=== PATIENT | female | born 2000 | race Caucasian/White ===

== ENCOUNTER 2023-02-27 20:49 | Outpatient (REF) | payer OTHER, SELFPAY ==
[2023-03-06 10:10] LABS: Age Gdln ACOG Testing Note (.); IGP, rfx Aptima HPV ASCU Note (.)
== END 2023-02-27 20:50 | disposition home or self-care (01) ==
LOC: LAB 20:49
PROVIDERS: Visit Provider Obstetrics & Gynecology
DX: Z01.419 Encounter for gynecological examination (general) (routine) without abnormal findings (principal)
CPT/HCPCS: G0145

== ENCOUNTER 2023-11-06 13:21 | Outpatient (OUT) | payer OTHER, SELFPAY ==
--- NOTE | 2023-11-06 | US_ITS ---
[place] [id number] Patient Name: SAMANTHA MORENO MRN: [id number] date: 2000 Sex: F Assigned Patient Location: [place] Current Patient Location: [place] Accession/Order Number: [id number] Exam Date: 11/06/2023 13:23 Report Date: 11/06/2023 14:09 At the request of: KATHERINE CARRASCO Procedure: US OB transvaginal EXAMINATION: US OB transvaginal HISTORY: Missed menses COMPARISON: No relevant comparison available. FINDINGS: Saenz intrauterine gestation Gestational sac: 2.75 cm, 7 weeks 4 days CRL: 1.45 cm, 7 weeks 6 days Yolk sac: 1.4 mm Heart rate: 158 beats minute Cervix: Closed, 4.2 cm The uterus is normal, anteverted The ovaries are normal. Right corpus luteal cyst Clinical age: 8 weeks 4 days Clinical SAULO: 06/23/2024 Ultrasound age: 7 weeks 6 days Ultrasound SAULO: 06/18/2024 US/US OB transvaginal IMPRESSION: Saenz intrauterine gestation measuring 7 weeks 6 days Electronically authenticated by: GONZALO TORRES Date: 11/06/2023 14:09
== END 2023-11-06 13:22 | disposition home or self-care (01) ==
LOC: US 13:21
PROVIDERS: PCP Student in an Organized Health Care Education/Training Program; Visit Provider Obstetrics & Gynecology
DX: Z34.91 Encounter for supervision of normal pregnancy, unspecified, first trimester (principal); Z3A.01 Less than 8 weeks gestation of pregnancy; N92.6 Irregular menstruation, unspecified
CPT/HCPCS: 76817

== ENCOUNTER 2023-11-17 14:47 | Outpatient (OUT) | payer OTHER, SELFPAY ==
[2023-11-17 15:14] LABS: Basophils Absolute Auto 0.1 10^3/uL (0.0-0.1); Basophils Percent Auto 0.4 % (0.2-2.0); Eosinophils Absolute Auto 0.1 10^3/uL (0.0-0.7); Eosinophils Percent Auto 0.8 % (0.9-7.0); Hematocrit 39.3 % (36.0-48.0); Hemoglobin 13.3 g/dL (12.0-16.0); Immature Granulocytes Abs Auto 0.03 10^3/uL (0.00-0.03); Immature Granulocytes Pct Auto 0.2 % (0.0-0.5); Lymphocytes Absolute Auto 2.5 10^3/uL (1.2-3.8); Lymphocytes Percent Auto 19.1 % (20.5-60.0); Mean Corpuscular HGB Conc 33.8 g/dL (29.9-35.2); Mean Corpuscular Hemoglobin 30.7 pg (26.7-34.0); Mean Corpuscular Volume 90.8 fL (81.0-99.0); Mean Platelet Volume 9.6 fL (9.5-13.5); Monocytes Absolute Auto 0.7 10^3/uL (0.3-0.8); Monocytes Percent Auto 5.3 % (1.7-12.0); Neutrophils Absolute Auto 9.8 10^3/uL (1.4-6.5); Neutrophils Percent Auto 74.2 % (43.0-75.0); Platelet Count 319 10^3/uL (150-450); Red Blood Count 4.33 10^6/uL (4.20-5.40); Red Cell Distribution Width 13.1 % (11.0-15.0); White Blood Count 13.2 10^3/uL (4.0-11.0)
--- OUTSIDE RECORDS SUMMARY | 2023-11-17 15:14 | XMS_ITS | CCD ---
Author Organization [facility] Care Team Providers Care Home Administrator Name Role Phone DR KATHERINE CARRASCO Consulting Unavailable DR KATHERINE CARRASCO Attending Unavailable DR KATHERINE CARRASCO Admitting Unavailable LILLIAN COHEN Primary Care Physician LILLIAN COHEN Unavailable LILLIAN COHEN Admitting Unavailable LILLIAN COHEN Attending Unavailable Brook Levin Attending Unavailable LILLIAN COHEN Attending Unavailable KATHERINE CARRASCO Attending Unavailable Medications Current Medications Medication Drug Class(es) Dates Sig (Normalized) Sig (Original) cetirizine hydrochloride 10 mg oral tablet (1 source) Histamine-1 Receptor Antagonist Start: 05-16-2021 cetirizine 10 mg Tab Refills(s) 0 Start Date: 05/16/21 Status: Ordered {21 (Ethinyl Estradiol 0.035 MG / norgestimate 0.25 MG Oral Tablet) / 7 (Inert Ingredients 1 MG Oral Tablet) } Pack [[place]ah 28 Day] (1 source) Progestin, Estrogen Start: 04-13-2019 [place] 0.25 mg-35 mcg oral tablet Refill(s) 0 Start Date: 04/13/19 Status: Ordered Flonase 0.05 mg/inh nasal spray (1 source) Start: 02-24-2018 take 1 spray(s) nasal route once daily Flonase 0.05 mg/inh nasal spray 1 spray(s), Nasal, Daily, 16 gram, Refill(s) 0, each nostril Start Date: 02/24/18 Status: Ordered Problems Active Problems Problem Classification Problem Date Documented Date Episodic/Chronic Immunizations and screening for infectious disease (1 source) Encounter for screening for human papillomavirus (HPV); Translations: [ENC SCREENING HUMAN PAPILLOMAVIRUS] Onset: 02-04-2022 Episodic Other screening for suspected conditions (not mental disorders or infectious disease) (5 sources) Encounter for screening for malignant neoplasm of cervix; Translations: [No current problems or disability] Onset: 01-30-2022 Episodic Past or Other Problems Problem Classification Problem Date Documented Da te Episodic/Chronic Asthma (1 source) Asthma 12-21-2011 Results Test Name Value Interpretation Reference Range Facility Coding Summary.on 03-05-2022 Coding Summary. [id number] G h0bWw+PGhlYWQ+DV0GHXZ fW51hhAYglD9TO0jOHW6G IHBWOXCKQY3NZY0mjWA1V EdnC7SymgKi TvrrsRHqWT32EWw9TYV8o UwiPGvpaZ1njVZvJ5a2Fv GgFP45sY13CMjiOTDfPpI 3LjZpbjsgbWFy S7vnKhPzyRNyNyp+PHRhY mxlIHdpZHRoPScxMDAlJy AoiBgzSG0fDy0dSHTnLYK vbGxhcHNlOiBj q4mlJEJrFEjhJO1pmAsiU 4KbmUT4HJJdn8y3Jn70qB I+GARdYAI9pHnvWEjvb99 3ZyXbh4ocJDM9 jILdJVrcCFH4B26ti3O6R QFbBTQkRYS6aNV7vZ7zfI ckoisaW9MttTYhEgM2PPF 9gZVsgU6fpXni qwvefK7iXms+E14HNF4IP YDSBB0FMjy2P1NtMjunnE I+CS54KXZpRF29zWMxfVI qe7jfsEo3TxAd ZYDwMZG4lPvjZSghy2ZfC XWuH73rsNKxy4W8BRLlkV dzbIDfPuJttJC1pZ1zKXq ilyrae5nocnxs Clguh2awkm88sB68A45bK AdmRTMqZWM7LRYlSDPiwM stjp8jgB8jAn1+JXoqm7o je9lxyEm2KhYs NRBhrsQhdVqjKUF2g4ZhS t26G1JdoDkwr2UbKfm8vv 64bHVat4F0aCD3WCjnHRU uhG4rEZrpVuJ8 ZMFbTcHkaD21yWSyBZgjJ h7hrWlblBqeOD1bVUQyuo lgUHCnaV1qDLVwqDHxsXw zSR9dXBSbhagj i640EtZlFAU4NPQyfIXnT 5FirF8xPjXdXJAuOWKyY8 YsuGImAZavX097NPmyDoO 2FNGmmoZpO5Dz FKChoFwmAqR9m1K8Vr0Po 1QkafigBBB0TRgcILIiXf I4JqIrOlP4D9WtRpk3LLS lsLtgTU2vF3Bi NIBvnwyieyibjAU9ESHcU GGowO01rPQiQZwxGo1yn1 O1g939PRSoFYClqF88Ta0 udDogMTBwdCBU zQ1xbwzyb4ajgpxvNfUzC ZFzMUb8ZJx8SNAcrCjxSr YjGMU4MmM3MYI1iQHmnO7 beKsexqhmlP4g Oyc+V38hkT5iKTN1GXK2j baeTXZdvkQsJQ91YH78U8 RyPjwvdGFibGU+PGRpdiB koViyGR8rMfPx t6wlt2FoWIiyB4RyMRUhA VuyCkt0XYZiAHA2hRL2lD 9oHKSkYIbrv0E9qDL0Z5P xmzEqcz2mf5vw YOCfWJfwJ20heJAtp6Z5K QQeiYR4NDMtiGwwNtTllS 93Oyc+DEJnrYspz5KmPly bz6wau7oghSf4 DsGdJSYzefZwtBbqRXW6l 0JlJg08T13qNBmjJTUxDG XjJHXqCAFpdMklea8tjF5 wIi8+PGNvbCB3 xZB6iK4hKRXxArY0DLhbI 886QrThiYEbOkjrn9uke7 smgOt4LpBsQREhobKxaEy mRKI9a4HpIz73 Q83rUMqpFGTjVSVjWPGwQ SMpxBkddr7hfB6sLt4+PC 6xd2qllf64oK48xJA+PHR zXDT5zQnwOOiu OBRpnZ6oLEypCuE1QGZiV hPadX20nMRuJSgqKo0ioR xpbCkpQX0jEOIhfkbwa37 9YxYuw7fyODPt zZNzPCajCYD5G27yi4M2W AEqXKZmWEY2sYO2pZ8ceP lnbjogbGVmdDsgdmVydGl qDJjjNDikP060 IHRvcDsnPlBhdGllbnQgT tUvUMg9T1KuCuz4QAVpvK oaHK4ieXBuULjdOh8qgPf zlFqxVH5eFDKc pxllc477JyDzs7otWXZfd EOjZWmaZGG3K06jd7H3KF QlFNTjDMD3hFG8dM1zcCf nbjogbGVmdDsg mfOebBxtPTbgIWzeP295A HRvcDsnPkJpcnRoIERhdG O9MV42PS73yIGvt4W3rOI 8P7IsGOThcbdu utwdtIX0WAZfQOIdoJ01X f0oxTvjWd8qNWEbIHS3UX HhiTGoJ3XvyP4bTaFgKKI sLTTwT9CchDAf NFqmP618NTpvQoJ7LFZfk vFsD5AbNEBzxVmjYcA8t0 I3Dn4CP8I3MK80HG97oMG wy1V7lCJ0Z2Dm KJBqibllfwehrVM2UNJmC GQtaN87Nh3pjTmqPr7zUD ReTFH0VGEsrBWsO6DjeM0 yOiAjMDAwMDAw F1QwlEZnKPgyD252BJqaH eT2OMUnwhPjN0MsJYWqwE smMnF3d6S4Go8YHDc7FK2 1TC91iFEbt0H7 gWH1L7QxGDGikimrzmuub TJ9ARRuBKAxgY55Jj0siO iwSd7pTXLbZRD8SQCmwKX mJ3VyiE8zVsIb RKEpNJKqO5WzaCDeAQtlG 945XWxdQwG4OIVkoiFrR3 NwMSLxvCmhQuF6l2A1Kg8 YBHOcXQ80TLX0 sMH6DU06QI54P5LoAgffn GFibGU+PHRhYmxlIHdpZH RoPScxMDAlJyBzdHlsZT0 oMj6bIFSgWEOq fVqdzJLjHsSqd3hsKUHpG YnhPK0dnPmsA0YtnJT2PX Epf5n6Ju28R65sR7QzyNY +CMFheEI0wMB6 gO4xOdYfFeB8RYydJ007N yHirXQmOcilr6pld6sflH q2YcH9HIYydbXdcCgnUAI 6o1JzVx82Q51a IHdpZHRoPSIxNSUiIHZhb Zxxzj6rjU7sJe4+PGNvbC Y8lQT3sF0uGaUtEbS7EVz mA738ZfXamDWi Axxtf9rtb0otfYy3IjNkQ AZovoUfnAyzNOX1y3WzXq 88Q7UlzTjdf6McUcv5vy9 2kXWuu5W5gBA9 S9LuIOWikgvnyMXhbFgzJ M4dDMPsfvbtMETomO9zTQ NaJ1s4MjPrJeV8ZLubV9W wbyL6VONheYPb CKbiJIK2T49kt4X2BKGjP ZOvNLF0dKW7gJ6wmQrjkn ogbGVmdDsgdmVydGljYWw tRJsbW138BYYn wJnoRCRigY2eZMJblIFfk HhuEK3gXSAvsukeEmMMWv KBZOHLM7SVWMV4P6HjChh 3QSTpeXyjEJ0f zHVsZUgkBd2yzFwkhNiqC X7uJZHgfxkbSVBmmY0fUX RzkBXipWveBR7gVFUbcdy po552IsJiCZB3 GCEjhLUtT6OshW0aBrYdG QIuIJSbI8OsnDZgZNziI5 48NEdoAyS0NDRqlvEqG8F sLWFsaWduOiB0 d9P6Cx1kZB7uBY9eHMj9R X69NV26xYRzs3L7cMY3M8 SgFISgcwirolrqjNO0ZZY nNKXicS57yWKp WLanYo3uy4F8i919LFVqJ TAjrX25Nf0piWtvKCQzzC UMrK0qhuwps2nckiiaPkX wNXDbFSb4UVm5 BGWrzOaySoBhNNX1YmZ9I ZX6fMYymM6zkWgfkmbdkH 9wOyc+UqSmZFArkbT5O3S zMfo6EPAsaLsi RH2wrEFjFLdkFj0yhEpab NjpTO5uTKAcvskrIZRpkJ 0rYAIlzLXfcQycIS2tCMK rgiyml440UfIm MTQ1ZDCqtLKdI0PyfD9eK lTdDTPnIAHpA9UndHSlIZ ueS137TUjmKsP4XTTyvrV lR7ImPYKhtLlx LzL6h0I5Dz5JIP2avWA0B 5KuNss2IGAqhOhjZY3prN CiGCqaXy8qlOphbLlkPE8 wNTBpbjtwYWRk nI9dNFBdpWBplKngCU6wP ABbxumxa916ZxJrYFD5VV TaeDQlQ8OiaK9oOuJkKNJ gWFQpT9SgeRZd GNzvS897GCncQcQ3CFYyr sOxA0ZqDCFrxNzaLpT3z3 C2Wy1PfTKvFXAnKF62ZS3 4ZD60Q0XqZmxv dGFibGU+PHRhYmxlIHdpZ HRoPScxMDAlJyBzdHlsZT 8bZd4cWKIdKZSdeBgirAJ xObLkk3uiGXLs FLwzUI1noQlsM0JcyAE7O RNfj4k8Hp48U23gA2NwkO A+VPCpeEF8vSF0yO8rVoZ tRyN1VNdmE454 StGiwDRyDpvft3xdy3dcz Qe0QbMyIMXkdcNmmQxbJA Z7q0HbPj73D66kROhwFAO oPSIyMCUiIHZh eMmvqy4egX2uXa4+PGNvb KW6rAT2rK6rMgTvImJ0FZ uoZ820OlGbsKIcTrpsW21 rS7QarMW+PHRy Emt1KEFpyLbvXJ4whCVcL SoqOz3aSXY8IcGvMxWiJX vnP6UwDZWqqeqhfjeeaXM 1UBXnBFNncN72 Bz9gbVnfHq3cPDYdEUF3T WTztVUaB6ShrH5vVfIsNW ScJRPmZ3XmoFHcJEthE54 5LQaxUtS6NRGc dfBtX8KeKMUevVboOtE5d 5R3Bt9UyKwwoWVnJL9tLf FlUJs8K4RoJiz7OZNfeQo jLM4opVFeKYef Bh0akTgdzEbkJD0dYKTjf pirx802QoTbc4vwDZUhaR CnJLarCZZ7F92lv5K7VYW zHBHqPMA7cVP8 sL5giBjcrklhjHUygFjdo vVhzRmxFJgrIPsoO499KY CchAnfRyYZLup7I9BuEbq 7HPAefOcjFF4j fLHnHTayYf1toLqddShcC Y4dBFSiwtuyw585TySlx4 ewIQFsoYYpWTasLEA4T69 oq5X2ZTSbMBCe ULQ5iUT1xV1kwYfxnwcxr GVmdDsgdmVydGljYWwtYW ceE441IADufZqoUc2NBci 8K3RmTgc1GZIv eGljBW4gcSKpWTmvJs1tv LgutKriDM6dMQHaphayj4 34KsFpq7elNTDpoFYvHWh oUKG1U01kl4N3 MZBvAANxXUV9mBE4hZ3ek GlnbjogbGVmdDsgdmVydG ufVZmkKHncH892UBZjiAs nPlBheWVyOjwv dGQ+BO55dl93N7WaWjroZ bn2IBAaYEV3zRM5dG4lPB GgDLqla0B3lND3H5BfkyM qjh8rj5ahIDXa ZTog (more content not included)... Normal [facility] Auto Diffon 02-28-2022 Basophils/100 WBC (Bld) 0.8 % Normal 0.0-2.0 [facility] Comment on above: Order Comment: Order Added by Discern Expert. Performed By: #### 2 675146, 1164729, 2838459, [id number] #### [facility] [address] [place] [address] Basophils/Leukocytes Auto (Bld) [Pure # fraction] 0.1 E9/L Normal 0.0-0.2 [facility] Comment on above: Order Comment: Order Added by Discern Expert. Performed By: #### 2 816519, 1252255, 6203303, [id number] #### [facility] [address] [place] [address] Eosinophils/100 WBC (Bld) 3.5 % Normal 0.0-8.0 [facility] Comment on above: Order Comment: Order Added by Discern Expert. Performed By: #### 2 227815, 3601454, 6533639, [id number] #### [facility] [address] [place] [address] Eosinophils/Leukocytes Auto (Bld) [Pure # fraction] 0.2 E9/L Normal 0.0-0.5 [facility] Comment on above: Order Comment: Order Added by Discern Expert. Performed By: #### 2 023602, 5651577, 7232283, [id number] #### [facility] [address] [place] [address] Lymphocytes/100 WBC (Bld) 30.8 % Normal 14.0-50.0 [facility] Comment on above: Order Comment: Order Added by Discern Expert. Performed By: #### 2 188108, 0413023, 5543481, [id number] #### [facility] [address] [place] [address] Lymphocytes/Leukocytes Auto (Bld) [Pure # fraction] 2.1 E9/L Normal 1.0-4.0 [facility] Comment on above: Order Comment: Order Added by Discern Expert. Performed By: #### 2 722042, 2264804, 0063855, [id number] #### [facility] [address] [place] [address] Monocytes/100 WBC (Bld) 4.3 % Normal 4.0-14.0 [facility] Comment on above: Order Comment: Order Added by Discern Expert. Performed By: #### 2 922927, 9094758, 1706338, 13012699 #### [facility] [address] [place] [address] Monocytes/Leukocytes Auto (Bld) [Pure # fraction] 0.3 E9/L Normal 0.2-1.0 [facility] Comment on above: Order Comment: Order Added by Discern Expert. Performed By: #### 2 430080, 7573777, 1323415, [id number] #### [facility] [address] [place] [address] Neutrophils/100 WBC (Bld) 60.6 % Normal 36.0-75.0 [facility] Comment on above: Order Comment: Order Added by Discern Expert. Performed By: #### 2 184157, 3231870, 1000570, [id number] #### [facility] [address] [place] [address] Neutrophils/Leukocytes Auto (Bld) [Pure # fraction] 4.1 E9/L Normal 2.0-7.5 [facility] Comment on above: Order Comment: Order Added by Discern Expert. Performed By: #### 2 439391, 2436783, 5073080, [id number] #### [facility] [address] [place] [address] CBC w/ Auto Diffon Erythrocyte distribution width (RBC) [Ratio] 13.3 % Normal 10.9-14.2 [facility] Comment on above: Performed By: #### 2 850603, 5012052, 8772752, [id number] #### [facility] [address] [place] [address] Hematocrit (Bld) [Volume fraction] 43.5 % Normal 34.0-46.0 [facility] Comment on above: Performed By: #### 2 880335, 7116485, 8816938, 64331246 #### [facility] [address] [place] [address] Hemoglobin (Bld) [Mass/Vol] 14.4 g/dL Normal 12.0-16.0 [facility] Comment on above: Performed By: #### 2 582041, 0741625, 5934466, 82663823 #### [facility] [address] [place] [address] MCH (RBC) [Entitic mass] 29.5 pg Normal 27.0-34.0 [facility] Comment on above: Performed By: #### 2 871240, 2849156, 4151721, 79003092 #### [facility] [address] [place] [address] MCHC (RBC) [Mass/Vol] 33.0 g/dL Normal 31.4-36.0 [facility] Comment on above: Performed By: #### 2 970829, 2699473, 2668129, 50481656 #### [facility] [address] [place] [address] MCV (RBC) [Entitic vol] 89.3 fL Normal 80.0-100.0 [facility] Comment on above: Performed By: #### 2 261781, 0105260, 4776391, 69371141 #### [facility] [address] [place] [address] Platelet mean volume (Bld) [Entitic vol] 7.9 fL Normal 6.4-10.8 [facility] Comment on above: Performed By: #### 2 260094, 0072606, 1912971, 80383954 #### [facility] [address] [place] [address] Platelets (Bld) [#/Vol] 328.0 E9/L Normal 150.0-500.0 [facility] Comment on above: Performed By: #### 2 039070, 4989224, 3139502, 02768050 #### [facility] [address] [place] [address] RBC (Bld) [#/Vol] 4.9 E12/L Normal 4.3-5.9 [facility] Comment on above: Performed By: #### 2 248006, 6442449, 6329178, 54900299 #### [facility] [address] [place] [address] WBC corrected for nucl RBC Auto (Bld) [#/Vol] 6.7 E9/L Normal 4.0-11.0 [facility] Comment on above: Performed By: #### 2 543357, 0322902, 8068740, 15510381 #### [facility] [address] [place] [address] CHEMISTRYOrdered By: SYSTEM SYSTEM on 02-28-2022 Albumin [Mass/Vol] 4.0 g/dL Normal 3.3 - 5.0 gm/dL [facility] Albumin/Globulin [Mass ratio] 1.1 {ratio} Normal 1.1 - 2.2 [facility] ALP [Catalytic activity/Vol] 51 [iU]/d Normal 21 - 98 Int._Unit/L [facility] ALT No additional P-5'-P [Catalytic activity/Vol] 34 [iU]/d Normal 6 - 46 Int._Unit/L [facility] Anion gap [Moles/Vol] 10 mmol/L Normal 6 - 16 mEq/L [facility] AST [Catalytic activity/Vol] 27 [iU]/d Normal 5 - 43 Int._Unit/L [facility] Bilirubin [Mass/Vol] 0.4 mg/dL Normal 0.0 - 1 .1 mg/dL [facility] Calcium [Mass/Vol] 9.1 mg/dL Normal 8.9 - 11. 1 mg/dL [facility] Chloride [Moles/Vol] 104 mmol/L Normal 101 - 1 11 mmol/L [facility] CO2 [Moles/Vol] 25 mmol/L Normal 21 - 31 mmol/L [facility] Creatinine [Mass/Vol] 0.8 mg/dL Normal 0.5 - 1.3 mg/dL [facility] GFR/1.73 sq M.predicted among blacks MDRD (S/P/Bld) [Vol rate/Area] mL/min/1.73 m2 Normal >=59mL/min/1. 73 m2 [facility] S GFR/1.73 sq M.predicted among non-blacks MDRD (S/P/Bld) [Vol rate/Area] mL/min/1.73 m2 Normal >=59mL/min/1. 73 m2 [facility] S Globulin (S) [Mass/Vol] 3.6 g/dL Normal 1.4 - 4.0 gm/dL [facility] Glucose [Mass/Vol] 95 mg/dL Normal 55 - 199 mg/dL [facility] Potassium [Moles/Vol] 4.4 mmol/L Normal 3.5 - 5.3 mmol/L [facility] Protein [Mass/Vol] 7.6 g/dL Normal 6.0 - 7.8 gm/dL [facility] Sodium [Moles/Vol] 135 mmol/L Normal 135 - 145 mmol/L [facility] Urea nitrogen [Mass/Vol] 12 mg/dL Normal 5 - 21 mg/dL [facility] Urea nitrogen/Creatinine [Mass ratio] 15 mg/mg Normal 10 - 20 [facility] CMPon 02-28-2022 Albumin [Mass/Vol] 4.0 g/dL Normal 3.3-5.0 [facility] Comment on above: Performed By: #### 2 292866, 8482921, 4624757, 85361644 #### [facility] [address] [place] [address] Albumin/Globulin (S) [Mass conc ratio] 1.1 Normal 1.1-2.2 [facility] Comment on above: Performed By: #### 2 839982, 8045342, 7694696, 63483785 #### [facility] [address] [place] [address] ALP [Catalytic activity/Vol] 51 Int._Unit/L Normal 21-98 [facility] Comment on above: Performed By: #### 2 983347, 7638388, 0425798, 88668777 #### [facility] [address] [place] [address] ALT No additional P-5'-P [Catalytic activity/Vol] 34 Int._Unit/L Normal 6-46 [facility] Comment on above: Performed By: #### 2 668626, 7742408, 8255217, 01681398 #### [facility] [address] [place] [address] Anion gap [Moles/Vol] 10 mmol/L Normal 6-16 [facility] Comment on above: Performed By: #### 2 331391, 1578807, 8195291, 84672345 #### [facility] [address] [place] [address] AST [Catalytic activity/Vol] 27 Int._Unit/L Normal 5-43 [facility] Comment on above: Performed By: #### 2 767324, 5954510, 8117598, 85930867 #### [facility] [address] [place] [address] Bilirubin [Mass/Vol] 0.4 mg/dL Normal 0.0-1.1 [facility] Comment on above: Performed By: #### 2 434630, 6107412, 1652172, 87636083 #### [facility] [address] [place] [address] Calcium [Mass/Vol] 9.1 mg/dL Normal 8.9-11.1 [facility] Comment on above: Performed By: #### 2 235663, 9975254, 6986492, 40941680 #### [facility] [address] [place] [address] Chloride [Moles/Vol] 104 mmol/L Normal 101-111 [facility] Comment on above: Performed By: #### 2 094089, 7910355, 9405293, 62516973 #### [facility] [address] [place] [address] CO2 [Moles/Vol] 25 mmol/L Normal 21-31 [facility] Comment on above: Performed By: #### 2 057070, 0231201, 0643693, 65938594 #### [facility] [address] [place] [address] Creatinine [Mass/Vol] 0.8 mg/dL Normal 0.5-1.3 [facility] Comment on above: Performed By: #### 2 273831, 2727858, 1032574, 68740132 #### [facility] [address] [place] [address] Globulin (S) [Mass/Vol] 3.6 g/dL Normal 1.4-4.0 [facility] Comment on above: Performed By: #### 2 626870, 2705810, 9734736, 06792807 #### [facility] [address] [place] [address] Glucose [Mass/Vol] 95 mg/dL Normal 55-199 [facility] Comment on above: Result Comment: If t his glucose result represents a fasting glucose, interpretation should refer to the following reference range: 55-99 mg/dL Performed By: #### 2 947203, 2150841, 8466897, [id number] #### [facility] [address] [place] [address] Potassium [Moles/Vol] 4.4 mmol/L Normal 3.5-5.3 [facility] Comment on above: Performed By: #### 2 090981, 7760445, 5547077, 16882720 #### [facility] [address] [place] [address] Protein [Mass/Vol] 7.6 g/dL Normal 6.0-7.8 [facility] Comment on above: Performed By: #### 2 836519, 9143612, 5869397, 03851828 #### [facility] [address] [place] [address] Sodium [Moles/Vol] 135 mmol/L Normal 135-145 [facility] Comment on above: Performed By: #### 2 437354, 8169998, 8054542, 26183280 #### [facility] [address] [place] [address] Urea nitrogen [Mass/Vol] 12 mg/dL Normal 5-21 [facility] Comment on above: Performed By: #### 2 142564, 1310607, 5976948, 39257815 #### [facility] [address] [place] [address] Urea nitrogen/Creatinine [Mass ratio] 15 No Units Normal 10-20 [facility] Comment on above: Performed By: #### 2 599802, 8554017, 5320961, 14035193 #### [facility] [address] [place] [address] HEMATOLOGYOrdered By: SYSTEM SYSTEM on 02-28-2022 Basophils/100 WBC (Bld) 0.8 % Normal 0.0 - 2.0 % [facility] Basophils/Leukocytes Auto (Bld) [Pure # fraction] 0.1 E9/L Normal 0.0 - 0.2 E9/L [facility] Eosinophils/100 WBC (Bld) 3.5 % Normal 0.0 - 8.0 % [facility] Eosinophils/Leukocytes Auto (Bld) [Pure # fraction] 0.2 E9/L Normal 0.0 - 0.5 E9/L [facility] Lymphocytes/100 WBC (Bld) 30.8 % Normal 14.0 - 50.0 % [facility] Lymphocytes/Leukocytes Auto (Bld) [Pure # fraction] 2.1 E9/L Normal 1.0 - 4.0 E9/L [facility] Monocytes/100 WBC (Bld) 4.3 % Normal 4.0 - 14.0 % [facility] Monocytes/Leukocytes Auto (Bld) [Pure # fraction] 0.3 E9/L Normal 0.2 - 1.0 E9/L [facility] Neutrophils/100 WBC (Bld) 60.6 % Normal 36.0 - 75.0 % [facility] Neutrophils/Leukocytes Auto (Bld) [Pure # fraction] 4.1 E9/L Normal 2.0 - 7.5 E9/L [facility] HEMATOLOGYOrdered By: Hayden Pozo on 02-28-2022 Erythrocyte distribution width (RBC) [Ratio] 13.3 % Normal 10.9 - 14.2 % [facility] Hematocrit (Bld) [Volume fraction] 43.5 % Normal 34.0 - 46.0 % [facility] Hemoglobin (Bld) [Mass/Vol] 14.4 g/dL Normal 12.0 - 16.0 gm/dL [facility] MCH (RBC) [Entitic mass] 29.5 pg Normal 27.0 - 34.0 pg [facility] MCHC (RBC) [Mass/Vol] 33.0 g/dL Normal 31.4 - 36.0 gm/dL [facility] MCV (RBC) [Entitic vol] 89.3 fL Normal 80.0 - 100.0 fL [facility] Platelet mean volume (Bld) [Entitic vol] 7.9 fL Normal 6.4 - 10.8 fL [facility] Platelets (Bld) [#/Vol] 328.0 E9/L Normal 150.0 - 500.0 E9/L [facility] RBC (Bld) [#/Vol] 4.9 E12/L Normal 4.3 - 5.9 E12/L [facility] WBC corrected for nucl RBC Auto (Bld) [#/Vol] 6.7 E9/L Normal 4.0 - 11.0 E9/L [facility] Physician Orderon 02-28-2022 Physician Order [id number]# 1.00CD:127 Normal [facility] eGFRon 02-28-2022 GFR/1.73 sq M.predicted among blacks MDRD (S/P/Bld) [Vol rate/Area] mL/min/{1.73_m2} Normal >=59 [facility] Comment on above: Order Comment: Order added by Discern Expert. Result Comment: eGFR is race adjusted. AA=. Performed By: #### [id number] #### [facility] [address] [place] [address] GFR/1.73 sq M.predicted among non-blacks MDRD (S/P/Bld) [Vol rate/Area] mL/min/{1.73_m2} Normal >=59 [facility] Comment on above: Order Comment: Order added by Discern Expert. 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 Kidney failure is indicated at less than 15 mL/min/1.73m2. Performed By: #### [id number] #### [facility] [address] [place] [address] PAP ACOG PANEL 2: 21 to 29on 02-08-2022 . . Normal [facility] Comment on above: Performed By: #### [id number] #### [facility] [address] [place] [address] Dr. Dennise Cronin Age Gdln ACOG Testing 20- Normal [facility] Comment on above: Performed By: #### [id number] #### [facility] [address] [address] [address] Dennise Cronin DIAGNOSIS: Comment Normal [facility] Comment on above: Result Comment: NEGA TIVE FOR INTRAEPITHELIAL LESION OR MALIGNANCY. Performed By: #### [id number] #### [facility] [address] [address] [address] Dennise Cronin Methodology: Comment Normal [facility] Comment on above: Result Comment: This liquid based ThinPrep(R) pap test was screened with the use of an image guided system. Performed By: #### [id number] #### [facility] [address] [place] [address] Dr. Dennise Cronin Note: Comment Normal [facility] Comment on above: Result Comment: The Pap smear is a screening test designed to aid in the detection of premalignant and malignant conditions of the uterine cervix. It is not a diagnostic procedure and should not be used as the sole means of detecting cervical cancer. Both false-positive and false-negative reports do occur. . Performed By: #### [id number] #### [facility] [address] [place] [address] Dr. Dennise Cronin Performed by: Comment Normal [facility] Comment on above: Result Comment: Haja Pisano Arabic Translator (ASCP) Performed By: #### [id number] #### [facility] [address] [place] [address] Dr. Dennise Cronin Reflex Criteria: Comment Normal [facility] Comment on above: Result Comment: The HPV DNA reflex criteria were not met with this specimen result therefore, no HPV testing was performed. . Performed By: #### [id number] #### [facility] [address] [place] [address] Dr. Dennise Cronin Specimen adequacy: Comment Normal [facility] Comment on above: Result Comment: Sati sfactory for evaluation. Endocervical and/or squamous metaplastic cells (endocervical component) are present. Performed By: #### 4 [id number] #### [facility] [address] [place] [address] Dr. Dennise Cronin Family Medicine Office/Clini c Noteon 05-16-2021 Family Medicine Office/Clinic Note Chief Complaint EST patient presents for back pain and cough/ fever HPI Staff Samantha is a 21 year old female who presents for fever and cough/ back pain. 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 While moving will see chiropractor in up coming days. States pain is 8/10. Pain does radiate down the leg denies any numbness/ tingling or urinary symptoms. History of Present Illness Pt presents today in office with complaints of sinus pressure, body aches, fatigue, congestion, runny nose, sore throat, chest tightness, shortness of breath, nausea, fever/chills x 4 days. Pt has been using Dayquil for symptom relief. 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 Pt is also reporting back pain x 1 month. Pt states that she has history of hip issues. Pt states that this pain occurred when she was moving/packing/liftin g heavy objects and has since gotten worse. Pt states that the pain is 8/10 today. Pt states that the pain is constant and radiates down her leg. Pt has not been using OTC treatments for this issue. She states that she has appointment with Chiropractor on Friday. She denies numbness/tingling, bowel/bladder issues. Review of Systems PHQ Score Initial Depression Screen Score: 0 Physical Exam Vitals & Measurements T: 37.3 ?C(Oral) HR: 117(Peripheral) BP: 122/76 SpO2: 97% HT: 165 cm HT: 165.0 cm WT: 83.8 kg WT: 83.8 kg BMI: 30.78 General: alert and oriented, no acute distress, looks well, well nourished Face: normal, symmetrical movements HEENT: Head: normocephalic, atraumatic, Ears: TMs intact and non-erythematous, Nose: congestion, turbinates swollen, no sinus tenderness, Throat: pharynx erythematous, post nasal discharge, no exudate on tonsils, tonsils normal (1+), uvula midline Neck: nontender, full ROM, no vertebral tenderness or bony abnormalities palpated Heart: regular rate and rhythm Chest: normal shape and expansion Lungs: clear to auscultation Neuro: speech clear and coherent, coordination and gait normal Skin: visible skin warm, dry, intact Extremities: active ROM of bilateral upper and lower extremities, muscle strength strong and equal in BUE, BLE Peripheral Pulses: normal (2+) bilaterally x 4 extremities Back: back is symmetrical, full ROM of back with increase in pain with flexion and rotation, no obvious deformities, no bony abnormalities or masses palpated, no vertebral tenderness, muscle spasm palpated of right lumbar, BLE muscle strength strong, BLE sensation intact, gait normal, hips symmetrical Assessment/Plan 1. Strain of lumbar region (S39.012A: Strain of muscle, fascia and tendon of lower back, initial encounter) Discussed diagnosis with patient. Advised patient to take medications as directed. Reviewed side effects of steroid, advised to finish entire course. Advised to use muscle relaxer at night time as it may cause drowsiness. Warm compress, light stretches, and massage may also help with pain. Avoid strenuous activity, perform activity as tolerated, do not stay stationary for long periods of time as it might make symptoms worse. May use Lidocaine patch as needed, Tylenol as needed in addition for pain. Follow up with PCP in 1 week if symptoms do not improve. Immediate eval if chest pain, shortness of breath, fever, numbness or tingling, loss of bowel or bladder control, pain becomes severe, difficulty moving neck, back, arms or legs, dizziness, headache, or any other new or concerning symptoms. Patient verbalizes understanding and is agreeable to treatment plan. Ordered: cyclobenzaprine, 5 mg = 1 tab(s), Oral, Daily, to use at nighttime, X 7 day(s), # 7 tab(s), Refills(s) 0, Pharmacy: [facility], 165, cm, 05/16/21 17:09:00 EST, Height/Length Dosing, 83.8, kg, 05/16/21 17:09:00 EST, Weight Dosing lidocaine topical, 1 patch(es), Topical, Daily for 7 day(s), 7 patch(es), Refill(s) 0, apply 12 hours on and 12 hours off daily, [facility], 165, cm, 05/16/21 17:09:00 EST, Height/Length Dosing, 83.8, kg, 05/16/21 17:09:00 EST, Weight Dosing methylPREDNISolone, = 1 packet(s), Oral, As Directed, as directed on package labeling, X 6 day(s), # 21 tab(s), Refills(s) 0, [facility] [address], 165, cm, 05/16/21 17:09:00 EST, Height/Length Dosing, 83.8, kg, 05/16/21 17:09:00 EST, Weight Dosing 2. Viral URI with cough (J06.9: Acute upper respiratory infection, unspecified) Advised patient that Influenza A/B was negative today in office. Discussed sreekanth (more content not included)... [facility] Comment on above: Result Comment: Elec tronically Signed By: Brook Etienne\.br\Date and Time Signed: 05/16/21 18:24 EST Patient Educationon 05-17-19 Patient Education Orthopedics Back Injury Prevention Back injuries can be very painful. They can also be difficult to heal. After having one back injury, you are more likely to have another one again. It is important to learn how to avoid injuring or re-injuring your back. The following tips can help you to prevent a back injury. What actions can I take to prevent back injuries? Nutrition changes Talk with your health care provider about your overall diet, and especially about foods that strengthen your bones. ? Ask your health care provider how much calcium and vitamin D you need each day. These nutrients help to prevent weakening of the bones (osteoporosis). Osteoporosis can cause broken (fractured) bones, which lead to back pain. ? Eat foods that are good sources of calcium. These include dairy products, green leafy vegetables, and products that have had calcium added to them (fortified). ? Eat foods that are good sources of vitamin D. These include milk and foods that are fortified with vitamin D. ? If needed, take supplements and vitamins as directed by your health care provider. Physical fitness Physical fitness strengthens your bones and your muscles. It also increases your balance and strength. ? Exercise for 30 minutes per day on most days of the week, or as directed by your health care provider. Make sure to: ? Do aerobic exercises, such as walking, jogging, biking, or swimming. ? Do exercises that increase balance and strength, such as rosalee chi and yoga. These can decrease your risk of falling and injuring your back. ? Do stretching exercises to help with flexibility. ? Develop strong abdominal muscles. Your abdominal muscles provide a lot of the support that your back needs. ? Maintain a healthy weight. This helps to decrease your risk of a back injury. Good posture Prevent back injuries by developing and maintaining a good posture. To do this successfully: ? Sit up and stand up straight. Avoid leaning forward when you sit or hunching over when you stand. ? Choose chairs that have good low-back (lumbar) support. ? If you work at a desk, sit close to it so you do not need to lean over. Keep your chin tucked in. Keep your neck drawn back, and keep your elbows bent at a right angle. ? Sit high and close to the steering wheel when you drive. Add a lumbar support to your car seat, if needed. ? Avoid sitting or standing in one position for very long. Take breaks to get up, stretch, and walk around at least one time every hour. Take breaks every hour if you are driving for long periods of time. ? Sleep on your side with your knees slightly bent, or sleep on your back with a pillow under your knees. Lifting, twisting, and reaching Back injuries are more likely to occur when carrying loads and twisting at the same time. When you bend and lift, or reach for items that are high up in shelves, use positions that put less stress on your back. ? Heavy lifting ? Avoid heavy lifting, especially the kind of heavy lifting that is repetitive. If you must do heavy lifting: ? Stretch before lifting. ? Work slowly. ? Rest between lifts. ? Use a tool such as a cart or a sabino to move objects. ? Make several small trips instead of carrying one heavy load. ? Ask for help when you need it, especially when moving big or heavy objects. ? Follow these steps when lifting: ? Stand with your feet shoulder-width apart. ? Get as close to the object as you can. Do not try to knot picker cloth a heavy object that is far from your body. ? Use handles or lifting straps if they are available. ? Bend at your knees. Squat down, but keep your heels off the floor. ? Keep your shoulders pulled back, your chin tucked in, and your back straight. ? Lift the object slowly while you tighten the muscles in your legs, abdomen, and buttocks. Keep the object as close to the center of your body as possible. ? Follow these steps when putting down a heavy load: ? Stand with your feet shoulder-width apart. ? Lower the object slowly while you tighten the muscles in your legs, abdomen, and buttocks. Keep the object as close to the center of your body as possible. ? Keep your shoulders pulled back, your chin tucked in, and your back straight. ? Bend at your knees. Squat down, but keep your heels off the floor. ? Use handles or lifting straps if they are available. ? Twisting and reaching ? Avoid lifting heavy objects above your waist. ? Do not twist at your waist while you are lifting or carrying a load. If you need to turn, move your feet. ? Do not bend over without bending at your knees. ? Avoid reaching over your head, across a table, or for an object on a high surface. Other changes ? Avoid wet floors and icy ground. Keep sidewalks clear of ice to prevent falls. ? Do not sleep on a (more content not included)... [facility] Provider Letteron 05-16-2021 Provider Letter May 16, 2021 [address] [address] To Whom It May Concern, Please excuse above patient from work. Date of Illness: From: 05/15/21 To: 05/18/21 May Return to Work On: 05/15/21 Restrictions: _ Comments: _ Sincerely, [facility] Encounters Encounter Date Encounter Type Care Provider Facility Start: 10-15-2023 End: 10-15-2023 ambulatory LILLIAN COHEN Not Available Start: 02-27-2023 End: 02-27-2023 ambulatory KATHERINE CARRASCO Not Available Start: 02-28-2022 End: 03-01-2022 ambulatory LILLIAN COHEN [place] [place]: 02-28-2022 End: 02-28-2022 Patient encounter procedure LILLIAN COHEN [facility] Start: 01-30-2022 End: 01-30-[address] KATHERINE CARRASCO Facility: Start: 05-16-2021 End: 05-17-2021 ambulatory Brook TiffaniPiper Levin Facility:[facility] Procedures Date Procedure Procedure Detail Performing Clinician None (qualifier value) JVAAD COHEN Payers Date Payer Category Payer Unknown [id number] 1999 Unknown [id number] 1999 Unknown [id number] 1999 Unknown [id number] 1999 Unknown [id number] 1959 Unknown [id number] Medicaid [id number] Social History Date Type Detail Facility Start: 05-16-2021 Tobacco smoking status Never s moked tobacco (finding) [facility] Tobacco smoking status Never [facility] Sex Assigned At Female [facility] Evaluation + Plan note Note Date & Type Note Facility Evaluation + Plan note No data available for this section [facility] Hospital Discharge instructions Note Date & Type Note Facility Hospital Discharge instructions No data available for this section [facility] Progress note Note Date & Type Note Facility Progress note No data available for this section [facility] Summary Purpose Family History No Family History Records FoundNo Family History Records FoundNo Family History Records Found Advance Directives No Advanced Directives Records FoundNo Advanced Directives Records FoundNo Advanced Directives Records Found Additional Source Comments INFORMATION SOURCE (unrecogn ized section and content) DATE CREATED AUTHOR 02/09/2022 [facility] DATE CREATED AUTHOR AUTHOR'S ORGANIZ ATION 03/05/2022 [facility] DATE CREATED AUTHOR AUTHOR'S ORGANIZ ATION 10/17/2023 [facility] Patient Care team informbongo n (unrecognized section and content) Personnel Name: COHEN LILLIAN JACKMAN Address: Address: [address] [place] [address] Name: LILLIAN COHEN CNP Address: Address: [address] [place] [address] FOR RECORDS PERTAINING TO PATIENTS WHO ARE OR HAVE BEEN ENROLLED IN A CHEMICAL DEPENDENCY/SUBSTANCEABUSE PROGRAM, SOME INFORMATION MAY BE OMITTED. This clinical summary was aggregated from multiple sources. Caution should be exercised in using it in the provision of clinical care. This summary normalizes information from multiple sources, and as a consequence, information in this document may materially change the coding, format and clinical context of patient data. In addition, data may be omitted in some cases. CLINICAL DECISIONS SHOULD BE BASED ON THE PRIMARY CLINICAL RECORDS. [employer] provides no warranty or guarantee of the accuracy or completeness of information in this document.
[2023-11-17 15:31] LABS: Estimated Average Glucose 91 mg/dL; Glycohemoglobin A1C 4.8 % (4.5-6.2)
[2023-11-18 06:09] LABS: HBsAg Screen Negative (Negative); HCV Ab Non Reactive (Non Reactive); HIV Ab/p24 Ag Screen Non Reactive (Non Reactive)
[2023-11-18 07:19] LABS: Rubella Antibodies, IgG 4.83 index (Immune >0.99)
[2023-11-18 13:08] LABS: Rapid Plasma Reagin, Quant Non Reactive titer (NonRea<1:1)
== END 2023-11-17 14:48 | disposition home or self-care (01) ==
LOC: LAB 14:47
PROVIDERS: PCP Student in an Organized Health Care Education/Training Program; Visit Provider Obstetrics & Gynecology
DX: Z34.90 Encounter for supervision of normal pregnancy, unspecified, unspecified trimester (principal)
CPT/HCPCS: 36415; 83036; 85025; 86592; 86762; 86803; 86850; 86900; 86901; 87086; 87340; 87389

== ENCOUNTER 2023-11-21 16:17 | Outpatient (OUT) | payer OTHER, SELFPAY ==
--- OUTSIDE RECORDS SUMMARY | 2023-11-21 16:26 | XMS_ITS | CCD ---
Author Organization 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 CD:[id number] G h0bWw+PGhlYWQ+US4NIVA yR24ozAGehH1NG5bQQB5T NMZYMZQDXF4MYN9qeHW7L BrhI0ZrutPp ZglndEYoOS63EOe0OFT9p XvsPVdkoQ9xwGIeN0q2Fw KsKL21mZ16ELoiUSQgQsS 3LjZpbjsgbWFy C5zjBgYqqLIaApt+PHRhY mxlIHdpZHRoPScxMDAlJy YbtEikNM1yYg8pFWIkXWS vbGxhcHNlOiBj q1qzCTWkJYbsRE9ggGkmO 0HfoCG5FLIjn3x9Ws74kR I+SUBaOPI5qFdlUPfdr94 7BiHmf2hrIPR0 rORmDAefNLO8F14on3E6P IUcVHKjSRY6uOS3wO9vlY xzsvinB6DocNMwWkA2UHS 3jHMpeC9uiJhp jvpptZ2xTqr+B45IOB5HC ANQYZ6PLaf8Q4XbPifkvG I+HQ31NQWbTX02zKFtkHT ts0zzeEo6IdHz NSUcMPF8yWlpMAccz2VoT DEnR76xpADbi7J1DRQizY tvgPDsFzQldUQ6dZ3eWRx wmrnoh8wfjcko Hxsmo4zxvx31gQ84K45pS QsmNGNcJAJ3FEYpFCPfhL jgfe0tgS8gFx1+VVyti0s ns5cskCh1UdDe PGEywhWhaIyjGPJ1v5DrE r24W4NmxDzln0UzYjq1aw 83qAFsm0I3qKR9YWxuEMW pqA9qRVhuArD4 EAApGrRcoD39wURuRRiiP f4yoLccyPtbKY3pTWGsgn znNBSdmU2qDSEoeILwoSk dQK2oMRAbupfa b198FmGdDFM7XAFjcJMfC 3TneQ8jAqQcATThVPJtW1 XmlQFlQAzxA724XKghFlI 4IDFwmmNgE0Af KMZqnUosHrT3p8U8Tb2Ro 0XvutcaOKU1ZLauXGDvQw C7QbBcXmB2Q4XfHck8UEO kmIhvWA2iI7Zo KLGcuitvrqoneVP7AWWoD IWdvG22aPBkOWppHd5ok9 R4h139WDPmBWVwhL99Pd1 udDogMTBwdCBU lA5zwriun4iebuyeOdEmL KLjFKv9CIp1FRPmzWrlBi TlUOT7XbK1CQI8nANjpN0 ybHmmuwbnfL9b Oyc+T33grN4oWFV4PQD3e hegYLXrzxFyXQ64OZ06F5 RyPjwvdGFibGU+PGRpdiB wpWxvFS6uLlHw i4ajb4AfVUqnV0PkFCKfX UrsOpj1MHTnDKX7bJZ9mO 8pRSVrVNhif6E6xSV0W7A hhsPtdo6la4js EGZiSIdtU17dhPPfe1E1T SDtdQT7TUAwnBqsUtDdxA 93Oyc+DSDsqYwfr2EfTca bo1tye7bvkHu0 HzAkGRWsjgIxuSstVAB2m 2QdSj08G93mMKvdRCWiJF HtRZKpWFDiqJjtxa7hkI7 wIi8+PGNvbCB3 hCI7nW1cZDVcRkK7HFioP 885PiExjKXcHxobp7syn1 tfnMp4WoUeYHAkhxMpzCr uMRA3q1SbZo65 A99rWZnvFUElVNZmVBZxL BJdePujup5rzF6mKk9+PC 9bx0ztfa74iB04cUF+PHR vUXH5cLtqEAfg FIDmqU6tJYaxUcM7WJWaV cEmuL99lRDfGCgaLd8prC bpsLtmIJ7qJRGsegmej08 0PoDju8diDURz rWJlEVvySGZ6N11ig8Y4G FOmVNCnDGU5jPI6kR9vtE lnbjogbGVmdDsgdmVydGl iOAryELzhX470 IHRvcDsnPlBhdGllbnQgT tExLGj9E1IlLej1BKVjuH mfLG4uvDXxZApyXz2lxHt akGylRF7fYSEg flxvz164HlSfr0ydDNVkh EZcTEubZAP3D43ji0Q7CW HoIZYyDMI3kAN1vV0ujVh nbjogbGVmdDsg khZorWwbGOpgYIhvB936H HRvcDsnPkJpcnRoIERhdG A2XG73VO96wYBjo5G7rJI 7X1EcDERtcyzc vbgcfVP5MPIyJRCahV94Z q9scJuvEf0iKSPxEFE3QS RwjSTuN5SfaS5yWhWkIUK dREFrO2CmhDDx QIvfF266JMnmPoG8FKSjg cKyA0QiJZTamJunBwR2a3 C0Zv5ZJ7J6HV16RD42hJS tb8D1qYJ9T9Be DSUmniwsswcouGE2GAGdG IYknE36Qy7xeCvfAm2gSO RtBWE8LIIawDLpR4YlfP3 yOiAjMDAwMDAw K0NauEDqJRufJ393KBvlN hV8THSatlJrA3ZmMVBrnY ajMwG5a9B4Uy2GLQy8TD9 9VF30bCFiw2W3 iIN8J7IhJNXodpholrkaz XF3ERFjCOFevL59Su6khT anHl5rRIStQVM1OHBvtUJ kZ1PreV7oOoIm MYNqSAJoD3ImlSKyGUkrW 779SLkrEpR6JVNgyeNkX4 HlPBYfuFyfVpW2u6H7Mw2 HYETkDI36WJC7 xKY4XU79FR04V8FwKgjln GFibGU+PHRhYmxlIHdpZH RoPScxMDAlJyBzdHlsZT0 mDg8qPXWoJYBz pUsjsPYvYuEgq0izNUUqU GufAM7okQqoA6NuiSP7CZ Pjp7r2Rl41E48nD9LkgXG +HCZasOJ7jYA8 aI3oFqIgZbO8JFkcA764K dFhzNStBqbeh2uog2bwiN s5AxV7YMAqmgBteIahDEW 1a4JlPq91M29k IHdpZHRoPSIxNSUiIHZhb Fisur7xmD4rRp8+PGNvbC Q3bKW9tQ3mXaVxLsH9FXm mI993CpUtyIPm Izrnd9zrz7eibGf2UpYlZ NYsjaDuaDvdIKJ1w6IvCo 79V4WuuVfki0DvWkx5jh0 6tNQrl7X0nAD2 I1BsSKBhcqtabTTrbLrzK P7dQKSspecjTWJgpM4wIC LjU5e5AzMpYvA0NOixF7P tuqN0GAMzsVQd BGlsYQG0A68yn6E1EGUdY BHsUHR2wFU3eB4crJubks ogbGVmdDsgdmVydGljYWw jXPqpY940BICk mVniYZMrkZ8tSWMyeAVjp JntYO3cMEVuajtkDvYKCh JYXVUBV4XCPKN8W2BtWae 3AVNvoWoqCX2i qOZyHAukEu7vwDdqqVafH Y8lXFFacbbyMFFxpY8fNH JqnVDmgCpmXG5iOKRzdjv zp407OwFqVIR5 VXFpeAMlX2HhzR3bTiFdL FAbUQIgP7XpgTFcOLweB5 27BHsqXeY0HINrixYqP2I sLWFsaWduOiB0 y1P6Za7pNC9gWP3aKOt0J P67AY50qJTei0X9dQL5M2 GhSZKnujvczfxrwXR7QMF fAAYgaR30bEEj IQvxJu3ef0T5s192YKVgN MHegM03Ag9dnIscXTRcwO AYiV8fbzbkk2htuwitWzO vLYFpOCi4PJt3 BNLuqIupRiMuTXG9JfB6X ND1cJWhaN8ejCrjwlcvjU 9wOyc+LfXvGXYvxlS9U8K nAje2UYCbaGbh VP1qfTRuKJhqYi8lgVqiz TfjKD0xQSQruordXNClfG 6oIFXeuWSyqMfuAD1vSVE lrosep387YePc QJQ5SSHsmHTsT8RgrQ2xO qRmBFWgBTDlY1IybJTcIC cuG772KHrdZmC6VPFqcsY rA3BeWPShwXsb OaS3q8W8Bq1BIE9laRF9Z 4MqGou5OPLdtOoqHT8blS AiGWyzIc2fxUgzoPxrRL3 wNTBpbjtwYWRk eW3wZULvuZQraVreQW3nR YUkofxim051OnGjSQT3VJ SjxEYfK6JlvG3dVlVmBXQ uPWQhR6XuiWCf YRijQ026MElfIkI7MNUna fRhV1DnHYNijNixTuB4i6 A6Vg6ZfLEmBFYuBG14DH1 2OE75X3VtNtyo dGFibGU+PHRhYmxlIHdpZ HRoPScxMDAlJyBzdHlsZT 3qTm7gIBQuDBRfaDzgfKS tMaKcw4sbBNYs ELfcDN9epHgjY0QriFT8Q HFpg6a3Dy34W89kN4JmkP A+ARVecXL9bCA9fN7fIaC fMhF0NUlwD800 FtNqsZTiThsxk5dzy2tml Bw7AdZfTXDlfuOsbLkwZA I7b0JrNj04G57eLBvyOYM oPSIyMCUiIHZh cPqmfs2lhD3tIf1+PGNvb XA1jSY2pF5mGqGhNxA9HB xqU874UlUzzMEgDuqyC73 fI5HszUH+PHRy Txr3YPFvnTnfAH0tdVInF OrtEc2gUEA4NnImPxKnJK bvK4SuHOXswarevhvpwAC 7HQViRGJxyJ44 Ws1mdWciBm5uLMLsPQI7V UVhlCEbF1ZjqQ7oPoRmAL IeBNFrN1EstCOoGGtmE41 7NCabTjP4LMKc knWnI1AlLMTqxQnwSnJ0e 6L6Xy5LjUlgwZAsFD6nVs XsPBu6U0IyJpt4OJCbeVg dXN6poDKgAQlm Cb3xaLdgiAboWB3zIKVtu gouc708IuNgm9gxSPEypN CmDTkwYGD9S14oe6F3XUD mUPUrBTA4cSI0 cR6agNbrjnxqyVLelRhae sLbzWhlXIbkEMqwI794MN WtlFvzViLLCsx1J2KaUph 8DMKhoKckPJ7l uQBfFItaAu3efPaoaSijE T2vRCKxwfizx729QiOji2 ywFQDvvWVwXViwUXI6R01 vf1E6IVHmBCGt GDA8xLY8nJ3jbAjcfgbsx GVmdDsgdmVydGljYWwtYW qqV914GYLskPhjHt2YOnj 6F9HlNqn5WTIo yHmcWS3ubEVdCPgnHu3ci KvbkRqsKL0yEIFneiooz9 86UuRjm7epPDUqrUHnUMl iLJY6P23xi7N8 UEPiBKVaMXG9oUZ2oL2zy GlnbjogbGVmdDsgdmVydG fpRKzdPGdcK430HUDrcIp nPlBheWVyOjwv dGQ+JF19do75Z8VoLcdbX fz3GTUyOMM5dDT1tS0iRK TkLGtdb6H3xIU5C9KoheZ jsy8hj8qyYCUk ZTog (more content not included)... Normal [facility] Auto Diffon 02-28-2022 Basophils/100 WBC (Bld) 0.8 % Normal 0.0-2.0 [facility] Comment on above: Order Comment: Order Added by Discern Expert. Performed By: #### 2 731696, 2990768, 0019815, [id number] #### [facility] [address] [place] [address] Basophils/Leukocytes Auto (Bld) [Pure # fraction] 0.1 E9/L Normal 0.0-0.2 [facility] Comment on above: Order Comment: Order Added by Discern Expert. Performed By: #### 2 629647, 3133352, 1625643, [id number] #### [facility] [address] [place] [address] Eosinophils/100 WBC (Bld) 3.5 % Normal 0.0-8.0 [facility] Comment on above: Order Comment: Order Added by Discern Expert. Performed By: #### 2 431805, 4349038, 2076316, [id number] #### [facility] [address] [place] [address] Eosinophils/Leukocytes Auto (Bld) [Pure # fraction] 0.2 E9/L Normal 0.0-0.5 [facility] Comment on above: Order Comment: Order Added by Discern Expert. Performed By: #### 2 918771, 9980053, 5085187, [id number] #### [facility] [address] [place] [address] Lymphocytes/100 WBC (Bld) 30.8 % Normal 14.0-50.0 [facility] Comment on above: Order Comment: Order Added by Discern Expert. Performed By: #### 2 802738, 9385401, 7660737, [id number] #### [facility] [address] [place] [address] Lymphocytes/Leukocytes Auto (Bld) [Pure # fraction] 2.1 E9/L Normal 1.0-4.0 [facility] Comment on above: Order Comment: Order Added by Discern Expert. Performed By: #### 2 443158, 0099469, 9854686, [id number] #### [facility] [address] [place] [address] Monocytes/100 WBC (Bld) 4.3 % Normal 4.0-14.0 [facility] Comment on above: Order Comment: Order Added by Discern Expert. Performed By: #### 2 641719, 8992260, 5720106, 93441645 #### [facility] [address] [place] [address] Monocytes/Leukocytes Auto (Bld) [Pure # fraction] 0.3 E9/L Normal 0.2-1.0 [facility] Comment on above: Order Comment: Order Added by Discern Expert. Performed By: #### 2 221849, 3714013, 4390999, 80897765 #### [facility] [address] [place] [address] Neutrophils/100 WBC (Bld) 60.6 % Normal 36.0-75.0 [facility] Comment on above: Order Comment: Order Added by Discern Expert. Performed By: #### 2 836940, 7156189, 7889468, 37974965 #### [facility] [address] [place] [address] Neutrophils/Leukocytes Auto (Bld) [Pure # fraction] 4.1 E9/L Normal 2.0-7.5 [facility] Comment on above: Order Comment: Order Added by Discern Expert. Performed By: #### 2 379704, 1994636, 2914259, 64896188 #### [facility] [address] [place] [address] CBC w/ Auto Diffon Erythrocyte distribution width (RBC) [Ratio] 13.3 % Normal 10.9-14.2 [facility] Comment on above: Performed By: #### 2 402642, 2461912, 7353135, 33693789 #### [facility] [address] [place] [address] Hematocrit (Bld) [Volume fraction] 43.5 % Normal 34.0-46.0 [facility] Comment on above: Performed By: #### 2 859174, 0080108, 3744357, 11541922 #### [facility] [address] [place] [address] Hemoglobin (Bld) [Mass/Vol] 14.4 g/dL Normal 12.0-16.0 [facility] Comment on above: Performed By: #### 2 285636, 4232504, 6965978, 23078984 #### [facility] [address] [place] [address] MCH (RBC) [Entitic mass] 29.5 pg Normal 27.0-34.0 [facility] Comment on above: Performed By: #### 2 617218, 1038026, 2957771, 68328085 #### [facility] [address] [place] [address] MCHC (RBC) [Mass/Vol] 33.0 g/dL Normal 31.4-36.0 [facility] Comment on above: Performed By: #### 2 528877, 9002787, 2239185, 53783382 #### [facility] [address] [place] [address] MCV (RBC) [Entitic vol] 89.3 fL Normal 80.0-100.0 [facility] Comment on above: Performed By: #### 2 291755, 4017553, 2027437, 57205348 #### [facility] [address] [place] [address] Platelet mean volume (Bld) [Entitic vol] 7.9 fL Normal 6.4-10.8 [facility] Comment on above: Performed By: #### 2 304325, 7804540, 1561430, 59531654 #### [facility] [address] [place] [address] Platelets (Bld) [#/Vol] 328.0 E9/L Normal 150.0-500.0 [facility] Comment on above: Performed By: #### 2 120888, 6464981, 9212997, 67148189 #### [facility] [address] [place] [address] RBC (Bld) [#/Vol] 4.9 E12/L Normal 4.3-5.9 [facility] Comment on above: Performed By: #### 2 419814, 9300947, 9388224, 82191031 #### [facility] [address] [place] [address] WBC corrected for nucl RBC Auto (Bld) [#/Vol] 6.7 E9/L Normal 4.0-11.0 [facility] Comment on above: Performed By: #### 2 316910, 2313894, 0801032, 58532876 #### [facility] [address] [place] [address] CHEMISTRYOrdered By: SYSTEM SYSTEM on 02-28-2022 Albumin [...] rate/Area] mL/min/1.73 m2 Normal >=59mL/min/1. 73 m2 [facility] Chem S GFR/1.73 sq M.predicted among non-blacks MDRD (S/P/Bld) [Vol rate/Area] mL/min/1.73 m2 Normal >=59mL/min/1. 73 m2 [facility] Chem S Globulin (S) [Mass/Vol] 3.6 g/dL [...] 02-28-2022 Albumin [Mass/Vol] 4.0 g/dL Normal 3.3-5.0 [facility] Comment on above: Performed By: #### 2 532981, 1821358, 8377275, 13108617 #### [facility] [address] [place] [address] Albumin/Globulin (S) [Mass conc ratio] 1.1 Normal 1.1-2.2 [facility] Comment on above: Performed By: #### 2 616137, 0800313, 5514461, 49527276 #### [facility] [address] [place] [address] ALP [Catalytic activity/Vol] 51 Int._Unit/L Normal 21-98 [facility] Comment on above: Performed By: #### 2 196516, 8956685, 9082222, 78825193 #### [facility] [address] [place] [address] ALT No additional P-5'-P [Catalytic activity/Vol] 34 Int._Unit/L Normal 6-46 [facility] Comment on above: Performed By: #### 2 455047, 4516878, 2735921, 75426812 #### [facility] [address] [place] [address] Anion gap [Moles/Vol] 10 mmol/L Normal 6-16 [facility] Comment on above: Performed By: #### 2 173555, 3494198, 6998374, 00323562 #### [facility] [address] [place] [address] AST [Catalytic activity/Vol] 27 Int._Unit/L Normal 5-43 [facility] Comment on above: Performed By: #### 2 925972, 5929378, 3427036, 49673349 #### [facility] [address] [place] [address] Bilirubin [Mass/Vol] 0.4 mg/dL Normal 0.0-1.1 [facility] Comment on above: Performed By: #### 2 857932, 2353363, 5072686, 50697215 #### [facility] [address] [place] [address] Calcium [Mass/Vol] 9.1 mg/dL Normal 8.9-11.1 [facility] Comment on above: Performed By: #### 2 089718, 9797245, 5815122, 23419699 #### [facility] [address] [place] [address] Chloride [Moles/Vol] 104 mmol/L Normal 101-111 [facility] Comment on above: Performed By: #### 2 975198, 5014602, 0399421, 59321198 #### [facility] [address] [place] [address] CO2 [Moles/Vol] 25 mmol/L Normal 21-31 [facility] Comment on above: Performed By: #### 2 107497, 2718924, 3876308, 91756336 #### [facility] [address] [place] [address] Creatinine [Mass/Vol] 0.8 mg/dL Normal 0.5-1.3 [facility] Comment on above: Performed By: #### 2 743924, 2938571, 5311218, 11047332 #### [facility] [address] [place] [address] Globulin (S) [Mass/Vol] 3.6 g/dL Normal 1.4-4.0 [facility] Comment on above: Performed By: #### 2 940661, 0951734, 1463170, 23802237 #### [facility] [address] [place] [address] Glucose [Mass/Vol] 95 mg/dL Normal 55-199 [facility] Comment on above: Result Comment: If t his glucose result represents a fasting glucose, interpretation should refer to the following reference range: 55-99 mg/dL Performed By: #### 2 163593, 9500739, 4244106, 45977085 #### [facility] [address] [place] [address] Potassium [Moles/Vol] 4.4 mmol/L Normal 3.5-5.3 [facility] Comment on above: Performed By: #### 2 170748, 2371700, 3331506, 61446028 #### [facility] [address] [place] [address] Protein [Mass/Vol] 7.6 g/dL Normal 6.0-7.8 [facility] Comment on above: Performed By: #### 2 577659, 4197724, 7048205, 64974188 #### [facility] [address] [place] [address] Sodium [Moles/Vol] 135 mmol/L Normal 135-145 [facility] Comment on above: Performed By: #### 2 001487, 1549403, 9423755, 36443378 #### [facility] [address] [place] [address] Urea nitrogen [Mass/Vol] 12 mg/dL Normal 5-21 [facility] Comment on above: Performed By: #### 2 460572, 1618373, 3208786, 75198380 #### [facility] [address] [place] [address] Urea nitrogen/Creatinine [Mass ratio] 15 No Units Normal 10-20 [facility] Comment on above: Performed By: #### 2 879029, 6698092, 7844919, 96183768 #### [facility] [address] [place] [address] HEMATOLOGYOrdered By: SYSTEM SYSTEM on 02-28-2022 Basophils/100 [...] [facility] Physician Orderon 02-28-2022 Physician Order [id number]# [id number]:127 Normal [facility] eGFRon 02-28-2022 GFR/1.73 sq M.predicted among blacks MDRD (S/P/Bld) [Vol rate/Area] mL/min/{1.73_m2} Normal >=59 [facility] Comment on above: Order Comment: Order added by Discern Expert. Result Comment: eGFR is race adjusted. AA=. Performed By: #### 2 529886, 9904348, 1136936, 60804348 #### [facility] [address] [place] [address] GFR/1.73 sq M.predicted among non-blacks MDRD (S/P/Bld) [Vol rate/Area] mL/min/{1.73_m2} Normal >=59 [facility] Comment on above: Order Comment: Order added by Discern Expert. Result Comment: Supervisor Pipe Manufacture fermin kidney disease could be indicated at eGFR's of less than 60 mL/min/1.73m2. Kidney failure is indicated at less than 15 mL/min/1.73m2. Performed By: #### 2 304647, 3985878, 4112625, 14374286 #### [facility] [address] [place] [address] PAP ACOG PANEL 2: 21 to 29on 02-08-2022 . . Normal [facility] Comment on above: Performed By: #### 4 449380 #### [facility] [address] [place] [address] Dr. Dennise Cronin Age Gdln ACOG Testing 20- Normal [facility] Comment on above: Performed By: #### 4 581387 #### [facility] [address] [address] [address] Dennise Cronin DIAGNOSIS: Comment Normal [facility] Comment on above: Result Comment: NEGA TIVE FOR INTRAEPITHELIAL LESION OR MALIGNANCY. Performed By: #### 4 497516 #### [facility] [address] [address] [address] Dennise Cronin Methodology: Comment Normal [facility] Comment on above: Result Comment: This liquid based ThinPrep(R) pap test was screened with the use of an image guided system. Performed By: #### 4 853083 #### [facility] [address] [place] [address] Dr. Dennise Cronin Note: Comment Normal [facility] Comment on above: Result Comment: The Pap smear is a screening test designed to aid in the detection of premalignant and malignant conditions of the uterine cervix. It is not a diagnostic procedure and should not be used as the sole means of detecting cervical cancer. Both false-positive and false-negative reports do occur. . Performed By: #### 4 767543 #### [facility] [address] [place] [address] Dr. Dennise Cronin Performed by: Comment Normal [facility] Comment on above: Result Comment: Haja Pisano Lumber Piler Operator (ASCP) Performed By: #### 4 579912 #### [facility] [address] [place] [address] Dr. Dennise Cronin Reflex Criteria: Comment Normal [facility] Comment on above: Result Comment: The HPV DNA reflex criteria were not met with this specimen result therefore, no HPV testing was performed. . Performed By: #### 4 113106 #### [facility] [address] [place] [address] Dr. Dennise Cronin Specimen adequacy: Comment Normal [facility] Comment on above: Result Comment: Sati sfactory for evaluation. Endocervical and/or squamous metaplastic cells (endocervical component) are present. Performed By: #### 4 261326 #### [facility] [address] [place] [address] Dr. Dennise Cronin Family Medicine Office/Clini c [...] day(s), # 7 tab(s), Refills(s) 0, [facility], 165, cm, 05/16/21 17:09:00 EST, [...] # 21 tab(s), Refills(s) 0, [facility] 165, cm, 05/16/21 17:09:00 EST, Height/Length Dosing, 83.8, kg, 05/16/21 17:09:00 EST, Weight Dosing 2. Viral URI with cough (J06.9: Acute upper respiratory infection, unspecified) Advised patient that Influenza A/B was negative today in office. Discussed sreekanth (more content not included)... Normal [facility] Comment on above: Result Comment: Elec tronically [...] as you can. Do not try to pickling grader a heavy object that is far from [...] on a (more content not included)... Normal [facility] Provider Letteron 05-16-2021 Provider Letter May 16, 2021 [address] M[address] [address] To Whom It May Concern, Please excuse above patient from work. Date of Illness: From: 05/15/21 To: 05/18/21 May Return to Work On: 05/15/21 Restrictions: _ Comments: _ Sincerely, Normal [facility] Encounters Encounter Date Encounter Type Care Provider Facility Start: 10-15-2023 End: 10-15-2023 ambulatory LILLIAN COHEN Not Available Start: 02-27-2023 End: 02-27-2023 ambulatory KATHERINE CARRASCO Not Available Start: 02-28-2022 End: 03-01-2022 ambulatory LILLIAN COHEN Facility[place] Start: 02-28-2022 End: 02-28-2022 Patient encounter procedure LILLIAN COHEN [facility] Start: 01-30-2022 End: 01-30-[address] KATHERINE CARRASCO Facility: Start: 05-16-2021 End: 05-17-2021 ambulatory Brook TiffaniPiper Levin Facility:[facility] Procedures Date Procedure Procedure Detail Performing Clinician None (qualifier value) JAVAD COHEN Payers Date Payer Category Payer Unknown [id number] 1999 Unknown [id number] 1999 Unknown [id number] [id number] 1999 Unknown [id number] [id number] 1999 Unknown [id number] 1959 Unknown [id number] Medicaid [id number] Social History Date Type Detail Facility Start: 05-16-2021 Tobacco smoking status Never s moked tobacco (finding) [facility] Tobacco smoking status Never [facility] Sex Assigned At Female [facility] Evaluation + Plan note Note Date & Type Note Facility Evaluation + Plan note No data available for this section [facility] Hospital Discharge instructions Note Date & Type Note Facility Hospital Discharge instructions No data available for this section [facility] Progress note Note Date & Type Note Facility Progress note No data available for this section [facility] Summary Purpose Family History No Family History Records FoundNo Family History Records FoundNo Family History Records Found Advance Directives No Advanced Directives Records FoundNo Advanced Directives Records FoundNo Advanced Directives Records Found Additional Source Comments INFORMATION SOURCE (unrecogn ized section and content) DATE CREATED AUTHOR 02/09/2022 [facility] DATE CREATED AUTHOR AUTHOR'S ORGANIZ ATION 03/05/2022 [facility] DATE CREATED AUTHOR AUTHOR'S ORGANIZ ATION 10/17/2023 [facility] Patient Care team informbongo n (unrecognized section and content) Personnel Name: COHEN LILLIAN JACKMAN Address: Address: [address] [place] [address] Name: LILLIAN COHEN CNP Address: Address: [address] [place] [address] FOR RECORDS PERTAINING TO PATIENTS WHO ARE [...] BE BASED ON THE PRIMARY CLINICAL RECORDS. [employer] provides no warranty or guarantee of the accuracy or completeness of information in this document.
[2023-11-25 10:37] LABS: BOX Test Reference Lab UNITY; BOX Test Sent Out UNITY
== END 2023-11-21 16:18 | disposition home or self-care (01) ==
PROVIDERS: PCP Student in an Organized Health Care Education/Training Program; Visit Provider Obstetrics & Gynecology
DX: Z34.80 Encounter for supervision of other normal pregnancy, unspecified trimester (principal)
CPT/HCPCS: 36415

== ENCOUNTER 2023-12-25 06:41 | Outpatient (OUT) | payer OTHER, SELFPAY ==
--- OUTSIDE RECORDS SUMMARY | 2023-12-25 02:48 | XMS_ITS | CCD ---
Author Organization [facility] Care Team Providers Care Morgue Technician Name Role Phone DR KATHERINE CARRASCO Consulting Unavailable DR KATHERINE CARRASCO Attending Unavailable DR KATHERINE CARRASCO Admitting Unavailable LILLIAN COHEN Primary Care Physician [phone] LILLIAN COHEN Unavailable LILLIAN COHEN Admitting Unavailable [...] Ingredients 1 MG Oral Tablet) } Pack [[place] 28 Day] (1 source) Progestin, Estrogen Start: 04-13-2019 [place] 0.25 mg-35 mcg oral tablet Refill(s) 0 [...] Range Facility Coding Summary.on 03-05-2022 Coding Summary. [id number] G h0bWw+PGhlYWQ+FP5NGHF nI13diBJwsD3KG4iJCE6F JSHTGSDOUZ0GIB2bqIY4F LirF5PzbyTt MendiPTeEX81IDr0NPR1u RfzAWlwiQ9rdSHwI6f1Pa JtOP69bI09HCyfLTTrHaO 3LjZpbjsgbWFy G1ocMhBmkXLhFux+PHRhY mxlIHdpZHRoPScxMDAlJy YrdOpwDJ3hSh2dSVQmXLG vbGxhcHNlOiBj q0giMNEuTHxgVS6riPiyS 2PpvUE0QIPaj0c8Kg64qV I+LFQfONN4oNgdRUjja49 2FlShc6blVOR7 mOUuHTvhVIC1G70bh2T1W RJiYESxMDN2uXG0hX4lnU wzyysgV6OsuFMeKxH6GCO 1gVQsgS7rbBay ubuhrT4tWyy+I31OIE7NM JAGIO4DJbb2I4BoNousnA I+BF32KRCeNO27dYIdqLE uv7vmyHw8VbDu JAJjCTJ0hTuqNWrip8YfI DEiB04hfOEoj5A0GJAceU soqTDcMsWhxDZ0eF1hVHv sepalt5adfsim Zlnsp0lyob77zJ80K47nA TgwRANaVMJ3PFAdIGMulF eydi4twH5ySq9+XGohr6g du9wiiRj6YfOp MFDcwmYgqLupDZR2c6NyK e47N8UdrWqiv7NbKrb8ps 63fGXlj1S0cYY7ZHqhOJL rgR4nDTqwQmF5 KXAvLxQwwS75sUMmWRdzF z1mcSucdWwnYH5gCAFbyu syLHCdhC4sOBUvrARexEk dPE2rDDHjhimu u507AlZyOHF4LAKccNAaA 6YasW5hNhPcGQJwJPXoR3 SgaOCkCCdcW883DCqrJdI 2EDNchjNdL8Zv RHKjqZjvQwM2j9O0Zp1Hb 3HkyrxcLMX4BVgrGZUmUr V5JkDlQlG9N9OuFxl1BFN bxRyoRC6sV9Bc IBHlnuulucuujFE8CLGkE VXfrB39hBJtOCiiAj5pb1 F0r357MSWkHAWzxK09Ec5 udDogMTBwdCBU dW9iaulux7criwppKhMeX SVdBDi4IEa2AJBmnDglPn TwAJK2PkV8IPY4aOZezS0 caYegyvnilE2k Oyc+L68efI4yIJT3JTR9z muuGUXqfuMbEG85ND05E6 RyPjwvdGFibGU+PGRpdiB byYtpNE0uVtBr h4chb8OyIFqrU6OaDZGgB UhlYcy5OQPbHKZ6gCE3gF 6vSUKnXYipe1F7eAE9U0E nrjUxar3zl5km JSQiYSdmF46quVYin4Q3J DDsbFG4OXJarFxdUpBmtN 93Oyc+TQXfbLegb4ExJlg ax1nio3pbwWa0 XhWtZWLtopToxUzzPQU9n 2RiFi06E00fWOraSIIoEI CmFRVhZUEgbGqovb5skT3 wIi8+PGNvbCB3 uEH3iU1nCWBiMfK4ZNyiJ 782SpQplEFhExufx9ygk5 fbsUy6JtZbDJApcbUcqRq mBGD6a8TvQm80 O13qMZnbQKMrXAPiFITuO EAdlJecsu9ooW9bNj2+PC 6io6iepw30lD35iYB+PHR aUFL8cRpkHCvx PKVtfO6vIOcoMmL8NVRnR aYbsF98uYJsTSjyGd6ipJ gsjZqpLF0eHCYayjdfg88 5XbGeq2fzITFg vZVbXPfeLGG9S72yr8O7A GDcGIImXXW3nGN4nG9ivH lnbjogbGVmdDsgdmVydGl wOMliBKpeN336 IHRvcDsnPlBhdGllbnQgT tZzCPe7N4PkErp8KMGjmQ jjBW6rmFTiUAzlDs1mhNt ueDkvEU6oUWJl bsbkd743WvQcp9noYSSrc VVuRSrlYZV5H66cx2T8FT HbIGBhUHU4fUR0zG1viKa nbjogbGVmdDsg jqAhnQsdZLyqAQxvK461K HRvcDsnPkJpcnRoIERhdG Z1EO97EF17fXHdh8P0iSE 6L6XcAZDhpkya ndgciYR7VSFuNMUdoZ62R e5hqVtdDn7bPYKoLLA0KT WffPOpE2SbwI8hDoFcRVP eFJLwF5RsqUAa XPpsI610XOioYrW9UIQhh xYpS8MvECPjyGkaIlR9o2 G7Br8JI5B8LS07EW87pFY lo0E7iWP5N0Cq RQTtoxgbtavyqMQ5GOWrP XAulH05Ce0zqQqvSz9zHW WtNHF6STJtiTJnW4ZzwK4 yOiAjMDAwMDAw Q8JyvVCnRYsdA053WJpqR fQ9CMUrdfSwW8WsWZFeuQ wzOsU0t1E0Pi2TOXk1EA4 0WZ85lREiy6N9 dIB9B6CcHQVenmlwmopus JZ1WNQnHVHaoI13Vh4shF atMd9jZDBcZAF3HCUnfNT cG7LgmP6aCfNu RMFsRUWcA5NioPScMHvqV 906ZFviRtT5PAHfdcBcZ4 OlIZLhxCamXvS1w7X9My0 GGIPyIS27KWG2 aOO8ZD73IJ60P4VmIlqrh GFibGU+PHRhYmxlIHdpZH RoPScxMDAlJyBzdHlsZT0 aFp2rTGTvSXWp qTtexDVuNnQvw3qoGDBfP ZtrBZ1zyCpsT9HftGL5CQ Jmf5z0Ep29C74lL3HiuFC +PBLwyQR1wKK7 wM5uOvDuAzC1KAdpO142U jLuzEZqUsdtq5rlb8kvzN g7KnF0IXXweaKjdXluPUT 5s5IjQs25Z68y IHdpZHRoPSIxNSUiIHZhb Zshyb4xtB1uYj3+PGNvbC K5cXE8oS1cXuWnHgA9UEm hB042JvTvoARz Kiufw6zyq4smqYd6BeZaH NKtkuRwnPmwTMF7p9OfOi 13D4XceGvlw2FaHld2vy8 4kLAio1Q6rEH0 F6SdDFFzwtjgjLKltZejU L0aFWNglolqZEDqlI1vJJ NhL3l8FeGaHuZ2QYjcY4F xehU4BTPmtJBf CEvsTQC9V42jz1N8FHSqG OViCSO2cOT7rI8smGyybj ogbGVmdDsgdmVydGljYWw qGTqjX754ERHu lXyeSBTexH0lKZJedGXuh TxsAN0eQBFryueoWwNJJf GOGSPPF0HGKLW8H2AhJtr 2DITbpOcqIB9q qTAdHTsrGf6dfBljiZafO Y2dCBLrzemlARUljE2cML ZchQJakOtaKX4kVUWkoxf us087SpYgUBP8 NOWvxYJzT6UlsJ0xSvBsK SKuLFNgX2PduNMrKGooH6 03FPnbVhY1VFEieqCtR9X sLWFsaWduOiB0 y1X1Nl6bKM1tCB7yWAx1X H84BE40aTRwl2T2tLH9V3 KqJTYxmsuuvfxewUK9JAA hQALecQ40vNDk QCbrXo7ln4L8y705EYWnX GTrpD49Lg2tcFipWMQenE CBfV1evwxdx0abnshgWbW xDVDmUJa0NNr4 JDEsiPsoPkXrTEW3PwA5A NW7qPZtoD1lrAfdvltayR 9wOyc+ZbRfSSOxflZ6F9F pBmb0OZEuaQmf QT1qgCTyDWgzYl3cfSoyd MgnSP8oKGTxchddFABroH 1zPQHliVAqgMltHP4gIEJ dcuvee100SyGm EPZ7QTIhyLAmB1AcgP8aQ nVwPRJjAKCaI8KqnUGzPV grD923LEsfGrC9HWUahaY rI9FbZEVwbPtr SsW9r7M2Oj2HFC2abEZ1E 9ZvRbv8GFAdxDscYD3tmQ GxKThsEp3ljDdcpNopQA8 wNTBpbjtwYWRk fJ3nILZgrVIxuOzgFK6yU VQobzirk364YoNuSOD5KQ VuhFFyR8OkpD0zRpFrDFN wSOQdB7FdfRNt PMuuX773RFvkInU0EKNcz eEuS6LiVPOueUtvSeQ7f9 K3Kv7HxODqEWXvJE56IK9 3CU74U1CmQnyy dGFibGU+PHRhYmxlIHdpZ HRoPScxMDAlJyBzdHlsZT 0hCo3tXTNfQVUzvGmoyRB iJaEen4ddNQJh ALssRV6wwOkcJ8HrcEJ9A OSrx0y7Zd25N17tA1QtxZ A+EXQzsDC2cBE3gW0zJiV tLzR2GEjtB467 LjAmdRGdKacmx2rwo9pjs Uh9SxUoAGWmruFhxQsjUE J4u9LkQf21N28kJDplAUM oPSIyMCUiIHZh sMevoo2nxD9kRd4+PGNvb OV5wPH6yP4lCbLkBhC4RS jnH188KnHnsYEuLqjyR13 uP3PjqBT+PHRy Meg2ANMabGbrFD6kuHWvS OmgAu6bHPV3NoWlTmIpUB hbD4WuNJKngrfxehczyOB 8NAJhSOJzhJ93 Av6xzRfkKw7uHSMlSBA5C YNvyVVcB7MciK2wIzFhAY UhPQPgQ9GncDYjIRvtW90 5MDjyQtU5TQXz vnRyS6WsFUQmiXaqOgV3s 9W2Pn7XtYeeiBQzRM3fZd CaXOq9T5NoWsy3ECMflWe lSE5toIIzHEwc Ih3rmNxsmCydJW1xCHEls vtcm808EaAkf9xsZNSgrQ HrPLewYBX3Y78wr1Q8WWN wQZUeDIZ8gFZ0 nX0woLpmuyxqcCRdkLcbw aLzjVguWQnhYCpsJ998PU RbeZznNzQKRvm6K8YjKfs 5NGKgoHglAP2r eSGxLVaxZd8kfEjbhNroC Q7uDDNoprnnz407NeTra9 huMTOynVBkCYnmZAG1I75 kz6Y3DPHxBMVz YTT8cMJ7xA2wyFjckbqwa GVmdDsgdmVydGljYWwtYW fbN880QKDjdLggUl9XZdu 0L1XwKle5MEOu rGyxWP0fuBTmKOikRc0ic ZqslQlgDR2mQQRbqysdm4 28TtNuf3cbERXaxEKoYVc eJOQ8L86fi4V7 NVSoQVOzBBT7pOX5pO8we GlnbjogbGVmdDsgdmVydG dgPOkhXTtsN250BRVdePo nPlBheWVyOjwv dGQ+SM20ys11M4LfHtfuH jz8QITgCQO5aBU8gB1dKK MgRTblf9M6kQU5R1ObrxS gox6qs3xyMDIn ZTog (more content not included)... Normal [facility] Auto Diffon 02-28-2022 Basophils/100 WBC (Bld) 0.8 % Normal 0.0-2.0 [facility] Comment on above: Order Comment: Order Added by Discern Expert. Performed By: #### 2 159896, 9935356, 7970354, [id number] #### [facility] [address] [place] [address] Basophils/Leukocytes Auto (Bld) [Pure # fraction] 0.1 E9/L Normal 0.0-0.2 [facility] Comment on above: Order Comment: Order Added by Discern Expert. Performed By: #### 2 129103, 0199069, 4187026, [id number] #### [facility] [address] [place] [address] Eosinophils/100 WBC (Bld) 3.5 % Normal 0.0-8.0 [facility] Comment on above: Order Comment: Order Added by Discern Expert. Performed By: #### 2 659871, 6811099, 2341425, [id number] #### [facility] [address] [place] [address] Eosinophils/Leukocytes Auto (Bld) [Pure # fraction] 0.2 E9/L Normal 0.0-0.5 [facility] Comment on above: Order Comment: Order Added by Discern Expert. Performed By: #### 2 067342, 8050924, 9740738, [id number] #### [facility] [address] [place] [address] Lymphocytes/100 WBC (Bld) 30.8 % Normal 14.0-50.0 [facility] Comment on above: Order Comment: Order Added by Discern Expert. Performed By: #### 2 352319, 9582931, 2626571, 60056591 #### [facility] [address] [place] [address] Lymphocytes/Leukocytes Auto (Bld) [Pure # fraction] 2.1 E9/L Normal 1.0-4.0 [facility] Comment on above: Order Comment: Order Added by Discern Expert. Performed By: #### 2 456055, 9042115, 2290160, 21144526 #### [facility] [address] [place] [address] Monocytes/100 WBC (Bld) 4.3 % Normal 4.0-14.0 [facility] Comment on above: Order Comment: Order Added by Discern Expert. Performed By: #### 2 294963, 6578089, 5955133, [id number] #### [facility] [address] [place] [address] Monocytes/Leukocytes Auto (Bld) [Pure # fraction] 0.3 E9/L Normal 0.2-1.0 [facility] Comment on above: Order Comment: Order Added by Discern Expert. Performed By: #### 2 206014, 2400532, 2591389, 42374498 #### [facility] [address] [place] [address] Neutrophils/100 WBC (Bld) 60.6 % Normal 36.0-75.0 [facility] Comment on above: Order Comment: Order Added by Discern Expert. Performed By: #### 2 460980, 3854430, 3908665, 75108461 #### [facility] [address] [place] [address] Neutrophils/Leukocytes Auto (Bld) [Pure # fraction] 4.1 E9/L Normal 2.0-7.5 [facility] Comment on above: Order Comment: Order Added by Discern Expert. Performed By: #### 2 911286, 1753114, 8942617, 06244314 #### [facility] [address] [place] [address] CBC w/ Auto Diffon Erythrocyte distribution width (RBC) [Ratio] 13.3 % Normal 10.9-14.2 [facility] Comment on above: Performed By: #### 2 666893, 1233124, 2076362, 64758859 #### [facility] [address] [place] [address] Hematocrit (Bld) [Volume fraction] 43.5 % Normal 34.0-46.0 [facility] Comment on above: Performed By: #### 2 427143, 1442690, 1651515, 37108024 #### [facility] [address] [place] [address] Hemoglobin (Bld) [Mass/Vol] 14.4 g/dL Normal 12.0-16.0 [facility] Comment on above: Performed By: #### 2 856921, 0306552, 4712802, 52450071 #### [facility] [address] [place] [address] MCH (RBC) [Entitic mass] 29.5 pg Normal 27.0-34.0 [facility] Comment on above: Performed By: #### 2 529946, 0550097, 0982147, 80477687 #### [facility] [address] [place] [address] MCHC (RBC) [Mass/Vol] 33.0 g/dL Normal 31.4-36.0 [facility] Comment on above: Performed By: #### 2 001894, 2225803, 5730482, 73455137 #### [facility] [address] [place] [address] MCV (RBC) [Entitic vol] 89.3 fL Normal 80.0-100.0 [facility] Comment on above: Performed By: #### 2 176614, 8741282, 8089373, 13631591 #### [facility] [address] [place] [address] Platelet mean volume (Bld) [Entitic vol] 7.9 fL Normal 6.4-10.8 [facility] Comment on above: Performed By: #### 2 015016, 2629774, 8588622, 61673346 #### [facility] [address] [place] [address] Platelets (Bld) [#/Vol] 328.0 E9/L Normal 150.0-500.0 [facility] Comment on above: Performed By: #### 2 721644, 3030996, 4721960, 16355410 #### [facility] [address] [place] [address] RBC (Bld) [#/Vol] 4.9 E12/L Normal 4.3-5.9 [facility] Comment on above: Performed By: #### 2 253911, 2941787, 0895027, 21769212 #### [facility] [address] [place] [address] WBC corrected for nucl RBC Auto (Bld) [#/Vol] 6.7 E9/L Normal 4.0-11.0 [facility] Comment on above: Performed By: #### 2 164283, 2384035, 2173334, 92663459 #### [facility] [address] [place] [address] CHEMISTRYOrdered By: SYSTEM SYSTEM on 02-28-2022 Albumin [...] rate/Area] mL/min/1.73 m2 Normal >=59mL/min/1. 73 m2 [facility] [place] S GFR/1.73 sq M.predicted among non-blacks MDRD (S/P/Bld) [Vol rate/Area] mL/min/1.73 m2 Normal >=59mL/min/1. 73 m2 [facility] [place] S Globulin (S) [Mass/Vol] 3.6 g/dL [...] 02-28-2022 Albumin [Mass/Vol] 4.0 g/dL Normal 3.3-5.0 [facility] Comment on above: Performed By: #### 2 408910, 4612615, 7441540, 57451767 #### [facility] [address] [place] [address] Albumin/Globulin (S) [Mass conc ratio] 1.1 Normal 1.1-2.2 [facility] Comment on above: Performed By: #### 2 543417, 7114595, 1056286, 57714338 #### [facility] [address] [place] [address] ALP [Catalytic activity/Vol] 51 Int._Unit/L Normal 21-98 [facility] Comment on above: Performed By: #### 2 877129, 7964532, 9599141, 59302574 #### [facility] [address] [place] [address] ALT No additional P-5'-P [Catalytic activity/Vol] 34 Int._Unit/L Normal 6-46 [facility] Comment on above: Performed By: #### 2 608273, 2138888, 5203546, 61493747 #### [facility] [address] [place] [address] Anion gap [Moles/Vol] 10 mmol/L Normal 6-16 [facility] Comment on above: Performed By: #### 2 855938, 5485753, 2914422, 86672722 #### [facility] [address] [place] [address] AST [Catalytic activity/Vol] 27 Int._Unit/L Normal 5-43 [facility] Comment on above: Performed By: #### 2 947416, 1166262, 5300933, 33750455 #### [facility] [address] [place] [address] Bilirubin [Mass/Vol] 0.4 mg/dL Normal 0.0-1.1 [facility] Comment on above: Performed By: #### 2 791128, 8963573, 4564299, 11403685 #### [facility] [address] [place] [address] Calcium [Mass/Vol] 9.1 mg/dL Normal 8.9-11.1 [facility] Comment on above: Performed By: #### 2 698912, 7131306, 8681926, 40255531 #### [facility] [address] [place] [address] Chloride [Moles/Vol] 104 mmol/L Normal 101-111 [facility] Comment on above: Performed By: #### 2 962098, 3477294, 6967359, 61280597 #### [facility] [address] [place] [address] CO2 [Moles/Vol] 25 mmol/L Normal 21-31 [facility] Comment on above: Performed By: #### 2 166209, 6408526, 8162022, 01371105 #### [facility] [address] [place] [address] Creatinine [Mass/Vol] 0.8 mg/dL Normal 0.5-1.3 [facility] Comment on above: Performed By: #### 2 575973, 8881528, 0422181, 81197072 #### [facility] [address] [place] [address] Globulin (S) [Mass/Vol] 3.6 g/dL Normal 1.4-4.0 [facility] Comment on above: Performed By: #### 2 159808, 7866367, 4664176, 09758317 #### [facility] [address] [place] [address] Glucose [Mass/Vol] 95 mg/dL Normal 55-199 [facility] Comment on above: Result Comment: If t his glucose result represents a fasting glucose, interpretation should refer to the following reference range: 55-99 mg/dL Performed By: #### 2 145289, 0646597, 5046332, 04840980 #### [facility] [address] [place] [address] Potassium [Moles/Vol] 4.4 mmol/L Normal 3.5-5.3 [facility] Comment on above: Performed By: #### 2 465848, 8315231, 0809399, 02837460 #### [facility] [address] [place] [address] Protein [Mass/Vol] 7.6 g/dL Normal 6.0-7.8 [facility] Comment on above: Performed By: #### 2 626958, 3224811, 6406465, 64091942 #### [facility] [address] [place] [address] Sodium [Moles/Vol] 135 mmol/L Normal 135-145 [facility] Comment on above: Performed By: #### 2 308005, 6352492, 0279883, 80634010 #### [facility] [address] [place] [address] Urea nitrogen [Mass/Vol] 12 mg/dL Normal 5-21 [facility] Comment on above: Performed By: #### 2 923094, 6853540, 7240714, 15956243 #### [facility] [address] [place] [address] Urea nitrogen/Creatinine [Mass ratio] 15 No Units Normal 10-20 [facility] Comment on above: Performed By: #### 2 717107, 1123533, 9136089, 41782931 #### [facility] [address] [place] [address] HEMATOLOGYOrdered By: SYSTEM SYSTEM on 02-28-2022 Basophils/100 [...] [facility] Physician Orderon 02-28-2022 Physician Order [id number]# [id number]:127 Normal [facility] eGFRon 02-28-2022 GFR/1.73 sq M.predicted among blacks MDRD (S/P/Bld) [Vol rate/Area] mL/min/{1.73_m2} Normal >=59 [facility] Comment on above: Order Comment: Order added by Discern Expert. Result Comment: eGFR is race adjusted. AA=. Performed By: #### 2 138524, 9730230, 4643991, 19284568 #### [facility] [address] [place] [address] GFR/1.73 sq M.predicted among non-blacks MDRD (S/P/Bld) [Vol rate/Area] mL/min/{1.73_m2} Normal >=59 [facility] Comment on above: Order Comment: Order added by Discern Expert. Result Comment: Field Worker fermin kidney disease could be indicated at eGFR's of less than 60 mL/min/1.73m2. Kidney failure is indicated at less than 15 mL/min/1.73m2. Performed By: #### 2 659178, 6066136, 8910601, 18246914 #### [facility] [address] [place] [address] PAP ACOG PANEL 2: 21 to 29on 02-08-2022 . . Normal [facility] Comment on above: Performed By: #### 4 388034 #### [facility] [address] [place] [address] Dr. Dennise Cronin Age Gdln ACOG Testing 20- Normal [facility] Comment on above: Performed By: #### 4 422816 #### [facility] [address] [address] [address] Dennise Cronin DIAGNOSIS: Comment Normal [facility] Comment on above: Result Comment: NEGA TIVE FOR INTRAEPITHELIAL LESION OR MALIGNANCY. Performed By: #### 4 588595 #### [facility] [address] [address] [address] Dennise Cronin Methodology: Comment Normal [facility] Comment on above: Result Comment: This liquid based ThinPrep(R) pap test was screened with the use of an image guided system. Performed By: #### 4 747797 #### [facility] [address] [place] [address] Dr. Dennise Cronin Note: Comment Normal [facility] Comment on above: Result Comment: The Pap smear is a screening test designed to aid in the detection of premalignant and malignant conditions of the uterine cervix. It is not a diagnostic procedure and should not be used as the sole means of detecting cervical cancer. Both false-positive and false-negative reports do occur. . Performed By: #### 4 588542 #### [facility] [address] [place] [address] Dr. Dennise Cronin Performed by: Comment Normal [facility] Comment on above: Result Comment: Haja Pisano Baker Second (ASCP) Performed By: #### 4 882028 #### [facility] [address] [place] [address] Dr. Dennise Cronin Reflex Criteria: Comment Normal [facility] Comment on above: Result Comment: The HPV DNA reflex criteria were not met with this specimen result therefore, no HPV testing was performed. . Performed By: #### 4 050670 #### [facility] [address] [place] [address] Dr. Dennise Cronin Specimen adequacy: Comment Normal [facility] Comment on above: Result Comment: Sati sfactory for evaluation. Endocervical and/or squamous metaplastic cells (endocervical component) are present. Performed By: #### 4 403032 #### [facility] [address] [place] [address] Dr. Dennise Cronin Family Medicine Office/Clini c [...] day(s), # 7 tab(s), Refills(s) 0, Pharmacy: [facility], 165, cm, 05/16/21 17:09:00 EST, [...] # 21 tab(s), Refills(s) 0, [facility], 165, cm, 05/16/21 17:09:00 EST, Height/Length Dosing, 83.8, kg, 05/16/21 17:09:00 EST, Weight Dosing 2. Viral URI with cough (J06.9: Acute upper respiratory infection, unspecified) Advised patient that Influenza A/B was negative today in office. Discussed sreekanth (more content not included)... Normal [facility] Comment on above: Result Comment: Elec [...] as you can. Do not try to oyster picker a heavy object that is far from [...] on a (more content not included)... Normal [facility] Provider Letteron 05-16-2021 Provider Letter May 16, 2021 [address] [phone] To Whom It May Concern, Please excuse above patient from work. Date of Illness: From: 05/15/21 To: 05/18/21 May Return to Work On: 05/15/21 Restrictions: _ Comments: _ Sincerely, Normal [facility] Encounters Encounter Date Encounter Type Care Provider Facility Start: 10-15-2023 End: 10-15-2023 ambulatory LILLIAN COHEN Not Available Start: 02-27-2023 End: 02-27-2023 ambulatory KATHERINE CARRASCO Not Available Start: 02-28-2022 End: 03-01-2022 ambulatory LILLIAN COHEN [place] [place]: 02-28-2022 End: 02-28-2022 Patient encounter procedure [facility] Start: 01-30-2022 End: 01-30-[address] KATHERINE CARRASCO Facility: Start: 05-16-2021 End: 05-17-2021 ambulatory Brook TiffaniPiper Levin Facility:[facility] Procedures Date Procedure Procedure Detail Performing Clinician None (qualifier value) JAVAD COHEN Payers Date Payer Category Payer Unknown [id number] 1999 Unknown [id number] 1999 Unknown [id number] 1999 Unknown [id number] [id number] 1999 Unknown [id number] 1959 Unknown [id number] Medicaid [id number] Social History Date Type Detail Facility Start: 05-16-2021 Tobacco smoking status Never s moked tobacco [facility]finding[facility] status Never [facility] Sex Assigned At Female [facility] Evaluation + Plan note Note Date & Type Note Facility Evaluation + Plan note No data available for this section [facility] Hospital Discharge instructions Note Date & Type Note Facility Hospital Discharge instructions No data available for this section [facility] Progress note Note Date & Type Note Facility Progress note No data available for this section [facility] Summary Purpose Family History No Family History Records FoundNo Family History Records FoundNo Family History Records Found Advance Directives No Advanced Directives Records FoundNo Advanced Directives Records FoundNo Advanced Directives Records Found Additional Source Comments INFORMATION SOURCE (unrecogn ized section and content) DATE CREATED AUTHOR 02/09/2022 [facility] DATE CREATED AUTHOR AUTHOR'S ORGANIZ ATION 03/05/2022 [facility] DATE CREATED AUTHOR AUTHOR'S ORGANIZ ATION 10/17/2023 [facility] Patient Care team informbongo n (unrecognized section and content) Personnel Name: COHEN LILLIAN AJCKMAN Address: Address: [address] [place] [address] Name: LILLIAN COHEN CNP Address: Address: [address] [place] [address] FOR RECORDS PERTAINING TO PATIENTS WHO ARE [...] BE BASED ON THE PRIMARY CLINICAL RECORDS. [employer] provides no warranty or guarantee of the accuracy or completeness of information in this document.
--- OUTSIDE RECORDS SUMMARY | 2023-12-25 06:43 | XMS_ITS | CCD ---
Author Organization [facility] Care Team Providers Care Bill Hiker Name Role Phone DR KATHERINE CARRASCO Consulting [...] Ingredients 1 MG Oral Tablet) } Pack [Haakon-Linyah 28 Day] (1 source) Progestin, Estrogen Start: 04-13-2019 Haakon-Linyah 0.25 mg-35 mcg oral tablet Refill(s) 0 [...] Range Facility Coding Summary.on 03-05-2022 Coding Summary. [id number] h0bWw+PGhlYWQ+LL3CRYE nS35ueQVowQ2RF6tQUG5E UTGTKOCAGB2HXP3ldFG3T JnhQ9DrsvPn TivleZQdJW83AKk8BRI8j FsgRAxtyC0onISvA5l0Xm VrND26yE28QFhmWSQoUqG 3LjZpbjsgbWFy T1hwSnMayNFjCdi+PHRhY mxlIHdpZHRoPScxMDAlJy EdxXvtLC5uUt5sRRLiKVT vbGxhcHNlOiBj o6acOIGkZGruWL2diKokT 9RgiFF3WOHuv0s1Ey84xB I+ZGVjVHJ0iFmfVHaai46 8PoMfn0bmYNE9 eMNoQRmxMUI1W17bs4C4D OUwVFWjZLN0mLQ2uB3vpZ kyouzmG8OrbNMvDwY0JWR 8oUAjsN6nwGbe mvgooJ4tJfn+L05KOG7SA CVBZH0SMfc6Q0IeUhpqnX I+MS44YUTkRP02bDIqnSK vy5egfMk4RbCf IXArUDP4fLcdEFjki1WnA OVxR99lwTGtk5U5BADqvZ lukFVkQcPcmHJ9vZ8eSOn pkrczy0liqfpr Ifogz8rmwk08eD75J13lJ UllWPYyJGW4QJYrCRWawE guhm0crW7nAx6+JCjbu7l dq7hnmPc8GsQf CXNnceFjuMfyGZS4r9TsC c89T4MddTwia9OpOqo8ja 35kDSpd1M6tBG7LExoXBT ffZ3pFGpxIjL5 SPNtSaPwzL55iXRkMHulU i5ltNovqJtfTQ2gBQLzwm boKTRtlJ2gJRKyuQIbgZh uIL5aKVFefoke u855TxJpCFF3BVXbeXYcT 1JfwD6oQdViGLRcAAIoT6 PfvVCdIIdjS773CLklXdO 5DFXwctNwA3Ke VGCdqZjeNoS5k8Q3Aq9Zf 4GhjogfKCX0VMngWJEbFe D0KlLpCzS4M8NkCxy7DBD hhSvgTA1gU2Zd DZUbmaziwgmxcPI3APTeX FEmhW18uQWcMKysQu1fw7 S8v154IWRtMMGtsD27Mh3 udDogMTBwdCBU nJ1qfcdua5gmgfukKxUvJ ALxZTm8KZa4PTJznHrgVy LnTWS5TkA3WYS0lHPegH8 dmXvhajzxtI7h Oyc+U66kmH2mUFT0MDG9r vsrPFExgpDfDE17IP16U1 RyPjwvdGFibGU+PGRpdiB svBnsOG7vUmZc r2wlz7NlLWqqR8WeCOOfY QfaLdp3DCAxLVJ3qDA1uK 3nKNGmPClww9I5cRK1R8H sekJbaz5mt3ra NYLgCAmaC45ukXHcz6U7I XEjdJQ7ASJpwOemFzLezY 93Oyc+PFYlaPnvl7KnEyi pi0wyh6vhiVr8 HdBySTJwbrEpqSztUMN3i 7YdKp81P21iRFuwKHQeMM CgYIUfRKGztXdrtr3saL5 wIi8+PGNvbCB3 zSU1mE4dVQEzZtN0YUthM 497IpLfvBSwIcdow3glp5 lhhHo2FoSfEKBvxbIbtWs kUUR2l7AlNn99 Q37cTDfiOCRhDDIvJOMxI EWybZijjg6mnL5rYx9+PC 1ae9lxfg63cF29fDR+PHR xQBA2iOxuRHhc GEKwfX9sDZptAoR5FTJiB qWvkD30dBWdEVhoQu9blU vvvVxpZY6wXXFguwjvx18 0QeNfw8xcPFRx aLBwJSdoLRI4C66fw6R6H OCeNKWhZRM2eBN5uN9rlJ lnbjogbGVmdDsgdmVydGl xTMmxATfhI322 IHRvcDsnPlBhdGllbnQgT rSbWLi9P0HcCug0KFRckR fgCT0ciFBcRShkQy3uwTd mgOgeEJ1pYTKu qxsxv231QqApp5rqYXVdk XJpDRzcZPL0O88yz5N4GR CtAMIcCML9eCJ2aB9ztVd nbjogbGVmdDsg gmRmqHzsDPdnOFwbC729S HRvcDsnPkJpcnRoIERhdG B9SD03GR24lCRgy4R9fWZ 1D4FvSNAooooz reediFG9CODrQRQpgN88L u5zwOsxYp1mYBAhWAO9KN IkvYRdT1DzqB3uYsWiSUU cLUHdB2UxfYDy RAfsY574VDexInZ5MFMqe yGpI9FpPVRnsQdtGjW4u8 Y4Fp3XT7E1TO39EU70nUV gz0L1aWV6Z8Cw RIBqnfltihnnyZZ9RIOeP KYemY93Lz9llOcgVo8cLX RrWMX7ORRgxITqA8GsfZ4 yOiAjMDAwMDAw J8MtdHSmZVuvN296BEttS nL8FSLvgyVbD0VkPOPdcW jdDlW4z6A9Av7NWAh3ID4 2UX38cMDka9J1 zDL6O8GmCXQvorpwawpbh UG8TQJpONBqqU66Im9njS dbJd3iNYQvCEZ4MJGwrTN sD1ZceG5fAdQr VEUvKYCyH8OyrVJcDFtlL 927FQmxUuF8AHWlpjFjN5 JyRCYbxBwbPmZ2c4M6Qp1 YYEJaWA03XNK3 pDN5CP80KG08Y0NiMltbh GFibGU+PHRhYmxlIHdpZH RoPScxMDAlJyBzdHlsZT0 yXd7hURReQDFo oBqbmXIhTbEcz7rcTNNuB QruEV1qmHaeR1RbqEO2NS Goz6d2Lu12S08fM9CywBJ +TAUuvVQ6eIW9 oL4lPxQdWgK9ZWtkA173T xRhnCBpNpixl9qia1wymP b9DqX3OSBwdnCnqXaoADP 2e0UsAq54W42d IHdpZHRoPSIxNSUiIHZhb Lpecr8uyX1kTy5+PGNvbC A6bQX7zJ4xOtYkCrU4JCo pU637BwMvpEMg Fvbdj8bcc5synVo5RaOhS JFsqnWgbDbwWRT6a1OtWt 83D5QprRztn1ZuQov7eb4 1dIQvs6I7eZM1 K7OjUHBkladhcNJmeTgjJ W0gMQZwrunpXJCgkH1vXW AgJ7s9TxRiDdW9ABfzN2C dxtH7IXSqaNYq DGknZAT0I60aw1Q0IQIvN EOkCOR7aAI4rX6xiRmaoz ogbGVmdDsgdmVydGljYWw cPPmiT603KYKz hDyaZQAvmN4iZIZbkGToe BilLI3jANUblbldCfWUQa FEXETRE3DUNYV9M8LeBmh 0VLAayTdcDF9k sWTdNUieFs5uxKxtyBkqD G7nHCRkpbruQAJsjG9bAG LokWLzgRndAW0pOAAkfxg gp386EjWoZVS2 ZCCrwJOpY2VveY1yCtYaA GTyHGMgI5CynGZlDSjqQ4 74QMqqQxT4YDAveaYiT3E sLWFsaWduOiB0 m6F9Yg3bCE8aVM7sLDs6P Y50PL13lRNjq6L7lMK2J5 ZgWZSvnpxugvcjuJP3KOM xFONhqU46rHHw GNjtCi9ym2U5y655JEXcM UFgzY20Qn2lwXlcWYSijP QItO7pahsco0lcskxmInC eTPRfIOr4OLh9 VGDgbUdwCdDoXJQ5PgS1A AK5zSYnjF2boXrohjcjeV 9wOyc+WbWsTPYkblC4N7J pNmq7EYKdiGff WV5jnHLzKFdiJx4rwXcxm IpkQG5bCVSaxexlRIEfnL 5aWRJhkZAdiJxxTA8tNEE wendrx552QmTg CAQ2EGFgnEBbD4WwgD8tI zFjEGDxICCwO7VigPHuSV hyK289TBqdKpF4XIKgrdX mB3JpARAihBuh QyQ1z5O4Ex4OCA5luZZ0X 4LhJcf4XMWzvLcuRQ7vlM NnVIfbAg2lqBgsnToeCP2 wNTBpbjtwYWRk xU9cLULpgVVnsMujAQ9rX GVtslowl714XkYuOIP5JQ ZnkJPcJ4BykG8xYbHkASJ zCRNtI4XbfTNu SCjbL077JDmwOcC3TEUre sKzF4KlNNPduAlzNwR8l2 B1Mv8ImTVyLBTcKQ49UD5 3LG33W7KcHmqq dGFibGU+PHRhYmxlIHdpZ HRoPScxMDAlJyBzdHlsZT 9lFn4hRMLxMNWzvTsatMZ qYxPdj9qgTIDt KRjyEB7daJmmR1EflPT1S NAls8g5Wy70Q52lR0CuzX A+JKTzvTY9gAX2gX3nQvK oQgT7HIcyV439 SfQqjXKpMqimh9nvk3jnk Xs0HpKpBNBfzzRcrIqoEO K6m7PjFx47U26dYXimDKZ oPSIyMCUiIHZh fGkqyx8dqB8dRj5+PGNvb FS4wIW4iT2nUtHoEmJ1WC wfE219KoAjpILhYfhnH10 fR6AdkQZ+PHRy Krp2TQSqtYugUF0qbIUjH SpfUk5yTDB3BpVgPnWwEH vsP5SmPMQfdfkywgcwaLX 4IOOxRPLbmS76 We2fnNkcBn1pABPgHFK2U QGehWLqK6RtiF1zNzMcFQ XzKGEqB0FwkEDzKYafP79 0EPoxWbE1ORWx pkBjZ3LjPLLvzWckDcV0p 8S5Do3LlLzkhIVtHE1gXq LkOVu8K2ZkSxz5BRWlqLj kVR0hqJGvNYve St2fqAmslIpjKI1bQGVvt rsvd154ObGuf4mmXGKvmB AxBNakOBN8Y67qv0R9YNU fWVCoJXQ1bRS8 xE8xvGhsvrkxmHVccFihs qInlAhzQDvyMNxiF915AO ZppQmaMsAIIgh8D5WbXzy 3CJMlgEojWJ0l eHIeUKizTy2mzOaxaUjdB L7hRULbnends240DtYjl6 lxKBMseZLsKUdnFEC9T11 pr4D7AECrVTLw QOM7qYZ1nJ9wrLqagcuwq GVmdDsgdmVydGljYWwtYW caA976AVZzlIqsBb2VAnq 1I9FvIox2ACEc mCtvNU7odCYsNDsiRa8gm OzvgFtvEW4jBRGkfxfhe0 83XdXcb5szOOCszRSpVMg lTLE7Z36oo7K6 UCVmIEHpLZC2wIX6fP9uw GlnbjogbGVmdDsgdmVydG zsSOlzDEqcB396YLVheOs nPlBheWVyOjwv dGQ+OS71gp12J0YkHiptO ya5GTLfNCP8xTG9mL9jDH IiZZcqy5E9fVY3N3GwrnH zcn2fc6dvQEVs ZTog (more content not included)... Normal [facility] Auto Diffon 02-28-2022 Basophils/100 WBC (Bld) 0.8 % Normal 0.0-2.0 [facility] Comment on above: Order Comment: Order Added by Discern Expert. Performed By: #### 2 783519, 9135579, 7655118, [id number] #### [facility] [address] [place] [address] Basophils/Leukocytes Auto (Bld) [Pure # fraction] 0.1 E9/L Normal 0.0-0.2 [facility] Comment on above: Order Comment: Order Added by Discern Expert. Performed By: #### 2 780976, 2511920, 3956732, 78072127 #### [facility] [address] [place] [address] Eosinophils/100 WBC (Bld) 3.5 % Normal 0.0-8.0 [facility] Comment on above: Order Comment: Order Added by Discern Expert. Performed By: #### 2 203600, 9131919, 1506686, 26349305 #### [facility] [address] [place] [address] Eosinophils/Leukocytes Auto (Bld) [Pure # fraction] 0.2 E9/L Normal 0.0-0.5 [facility] Comment on above: Order Comment: Order Added by Discern Expert. Performed By: #### 2 938480, 5970423, 7618694, 45545008 #### [facility] [address] [place] [address] Lymphocytes/100 WBC (Bld) 30.8 % Normal 14.0-50.0 [facility] Comment on above: Order Comment: Order Added by Discern Expert. Performed By: #### 2 588144, 8377950, 5439308, 06018580 #### [facility] [address] [place] [address] Lymphocytes/Leukocytes Auto (Bld) [Pure # fraction] 2.1 E9/L Normal 1.0-4.0 [facility] Comment on above: Order Comment: Order Added by Discern Expert. Performed By: #### 2 932394, 2187843, 9506383, 06781945 #### [facility] [address] [place] [address] Monocytes/100 WBC (Bld) 4.3 % Normal 4.0-14.0 [facility] Comment on above: Order Comment: Order Added by Discern Expert. Performed By: #### 2 409016, 4925401, 1584836, 24334345 #### [facility] [address] [place] [address] Monocytes/Leukocytes Auto (Bld) [Pure # fraction] 0.3 E9/L Normal 0.2-1.0 [facility] Comment on above: Order Comment: Order Added by Discern Expert. Performed By: #### 2 208398, 3572417, 6914752, 58263565 #### [facility] [address] [place] [address] Neutrophils/100 WBC (Bld) 60.6 % Normal 36.0-75.0 [facility] Comment on above: Order Comment: Order Added by Discern Expert. Performed By: #### 2 260512, 8838020, 1666470, 16219492 #### [facility] [address] [place] [address] Neutrophils/Leukocytes Auto (Bld) [Pure # fraction] 4.1 E9/L Normal 2.0-7.5 [facility] Comment on above: Order Comment: Order Added by Discern Expert. Performed By: #### 2 212541, 9839419, 1628624, 80110854 #### [facility] [address] [place] [address] CBC w/ Auto Diffon Erythrocyte distribution width (RBC) [Ratio] 13.3 % Normal 10.9-14.2 [facility] Comment on above: Performed By: #### 2 724585, 5534618, 2111876, 86575999 #### [facility] [address] [place] [address] Hematocrit (Bld) [Volume fraction] 43.5 % Normal 34.0-46.0 [facility] Comment on above: Performed By: #### 2 633361, 7585485, 3294705, 33763077 #### [facility] [address] [place] [address] Hemoglobin (Bld) [Mass/Vol] 14.4 g/dL Normal 12.0-16.0 [facility] Comment on above: Performed By: #### 2 348171, 6922342, 7156338, 79437289 #### [facility] [address] [place] [address] MCH (RBC) [Entitic mass] 29.5 pg Normal 27.0-34.0 [facility] Comment on above: Performed By: #### 2 105191, 5790421, 8779246, 25498525 #### [facility] [address] [place] [address] MCHC (RBC) [Mass/Vol] 33.0 g/dL Normal 31.4-36.0 [facility] Comment on above: Performed By: #### 2 199039, 1108577, 5558918, 95048512 #### [facility] [address] [place] [address] 57168 MCV (RBC) [Entitic vol] 89.3 fL Normal 80.0-100.0 [facility] Comment on above: Performed By: #### 2 504847, 0745809, 1400322, 52527430 #### [facility] [address] [place] [address] Platelet mean volume (Bld) [Entitic vol] 7.9 fL Normal 6.4-10.8 [facility] Comment on above: Performed By: #### 2 472923, 1776197, 4292249, 61291859 #### [facility] [address] [place] [address] Platelets (Bld) [#/Vol] 328.0 E9/L Normal 150.0-500.0 [facility] Comment on above: Performed By: #### 2 234243, 7834600, 2107734, 03559184 #### [facility] [address] [place] [address] RBC (Bld) [#/Vol] 4.9 E12/L Normal 4.3-5.9 [facility] Comment on above: Performed By: #### 2 034001, 1002037, 1513475, 65225687 #### [facility] [address] [place] [address] WBC corrected for nucl RBC Auto (Bld) [#/Vol] 6.7 E9/L Normal 4.0-11.0 [facility] Comment on above: Performed By: #### 2 259343, 1212731, 0217579, 87994094 #### [facility] [address] [place] [address] CHEMISTRYOrdered By: SYSTEM SYSTEM on 02-28-2022 Albumin [...] rate/Area] mL/min/1.73 m2 Normal >=59mL/min/1. 73 m2 [facility] Chem S GFR/1.73 sq M.predicted among non-blacks MDRD (S/P/Bld) [Vol rate/Area] mL/min/1.73 m2 Normal >=59mL/min/1. 73 m2 [facility] Chem S Globulin (S) [Mass/Vol] 3.6 g/dL [...] 02-28-2022 Albumin [Mass/Vol] 4.0 g/dL Normal 3.3-5.0 [facility] Comment on above: Performed By: #### 2 092993, 7676154, 9288468, 09721291 #### [facility] [address] [place] [address] Albumin/Globulin (S) [Mass conc ratio] 1.1 Normal 1.1-2.2 [facility] Comment on above: Performed By: #### 2 835927, 3418179, 4968404, 86781767 #### [facility] [address] [place] [address] ALP [Catalytic activity/Vol] 51 Int._Unit/L Normal 21-98 [facility] Comment on above: Performed By: #### 2 185266, 9819457, 6329029, 63570617 #### [facility] [address] [place] [address] 14081 ALT No additional P-5'-P [Catalytic activity/Vol] 34 Int._Unit/L Normal 6-46 [facility] Comment on above: Performed By: #### 2 875461, 1169352, 6065960, 80811920 #### [facility] [address] [place] [address] Anion gap [Moles/Vol] 10 mmol/L Normal 6-16 [facility] Comment on above: Performed By: #### 2 903490, 5349532, 3003067, 75935840 #### [facility] [address] [place] [address] AST [Catalytic activity/Vol] 27 Int._Unit/L Normal 5-43 [facility] Comment on above: Performed By: #### 2 486049, 4268797, 4857616, 52121276 #### [facility] [address] [place] [address] Bilirubin [Mass/Vol] 0.4 mg/dL Normal 0.0-1.1 [facility] Comment on above: Performed By: #### 2 964617, 3168256, 5366214, 95773268 #### [facility] [address] [place] [address] Calcium [Mass/Vol] 9.1 mg/dL Normal 8.9-11.1 [facility] Comment on above: Performed By: #### 2 605164, 9578483, 8753148, 63108423 #### [facility] [address] [place] [address] Chloride [Moles/Vol] 104 mmol/L Normal 101-111 [facility] Comment on above: Performed By: #### 2 403311, 5849282, 8085013, 18289550 #### [facility] [address] [place] [address] CO2 [Moles/Vol] 25 mmol/L Normal 21-31 [facility] Comment on above: Performed By: #### 2 597902, 3134289, 9843413, 42399996 #### [facility] [address] [place] [address] Creatinine [Mass/Vol] 0.8 mg/dL Normal 0.5-1.3 [facility] Comment on above: Performed By: #### 2 172859, 0433777, 5962903, 66038022 #### [facility] [address] [place] [address] Globulin (S) [Mass/Vol] 3.6 g/dL Normal 1.4-4.0 [facility] Comment on above: Performed By: #### 2 208705, 3469407, 9982248, 32838285 #### [facility] [address] [place] [address] Glucose [Mass/Vol] 95 mg/dL Normal 55-199 [facility] Comment on above: Result Comment: If t his glucose result represents a fasting glucose, interpretation should refer to the following reference range: 55-99 mg/dL Performed By: #### 2 343563, 6969336, 9423522, 34584467 #### [facility] [address] [place] [address] Potassium [Moles/Vol] 4.4 mmol/L Normal 3.5-5.3 [facility] Comment on above: Performed By: #### 2 058480, 6709196, 3903341, 12144046 #### [facility] [address] [place] [address] Protein [Mass/Vol] 7.6 g/dL Normal 6.0-7.8 [facility] Comment on above: Performed By: #### 2 559150, 9995410, 1465219, 35806829 #### [facility] [address] [place] [address] Sodium [Moles/Vol] 135 mmol/L Normal 135-145 [facility] Comment on above: Performed By: #### 2 517568, 5211716, 3502921, 18341760 #### [facility] [address] [place] [address] Urea nitrogen [Mass/Vol] 12 mg/dL Normal 5-21 [facility] Comment on above: Performed By: #### 2 675983, 9562114, 2979922, 07459336 #### [facility] [address] [place] [address] Urea nitrogen/Creatinine [Mass ratio] 15 No Units Normal 10-20 [facility] Comment on above: Performed By: #### 2 934118, 3558618, 1751116, 58099061 #### [facility] [address] [place] [address] HEMATOLOGYOrdered By: SYSTEM SYSTEM on 02-28-2022 Basophils/100 [...] [facility] Physician Orderon 02-28-2022 Physician Order [id number]# [id number]:127 Normal [facility] eGFRon 02-28-2022 GFR/1.73 sq M.predicted among blacks MDRD (S/P/Bld) [Vol rate/Area] mL/min/{1.73_m2} Normal >=59 [facility] Comment on above: Order Comment: Order added by Discern Expert. Result Comment: eGFR is race adjusted. AA=. Performed By: #### 2 278246, 4876664, 1463821, 05650848 #### [facility] [address] [place] [address] GFR/1.73 sq M.predicted among non-blacks MDRD (S/P/Bld) [Vol rate/Area] mL/min/{1.73_m2} Normal >=59 [facility] Comment on above: Order Comment: Order added by Discern Expert. Result Comment: [employer] fermin kidney disease could be indicated at eGFR's of less than 60 mL/min/1.73m2. Kidney failure is indicated at less than 15 mL/min/1.73m2. Performed By: #### 2 050326, 2307168, 5922702, 67666853 #### [facility] [address] [place] [address] PAP ACOG PANEL 2: 21 to 28on 02-08-2022 . . Normal [facility] Comment on above: Performed By: #### 4 632471 #### [facility] [address] [place] [address] Dr. Dennise Cronin Age Gdln ACOG Testing 20- Normal [facility] Comment on above: Performed By: #### 4 637066 #### [facility] [address] [address] [address] Dennise Cronin DIAGNOSIS: Comment Normal [facility] Comment on above: Result Comment: NEGA TIVE FOR INTRAEPITHELIAL LESION OR MALIGNANCY. Performed By: #### 4 425505 #### [facility] [address] [address] [address] Dennise Cronin Methodology: Comment Normal [facility] Comment on above: Result Comment: This liquid based ThinPrep(R) pap test was screened with the use of an image guided system. Performed By: #### 4 978862 #### [facility] [address] [place] [address] Dr. Dennise Cronin Note: Comment Normal [facility] Comment on above: Result Comment: The Pap smear is a screening test designed to aid in the detection of premalignant and malignant conditions of the uterine cervix. It is not a diagnostic procedure and should not be used as the sole means of detecting cervical cancer. Both false-positive and false-negative reports do occur. . Performed By: #### 4 848334 #### [facility] [address] [place] [address] Dr. Dennise Cronin Performed by: Comment Normal [facility] Comment on above: Result Comment: Haja Pisano Banquet Lead (ASCP) Performed By: #### 4 375306 #### [facility] [address] [place] [address] Dr. Dennise Cronin Reflex Criteria: Comment Normal [facility] Comment on above: Result Comment: The HPV DNA reflex criteria were not met with this specimen result therefore, no HPV testing was performed. . Performed By: #### 4 648041 #### [facility] [address] [place] [address] Dr. Dennise Cronin Specimen adequacy: Comment Normal [facility] Comment on above: Result Comment: Sati sfactory for evaluation. Endocervical and/or squamous metaplastic cells (endocervical component) are present. Performed By: #### 4 869029 #### [facility] [address] [place] [address] Dr. Dennise Cronin Family Medicine Office/Clini c [...] day(s), # 7 tab(s), Refills(s) 0, [facility], 165, cm, 05/16/21 17:09:00 EST, [...] # 21 tab(s), Refills(s) 0, [facility], 165, cm, 05/16/21 17:09:00 EST, Height/Length Dosing, 83.8, kg, 05/16/21 17:09:00 EST, Weight Dosing 2. Viral URI with cough (J06.9: Acute upper respiratory infection, unspecified) Advised patient that Influenza A/B was negative today in office. Discussed sreekanth (more content not included)... Normal [facility] Comment on above: Result Comment: [...] as you can. Do not try to cotton picker a heavy object that is far [...] on a (more content not included)... Normal [facility] Provider Letteron 05-16-2021 Provider Letter May 16, [address] [address] To Whom It May Concern, Please excuse above patient from work. Date of Illness: From: 05/15/21 To: 05/18/21 May Return to Work On: 05/15/21 Restrictions: _ Comments: _ Sincerely, [facility] Encounters Encounter Date Encounter Type Care Provider Facility Start: 10-15-2023 End: 10-15-2023 ambulatory LILLAIN COHEN Not Available Start: 02-27-2023 End: 02-27-2023 ambulatory KATHERINE CARRASCO Not Available Start: 02-28-2022 End: 03-01-2022 ambulatory LILLIAN COHEN Facility:[facility] Start: 02-28-2022 End: 02-28-2022 Patient encounter procedure LILLIAN COHEN [facility] Start: 01-30-2022 End: 01-30-[address] KATHERINE CARRASCO Facility: Start: 05-16-2021 End: 05-17-2021 ambulatory Brook TiffaniPiper Levin Facility:[facility] Procedures Date Procedure Procedure Detail Performing Clinician None (qualifier value) JAVAD COHEN Payers Date Payer Category Payer Unknown [id number] [id number] [id number] 1999 Unknown [id number] [id number] 1999 Unknown [id number] [id number] [id number] 1999 Unknown [id number] 2.16.84 [id number] 1999 Unknown [id number] 1959 Unknown [id number] Medicaid [id number] Social History Date Type Detail Facility Start: 05-16-2021 Tobacco smoking status Never s moked tobacco (finding) [facility] Tobacco smoking status Never [facility] Sex Assigned At Female [facility] Evaluation + Plan note Note Date & Type Note Facility Evaluation + Plan note No data available for this section [facility] Hospital Discharge instructions Note Date & Type Note Facility Hospital Discharge instructions No data available for this section [facility] Progress note Note Date & Type Note Facility Progress note No data available for this section [facility] Summary Purpose Family History No Family History Records FoundNo Family History Records FoundNo Family History Records Found Advance Directives No Advanced Directives Records FoundNo Advanced Directives Records FoundNo Advanced Directives Records Found Additional Source Comments INFORMATION SOURCE (unrecogn ized section and content) DATE CREATED AUTHOR 02/09/2022 [facility] DATE CREATED AUTHOR AUTHOR'S ORGANIZ ATION 03/05/2022 [facility] DATE CREATED AUTHOR AUTHOR'S ORGANIZ ATION 10/17/2023 [facility] Patient Care team informbongo n (unrecognized section and content) Personnel Name: COHEN LILLIAN JACKMAN Address: Address: [address] [place] [address] Name: LILLIAN COHEN CNP Address: Address: [address] [place] [address] FOR RECORDS PERTAINING TO PATIENTS WHO ARE [...] BE BASED ON THE PRIMARY CLINICAL RECORDS. [employer] [id number] provides no warranty or guarantee [id number] the accuracy [phone] completeness of information in [id number] [id number]
[2023-12-26 06:10] LABS: Cytomegalovirus (CMV) Ab, IgG <0.60 U/mL (0.00-0.59); Cytomegalovirus (CMV) Ab, IgM <30.0 AU/mL (0.0-29.9); HBsAg Screen Negative (Negative); HCV Ab Non Reactive (Non Reactive); Hep A Ab, IgM Negative (Negative); Hep B Core Ab, IgM Negative (Negative); Mumps Abs, IgG 20.3 AU/mL (Immune >10.9); Rubella Antibodies, IgG 5.65 index (Immune >0.99); Varicella-Zoster V Ab, IgG Reactive (Non Reactive)
== END 2023-12-25 06:42 | disposition home or self-care (01) ==
LOC: LAB 06:41
PROVIDERS: PCP Student in an Organized Health Care Education/Training Program; Visit Provider Obstetrics & Gynecology
DX: Z77.21 Contact with and (suspected) exposure to potentially hazardous body fluids (principal)
CPT/HCPCS: 36415; 80074; 86644; 86645; 86735; 86762; 86765; 86778; 86787

== ENCOUNTER 2023-12-31 19:35 | Outpatient (REF) | payer OTHER, SELFPAY ==
--- OUTSIDE RECORDS SUMMARY | 2023-12-31 19:41 | XMS_ITS | CCD ---
Author Organization [facility] Care Team Providers Care Dewer Name Role Phone DR KATHERINE HOANG Consulting Unavailable DR KATHERINE HOANG Attending Unavailable DR KATHERINE HOANG Admitting Unavailable NAILA COHEN Primary Care Physician NAILA COHEN Unavailable NAILA COHEN Admitting Unavailable NAILA COHEN Attending Unavailable Brook Levin Attending Unavailable NAILA COHEN Attending Unavailable KATHERINE HOANG Attending Unavailable Jean ANDRADE, Marianne Rodríguez Unavailable Talisha Mixon MD Primary Care Provider Naila Cohen NP Unavailable Medications Current Medications Medication Drug Class(es) Dates Sig (Normalized) Sig (Original) cetirizine hydrochloride 10 mg oral tablet (1 source) Histamine-1 Receptor Antagonist Start: 05-16-2021 cetirizine 10 mg Tab Refills(s) 0 Start Date: 05/16/21 Status: Ordered {21 (Ethinyl Estradiol 0.035 MG / norgestimate 0.25 MG Oral Tablet) / 7 (Inert Ingredients 1 MG Oral Tablet) } Pack [Hughes-Linyah 28 Day] (1 source) Progestin, Estrogen Start: 04-13-2019 Hughes-Linyah 0.25 mg-35 mcg oral tablet Refill(s) 0 Start Date: 04/13/19 Status: Ordered Flonase 0.05 mg/inh nasal spray (1 source) Start: 02-24-2018 take 1 spray(s) nasal route once daily Flonase 0.05 mg/inh nasal spray 1 spray(s), Nasal, Daily, 16 gram, Refill(s) 0, each nostril Start Date: 02/24/18 Status: Ordered pyridoxine hydrochloride 25 mg oral tablet (1 source) Start: 12-03-2023 End: 03-02-2024 take 1 tablet by mouth every eight hours pyridoxine (Vitamin B-6) 25 MG tablet Indications: Nausea and vomiting in , First trimester Take 1 tablet (25 mg) by mouth every 8 (eight) hours 90 tablet 1 12/03/2023 03/02/2024 Active Problems Active Problems Problem Classification Problem Date Documented Date Episodic/Chronic Anxiety disorders (1 source) Anxiety; Translations: [Anxiety disorder, unspecified] Onset: 10-08-2022 10-08-2022 Chronic Headache; including migraine (1 source) Migraine; Translations: [Migraine, unspecified, not intractable, without status migrainosus] Onset: 10-08-2022 10-08-2022 Chronic Immunizations and screening for infectious disease (1 source) Encounter for screening for human papillomavirus (HPV); Translations: [ENC SCREENING HUMAN PAPILLOMAVIRUS] Onset: 02-04-2022 Episodic Malaise and fatigue (1 source) Fatigue; Translations: [Chronic fatigue, unspecified] Onset: 10-08-2022 10-08-2022 Chronic Other endocrine disorders (1 source) Hypoglycemia; Translations: [Hypoglycemia, unspecified] Onset: 10-08-2022 10-08-2022 Chronic Other screening for suspected conditions (not mental disorders or infectious disease) (5 sources) Encounter for screening for malignant neoplasm of cervix; Translations: [No current problems or disability] Onset: 01-30-2022 Episodic Other upper respiratory disease (1 source) Seasonal allergy; Translations: [Other seasonal allergic rhinitis] Onset: 10-08-2022 10-08-2022 Chronic Past or Other Problems Problem Classification Problem Date Documented Da te Episodic/Chronic Asthma (1 source) Asthma 12-21-2011 Other injuries and conditions due to external causes (1 source) Contusion; Translations: [Other injury of unspecified body region, initial encounter] Onset: 10-08-2022 10-08-2022 Episodic Results Test Name Value Interpretation Reference Range Facility ACUTE HEPATITISon 12-26-2023 HBSAG SCREEN Negative Negative [facility] HCV AB Non-Reactive Non Reactive [facility] HEP A AB, IGM Negative Negative [facility] Comment on above: A negative anti-HAV IgM result suggests no recent or current HAV infection. HEP B CORE AB, IGM Negative Negative [facility] INTERPRETATION: Comment . [facility] Comment on above: Not infected with HC V unless early or acute infection is suspected (which may be delayed in an immunocompromised individual), or other evidence exists to indicate HCV infection. ALL MISCELLANEOUS TESTon MISCELLANEOUS TEST COMMENT . [facility] Comment on above: Test Ordered: [id number] Toxoplasma gondii Ab,IgM Toxoplasma gondii Ab,IgM <3.0 AU/mL CB Reference Range: 0.0-7.9 Negative <8.0 Equivocal 8.0 - 9.9 Positive >9.9 Comment: Comment CB Reference Range: . It is presumed the patient has not been infected with and is not undergoing an acute infection with Toxoplasma. If symptoms persist, submit a new specimen after three weeks. Performed at: [facility] [id number] Brim Setter: Ihsan Phelps PhD, Phone: [phone] Toxoplasma gondii Antibodies, IgM [facility] CYTOMEGALOVIRUS (CMV) AB, IG [place] 12-26-2023 CYTOMEGALOVIRUS (CMV) AB, IGG <0.60 0.00 - 0.59 U/mL [facility] Comment on above: Negative <0.60 Equivocal 0.60 - 0.69 Positive >0.69 Performed at: [facility] [id number] Brim Setter: Ihsan Phelps PhD, Phone: [phone] CYTOMEGALOVIRUS (CMV) AB, IG [facility] 12-26-2023 CYTOMEGALOVIRUS (CMV) AB, IGM <30.0 0.0 - 29.9 AU/mL [facility] Comment on above: Negative <30.0 Equivocal 30.0 - 34.9 Positive >34.9 A positive result is generally indicative of acute infection, reactivation or persistent IgM production. Performed at: [facility] [id number] Brim Setter: Ihsan Phelps PhD, Phone: [phone] MEASLES/MUMPS/RUBELLA IMMUNI TYon 12-26-2023 MEASLES ANTIBODIES, IGG 271.0 AU/mL Immune >16.4 [facility] Comment on above: Negative <13.5 Equivocal 13.5 - 16.4 Positive >16.4 Presence of antibodies to Rubeola is presumptive evidence of immunity except when acute infection is suspected. MUMPS ABS, IGG 20.3 AU/mL Immune >10.9 [facility] Comment on above: Negative <9.0 Equivocal 9.0 - 10.9 Positive >10.9 A positive result generally indicates past exposure to Mumps virus or previous vaccination. RUBELLA ANTIBODIES, IGG 5.65 Immune >0.99 index [facility] Comment on above: Non-immune <0.90 Equivocal 0.90 - 0.99 Immune >0.99 No Panel Informationon 12-25 [facility] VARICELLA-ZOSTER V AB, IGGon 12-26-2023 VARICELLA-ZOSTER V AB, IGG Reactive Non Reactive [facility] Comment on above: Please note refere nce interval change A Reactive result is considered evidence of immunity to VZV. Reactive indicates that VZV IgG was detected consistent with previous infection and/or vaccination. A Non Reactive result indicates that VZV IgG was not detected suggesting that immunity has not been acquired. Coding Summary.on 03-05-2022 Coding Summary. CD:[id number] G h0bWw+PGhlYWQ+NB6VYCU lK33qzVDdyC2ZL4cHLB7Z XZSRTMUVBC1LNY7alVN9J NojW7FdceJp QjnyvFFvQT68VVb7IBU9c FehTUhqpC4caUYgP7b3Jy YuSZ77yD98FJmgBUQlIoC 3LjZpbjsgbWFy I2ceWeForNPbCto+PHRhY mxlIHdpZHRoPScxMDAlJy AnvPjqAT2mRx2gOEKnHQG vbGxhcHNlOiBj l2jySHUsYAnhKP5dfXldB 1WgeMF3ILGdu0j9Ql83xQ I+GDMqNNZ3aAyuVNvhd16 6SvTky7uaIEY7 kPWcCZmmHCF9A05bq5G0A UXtBSRlAUA3lDS4eY0xqT udfccgX1IoxTMaNoV3ZUX 6qLDbpY0fgQuh zucoiX6nThi+K85VNT4ZO YLPVR0GCcn0V7JbDktilM I+IN60KKCyUI51jKUymSZ mt1atlUo6MfRl KSKdEWU5hDbtPZjfa9OiJ UPxH74etXPck9U3BDTioB akoHVgStWtrUU6zL9rXKy dpvull6defooi Ljcme2lmyv81dH86H66fJ UuaCWMnOML5TVPhFPXbsX tclj5caZ2mNv3+LGsnh8y cc7lseXo5IbSr KQJjrxPuzPkpVLA8y4MuQ e95V5QvuAxoi7YxMit4as 73rKDme1A4fHS8XAkxWNP hyY1sYRucAtK7 GUHlZcOmvS74kMXlFRdqX k1lrIcjeAytSD0zLEHqqy haNKNqrJ4pOLUekOMwiUj kGZ8sYFXbqzxq y214YzRbTJM4ZEGqiIFkB 6AvhU4gKwMpUZMpRSJbZ2 XgyMVdFZjfX331HRvkZmX 5NPCaxjVnF3Nj ALNikFmyCfR6a7D4Gh2Fr 9KnvwmuJSN9LHupIKRkQz S8AxBxRcP6R0VsHzo6LEV isOdhLL5eE8Ez AACjfbaghxfbrOC4WACyL HXerR17lVHpWZgqLl4qi4 V8o555VBFlZLSczM21Nr5 udDogMTBwdCBU tD9dfvwcc4hsggwxNmDmY QLeVHi1MAw1EXBriFduXr RoSVE7AzR7RZJ8oTQpzU5 srNipufuvtP5m Oyc+G22srU9mRUG8SQV5c waoBRKaoqJzQI22HK02H4 RyPjwvdGFibGU+PGRpdiB poLuoHN3gYcGe i9iyg0YhSSjvN5NsRYWhJ BrjYpu1PWCqYPG7aPQ5fK 4nKBIlIHjfw1D8eDN4M4I hxhEwdq6kq4ms ICVqMGccJ21fqOMkx5Y5K NRxpYE2TFThrUvcLnDykG 93Oyc+BWWyaWcfc4NaEoh yx8xim1ipeBs5 IpIxKURtwjNazTrqDFL8p 9OrQa83T94iMYkpEPVcOA DnYEBjPKUkqNngpc5yiU2 wIi8+PGNvbCB3 jRD0lA6kAZIcAqT7ELzzC 410UtQrfCEqCmaqv2djl0 eetQt4MuCzHTNitrCuqXd zDWR1s8QxKm48 K84vMGhqFSIfXQRrZBHyD DQvhMjleg2neT1eXk8+PC 5cn2tmvp99eG25pIS+PHR fSXE4oIshHUlj ZDSvrQ7fBDhuNyQ6ASUiP fDnuR05zGIwAAduYf9faM ubiByrLW1fUYBitnoaw24 0NqRxc1kmKKSk xYYbHZeyYGM0T53oz3I8I ZYeVMPfWNJ2jLC2kL5doO lnbjogbGVmdDsgdmVydGl jJKyeYZsrD545 IHRvcDsnPlBhdGllbnQgT cEhHWf0I6IeOeq6ZCEelZ orOK7hnJSlRLxfUx6zwLg kzKjtDQ0aLWNe sddir051YkCfe8yyXBHkw UPwPJssJEE7K45vv5X2IK ViGQKhHAX1tJL2kK2jwJr nbjogbGVmdDsg hePjhHobPAbmWVqfP336R HRvcDsnPkJpcnRoIERhdG I4NY76UF68eBWmu5B7aKK 2F3UwERXukcyw dynwvAB8ZIHdQHEbvC39X l5udQlzPe8iAOUkXEH0EP BooJIjK9IhdQ0fSpEkSNP xRJIzU1JbmPPw KQmcS103AUqbInN6NOTdg eBuN0RgPTHzcKmqZjN5b4 V9Ct5FJ0S0DL58KS37dWX qr6S7gML6J7Fn SVXgxcdeabvreMP4PXMfS BKlvD80Sn8ncTsiDv1xBU SgOEH9HSBqvCZmD4ZhnP9 yOiAjMDAwMDAw D9WwdRHgFFhqO683AUniX kB5FGXmosKaC8CrJEOswL bjWmV9v5C2Aj7SLTz1TO1 1TZ99wVFuj8L9 aOC6H8EzBAGqnxscxyrpj CX1QYPcMVPvhM26Ai8lrD pjAm1hAVYrSJB7YWArgIW nI8NimN5cTuXp XFVwMRDeS8JwcBSaAOckC 997AAoiVjD8XOOjtwIuO7 RrJUXmfWgyYyD6t7V8Nm5 ECJIfOV72RTY6 sAF2JS75LH34F4DvTygqs GFibGU+PHRhYmxlIHdpZH RoPScxMDAlJyBzdHlsZT0 mXu7tULJqJJCd qRgtoIYyJtGmx3gqSFLkH SxsGQ9fbVpoI6JlbJN0UL Doe8x0Ta82C86eU1IlwKW +PBKrsEX1mSL3 bV5jUrMuAhD4VFtkR035G eDtiBIwGvqhb0nqj8pceP b4GqN4DRFontGktMhtDUM 9a3VqAg84B67t IHdpZHRoPSIxNSUiIHZhb Wjhfm6ucX7kQw6+PGNvbC Y6aUE2fH7iFqVmZaP4ATx rB723LlZpmYJw Oupde1kux7mhwBj9KkPyL GUndhTkzVcrBIX7c3DkAn 26J1XpvYeap7MxNgc8jp0 3zXSql5O2wXK8 X0LnDNDjhzepeTFemOfjK Z2sPWNmrvheOHWxaO3uWM YuB9i9WbFzGhU8WRahI4O ihnZ6ODQhpOXb PXsbHMF9X17lt3N9SBMmC DHnCLQ2hNY0vI9chEghbn ogbGVmdDsgdmVydGljYWw mXQdbA670HEPt eViaRHQfvM9fOPTtmVLln BgxRN8nUGNstypxBoZHLf JTFKRVZ4OXZVS0L3EzDmu 6CITndKscJW1a aRZdLLzmEy9ujKqjjUtwQ S8gGTLhovgwHHVbaG9qMT StfDNglUuvSZ7iWPLdhpt ft862ToTyXHF3 SYEfdKHgU9TmtV5gXoKwX DYdTXWeA0KrbZFvFAesF0 37IAcpYzK7BZKtthNuZ7X sLWFsaWduOiB0 a8Z2Ml0sXC4uHQ4eKIb6K I78NV45dWXde8M9qES2R2 ZgBVOuxgmlhhvbrNP9OGZ rQSSbnW53gCLn FGgqRc3mz0N1b277NKUoE UVwrF50Jk8tgCuzTZXgnL EYbS0zapzso9vbdreaAtW zQTVcGFo9QLm2 RFYipRrbOtQxYKA4UrQ2G EP9kGIygW8fiLduaiidjO 9wOyc+UyRePIVvuoZ9K2G uBqi1ABLbaFfy HK4saJToCEtyHo4hiKjmn OyxBQ4rUHVvqqjyTCCvwD 6vIJEjgHGvpGanPM4xPNF fpywnv063XiCl HKD8WKJkiCBdE5RrqH0sJ jSpKRGyWHGtU6GfdBViUE sxJ819MXauUcL7CXUuzvJ jC7AcYSGocFuf MpH5r5D9Ur4XRZ8guXO8S 6CiWbx3ZNVglKtqRV0jxK LuHTyfWp2pvAvpiJgrCU9 wNTBpbjtwYWRk tG8bJNJmqUHkoFqkMQ7kU JQvlueqn100UmIiXAI4FI AnjVDsD3UtdP5hJgGuYAB hSXRnT3YdrGHf ILyhA641UVdxUgT8BFVtu bEkH0WqIUCiiEpfKeF5u6 F9Ef3CqPQrSDDvBW09UM7 6NT19R5OqPdge dGFibGU+PHRhYmxlIHdpZ HRoPScxMDAlJyBzdHlsZT 0hWt2tBAZiIFCbxWexqRP sUmIdv7gpIJJo CJtqFS0naGhdN2IfiED4M OMtc1m7Xh83Q08qA7YywC A+WSMvrZL5mBK0dI6jGgL tUsK2XKutC462 RlEmrNYxOpmmd7rzq3eie Vf1FnRbRWEypoVnyVigOD G1u2FaFs33R62hJQytWHC oPSIyMCUiIHZh dJcsur5hyH2zPy1+PGNvb CE6uZI5cS3oObCkBfW4NH seL092KhSoxNFdXzueP40 qH3YdgIT+PHRy Jaf5GTDixIrmQX5epMTlU XstRe6fWBJ3FtAzFoCdJN nmZ5DcTWMbeebsrexapHM 4GMSwXURqaE14 Hk8hySexIo2dBZTuLYC3P OZnxCZhH4XkzI9mOkZcBE IyXNOzA2YrpTBkYMrwS10 6SDqxPuQ2LDJt cnByO7VzSPYnzJkxBkB0g 9J3Rz7CmDjbbMMwBP7iRg DgWYg8X5EmWju9BFSgyJx aPJ7viCVvUHmy Ya1daZvzdHwcMX9uWDUck bhyw460IsQzu4neRWPghG QkGAfqXHR2E85nl5Y4XGT pFORhJNU7jYM3 wB3kvLsdeegbaIHntMmny nJhoKkkYVplLZhnE596XJ ZpmZfsLzGHIhz0M5XgNoe 5BXOmgBtsEQ9u dRZfXEmoZn4rzPlviEtoD C4fLXLzxrqpw258IsDfx6 qnMFGhtRBuJMzzUHU7A83 vw5H5GLKdSAZz VWP6mTL8cF7yqXlhgrind GVmdDsgdmVydGljYWwtYW fpQ869GQAnoLozQl2JIpv 8Y7HgDzi5ZMXa zKdbJX8yvWZgSThkNl1er OzakGhdIS5rDRGtlgmta1 73BwSyr4ygPKZxwIAvILr tNOC9T16fn2M4 GGMfZEUgUWU6xQW6pE9qs GlnbjogbGVmdDsgdmVydG tfZByzYOfjR016VPXilVa nPlBheWVyOjwv dGQ+ZZ44md87F7EyPqlvY ms9AAWnIGX1kTG2iM1mED LkZAztw9A8bEE3L3JnpbX cdv0bf0vqKTLw ZTog (more content not included)... Normal [facility] Auto Diffon 02-28-2022 Basophils/100 WBC (Bld) 0.8 % Normal 0.0-2.0 [facility] Comment on above: Order Comment: Order Added by Discern Expert. Performed By: #### 2 [id number], [id number], [id number], [id number] #### [facility] [address] [place] [address] Basophils/Leukocytes Auto (Bld) [Pure # fraction] 0.1 E9/L Normal 0.0-0.2 [facility] Comment on above: Order Comment: Order Added by Discern Expert. Performed By: #### 2 770150, 5127243, [id number], [id number] #### [facility] [address] [place] [address] Eosinophils/100 WBC (Bld) 3.5 % Normal 0.0-8.0 [facility] Comment on above: Order Comment: Order Added by Discern Expert. Performed By: #### 2 [id number], [id number], 3686188, [id number] #### [facility] [address] [place] [address] Eosinophils/Leukocytes Auto (Bld) [Pure # fraction] 0.2 E9/L Normal 0.0-0.5 [facility] Comment on above: Order Comment: Order Added by Discern Expert. Performed By: #### 2 670224, 0942156, [id number], [id number] #### [facility] [address] [place] [address] Lymphocytes/100 WBC (Bld) 30.8 % Normal 14.0-50.0 [facility] Comment on above: Order Comment: Order Added by Discern Expert. Performed By: #### 2 312335, 4937561, 4883730, [id number] #### [facility] [address] [place] [address] Lymphocytes/Leukocytes Auto (Bld) [Pure # fraction] 2.1 E9/L Normal 1.0-4.0 [facility] Comment on above: Order Comment: Order Added by Discern Expert. Performed By: #### 2 031357, 6374413, 9892441, [id number] #### [facility] [address] [place] [address] Monocytes/100 WBC (Bld) 4.3 % Normal 4.0-14.0 [facility] Comment on above: Order Comment: Order Added by Discern Expert. Performed By: #### 2 542256, 8637007, [id number], [id number] #### [facility] [address] [place] [address] Monocytes/Leukocytes Auto (Bld) [Pure # fraction] 0.3 E9/L Normal 0.2-1.0 [facility] Comment on above: Order Comment: Order Added by Discern Expert. Performed By: #### 2 875310, 7064603, 1244085, [id number] #### [facility] [address] [place] [address] Neutrophils/100 WBC (Bld) 60.6 % Normal 36.0-75.0 [facility] Comment on above: Order Comment: Order Added by Discern Expert. Performed By: #### 2 297225, 9036012, 1045605, [id number] #### [facility] [address] [place] [address] Neutrophils/Leukocytes Auto (Bld) [Pure # fraction] 4.1 E9/L Normal 2.0-7.5 [facility] Comment on above: Order Comment: Order Added by Discern Expert. Performed By: #### 2 797999, 1940662, 6031918, [id number] #### [facility] [address] [place] [address] CBC w/ Auto Diffon Erythrocyte distribution width (RBC) [Ratio] 13.3 % Normal 10.9-14.2 [facility] Comment on above: Performed By: #### 2 195202, 2255989, 2569065, [id number] #### [facility] [address] [place] [address] Hematocrit (Bld) [Volume fraction] 43.5 % Normal 34.0-46.0 [facility] Comment on above: Performed By: #### 2 966365, 5693834, 8106551, [id number] #### [facility] [address] [place] [address] Hemoglobin (Bld) [Mass/Vol] 14.4 g/dL Normal 12.0-16.0 [facility] Comment on above: Performed By: #### 2 857421, 5768189, 1502004, [id number] #### [facility] [address] [place] [address] MCH (RBC) [Entitic mass] 29.5 pg Normal 27.0-34.0 [facility] Comment on above: Performed By: #### 2 048618, 7227759, 7977578, [id number] #### [facility] [address] [place], [place] [address] MCHC (RBC) [Mass/Vol] 33.0 g/dL Normal 31.4-36.0 [facility] Comment on above: Performed By: #### 2 968047, 2923952, 1206333, [id number] #### [facility] [address] [place] [address] MCV (RBC) [Entitic vol] 89.3 fL Normal 80.0-100.0 [facility] Comment on above: Performed By: #### 2 391713, 3032810, 5301643, [id number] #### [facility] [address] [place] [address] Platelet mean volume (Bld) [Entitic vol] 7.9 fL Normal 6.4-10.8 [facility] Comment on above: Performed By: #### 2 596053, 8266961, 3612058, [id number] #### [facility] [address] [place] [address] Platelets (Bld) [#/Vol] 328.0 E9/L Normal 150.0-500.0 [facility] Comment on above: Performed By: #### 2 768326, 3408017, 6201258, [id number] #### [facility] [address] [place] [address] RBC (Bld) [#/Vol] 4.9 E12/L Normal 4.3-5.9 [facility] Comment on above: Performed By: #### 2 667801, 5908356, 6478342, [id number] #### [facility] [address] [place] [address] WBC corrected for nucl RBC Auto (Bld) [#/Vol] 6.7 E9/L Normal 4.0-11.0 [facility] Comment on above: Performed By: #### 2 678791, 7586664, 7677955, [id number] #### [facility] [address] [place] [address] CHEMISTRYOrdered By: SYSTEM SYSTEM on 02-28-2022 Albumin [...] 27 [iU]/d Normal 5 - 43 Int._Unit/L [facility] Bilirubin [Mass/Vol] 0.4 mg/dL Normal 0.0 - 1 .1 mg/dL [facility] Calcium [Mass/Vol] 9.1 mg/dL Normal 8.9 - 11. 1 mg/dL [facility] Chloride [Moles/Vol] 104 mmol/L Normal 101 - 1 11 mmol/L [facility] CO2 [Moles/Vol] 25 mmol/L Normal 21 - 31 mmol/L [facility] Creatinine [Mass/Vol] 0.8 mg/dL Normal 0.5 - 1.3 mg/dL [facility] GFR/1.73 sq M.predicted among blacks MDRD (S/P/Bld) [Vol rate/Area] mL/min/1.73 m2 Normal >=59mL/min/1. 73 m2 [facility] Chem S GFR/1.73 sq M.predicted among non-blacks MDRD (S/P/Bld) [Vol rate/Area] mL/min/1.73 m2 Normal >=59mL/min/1. 73 m2 [facility] Chem S Globulin (S) [Mass/Vol] 3.6 g/dL Normal 1.4 - 4.0 gm/dL [facility] Glucose [Mass/Vol] 95 mg/dL Normal 55 - 199 mg/dL [facility] Potassium [Moles/Vol] 4.4 mmol/L Normal 3.5 - 5.3 mmol/L [facility] Protein [Mass/Vol] 7.6 g/dL Normal 6.0 - 7.8 gm/dL [facility] Sodium [Moles/Vol] 135 mmol/L Normal 135 - 145 mmol/L [facility] Urea nitrogen [Mass/Vol] 12 mg/dL Normal 5 - 21 mg/dL [facility] Urea nitrogen/Creatinine [Mass ratio] 15 mg/mg Normal 10 - 20 [facility] CMPon 02-28-2022 Albumin [Mass/Vol] 4.0 g/dL Normal 3.3-5.0 [facility] Comment on above: Performed By: #### 2 955152, 3594459, 0360673, [id number] #### [facility] [address] [place] [address] Albumin/Globulin (S) [Mass conc ratio] 1.1 Normal 1.1-2.2 [facility] Comment on above: Performed By: #### 2 930727, 1435161, 5393421, [id number] #### [facility] [address] [place] [address] ALP [Catalytic activity/Vol] 51 Int._Unit/L Normal 21-98 [facility] Comment on above: Performed By: #### 2 575898, 7522904, 3087344, [id number] #### [facility] [address] [place] [address] ALT No additional P-5'-P [Catalytic activity/Vol] 34 Int._Unit/L Normal 6-46 [facility] Comment on above: Performed By: #### 2 797867, 2373848, 5574316, [id number] #### [facility] [address] [place] [address] Anion gap [Moles/Vol] 10 mmol/L Normal 6-16 [facility] Comment on above: Performed By: #### 2 101310, 6376510, 4654987, [id number] #### [facility] [address] [place] [address] AST [Catalytic activity/Vol] 27 Int._Unit/L Normal 5-43 [facility] Comment on above: Performed By: #### 2 667244, 7403132, 4697478, [id number] #### [facility] [address] [place] [address] Bilirubin [Mass/Vol] 0.4 mg/dL Normal 0.0-1.1 [facility] Comment on above: Performed By: #### 2 864199, 4368162, 1768833, [id number] #### [facility] [address] [place] [address] Calcium [Mass/Vol] 9.1 mg/dL Normal 8.9-11.1 [facility] Comment on above: Performed By: #### 2 573979, 8030126, 8775732, [id number] #### [facility] [address] [place] [address] Chloride [Moles/Vol] 104 mmol/L Normal 101-111 [facility] Comment on above: Performed By: #### 2 [id number], [id number], 4235018, [id number] #### [facility] [address] [place] [address] CO2 [Moles/Vol] 25 mmol/L Normal 21-31 [facility] Comment on above: Performed By: #### 2 514149, 9929048, 1403921, [id number] #### [facility] [address] [place] [address] Creatinine [Mass/Vol] 0.8 mg/dL Normal 0.5-1.3 [facility] Comment on above: Performed By: #### 2 [id number], [id number], [id number], [id number] #### [facility] [address] [place] [address] Globulin (S) [Mass/Vol] 3.6 g/dL Normal 1.4-4.0 [facility] Comment on above: Performed By: #### 2 518945, 0988227, 5666387, [id number] #### [facility] [address] [place] [address] Glucose [Mass/Vol] 95 mg/dL Normal 55-199 [facility] Comment on above: Result Comment: If t his glucose result represents a fasting glucose, interpretation should refer to the following reference range: 55-99 mg/dL Performed By: #### 2 764656, 6754455, [id number], [id number] #### [facility] [address] [place] [address] Potassium [Moles/Vol] 4.4 mmol/L Normal 3.5-5.3 [facility] Comment on above: Performed By: #### 2 [id number], [id number], 5918836, [id number] #### [facility] [address] [place] [address] Protein [Mass/Vol] 7.6 g/dL Normal 6.0-7.8 [facility] Comment on above: Performed By: #### 2 976389, 2966875, 7521743, [id number] #### [facility] [address] [place] [address] Sodium [Moles/Vol] 135 mmol/L Normal 135-145 [facility] Comment on above: Performed By: #### 2 602247, 5285809, 0516671, [id number] #### [facility] [address] [place] [address] Urea nitrogen [Mass/Vol] 12 mg/dL Normal 5-21 [facility] Comment on above: Performed By: #### 2 063161, 6061229, 3673103, [id number] #### [facility] [address] [place] [address] Urea nitrogen/Creatinine [Mass ratio] 15 No Units Normal 10-20 [facility] Comment on above: Performed By: #### 2 464921, 5798795, 0600253, [id number] #### [facility] [address] [facility] [place] [address] HEMATOLOGYOrdered By: SYSTEM SYSTEM on 02-28-2022 Basophils/100 [...] 89.3 fL Normal 80.0 - 100.0 fL [facility] [facility] Platelet mean volume (Bld) [Entitic vol] 7.9 fL Normal 6.4 - 10.8 fL [facility] [facility] Platelets (Bld) [#/Vol] 328.0 E9/L Normal 150.0 - 500.0 E9/L [facility] [facility] RBC (Bld) [#/Vol] 4.9 E12/L Normal 4.3 - 5.9 E12/L [facility] [facility] WBC corrected for nucl RBC Auto (Bld) [#/Vol] 6.7 E9/L Normal 4.0 - 11.0 E9/L [facility] Physician Orderon 02-28-2022 Physician Order [id number]# 1.00CD:127 Normal [facility] eGFRon 02-28-2022 GFR/1.73 sq M.predicted among blacks MDRD (S/P/Bld) [Vol rate/Area] mL/min/{1.73_m2} Normal >=59 [facility] Comment on above: Order Comment: Order added by Discern Expert. Result Comment: eGFR is race adjusted. AA=. Performed By: #### 2 871369, 5360425, 5532053, [id number] #### [facility] [address] [place] [address] GFR/1.73 sq M.predicted among non-blacks MDRD (S/P/Bld) [Vol rate/Area] mL/min/{1.73_m2} Normal >=59 [facility] Comment on above: Order Comment: Order added by Discern Expert. Result Comment: [employer] fermin kidney disease could be indicated at eGFR's of less than 60 mL/min/1.73m2. Kidney failure is indicated at less than 15 mL/min/1.73m2. Performed By: #### 2 831238, 1511770, 1479090, [id number] #### [facility] [address] [place] [address] PAP ACOG PANEL 2: 20 to 28on 02-08-2022 . . Normal [facility] Comment on above: Performed By: #### 4 [id number] #### [facility] [address] [place] [address] Dr. Dennise Cronin Age Gdln ACOG Testing 21-29 [place] [facility] Comment on above: Performed By: #### [id number] #### [facility] [address] [place] [address] Dr. Dennise Cronin DIAGNOSIS: Comment Normal [facility] Comment on above: Result Comment: NEGA TIVE FOR INTRAEPITHELIAL LESION OR MALIGNANCY. Performed By: #### [id number] #### [facility] [address] [place] [address] Dr. Dennise Cronin Methodology: Comment [facility] Comment on above: Result Comment: This liquid based ThinPrep(R) pap test was screened with the use of an image guided system. Performed By: #### [id number] #### [facility] [address] [place] [address] Dr. Dennise Cronin Note: Comment [facility] Comment on above: Result Comment: The Pap smear is a screening test designed to aid in the detection of premalignant and malignant conditions of the uterine cervix. It is not a diagnostic procedure and should not be used as the sole means of detecting cervical cancer. Both false-positive and false-negative reports do occur. . Performed By: #### [id number] #### [facility] [address] [place] [address] Dr. Dennise Cronin Performed by: Comment Normal [facility] Comment on above: Result Comment: Haja Pisano Nylon Winder (ASCP) Performed By: #### [id number] #### [facility] [address] [place] [address] Dr. Dennise Cronin Reflex Criteria: Comment [facility] Comment on above: Result Comment: The HPV DNA reflex criteria were not met with this specimen result therefore, no HPV testing was performed. . Performed By: #### [id number] #### [facility] [address] [place] [address] Dr. Dennise Cronin Specimen adequacy: Comment Normal [facility] Comment on above: Result Comment: Sati sfactory for evaluation. Endocervical and/or squamous metaplastic cells (endocervical component) are present. Performed By: #### [id number] #### [facility] [address] [address] [address] Dennise Cronin Family Medicine Office/Clini c [...] day(s), # 7 tab(s), Refills(s) 0, Pharmacy: [facility], 165, cm, 05/16/21 17:09:00 EST, Height/Length Dosing, 83.8, kg, 05/16/21 17:09:00 EST, Weight Dosing lidocaine topical, 1 patch(es), Topical, Daily for 7 day(s), 7 patch(es), Refill(s) 0, apply 12 hours on and 12 hours off daily, [facility], 165, cm, 05/16/21 17:09:00 EST, Height/Length Dosing, 83.8, kg, 05/16/21 17:09:00 EST, Weight Dosing methylPREDNISolone, = 1 packet(s), Oral, As Directed, as directed on package labeling, X 6 day(s), # 21 tab(s), Refills(s) 0, Pharmacy: [facility], 165, cm, 05/16/21 17:09:00 EST, Height/Length Dosing, 83.8, kg, 05/16/21 17:09:00 EST, Weight Dosing 2. Viral URI with cough (J06.9: Acute upper respiratory infection, unspecified) Advised patient that Influenza A/B was negative today in office. Discussed sreekanth (more content not included)... Normal [facility] Comment on above: Result Comment: Elec tronically Signed By: Brook Etienne\.br\Date and Time Signed: 05/16/21 18:24 EST Patient Educationon 05-17-19 22 Patient Education Orthopedics Back Injury Prevention Back [...] as you can. 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 Normal [facility] Provider Letteron 05-16-2021 Provider Letter May 16, 2021 SAMANTHA MATT [address] [place] [address] To Whom It May Concern, Please excuse above patient from work. Date of Illness: From: 05/15/21 To: 05/18/21 May Return to Work On: 05/15/21 Restrictions: _ Comments: _ Sincerely, Normal [facility] Encounters Encounter Date Encounter Type Care Provider Facility Start: 12-25-2023 End: 12-26-2023 Clinisync Result Encounter Katherine Natalya DO Work Phone: [facility] Unsolicited Start: 12-25-2023 End: 12-26-2023 Clinisync Result Encounter Katherine Natalya DO Work Phone: [facility] Unsolicited Start: 10-15-2023 End: 10-15-2023 ambulatory NAILA COHEN Not Available Start: 02-27-2023 End: 02-27-2023 ambulatory KATHERINE HOANG Not Available Start: 02-28-2022 End: 03-01-2022 ambulatory NAILA COHEN [place]: 02-28-2022 End: 02-28-2022 Patient encounter procedure NAILA COHEN [facility] Start: 01-30-2022 End: 01-30-[address] KATHERINE HOANG Facility: Start: 05-16-2021 End: 05-17-2021 ambulatory Brook Levin Facility:[facility] Procedures Date Procedure Procedure Detail Performing Clinician Start: 12-25-2023 ACUTE HEPATITIS Katherine F azio DO Work Phone: Start: 12-25-2023 ALL MISCELLANEOUS TEST Katherine Natalya DO Work Phone: Start: 12-25-2023 CYTOMEGALOVIRUS (CMV ) AB, IGG Katherine Natalya DO Work Phone: Start: 12-25-2023 CYTOMEGALOVIRUS (CMV ) AB, IGM Katherine Natalya DO Work Phone: Start: 12-25-2023 MEASLES/MUMPS/RUBELL A IMMUNITY Katherine Natalya DO Work Phone: Start: 12-25-2023 VARICELLA-ZOSTER V AB, IGG Katherine Natalya DO Work Phone: None (qualifier value) JAVAD COHEN Plan of Treatment Date Care Activity Detail Author Start: 12-31-2023 End: 12-31-2023 Patient encounter procedure 12/31/2023 2:50 PM EDT Routine [facility] [address] [place] [address] NatalyaKatherine justin, DO [address] [place] [address] [facility] Start: 11-09-2023 Influenza vaccination Influenza Vacc ine (#1) [facility] Immunizations Immunization Date Immunization Notes Care Provider Fa cility 06-26-2020 tetanus toxoid, redu esequiel diphtheria toxoid, and acellular pertussis vaccine, adsorbed Katherine Natalya DO Work Phone: [facility] 10-30-2016 hepatitis A vaccine, pediatric/adolescent dosage, 2 dose schedule [employer] Work Phone: [facility] 10-30-2016 Human Papillomavirus 9-valent vaccine Katherine [employer] DO Work Phone: [facility] 10-30-2016 meningococcal B vacc ine, recombinant, OMV, adjuvanted Katherine [employer] DO Work Phone: [facility] 10-30-2016 meningococcal polysaccharide (groups A, C, Y and W-135) diphtheria toxoid conjugate vaccine (MCV4P) KatherineIndochino DO Work Phone: [facility] 10-04-2011 hepatitis A vaccine, pediatric/adolescent dosage, 2 dose schedule Katherine Natalya DO Work Phone: [facility] 10-04-2011 human papilloma viru s vaccine, quadrivalent Katherine [employer] DO Work Phone: [facility] 10-04-2011 meningococcal oligosaccharide (groups A, C, Y and W-135) diphtheria toxoid conjugate vaccine (MCV4O) Katherine Natalya DO Work Phone: [facility] 10-04-2011 tetanus toxoid, redu eseqiuel diphtheria toxoid, and acellular pertussis vaccine, adsorbed Katherine Natalya DO Work Phone: [facility] 05-02-2004 diphtheria, tetanus toxoids and acellular pertussis vaccine, unspecified formulation Katherine Natalya DO Work Phone: [facility] 11-03-2003 diphtheria, tetanus toxoids and acellular pertussis vaccine Katherine Natalya DO Work Phone: [facility] 11-03-2003 hepatitis B vaccine, pediatric or pediatric/adolescent dosage Katherine Natalya DO Work Phone: [facility] 11-03-2003 measles, mumps and r ubella virus vaccine Katherine Natalya DO Work Phone: [facility] 11-03-2003 poliovirus vaccine, inactivated Katherine Natalya DO Work Phone: [facility] 12-28-2001 diphtheria, tetanus toxoids and acellular pertussis vaccine, unspecified formulation Katherine Natalya DO Work Phone: [facility] 12-28-2001 haemophilus influenz ae type b conjugate and Hepatitis B vaccine Katherine Natalya DO Work Phone: [facility] 12-28-2001 measles, mumps and r ubella virus vaccine Katherine Natalya DO Work Phone: [facility] 12-28-2001 poliovirus vaccine, inactivated Katherine Natalya DO Work Phone: [facility] 1999 diphtheria, tetanus toxoids and acellular pertussis vaccine, unspecified formulation Katherine Natalya DO Work Phone: [facility] 1999 haemophilus influenz ae type b vaccine, PRP-OMP conjugate Katherine Natalya DO Work Phone: [facility] 1999 hepatitis B vaccine, pediatric or pediatric/adolescent dosage Katherine Natalya DO Work Phone: [facility] 1999 poliovirus vaccine, inactivated Katherine Hoang DO Work Phone: [facility] Payers Date Payer Category Payer Private Health Insurance [employer] [id number] 1999 Unknown [id number] 1999 Unknown [id number] 1999 Unknown [id number] 1999 Unknown [id number] 1999 Unknown [id number] 1959 Unknown [id number] Medicaid [id number] Social History Date Type Detail Facility Start: 05-16-2021 End: 10-08-2022 Tobacco smoking status Never smoked tobacco (finding) [facility] Tobacco smoking status Never [facility] Start: 10-15-2023 Sex Assigned At Female [facility] Start: 10-08-2022 Tobacco use and exposure Smokeless tobacco non-user [facility] Start: 12-10-2023 Alcoholic beverage intake Ex-drinker (finding) [facility] Start: 10-15-2023 History of Social function [facility] Start: 09-21-2023 [facility] Start: 1999 Sex assigned at Not on file [facility] Start: 05-22-2022 Gender identity Identifies as female gender (finding) [facility] Evaluation + Plan note Note Date & Type Note Facility Evaluation + Plan note No data available for this section [facility] Hospital Discharge instructions Note Date & Type Note Facility Hospital Discharge instructions No data available for this section [facility] Progress note Note Date & Type Note Facility Progress note No data available for this section [facility] Summary Purpose Family History No Family History Records FoundNo Family History Records FoundNo Family History Records Found Advance Directives No Advanced Directives Records FoundNo Advanced Directives Records FoundNo Advanced Directives Records Found Additional Source Comments INFORMATION SOURCE (unrecogn ized section and content) DATE CREATED AUTHOR 02/09/2022 [facility] DATE CREATED AUTHOR AUTHOR'S ORGANIZ ATION 03/05/2022 [facility] DATE CREATED AUTHOR AUTHOR'S ORGANIZ ATION 10/17/2023 [facility] EPIC Patient Care team informatio n (unrecognized section and content) Dewer Relationship Specialty Start Date End Date Marianne Pena NP [address] [place] [id number] PCP - Medical [employer] 10/26/21 99 Talisha Mixon MD [address] [place] [address] PCP - General Family Medicine 10/07/22 Naila Cohen NP [address] [place] [address] Nurse Practitioner Family Medicine 10/07/22 FOR RECORDS PERTAINING TO PATIENTS WHO ARE [...] BE BASED ON THE PRIMARY CLINICAL RECORDS. [employer] [facility]. provides no warranty or guarantee of the accuracy or completeness of information in this document.
[2024-01-06 15:08] LABS: Age Gdln ACOG Testing Note (.); IGP, rfx Aptima HPV ASCU Note (.)
== END 2023-12-31 19:36 | disposition home or self-care (01) ==
LOC: LAB 19:35
PROVIDERS: PCP Student in an Organized Health Care Education/Training Program; Visit Provider Obstetrics & Gynecology
DX: Z01.419 Encounter for gynecological examination (general) (routine) without abnormal findings (principal)
CPT/HCPCS: 88175

== ENCOUNTER 2024-01-05 16:14 | Outpatient (OUT) | payer OTHER, SELFPAY ==
--- OUTSIDE RECORDS SUMMARY | 2024-01-05 16:22 | XMS_ITS | CCD ---
Author Organization [facility] Care Team Providers Care Lumber Mover Name Role Phone DR KATHERINE HOANG Consulting Unavailable DR KATHERINE HOANG Attending Unavailable DR KATHERINE HOANG Admitting Unavailable NAILA COHEN Primary Care Physician NAILA COHEN Unavailable NAILA COHEN Admitting Unavailable NAILA COHEN Attending Unavailable Brook Levin Attending Unavailable Marianne Pena NP Unavailable Talisha Mixon MD Primary Care Provider Naila Cohen NP Unavailable [phone] NAILA COHEN Attending Unavailable KATHERINE HOANG Attending Unavailable KATHERINE HOANG Attending Unavailable KATHERINE HOANG Attending Unavailable Medications Current Medications Medication Drug Class(es) Dates Sig (Normalized) Sig (Original) cetirizine hydrochloride 10 mg oral tablet (1 source) Histamine-1 Receptor Antagonist Start: 05-16-2021 cetirizine 10 mg Tab Refills(s) 0 Start Date: 05/16/21 Status: Ordered {21 (Ethinyl Estradiol 0.035 MG / norgestimate 0.25 MG Oral Tablet) / 7 (Inert Ingredients 1 MG Oral Tablet) } Pack [Live [place]-Linyah 28 Day] (1 source) Progestin, Estrogen Start: 04-13-2019 [place]-L[place] 0.25 mg-35 mcg oral tablet Refill(s) 0 Start Date: 04/13/19 Status: Ordered Flonase 0.05 mg/inh nasal spray (1 source) Start: 02-24-2018 take 1 spray(s) nasal route once daily Flonase 0.05 mg/inh nasal spray 1 spray(s), Nasal, Daily, 16 gram, Refill(s) 0, each nostril Start Date: 02/24/18 Status: Ordered pyridoxine hydrochloride 25 mg oral tablet (5 sources) Start: 12-03-2023 End: 03-02-2024 take 1 tablet by mouth every eight hours pyridoxine (Vitamin B-6) 25 MG tablet Indications: Nausea and vomiting in , First trimester Take 1 tablet (25 mg) by mouth every 8 (eight) hours 90 tablet 1 12/03/2023 03/02/2024 Active Problems Active Problems Problem Classification Problem Date Documented Date Episodic/Chronic Anxiety disorders (5 sources) Anxiety; Translations: [Anxiety disorder, unspecified] Onset: 10-08-2022 10-08-2022 Chronic Headache; including migraine (5 sources) Migraine; Translations: [Migraine, unspecified, not intractable, without status migrainosus] Onset: 10-08-2022 10-08-2022 Chronic Immunizations and screening for infectious disease (3 sources) Encounter for screening for human papillomavirus (HPV); Translations: [Exposure to sexually transmissible disorder] Onset: 02-04-2022 12-31-2023 Episodic Malaise and fatigue (5 sources) Fatigue; Translations: [Chronic fatigue, unspecified] Onset: 10-08-2022 10-08-2022 Chronic Other endocrine disorders (5 sources) Hypoglycemia; Translations: [Hypoglycemia, unspecified] Onset: 10-08-2022 10-08-2022 Chronic Other female genital disorders (2 sources) Vaginal discharge; Translations: [Other specified noninflammatory disorders of vagina] 12-31-2023 Episodic Other and delivery including normal (2 sources) Second trimester ; Translations: [Encounter for supervision of normal , unspecified, second trimester] 12-31-2023 Episodic Other screening for suspected conditions (not mental disorders or infectious disease) (9 sources) Encounter for screening for malignant neoplasm of cervix; Translations: [No current problems or disability] Onset: 01-30-2022 Episodic Other upper respiratory disease (5 sources) Seasonal allergy; Translations: [Other seasonal allergic rhinitis] Onset: 10-08-2022 10-08-2022 Chronic Past or Other Problems Problem Classification Problem Date Documented Da te Episodic/Chronic Asthma (1 source) Asthma 12-21-2011 Other injuries and conditions due to external causes (5 sources) Contusion; Translations: [Other injury of unspecified body region, initial encounter] Onset: 10-08-2022 10-08-2022 Episodic Results Test Name Value Interpretation Reference Range Facility URETHRITIS/DISCHARGE PLUS VA GINITIS (HTRX)on 01-02-2024 ATOPOBIUM VAGINAE 0 [facility] ATOPOBIUM VAGINAE Not detected [facility] BVAB 2,3 (BACTERIAL VAGINOSIS ASSOCIATED BACTERIA 2, 3); MOBILUNCUS SPP 0 [facility] BVAB 2,3 (BACTERIAL VAGINOSIS ASSOCIATED BACTERIA 2, 3); MOBILUNCUS SPP Not detected [facility] JESSI ALBICANS, PARAPSILOSIS, TROPICALIS 0 [facility] JESSI ALBICANS, PARAPSILOSIS, TROPICALIS Not detected [facility] JESSI GLABRATA 0 [facility] JESSI GLABRATA Not detected [facility] JESSI KRUSEI 0 [facility] JESSI KRUSEI Not detected [facility] CHLAMYDIA TRACHOMATIS 0 [facility] CHLAMYDIA TRACHOMATIS Not detected N [facility] GARDNERELLA VAGINALIS 0 [facility] GARDNERELLA VAGINALIS Not detected N [facility] MEGASPHAERA (TYPES 1, 2) 0 [facility] MEGASPHAERA (TYPES 1, 2) Not detected [facility] MYCOPLASMA GENITALIUM 0 [facility] MYCOPLASMA GENITALIUM Not detected N [facility] NEISSERIA GONORRHOEAE 0 [facility] NEISSERIA GONORRHOEAE Not detected N [facility] TRICHOMONAS VAGINALIS 0 [facility] TRICHOMONAS VAGINALIS Not detected N [facility] [place][note 2] Urinalysis macro (dipstick) panel (U)on 12-31-2023 Bilirubin, UA Negative Negative - 4(70) +++ mg/dL [facility] Blood, UA Negative Negative - 50 Andres/mcL [facility] Clarity, UA Clear [facility] Color, UA Yellow [facility] Glucose, UA Negative Negative - 1999(110) ++++ mg/dL [facility] Interpretation and review of laboratory results Normal [facility] Ketones, UA Negative Negative - 160(16) ++++ mg/dL [facility] Leukocytes, UA Negative Negative - 500+++ Anne/mcL [facility] Nitrite, UA Negative Negative - Positive [facility] pH, UA 5.5 5 - 9 [facility] Protein, UA Negative Negative - 1999(20) ++++ mg/dL [facility] Spec Grav, UA 1.015 1 - 1.03 [facility] Urobilinogen, UA 0.2 0.2 - 12 mg/dL [facility] ACUTE HEPATITISon 12-26-2023 HBSAG SCREEN Negative Negative [facility] HCV AB Non-Reactive Non Reactive [facility] HEP A AB, IGM Negative Negative [facility] Comment on above: A negative anti-HAV IgM result suggests no recent or current HAV infection. HEP B CORE AB, IGM Negative Negative [facility] INTERPRETATION: Comment . [facility] Comment on above: Not infected with HC V unless early or acute infection is suspected (which may be delayed in an immunocompromised individual), or other evidence exists to indicate HCV infection. ALL MISCELLANEOUS TESTon MISCELLANEOUS TEST COMMENT . [facility] Comment on above: Test Ordered: [id number] Toxoplasma gondii Ab,IgM Toxoplasma gondii Ab,IgM <3.0 AU/mL Reference Range: 0.0-7.9 Negative <8.0 Equivocal 8.0 - 9.9 Positive >9.9 Comment: Comment CB Reference Range: . It is presumed the patient has not been infected with and is not undergoing an acute infection with Toxoplasma. If symptoms persist, submit a new specimen after three weeks. Performed at: [address] [id number] Resident In Diagnostic Radiology: Ihsan Phelps PhD, Phone: [phone] Toxoplasma gondii Antibodies, IgM [facility] CYTOMEGALOVIRUS (CMV) AB, IG [facility] 12-26-2023 CYTOMEGALOVIRUS (CMV) AB, IGG <0.60 0.00 - 0.59 U/mL [facility] Comment on above: Negative <0.60 Equivocal 0.60 - 0.69 Positive >0.69 Performed at: [address] [id number] Resident In Diagnostic Radiology: Ihsan Phelps PhD, Phone: [phone] CYTOMEGALOVIRUS (CMV) AB, IG [facility] 12-26-2023 CYTOMEGALOVIRUS (CMV) AB, IGM <30.0 0.0 - 29.9 AU/mL [facility] Comment on above: Negative <30.0 Equivocal 30.0 - 34.9 Positive >34.9 A positive result is generally indicative of acute infection, reactivation or persistent IgM production. Performed at: [address] [place] [id number] Resident In Diagnostic Radiology: Ihsan Phelps PhD, Phone: [phone] MEASLES/MUMPS/RUBELLA IMMUNI TYon 12-26-2023 MEASLES ANTIBODIES, IGG 271.0 AU/mL Immune >16.4 [facility] Comment on above: Negative <13.5 Equivocal 13.5 - 16.4 Positive >16.4 Presence of antibodies to Rubeola is presumptive evidence of immunity except when acute infection is suspected. MUMPS ABS, IGG 20.3 AU/mL Immune >10.9 [facility] Comment on above: Negative <9.0 Equivocal 9.0 - 10.9 Positive >10.9 A positive result generally indicates past exposure to Mumps virus or previous vaccination. RUBELLA ANTIBODIES, IGG 5.65 Immune >0.99 index [facility] Comment on above: Non-immune <0.90 Equivocal 0.90 - 0.99 Immune >0.99 No Panel Informationon 12-25 [facility] VARICELLA-ZOSTER V AB, IGGon 12-26-2023 VARICELLA-ZOSTER V AB, IGG Reactive Non Reactive [facility] Comment on above: Please note refere nce interval change A Reactive result is considered evidence of immunity to VZV. Reactive indicates that VZV IgG was detected consistent with previous infection and/or vaccination. A Non Reactive result indicates that VZV IgG was not detected suggesting that immunity has not been acquired. Coding Summary.on 03-05-2022 Coding Summary. [id number] G h0bWw+PGhlYWQ+UZ4AYHF zF14ziIVfkA2EF2qSJK8X VBLUADJSQG8OJV6ymEB7I NcoW9WgzaFr MrribYHfUO20CBn9BIV5f ChrTZiavS0jhUTlQ3u0Un AjOV12iT39RCbuXQMcTvI 3LjZpbjsgbWFy J2oiYgTznDNlBgd+PHRhY mxlIHdpZHRoPScxMDAlJy OziMllGQ3hMb1zCTIkIPR vbGxhcHNlOiBj p2saMNEjDLjhIH4sdUxeI 9HndBA4DUIml0s9Hr27iZ I+FJIjPFF4qFmpLAnuf50 0AnRhq7vvZEO9 aJPfFNrpGUD8V82jv1V3Y ARuRVHxDAW6bVM6fL0znH pqkqqbW4EdzCQnTiM2NVS 3cGVrqL3bpNpl euyajL2nTvg+V76RQX6NZ CTYYX4AQyx1A6UtEaisaR I+MD63CBEwAC79wLFggDS ou1eeaTh5YuOy FFBwKRV4tSrxCLamm2AzK NNqW50kvSSok6X8LDFjfP kpdPVxEdUcfFF0cW7mKSb kljwzl5wnnwoz Lqsyc1ygai14xJ90S46qU TdiQXPsVSU1IZGvPAFavW lwiu1exN0qXr6+QOfmc0k py1zrmRe8SfWj GYWixqEffXpdSOB0f3QoC x15G4XngAcgb7SbPlr6vu 96qFTuw8T4xKG8UBgsZWB dcF6mXIjgJsW2 NRYeOwAuvN64jKMrYZofL d1ktLyvoXdbAC9rYJFtdv mqLQUkwP3nTFAolMKcjZy vKQ1fCNLaxekv m869UuKsASS5JCEwbELdE 1RulX2pUyDySKNdFVSjM9 XmqVIgHLceL075VAjbZmX 9XMIjhzGvX4Ps IOZteZvyIzC5b4E8Ez8Fc 9SqsazjODG9PIpaMYImBj G2MiZmJvD1K9EqLnw5JXY dpQknGB7sR9Zr TPMlfoxajnienNK3LXPmA ONmaE14wOJwGQffIe4ok0 J0t783LPOsMJEwoN04Zj2 udDogMTBwdCBU rW5auapok0ntgcooXgPzS YKyFGq0BRr6XNDzhOqiCa PmTSS3ZsC7NWE8mZKgzM2 qcYaflblcbQ6e Oyc+Y54pjC4jKUB8AUN9o xycGYXbakFvGX39NC58U2 RyPjwvdGFibGU+PGRpdiB yaJcwPQ0iHoZh b1sud5LwIPknI8BsFTOtQ ErwCuz4OSPvRUK3kJS9vG 8wSXGhDXhdu2S3jQA9B6O lalFszj0cn8yb QKQjVJudE00tdCGes0J9N LUxsLP9CKAyvQugDzXraT 93Oyc+QLCbwHmux5YzEso gx5urs1sopQh1 PpCeCWPajfFwuWksUHI1n 9AaUd74Y45uMQkcETXgST EgQBHsWHYfbFzgsl2adC6 wIi8+PGNvbCB3 dBU8xV2zISZaVpL0KUexH 827PrFtnEQoSseyz6cty2 mokFa7StEmPDRqhmUbhFr fASK8q8LoPj73 R18jKGojMNFpVVCzRFCjZ XBqiOuyko7gdF3yNf3+PC 2ma6zxte56dC03dAT+PHR bHST7gExkBVoc ARUepJ9nKRbyNqP0JMRsX nDqwK15uNVvQPeeXe5dzQ pbuSjlMW7jJOOgadgai97 3DkGtl5daOCXt gRMeGLqyHHC6A78rc4L8Z TIrAQAmIDJ1cPP7cO3xyB lnbjogbGVmdDsgdmVydGl fSLvqAZtiA977 IHRvcDsnPlBhdGllbnQgT kQgMMx7L2IqWrj0OIJorH agAY2spMExDDhhYl0zrPw mxUijBU4kALDo uhknv462HfJmc1fjVTZvx IEdMWmyRON0V12cw0Q5TK AtKMUhLWX5gUT1tF9bcTz nbjogbGVmdDsg baEusGovFKnpILaxO390M HRvcDsnPkJpcnRoIERhdG H6WC55WO69sMXjh2C4yKG 3C8PdULRdkyub qatpqDS8BKMxYHLdqL17Q h5xkCliBa2pCFXkRUD5IR LkoJYqN4DgzI1cUiKcZPA mLHIaQ1BvcXFq SNflT974UYcrEiZ5MMKjq jVmY1FaEOJmyXaiTgD9v7 Y5Dm2RQ8Z1TT11QQ47nIZ zj6H8wKF9J7Wc PQXyxreoguzjhHF2QRLbB IOkwL38Cy6unHphHm2sGZ CsEEJ8XZRshRItH5NewK6 yOiAjMDAwMDAw Q1ZbdTBlQVxqJ200EDxrT hE5SXRhcePiN5YmWNKzqY xwRwN3m3S2Wc7VYBr5ZG9 1EZ32vFOof4U6 bGR9P2XwTPRoperniskld SO1NLJhABYvfL13Wp4skC jvFz4cRFUlKVR9QMIuaHY jC0PfuH5cSdRd JUMzAQZyZ2VuiKJzVUcgU 283VUntMmW9YTKvrzIqH1 UxWJXbqCcvJnS2k5Y3Sp7 JWSLfZN26AKM2 uZL6YZ93BY71Z1CfGhvji GFibGU+PHRhYmxlIHdpZH RoPScxMDAlJyBzdHlsZT0 pKi5wYMJwUCFh xDxfjNKiYaOmg7deQIYgS DjxMQ6hcKyiX2LcfJK4SF Hya0h2Nm47I84fE1PhiCN +CXKveFP1yPC0 aI3gPrNeUrK8SNikJ768O iUbyXDfMnnii5edg8xghO g7GjJ3VSAizaRioUmkHFY 2b0JlVj04S83a IHdpZHRoPSIxNSUiIHZhb Flsth8slT3wFy6+PGNvbC T4sER8gB8yVyKiQhI2ULv aO029MmLlrEVd Otcwk0azl4ehsAp3PjXjK SVtpmZvlOtnOOC6k4DvVb 65F5HulBmmj9RsKax3dd0 8sGTgj5J6zZJ3 E2WqJMJjipjqfYSkrDlgU N9vMAEuethnGXUhoF0nTT BpU7o3EeFjGkW6FGkcB3F uzpL2IVAgtLQn WPruATE7S44nv7G8RYSnR NRxQWN4cKI5yT9zrWhbzy ogbGVmdDsgdmVydGljYWw xHUxbU122PYJc iQsuCMXmnL8vPBLwkPEdl ZooNT4qSYWvtminWjJYIx OQGUSRY5BJCZG5P8IeGwh 9YAXvaAtbWC6z wVAzCVehCa0uuSzjxWmbH N5oGTUxsaltRKSuuE9cPV XspTNelTumKX8hYWLvlau lv146MwUiZOM1 ADRpoBFzO7QzbM9lBjNkW MSgKZZiK1ZtwQVnHOicE9 84QSfuSeH0AHUorbHeV1S sLWFsaWduOiB0 e9K1Fp4oTY7lXT8gGQv8J V78IR98fTBlf6P0bSG2U1 DvBVXtgjndilxpzWW5RRR gSXQwhT10jCEm XYmsSq7ga5O7z354MVQxQ AFvkS06Ek4twQmiTMQalP LKaB5zoyvix2qmaamqSnI zEYDwOFw9OLj7 HPKekDdxBoCwHNU5VnW2C IC3xOPrnJ1npMszwayzaB 9wOyc+ZmKnJXSpnsL4B1E tEtv7KTHqoObf OT9zxAHcTWglNy2mlCyvw JfoIC4bGGThphopDRVawW 0lQBTgzVKcxWscAT6xMGP izjvfw961BoNs NFE8YAPdbRObE9KclK9tD aEtZUDkNPJbU3WwuASoCG yhS389JKfrMgO0EXVdzhS tI3ZiFVRmqNwh BfC3d1K9Ki5JYX9sfUM4M 2WcNjs4TFGksYiqFJ0ugZ FbNMciLt0ygXymqXrhLC9 wNTBpbjtwYWRk yO7vQPXgpZViiStjCU4qZ ZUerbpli619WuJaNKP1HW FwcSZiY6ZtgV5fJzHzCJI iOWLtE5PknSYi XFetF562QZysCyY6JNAeq dChG5ItQKJgnPcxZyW1q9 T1Cg0QiVXmIFQwIX24SK4 4EP03N2SdCufp dGFibGU+PHRhYmxlIHdpZ HRoPScxMDAlJyBzdHlsZT 4uVp3tCJRnCAIexHxqaBQ uPqXpa7ipGBVj SIohTG9evXivA1WkkPA3B QLrr2m8Mb23R96rI4WzyC A+IIFdxUB7bIP1dC6hGsE lLgD4XMlhX415 LkUxoZVqSbrff4rmj6fiz Lf0ZeUiVMUckfPlwByaUL J5k3PkOi59H50sDDzmAMW oPSIyMCUiIHZh jYowfc6isC5wDs2+PGNvb LB0yQC8hK0iAyNlLiI1LW ipR472VaSmjHSdAddyO95 tI0GzaRG+PHRy Paq5JNIocYmhPF3lkVFrQ WfaWs0bWGZ8VmFnZrUpWK ukB8TnVQCfabqylnhclXZ 4OOQtVLGneZ72 Oj8dzMjuGh2iGAYwWEV0Q FTdaNNnK6CicC3pKmLgMD MjAOLkG8CapGWxXZalX52 8FJqqKvY2RBHz iwWiH1LuMAEupNzuTwK3t 2I0Pv1JiCorbINdTO6fZm QtDLu2W5AeAcd3ZIQwbLx zXL7ciXTsPSvc Lh2jcAasyBryXX2wAZHld mwvs851DvKht9qkKNBhuA UlEAvnGAP8G69wf7E3OON lJUDhASC9oCK9 mD9auEywxjtakHTblVnqm nFadEobRKxoBSdtU606JS IzwPdiTzHKOor1Y3YeFim 7OZLdzSfuYE6q sLTsGDkkVy5hsYjtzIupI U9xCYXyharxv627PlVlb2 atILNggLQtWPhaCXO5R39 ws6P1ESIyLWOq EFA5xPO5pY1zjFiblomua GVmdDsgdmVydGljYWwtYW dpX223ROCicBtqEp5RYvs 2Z3NtKdx7RBMg oJsoAC2foFGtACnlKm2mg EclzMilHT6jQGCcsnsas0 44CgXms5zzQGLcsTJtLTl fKYV3L93mn1R0 RIJgDDFxIWE8bOM6hE5yo GlnbjogbGVmdDsgdmVydG snQHdeHYmyZ273CNHvfLk nPlBheWVyOjwv dGQ+BF26cu27M3HtJstvS we3THBuBBQ2eRY7kR7tUL PxKEeny1N5cKO0F6BjbhR guu4hi6bmTJDp ZTog (more content not included)... Normal [facility] Auto Diffon 02-28-2022 Basophils/100 WBC (Bld) 0.8 % Normal 0.0-2.0 [facility] Comment on above: Order Comment: Order Added by Discern Expert. Performed By: #### 2 [id number], [id number], [id number], [id number] #### [facility] [address] [place] [address] Basophils/Leukocytes Auto (Bld) [Pure # fraction] 0.1 E9/L Normal 0.0-0.2 [facility] Comment on above: Order Comment: Order Added by Discern Expert. Performed By: #### 2 [id number], [id number], [id number], [id number] #### [facility] [address] [place] [address] Eosinophils/100 WBC (Bld) 3.5 % Normal 0.0-8.0 [facility] Comment on above: Order Comment: Order Added by Discern Expert. Performed By: #### 2 225906, [id number], [id number], [id number] #### [facility] [address] [place] [address] Eosinophils/Leukocytes Auto (Bld) [Pure # fraction] 0.2 E9/L Normal 0.0-0.5 [facility] Comment on above: Order Comment: Order Added by Asif Expert. Performed By: #### 2 [id number], [id number], [id number], [id number] #### [facility] [address] [place] [address] 39571 Lymphocytes/100 WBC (Bld) 30.8 % Normal 14.0-50.0 [facility] Comment on above: Order Comment: Order Added by Discern Expert. Performed By: #### 2 129094, 4044346, [id number], [id number] #### [facility] [address] [place] [address]63 Lymphocytes/Leukocytes Auto (Bld) [Pure # fraction] 2.1 E9/L Normal 1.0-4.0 [facility] Comment on above: Order Comment: Order Added by Discern Expert. Performed By: #### 2 713138, 6802963, [id number], [id number] #### [facility] [address] [place] [address]228 Monocytes/100 WBC (Bld) 4.3 % Normal 4.0-14.0 [facility] Comment on above: Order Comment: Order Added by Discern Expert. Performed By: #### 2 016850, 0626755, [id number], [id number] #### [facility] [address] [place] [address]53 Monocytes/Leukocytes Auto (Bld) [Pure # fraction] 0.3 E9/L Normal 0.2-1.0 [facility] Comment on above: Order Comment: Order Added by Discern Expert. Performed By: #### 2 847453, 9194482, 6209041, [id number] #### [facility] [address] [place] [address] 73398 Neutrophils/100 WBC (Bld) 60.6 % Normal 36.0-75.0 [facility] Comment on above: Order Comment: Order Added by Discern Expert. Performed By: #### 2 775214, 3761742, 0500865, [id number] #### [facility] [address] [place] [address]39 Neutrophils/Leukocytes Auto (Bld) [Pure # fraction] 4.1 E9/L Normal 2.0-7.5 [facility] Comment on above: Order Comment: Order Added by Discern Expert. Performed By: #### 2 523973, 3932506, [id number], [id number] #### [facility] [address] [place] [address]4950 CBC w/ Auto Diffon Erythrocyte distribution width (RBC) [Ratio] 13.3 % Normal 10.9-14.2 [facility] Comment on above: Performed By: #### 2 331262, 9552996, 9199259, [id number] #### [facility] [address] [place] [address]6553 Hematocrit (Bld) [Volume fraction] 43.5 % Normal 34.0-46.0 [facility] Comment on above: Performed By: #### 2 301621, 1978651, 2518475, [id number] #### [facility] [address] [place] [address] 04967 Hemoglobin (Bld) [Mass/Vol] 14.4 g/dL Normal 12.0-16.0 [facility] Comment on above: Performed By: #### 2 313467, 0016652, 2039884, [id number] #### [facility] [address] [place] [address]886 MCH (RBC) [Entitic mass] 29.5 pg Normal 27.0-34.0 [facility] Comment on above: Performed By: #### 2 811188, 8695751, 8213862, [id number] #### [facility] [address] [place] [address] MCHC (RBC) [Mass/Vol] 33.0 g/dL Normal 31.4-36.0 [facility] Comment on above: Performed By: #### 2 318888, 0659710, 1287391, [id number] #### [facility] [address] [place] [address] MCV (RBC) [Entitic vol] 89.3 fL Normal 80.0-100.0 [facility] Comment on above: Performed By: #### 2 788039, 9102163, 1949398, [id number] #### [facility] [address] [place] [address]5582 Platelet mean volume (Bld) [Entitic vol] 7.9 fL Normal 6.4-10.8 [facility] Comment on above: Performed By: #### 2 432346, 9133338, 9961648, [id number] #### [facility] [address] [place] [address]14 Platelets (Bld) [#/Vol] 328.0 E9/L Normal 150.0-500.0 [facility] Comment on above: Performed By: #### 2 063787, 4103241, 1872287, [id number] #### [facility] [address] [place] [address] 09210 RBC (Bld) [#/Vol] 4.9 E12/L Normal 4.3-5.9 [facility] Comment on above: Performed By: #### 2 998831, 1432081, 4936236, [id number] #### [facility] [address] [place] [address] WBC corrected for nucl RBC Auto (Bld) [#/Vol] 6.7 E9/L Normal 4.0-11.0 [facility] Comment on above: Performed By: #### 2 391572, 5904873, 1000458, [id number] #### [facility] [address] [place] [address] CHEMISTRYOrdered By: SYSTEM SYSTEM on 02-28-2022 Albumin [...] rate/Area] mL/min/1.73 m2 Normal >=59mL/min/1. 73 m2 [facility] [place] S Globulin (S) [Mass/Vol] 3.6 g/dL Normal 1.4 - 4.0 gm/dL [facility] [place] Remisol Glucose [Mass/Vol] 95 mg/dL Normal 55 - 199 mg/dL [facility] Potassium [Moles/Vol] 4.4 mmol/L Normal 3.5 - 5.3 mmol/L [facility] Protein [Mass/Vol] 7.6 g/dL Normal 6.0 - 7.8 gm/dL [facility] [place]isol Sodium [Moles/Vol] 135 mmol/L Normal 135 - 145 mmol/L [facility] [place] Remisol Urea nitrogen [Mass/Vol] 12 mg/dL Normal 5 - 21 mg/dL [facility] [place] Remisol Urea nitrogen/Creatinine [Mass ratio] 15 mg/mg Normal 10 - 20 [facility] [place] Remisol CMPon 02-28-2022 Albumin [Mass/Vol] 4.0 g/dL Normal 3.3-5.0 [facility] Comment on above: Performed By: #### 2 [id number], [id number], [id number], [id number] #### [facility] [address] [place] [address] Albumin/Globulin (S) [Mass conc ratio] 1.1 Normal 1.1-2.2 [facility] Comment on above: Performed By: #### 2 [id number], [id number], [id number], [id number] #### [facility] [address] [place] [address] ALP [Catalytic activity/Vol] 51 Int._Unit/L Normal 21-98 [facility] Comment on above: Performed By: #### 2 [id number], [id number], [id number], [id number] #### [facility] [address] [place] [address] ALT No additional P-5'-P [Catalytic activity/Vol] 34 Int._Unit/L Normal 6-46 [facility] Comment on above: Performed By: #### 2 [id number], [id number], [id number], [id number] #### [facility] [address] [place] [address] Anion gap [Moles/Vol] 10 mmol/L Normal 6-16 [facility] Comment on above: Performed By: #### 2 [id number], [id number], [id number], [id number] #### [facility] [address] [place] [address] AST [Catalytic activity/Vol] 27 Int._Unit/L Normal 5-43 [facility] Comment on above: Performed By: #### 2 [id number], [id number], [id number], [id number] #### [facility] [address] [place] [address] Bilirubin [Mass/Vol] 0.4 mg/dL Normal 0.0-1.1 [facility] Comment on above: Performed By: #### 2 [id number], 5025941, [id number], [id number] #### [facility] [address] [place] [address] Calcium [Mass/Vol] 9.1 mg/dL Normal 8.9-11.1 [facility] Comment on above: Performed By: #### 2 871590, 2921615, [id number], [id number] #### [facility] [address] [place] [address] Chloride [Moles/Vol] 104 mmol/L Normal 101-111 [facility] Comment on above: Performed By: #### 2 759722, 7475144, 1204597, [id number] #### [facility] [address] [place] [address] CO2 [Moles/Vol] 25 mmol/L Normal 21-31 [facility] Comment on above: Performed By: #### 2 108663, 3563481, 2910777, [id number] #### [facility] [address] [place] [address] Creatinine [Mass/Vol] 0.8 mg/dL Normal 0.5-1.3 [facility] Comment on above: Performed By: #### 2 547347, 3548249, [id number], [id number] #### [facility] [address] [place] [address] Globulin (S) [Mass/Vol] 3.6 g/dL Normal 1.4-4.0 [facility] Comment on above: Performed By: #### 2 538169, 6343966, 0196526, [id number] #### [facility] [address] [place] [address] Glucose [Mass/Vol] 95 mg/dL Normal 55-199 [facility] Comment on above: Result Comment: If t his glucose result represents a fasting glucose, interpretation should refer to the following reference range: 55-99 mg/dL Performed By: #### 2 [id number], [id number], [id number], [id number] #### [facility] Laboratory [address] [place] [address] Potassium [Moles/Vol] 4.4 mmol/L Normal 3.5-5.3 [facility] Comment on above: Performed By: #### 2 [id number], [id number], [id number], [id number] #### [facility] Laboratory [address] [place] [address] Protein [Mass/Vol] 7.6 g/dL Normal 6.0-7.8 [facility] Comment on above: Performed By: #### 2 [id number], [id number], [id number], [id number] #### [facility] [address] [place] [address] Sodium [Moles/Vol] 135 mmol/L Normal 135-145 [facility] Comment on above: Performed By: #### 2 [id number], [id number], [id number], [id number] #### [facility] [address] [place] [address] Urea nitrogen [Mass/Vol] 12 mg/dL Normal 5-21 [facility] Comment on above: Performed By: #### 2 [id number], [id number], [id number], [id number] #### [facility] [address] [place] [address] Urea nitrogen/Creatinine [Mass ratio] 15 No Units Normal 10-20 [facility] Comment on above: Performed By: #### 2 [id number], [id number], [id number], [id number] #### [facility] [address] [place] [address] HEMATOLOGYOrdered By: SYSTEM SYSTEM on 02-28-2022 Basophils/100 [...] 14.4 g/dL Normal 12.0 - 16.0 gm/dL FT HemeAutoSS MCH (RBC) [Entitic mass] 29.5 pg Normal 27.0 - 34.0 pg FT HemeAutoSS MCHC (RBC) [Mass/Vol] 33.0 g/dL Normal 31.4 - 36.0 gm/dL FT HemeAutoSS MCV (RBC) [Entitic vol] 89.3 fL Normal 80.0 - 100.0 fL FT HemeAutoSS Platelet mean volume (Bld) [Entitic vol] 7.9 fL Normal 6.4 - 10.8 fL FT HemeAutoSS Platelets (Bld) [#/Vol] 328.0 E9/L Normal 150.0 - 500.0 E9/L FT HemeAutoSS RBC (Bld) [#/Vol] 4.9 E12/L Normal 4.3 - 5.9 E12/L [facility] [place] [facility] WBC corrected for nucl RBC Auto (Bld) [#/Vol] 6.7 E9/L Normal 4.0 - 11.0 E9/L [facility] [place] [facility] Physician Orderon 02-28-2022 Physician Order [id number] 1.00CD:127 Normal [facility] eGFRon 02-28-2022 GFR/1.73 sq M.predicted among blacks MDRD (S/P/Bld) [Vol rate/Area] mL/min/{1.73_m2} Normal >=59 [facility] Comment on above: Order Comment: Order added by Discern Expert. Result Comment: eGFR is race adjusted. AA=. Performed By: #### 2 [id number], [id number], [id number], [id number] #### [facility] [address] [place] [address] GFR/1.73 sq M.predicted among non-blacks MDRD (S/P/Bld) [Vol rate/Area] mL/min/{1.73_m2} Normal >=59 [facility] Comment on above: Order Comment: Order added by Discern Expert. Result Comment: Rack Puncher fermin kidney disease could be indicated at eGFR's of less than 60 mL/min/1.73m2. Kidney failure is indicated at less than 15 mL/min/1.73m2. Performed By: #### 2 [id number], [id number], [id number], [id number] #### [facility] Laboratory [address] [place] [id number] PAP ACOG PANEL 2: 21 to 29on 02-08-2022 . . [facility] Comment on above: Performed By: #### 4 [id number] #### [facility] Laboratory [address] [place] [address] Dr. Dennise Cronin Age Gdln ACOG Testing - [facility] Comment on above: Performed By: #### 4 [id number] #### [facility] [address] [place] [address] Dr. Dennise Cronin DIAGNOSIS: Comment [facility] Comment on above: Result Comment: NEGA TIVE FOR INTRAEPITHELIAL LESION OR MALIGNANCY. Performed By: #### 4 [id number] #### [facility] Laboratory [address] [place] [address] Dr. Dennise Cronin Methodology: Comment [facility] Comment on above: Result Comment: This liquid based ThinPrep(R) pap test was screened with the use of an image guided system. Performed By: #### 4 [id number] #### [facility] [address] [place] [address] Dr. Dennise Cronin Note: Comment [facility] Comment on above: Result Comment: The Pap smear is a screening test designed to aid in the detection of premalignant and malignant conditions of the uterine cervix. It is not a diagnostic procedure and should not be used as the sole means of detecting cervical cancer. Both false-positive and false-negative reports do occur. . Performed By: #### 4 [id number] #### [facility] [address] [place] [address] Dr. Dennise Cronin Performed by: Comment [facility] Comment on above: Result Comment: Haja Pisano Manager Of Manufacturing (ASCP) Performed By: #### 4 [id number] #### [facility] Laboratory [address] [place] [address] Dr. Dennise Cronin Reflex Criteria: Comment [facility] Comment on above: Result Comment: The HPV DNA reflex criteria were not met with this specimen result therefore, no HPV testing was performed. . Performed By: #### 4 [id number] #### [facility] [address] [place], [place] [address] Dr. Dennise Cronin Specimen adequacy: Comment Normal [facility] Comment on above: Result Comment: Sati sfactory for evaluation. Endocervical and/or squamous metaplastic cells (endocervical component) are present. Performed By: #### 4 [id number] #### [facility] [address] [place], [place] [address] Dr. Dennise Cronin Family Medicine Office/Clini c [...] day(s), # 7 tab(s), Refills(s) 0, Pharmacy: [facility], 165, cm, 05/16/21 17:09:00 EST, Height/Length Dosing, 83.8, kg, 05/16/21 17:09:00 EST, Weight Dosing lidocaine topical, 1 patch(es), Topical, Daily for 7 day(s), 7 patch(es), Refill(s) 0, apply 12 hours on and 12 hours off daily, [facility], 165, cm, 05/16/21 17:09:00 EST, Height/Length Dosing, 83.8, kg, 05/16/21 17:09:00 EST, Weight Dosing methylPREDNISolone, = 1 packet(s), Oral, As Directed, as directed on package labeling, X 6 day(s), # 21 tab(s), Refills(s) 0, Pharmacy: [facility], 165, cm, 05/16/21 17:09:00 EST, Height/Length Dosing, 83.8, kg, 05/16/21 17:09:00 EST, Weight Dosing 2. Viral URI with cough (J06.9: Acute upper respiratory infection, unspecified) Advised patient that Influenza A/B was negative today in office. Discussed sreekanth (more content not included)... Normal [facility] Comment on above: Result Comment: Elec tronically Signed By: Brook Etienne\.tara\Date and Time Signed: 05/16/21 18:24 EST Patient [...] as you can. Do not try to clam picker a heavy object that is far [...] (more content not included)... Normal [facility] Provider Letteron 05-16-2021 Provider Letter May 16, 2021 SAMANTHA MATT [address] [place] [phone] To Whom It May Concern, Please excuse above patient from work. Date of Illness: From: 05/15/21 To: 05/18/21 May Return to Work On: 05/15/21 Restrictions: _ Comments: _ Sincerely, Normal [facility] Vital Signs Date Time Vital Sign Value Performing Clinician Aminata peacock 12-31-2023 15:23-0400 Body mass index (BMI) [Ratio] 31.45 kg/m2 Katherine Natalya DO Work Phone: [facility] 12-31-2023 15:23-0400 Body weight 85.73 kg Katherine Natalya DO Work Phone: [facility] 12-31-2023 15:23-0400 Diastolic blood pressure 70 mm[Hg] Katherine Natalya DO Work Phone: [facility] 12-31-2023 15:23-0400 Systolic blood pressure 118 mm[Hg] Katherine Natalya DO Work Phone: [facility] Healthcare Encounters Encounter Date Encounter Type Care Provider Facility Start: 12-31-2023 End: 12-31-2023 Patient encounter procedure Katherine Natalya DO Work Phone: [facility] Start: 12-31-2023 End: 12-31-2023 Periodic preventive med est patient 18-39 yrs Katherine Natalya DO Work Phone: [facility] Comment on above: Screening, , for anatomic survey; Well woman exam with routine gynecological exam; Second trimester ; Exposure to STD; Vaginal discharge; Need for maternal serum alpha-protein (MSAFP) screening Start: 12-31-2023 End: 12-31-2023 ambulatory KATHERINE NATALYA Not Available Start: 12-31-2023 End: 12-31-2023 Bamboo flowsheet Katherine Natalya DO Work Phone: [facility] Start: 12-31-2023 End: 01-02-2024 Bamboo flowsheet Katherine Natalya DO Work Phone: [facility] Start: 12-31-2023 End: 01-02-2024 External Result Encounter Katherine Natalya DO Work Phone: [facility] Unsolicited Start: 12-25-2023 End: 12-26-2023 Clinisync Result Encounter Katherine Natalya DO Work Phone: [facility] Unsolicited Start: 12-25-2023 End: 12-26-2023 Clinisync Result Encounter Katherine Natalya DO Work Phone: [facility] Unsolicited Start: 12-03-2023 End: 12-03-2023 ambulatory KATHERINE HOANG Not Available Start: 11-06-2023 End: 11-06-2023 ambulatory NAILA COHEN Not Available Start: 10-15-2023 End: 10-15-2023 ambulatory NAILA COHEN Not Available Start: 02-27-2023 End: 02-27-2023 ambulatory KATHERINE HOANG Not Available Start: 02-28-2022 End: 03-01-2022 ambulatory NAILA COHEN [place] [place] Start: 02-28-2022 End: 02-28-2022 Patient encounter procedure NAILA COHEN [facility] Start: 01-30-2022 End: 01-30-[address] KATHERINE HOANG Facility: Start: 05-16-2021 End: 05-17-2021 ambulatory Brook Levin Facility:[facility] Procedures Date Procedure Procedure Detail Performing Clinician Start: 12-31-2023 URETHRITIS/DISCHARGE PLUS VAGINITIS (HTRX) Katherine Natalya DO Work Phone: Start: 12-31-2023 Urnls dip stick/tabl et rgnt non-auto w/o micrscp Katherine Hoang DO Work Phone: Start: 12-25-2023 ACUTE HEPATITIS Katherine F azio DO Work Phone: Start: 12-25-2023 ALL MISCELLANEOUS TEST Katherine Hoang DO Work Phone: Start: 12-25-2023 CYTOMEGALOVIRUS (CMV ) AB, IGG Katherine Stoneo DO Work Phone: Start: 12-25-2023 CYTOMEGALOVIRUS (CMV ) AB, IGM Katherinedonnell Stoneo DO Work Phone: Start: 12-25-2023 MEASLES/MUMPS/RUBELL A IMMUNITY Katherinedonnell Stoneo DO Work Phone: Start: 12-25-2023 VARICELLA-ZOSTER V AB, IGG Katherine Stoneo DO Work Phone: None (qualifier value) JAVAD COHEN Plan of Treatment Date Care Activity Detail Author Start: 01-31-2024 End: 01-31-2024 Alpha fetoprotein, maternal Alpha fetoprotein, maternal Lab Routine Need for maternal serum alpha-protein (MSAFP) screening Expected: 01/31/2024 (Approximate), Expires: 01/31/2024 [facility] Healthcare Comment on above: Expected: 01/31/2024 (Approximate), Expires: 01/31/2024 Start: 01-28-2024 End: 01-28-2024 Patient encounter procedure 01/28/2024 3:10 PM EST Routine [facility] [address] [place] [address] Karen Rodriguez PA [address] [place] [address] [facility] Start: 01-28-2024 End: 01-28-2024 Professional / ancillary services management 01/28/2024 2:00 PM EST Ancillary Procedure [facility] [address] [place] [address] [facility] Start: 12-31-2023 End: 12-31-2023 Patient encounter procedure [facility] OB Comment on above: Arrived Start: 12-31-2023 End: 12-30-2024 US for US OB ANATOMY SINGLE W US OB CERVICAL LENGTH Imaging Routine Screening, , for anatomic survey Expected: 12/31/2023 (Approximate), Expires: 12/30/2024 [facility] Comment on above: Expected: 12/31/2023 (Approximate), Expires: 12/30/2024 Start: 11-09-2023 Influenza vaccination Influenza Vacc ine (#1) [facility] CHLAMYDIA TRACHOMATI S (GENITO/STI) CHLAMYDIA TRACHOMATIS (GENITO/STI) Lab Routine Exposure to STD Ordered: 12/31/2023 [facility] Comment on above: Ordered: 12/31/2023 Cytology Cervical or vaginal smear or scraping study Pap Smear Pathology and Cytology Routine Well woman exam with routine gynecological exam Ordered: 12/31/2023 [facility] Comment on above: Ordered: 12/31/2023 Neisseria gonorrhoea e DNA [Presence] in Unspecified specimen by SARITA with probe detection Neisseria gonorrhea DNA probe, direct Lab Routine Exposure to STD Ordered: 12/31/2023 [facility] Comment on above: Ordered: 12/31/2023 SURESWAB(R) ADVANCED VAGINITIS PLUS, TMA SURESWAB(R) ADVANCED VAGINITIS PLUS, TMA Pathology and Cytology Routine Vaginal discharge Ordered: 12/31/2023 [facility] Work Phone: Comment on above: Ordered: 12/31/2023 Immunizations Immunization Date Immunization Notes Care Provider Fa valerie 06-26-2020 tetanus toxoid, redu esequiel diphtheria toxoid, and acellular pertussis vaccine, adsorbed KatherineNationwide PharmAssist DO Work Phone: [facility] 10-30-2016 hepatitis A vaccine, pediatric/adolescent dosage, 2 dose schedule [employer] Work Phone: [facility] 10-30-2016 Human Papillomavirus 9-valent vaccine [employer] Work Phone: [facility] 10-30-2016 meningococcal B vacc ine, recombinant, OMV, adjuvanted [employer] Work Phone: [facility] 10-30-2016 meningococcal polysaccharide (groups A, C, Y and W-135) diphtheria toxoid conjugate vaccine (MCV4P) Katherine Natalya DO Work Phone: [facility] 10-04-2011 hepatitis A vaccine, pediatric/adolescent dosage, 2 dose schedule Katherine Natalya DO Work Phone: [facility] 10-04-2011 human papilloma viru s vaccine, quadrivalent Katherine Natalya DO Work Phone: [facility] 10-04-2011 meningococcal oligosaccharide (groups A, C, Y and W-135) diphtheria toxoid conjugate vaccine (MCV4O) Katherine Natalya DO Work Phone: [facility] 10-04-2011 tetanus toxoid, redu esequiel diphtheria toxoid, and acellular pertussis vaccine, adsorbed Katherine Natalya DO Work Phone: [facility] 05-02-2004 diphtheria, tetanus toxoids and acellular pertussis vaccine, unspecified formulation Katherine Natalya DO Work Phone: [facility] 11-03-2003 diphtheria, tetanus toxoids and acellular pertussis vaccine Katherine Natalya DO Work Phone: [facility] 11-03-2003 hepatitis B vaccine, pediatric or pediatric/adolescent dosage Katherine Natalya DO Work Phone: [facility] 11-03-2003 measles, mumps and r ubella virus vaccine Katherine Natalya DO Work Phone: [facility] 11-03-2003 poliovirus vaccine, inactivated Katherine Natalya DO Work Phone: [facility] 12-28-2001 diphtheria, tetanus toxoids and acellular pertussis vaccine, unspecified formulation Katherine Natalya DO Work Phone: [facility] 12-28-2001 haemophilus influenz ae type b conjugate and Hepatitis B vaccine Katherine Natalya DO Work Phone: [facility] 12-28-2001 measles, mumps and r ubella virus vaccine Katherine Natalya DO Work Phone: [facility] 12-28-2001 poliovirus vaccine, inactivated Katherine Natalya DO Work Phone: [facility] 1999 diphtheria, tetanus toxoids and acellular pertussis vaccine, unspecified formulation Katherine Natalya DO Work Phone: [facility] 1999 haemophilus influenz ae type b vaccine, PRP-OMP conjugate Katherine Natalya DO Work Phone: [facility] 1999 hepatitis B vaccine, pediatric or pediatric/adolescent dosage Katherine Natalya DO Work Phone: [facility] 1999 poliovirus vaccine, inactivated Katherine Natalya DO Work Phone: [facility] Payers Date Payer Category Payer Private Health Insurance [employer] [id number] 1999 Unknown [id number] 1999 Unknown [id number] 1999 Unknown [id number] 1999 Unknown [id number] 1259 1999 Unknown [id number] 1259 1999 Unknown [id number] 1259 1999 Unknown [id number] 1259 1999 Unknown [id number] [id number] 1959 Unknown [id number] Medicaid [id number] Social History Date Type Detail Facility Start: 05-16-2021 End: 10-08-2022 Tobacco smoking status Never smoked tobacco (finding) [facility] Tobacco smoking status Never [facility] Start: 10-15-2023 Sex Assigned At Female [facility] Start: 10-08-2022 Tobacco use and exposure Smokeless tobacco non-user [facility] Start: 12-10-2023 Alcoholic beverage intake Ex-drinker (finding) [facility] Start: 10-15-2023 History of Social function [facility] Start: 09-21-2023 [facility] Start: 1999 Sex assigned at Not on file [facility] Start: 05-22-2022 Gender identity Identifies as female gender (finding) [facility] History of Present illness Narrative 12-31-2023 Rosario Ruiz LPN - 12/31/2023 2:50 PM EDT Note Date & Type Note Facility 12-31-2023 History of Presen t illness Narrative Reason for Appointment: Patient ID: Samantha Luther is a 23 y.o. female who presents for Routine Visit Patient presents today for Return OB appointment. MEDICATIONS Current Outpatient Medications Medication Instructions pyridoxine (VITAMIN B-6) 25 mg, Oral, Every 8 hours ALLERGIES No Known Allergies PROBLEMS Active Ambulatory Problems Diagnosis Date Noted Anxiety 10/08/2022 Bruising 10/08/2022 Chronic fatigue 10/08/2022 Low blood sugar 10/08/2022 Migraine (CMS/HCC) 10/08/2022 Seasonal allergies 10/08/2022 Resolved Ambulatory Problems Diagnosis Date Noted No Resolved Ambulatory Problems Past Medical History: Diagnosis Date Acne vulgaris Anxiety disorder BMI 29.0-29.9,adult Depression screening Encounter for gynecological examination (general) (routine) without abnormal findings Exercise-induced asthma (CMS/HCC) OCD (obsessive compulsive disorder) (CMS/HCC) HISTORY PAST MEDICAL HISTORY SOCIAL HISTORY Past Medical History: Diagnosis Date Acne vulgaris Anxiety disorder BMI 29.0-29.9,adult Depression screening Encounter for gynecological examination (general) (routine) without abnormal findings Exercise-induced asthma (CMS/HCC) Migraine (CMS/HCC) OCD (obsessive compulsive disorder) (CMS/HCC) Social History Tobacco Use Smoking status: Never Smokeless tobacco: Never Substance Use Topics Alcohol use: Not Currently Drug use: Never FAMILY HISTORY No family history on file. SURGICAL HISTORY No past surgical history on file. REVIEW OF SYSTEMS Review of Systems: Review of Systems Constitutional: Negative. HENT: Negative. Eyes: Negative. Respiratory: Negative. Cardiovascular: Negative. Gastrointestinal: Negative. Genitourinary: Negative. Musculoskeletal: Negative. Skin: Negative. Neurological: Negative. All other systems reviewed and are negative. Hematological: Negative. Endocrine: Negative. Allergic/Immunologic: Negative. OBJECTIVE Objective: Physical Exam Constitutional: Appearance: Normal appearance. She is well-developed. Genitourinary: Vulva normal. Breasts: Breasts are soft. Right: Normal. Left: Normal. Cardiovascular: Rate and Rhythm: Normal rate and regular rhythm. Pulmonary: Effort: Pulmonary effort is normal. Breath sounds: Normal breath sounds. Abdominal: General: Bowel sounds are normal. There is no distension. Palpations: Abdomen is soft. Tenderness: There is no abdominal tenderness. There is no guarding or rebound. Musculoskeletal: General: No swelling. Normal range of motion. Right lower leg: No edema. Left lower leg: No edema. Neurological: Mental Status: She is alert and oriented to person, place, and time. Skin: General: Skin is warm and dry. Psychiatric: Mood and Affect: Mood normal. Behavior: Behavior normal. Vitals and nursing note reviewed. Exam conducted with a cement and concrete plant worker present. Vitals: Estimated body mass index is 31.45 kg/m as calculated from the following: Height as of 10/15/23: 5' 5 . Weight as of this encounter: 189 lb. BP: 118/70 Patient's last menstrual period was 09/07/2023 (exact date). ASSESSMENT & PLAN ICD-10-CM 1. Screening, , for anatomic survey Z36.89 US OB ANATOMY SINGLE W US OB CERVICAL LENGTH 2. Well woman exam with routine gynecological exam Z01.419 Pap Smear 3. Second trimester Z34.92 POCT urinalysis dipstick manually resulted 4. Exposure to STD Z20.2 CHLAMYDIA TRACHOMATIS (GENITO/STI) Neisseria gonorrhea DNA probe, direct 5. Vaginal discharge N89.8 SURESWAB(R) ADVANCED VAGINITIS PLUS, TMA 6. Need for maternal serum alpha-protein (MSAFP) screening Z36.1 Alpha fetoprotein, maternal Alpha fetoprotein, maternal Return OB/Annual Exam: Patient presents today for a annual exam/routine obstetrics appointment. Patient is currently 16w3d . Patient states she is doing well but has complaints of nausea in the morning. Pap and cultures was obtained without difficulty and patient was given orders for anatomy scan and msAFP to be obtained. Orders Placed This Encounter Procedures US OB ANATOMY SINGLE W US OB CERVICAL LENGTH CHLAMYDIA TRACHOMATIS (GENITO/STI) Neisseria gonorrhea DNA probe, direct Alpha fetoprotein, maternal POCT urinalysis dipstick manually resulted Follow Up: Patient is to schedule annual exam for next year and return to office in 4 weeks for OB appointment. Documented by Rosario Ruiz LPN on behalf of: Katherine Hoang DO documented in this encounter [facility] Healthcare Evaluation + Plan note Note Date & Type Note Facility Evaluation + Plan note No data available for this section [facility] Evaluation note Note Date & Type Note Facility Evaluation note Diagnosis Screening, , for anatomic survey Encounter for anatomic survey Well woman exam with routine gynecological exam Routine gynecological examination Second trimester state, incidental Exposure to STD Vaginal discharge Leukorrhea, not specified as infective Need for maternal serum alpha-protein (MSAFP) screening documented in this encounter [facility] Healthcare Hospital Discharge instructions Note Date & Type Note Facility Hospital Discharge instructions No data available for this section [facility] Progress note Note Date & Type Note Facility Progress note No data available for this section [facility] Summary Purpose Family History No Family History Records FoundNo Family History Records FoundNo Family History Records Found Advance Directives No Advanced Directives Records FoundNo Advanced Directives Records FoundNo Advanced Directives Records Found Additional Source Comments INFORMATION SOURCE (unrecogn ized section and content) DATE CREATED AUTHOR 02/09/2022 [facility] DATE CREATED AUTHOR AUTHOR'S ORGANIZ ATION 03/05/2022 [facility] DATE CREATED AUTHOR AUTHOR'S ORGANIZ ATION 01/02/2024 [facility] dical Specialists EPIC Patient Care team informatio n (unrecognized section and content) Lumber Mover Relationship Specialty Start Date End Date Marianne Pena NP [address] [place] [phone] PCP - Medical [employer] 10/26/21 99 Talisha Mixon MD [address] [place] [id number] PCP - General Family Medicine 10/07/22 Naila Cohen [employer] HR REPRESENTATIVE [address] [place] [address] Nurse Practitioner Family Medicine 10/07/22 [employer] Relationship Specialty Start Date End Date Marianne Pena NP [address] [place] [phone] PCP - Medical [employer] 10/26/21 99 Talisha Mixon MD [address] [place] [address] PCP - General Family Medicine 10/07/22 Naila Cohen NP [address] [place] [address] Nurse Practitioner Family Medicine 10/07/22 Lumber Mover Relationship Specialty Start Date End Date Marianne Pena NP [address] [place] [phone] PCP - Medical [employer] 10/26/21 99 Talisha Mixon MD [address] [place] [address] PCP - General [facility] 10/07/22 Naila Cohen NP [address] [place] [address] Nurse Practitioner Family Medicine 10/07/22 Lumber Mover Relationship Specialty Start Date End Date Marianne Pena NP [address] [place] [phone] PCP - [facility] [employer] 10/26/21 99 Talisha Mixon MD [address] [place] [address] PCP - [facility] 10/07/22 Naila Cohen NP [address] [place] [address] Nurse Practitioner [facility] 10/07/22 Reason for Visit (unrecogniz ed section and content) Reason Comments Routine Visit FOR RECORDS PERTAINING TO PATIENTS WHO ARE [...] BE BASED ON THE PRIMARY CLINICAL RECORDS. [facility]. provides no warranty or guarantee of the accuracy or completeness of information in this document.
[2024-01-08 00:07] LABS: AFP Value 26.9 ng/mL (.); Gest. Age on Collection Date 16.4 weeks (.); Insulin Dep Diabetes No (.); Maternal Age At EDD 25.4 yr (.); OSBR Risk 1 IN 10000 (.); Results Report (.)
== END 2024-01-05 16:15 | disposition home or self-care (01) ==
LOC: LAB 16:16
PROVIDERS: PCP Student in an Organized Health Care Education/Training Program; Visit Provider Obstetrics & Gynecology
DX: Z36.1 Encounter for antenatal screening for raised alphafetoprotein level (principal); Z34.92 Encounter for supervision of normal pregnancy, unspecified, second trimester
CPT/HCPCS: 36415; 82105

== ENCOUNTER 2024-01-28 14:00 | Outpatient (OUT) | payer OTHER, SELFPAY ==
--- NOTE | 2024-01-28 14:01 | US_ITS ---
[address] [address] Patient Name: SAMANTHA MORENO MRN: [id number] date: 2000 Sex: F Assigned Patient Location: [facility] Current Patient Location: [facility] Accession/Order Number: [id number] Exam Date: 01/28/2024 14:02 Report Date: 01/28/2024 15:53 At the request of: KATHERINE CARRASCO Procedure: US OB cervical length EXAMINATION: US OB anatomy, US OB cervical length HISTORY: ANATOMY COMPARISON: No relevant comparison available. TECHNIQUE: Transabdominal sonographic examination was performed for obstetrical and evaluation. FINDINGS: Number: 1 Heart Rate: 145 bpm H.B. /min Amniotic Fluid Volume: Subjectively normal position: Transverse presentation, transverse lie Placental Location: ANTERIOR, the placental edge is 4 cm from the internal cervical os Cervix Length: 4.41 cm , closed Normal anatomy: Lateral ventricles, cerebellum, posterior fossa, nose, lips, orbits, diaphragm, stomach, kidneys, abdominal cord insertion, bladder, umbilical arteries, three-vessel cord, spine, extremities Nonvisualization: Four-chamber heart, RVOT, LVOT BIOMETRY: BPD: 4.35 cm; 19 weeks 1 day; 7.80 % HC: 16.45 cm; 19 weeks 1 day; 3.80 % AC: 15.09 cm; 20 weeks 2 days; 40.10 % FL: 3.18 cm; 19 weeks 6 days; 23.80 % EFW:311.42 g; 23.30 %, 11 ounces FL/AC: 21.07 FL/BPD: 73.10 HC/AC: 1.09 GESTATIONAL AGE: Age by EDC: 20 weeks 3 days SAULO by EDC: 2024-06-13 Age by current US: 19 weeks 4 days SAULO by current US: 2024-06-19 US/US OB cervical length IMPRESSION: Nonvisualization of the heart and ventricular outflow tracts Otherwise normal anatomy scan *Reference: [employer] Practice Guideline for the performance of Obstetric Ultrasound Examinations, December 08, 2006. Electronically authenticated by: GONZALO TORRES Date: 01/28/2024 15:53
--- NOTE | 2024-01-28 14:02 | US_ITS ---
[address] [address] Patient Name: SAMANTHA MORENO MRN: [id number] date: 2000 Sex: F Assigned Patient Location: [facility] Current Patient Location: [facility] Accession/Order Number: [id number] Exam Date: 01/28/2024 14:02 Report Date: 01/28/2024 15:53 At the request of: KATHERINE CARRASCO Procedure: US OB anatomy EXAMINATION: US OB anatomy, US OB cervical length HISTORY: ANATOMY COMPARISON: No relevant comparison available. TECHNIQUE: Transabdominal sonographic examination was performed for obstetrical and evaluation. FINDINGS: Number: 1 Heart Rate: 145 bpm H.B. /min Amniotic Fluid Volume: Subjectively normal position: Transverse presentation, transverse lie Placental Location: ANTERIOR, the placental edge is 4 cm from the internal cervical os Cervix Length: 4.41 cm , closed Normal anatomy: Lateral ventricles, cerebellum, posterior fossa, nose, lips, orbits, diaphragm, stomach, kidneys, abdominal cord insertion, bladder, umbilical arteries, three-vessel cord, spine, extremities Nonvisualization: Four-chamber heart, RVOT, LVOT BIOMETRY: BPD: 4.35 cm; 19 weeks 1 day; 7.80 % HC: 16.45 cm; 19 weeks 1 day; 3.80 % AC: 15.09 cm; 20 weeks 2 days; 40.10 % FL: 3.18 cm; 19 weeks 6 days; 23.80 % EFW:311.42 g; 23.30 %, 11 ounces FL/AC: 21.07 FL/BPD: 73.10 HC/AC: 1.09 GESTATIONAL AGE: Age by EDC: 20 weeks 3 days SAULO by EDC: 2024-06-13 Age by current US: 19 weeks 4 days SAULO by current US: 2024-06-19 US/US OB anatomy IMPRESSION: Nonvisualization of the heart and ventricular outflow tracts Otherwise normal anatomy scan *Reference: [employer] Practice Guideline for the performance of Obstetric Ultrasound Examinations, December 08, 2006. Electronically authenticated by: GONZALO TORRES Date: 01/28/2024 15:53
== END 2024-01-28 14:01 | disposition home or self-care (01) ==
LOC: NOMS 14:00
PROVIDERS: PCP Student in an Organized Health Care Education/Training Program; Visit Provider Obstetrics & Gynecology
DX: Z36.89 Encounter for other specified antenatal screening (principal); Z3A.19 19 weeks gestation of pregnancy
CPT/HCPCS: 76805; 76817

== ENCOUNTER 2024-02-26 07:59 | Outpatient (OUT) | payer OTHER, SELFPAY ==
--- NOTE | 2024-02-26 08:01 | US_ITS ---
[place] [address] Patient Name: SAMANTHA MORENO MRN: [id number] date: 2000 Sex: F Assigned Patient Location: [facility] Current Patient Location: [facility] Accession/Order Number: [id number] Exam Date: 02/26/2024 08:02 Report Date: 02/26/2024 09:29 At the request of: LOIDA LOCKHART Procedure: US OB follow up EXAMINATION: US OB follow up HISTORY: INCOMPLETE ANATOMY COMPARISON: 01/28/2024 FINDINGS: position: Breech presentation, longitudinal lie Heart rate: 141 beats minute Normal observed anatomy: Four-chamber heart, RVOT, LVOT Clinical age: 24 weeks 4 days Clinical SAULO: 06/13/2024 US/US OB follow up IMPRESSION: Normal observed anatomy Electronically authenticated by: GONZALO TORRES Date: 02/26/2024 09:29
--- OUTSIDE RECORDS SUMMARY | 2024-02-26 08:02 | XMS_ITS | CCD ---
Author Organization [facility] Care Team Providers Care Baby Sitter Name Role Phone DR KATHERINE HOANG Consulting Unavailable NATALYA, DR MURPHY Attending Unavailable NATALYA, DR MURPHY Admitting Unavailable NAILA COHEN Primary Care Physician NAILA COHEN Unavailable Luma Perez NP Unavailable Talisha Mixon MD Primary Care Provider Naila Cohen NP Unavailable NAILA COHEN Attending Unavailable KATHERINE HOANG Attending Unavailable KATHERINE HOANG Attending Unavailable LUMA PEREZ Attending Unavailab KAREN Healy Attending Unavailable KATHERINE HOANG Attending Unavailable Earlene Loya Attending Unavailable Medications Current Medications Medication Drug Class(es) Dates Sig (Normalized) Sig (Original) cetirizine hydrochloride 10 mg oral tablet (1 source) Histamine-1 Receptor Antagonist Start: 05-16-2021 cetirizine 10 mg Tab Refills(s) 0 Start Date: 05/16/21 Status: Ordered {21 (Ethinyl Estradiol 0.035 MG / norgestimate 0.25 MG Oral Tablet) / 7 (Inert Ingredients 1 MG Oral Tablet) } Pack [Guilford-Linyah 28 Day] (1 source) Progestin, Estrogen Start: 04-13-2019 Gu[place]-Linyah 0.25 mg-35 mcg oral tablet Refill(s) 0 Start Date: 04/13/19 Status: Ordered Flonase 0.05 mg/inh nasal spray (1 source) Start: 02-24-2018 take 1 spray(s) nasal route once daily Flonase 0.05 mg/inh nasal spray 1 spray(s), Nasal, Daily, 16 gram, Refill(s) 0, each nostril Start Date: 02/24/18 Status: Ordered 27-1 MG tablet (5 sources) Start: 01-10-2024 27-1 MG tablet 01/10/2024 Active Completed/Discontinued Medications Medication Drug Class(es) Dates Sig (Normalized) Sig (Original) pyridoxine hydrochloride 25 mg oral tablet (10 sources) Start: 12-03-2023 End: 03-02-2024 take 1 tablet by mouth every eight hours pyridoxine (Vitamin B-6) 25 MG tablet Indications: Nausea and vomiting in , First trimester Take 1 tablet (25 mg) by mouth every 8 (eight) hours 90 tablet 1 12/03/2023 01/21/2024 Discontinued Problems Active Problems Problem Classification Problem Date Documented Date Episodic/Chronic Anxiety disorders (13 sources) Anxiety; Translations: [Anxiety disorder, unspecified] Onset: 10-08-2022 10-08-2022 Chronic Headache; including migraine (13 sources) Migraine; Translations: [Migraine, unspecified, not intractable, without status migrainosus] Onset: 10-08-2022 10-08-2022 Chronic Immunizations and screening for infectious disease (3 sources) Encounter for screening for human papillomavirus (HPV); Translations: [Exposure to sexually transmissible disorder] Onset: 02-04-2022 12-31-2023 Episodic Malaise and fatigue (13 sources) Fatigue; Translations: [Chronic fatigue, unspecified] Onset: 10-08-2022 10-08-2022 Chronic Other connective tissue disease (2 sources) Foot pain; Translations: [Pain in left foot] 01-21-2024 Episodic Other endocrine disorders (13 sources) Hypoglycemia; Translations: [Hypoglycemia, unspecified] Onset: 10-08-2022 10-08-2022 Chronic Other female genital disorders (2 sources) Vaginal discharge; Translations: [Other specified noninflammatory disorders of vagina] 12-31-2023 Episodic Other non-traumatic joint disorders (2 sources) Acute ankle pain; Translations: [Pain in left ankle and joints of left foot] 01-21-2024 Episodic Other nutritional; endocrine; and metabolic disorders (2 sources) Obesity caused by energy imbalance; Translations: [Class 1 obesity due to excess calories without serious comorbidity with body mass index (BMI) of 32.0 to 32.9 in adult] 01-21-2024 Chronic Other and delivery including normal (4 sources) Second trimester ; Translations: [Encounter for supervision of normal , unspecified, second trimester] 12-31-2023 Episodic Other screening for suspected conditions (not mental disorders or infectious disease) (9 sources) Encounter for screening for malignant neoplasm of cervix; Translations: [No current problems or disability] Onset: 01-30-2022 Episodic Other upper respiratory disease (13 sources) Seasonal allergy; Translations: [Other seasonal allergic rhinitis] Onset: 10-08-2022 10-08-2022 Chronic Residual codes; unclassified (2 sources) Gestation period, 20 weeks; Translations: [20 weeks gestation of ] 01-28-2024 Episodic Residual codes; unclassified (2 sources) Gestation period, 19 weeks; Translations: [19 weeks gestation of ] 01-21-2024 Episodic Past or Other Problems Problem Classification Problem Date Documented Da te Episodic/Chronic Asthma (1 source) Asthma 12-21-2011 Other injuries and conditions due to external causes (13 sources) Contusion; Translations: [Other injury of unspecified body region, initial encounter] Onset: 10-08-2022 10-08-2022 Episodic Results Test Name Value Interpretation Reference Range Facility AFP, SERUM, OPEN SPINA BIFID Aon 01-08-2024 AFP MOM 0.90 . [facility] AFP VALUE 26.9 ng/mL . [facility] COMMENT: Comment . [facility] Comment on above: Kami Pina , Ph.D., [facility] Director References: Available Upon Request. Multiples Of Median Cutoffs For AFP Elevations Saenz 2.5 Black 2.8 IDD 2.0 Twins 4.5 Abbreviation Definitions IDD - Insulin Dep Diabetes OSBR - Open Spina Bifida Risk For further inquiries contact [facility] at [phone]. This test was developed and its performance characteristics determined by [employer]. It has not been cleared or approved by the Food and Drug Administration. Performed at: [facility] [address], [place] [id number] [employer] Shader: Radha Michael [facility], Phone: [phone] GEST. AGE ON COLLECTION DATE 16.4 . weeks [facility] GESTAT. AGE BASED ON LMP . [facility] Comment on above: Recalculations are n ot recommended when gestational dating by LMP and ultrasound are within 10 days. INSULIN DEP DIABETES No . [facility] INTERPRETATION Comment . [facility] Comment on above: Interpretation: Scre en Negative This result is screen negative for OSB. The AFP MoM calculated is based on the gestational age provided. MS-AFP can identify up to 80% of open neural tube defects. Closed neural tube defects and some open defects may not be detected by this test. This test does not screen for Down Syndrome or Trisomy 18. If screening for Down Syndrome or Trisomy 18 is desired, contact [facility] to discuss available options. The [employer] recommends amniocentesis be offered to women age 35 and older. [age] [facility] MULTIPLE GESTATION No . [facility] OSBR RISK 1 [place] [id number] . [facility] RACE . [facility] RESULTS Report . [facility] TEST RESULTS: Negative . [facility] WEIGHT 189 . lbs [facility] N N LMP [id number] 3 16 N 1 Y 189 N N N N N White/ [facility] IGP,APTIMA HPV,AGE GDLNon AGE GDLN ACOG TESTING Note . [facility] Comment on above: TESTS RESULT FLAG UN ITS REF RANGE LAB Clinician Provided Cytology Information Source.............Cervix Other.............. No. of containers..01 ThinPrep Vial Age Algo ACOG Maya... FLAG LEGEND: L-Low Normal,H-High Normal,LL-Alert Low,HH-Alert High <-Panic Low,>-Panic High,A-Abnormal,AA-Critical Abnormal Performed at: 01 =G [facility] [address] [place] [address] Blossom Vazquez MD, IGP, RFX APTIMA HPV ASCU Note . [facility] Comment on above: TESTS RESULT FLAG UN ITS REF RANGE LAB DIAGNOSIS: 02 NEGATIVE FOR INTRAEPITHELIAL LESION OR MALIGNANCY. THIS SPECIMEN WAS RESCREENED PART OF OUR [employer]AV[employer] PROGRAM. Specimen adequacy: 02 Satisfactory for evaluation. Endocervical and/or squamous metaplastic cells (endocervical component) are present. Performed by: 03 lCaudia Simon, Medical Officer Psychiatry (ASCP) QC reviewed by: 02 Eloisa Clarke, Supervisory Medical Officer Psychiatry (ASCP) . 02 Note: Note 02 The Pap smear is a screening test designed to aid in the detection of premalignant and malignant conditions of the uterine cervix. It is not a diagnostic procedure and should not be used as the sole means of detecting cervical cancer. Both false-positive and false-negative reports do occur. Test Methodology: Note 02 This liquid based ThinPrep(R) pap test was screened with the use of an image guided system. . 02 The HPV DNA reflex criteria were not met with this specimen result therefore, no HPV testing was performed. FLAG LEGEND: L-Low Normal,H-High Normal,LL-Alert Low,HH-Alert High <-Panic Low,>-Panic High,A-Abnormal,AA-Critical Abnormal Performed at: [address] [address] Blossom Vazquez MD, 03 [facility] [address] [address] V Gary PhD, Performed at: =[facility] [id number] [employer]: Blossom Vazquez MD, Phone: [phone] Performed at: [address] [id number] [employer]: Blossom Vazquez MD, Phone: [phone] SPATULA-ALONE CERVIX [facility] URETHRITIS/DISCHARGE PLUS VA GINITIS (HTRX)on 01-02-2024 ATOPOBIUM VAGINAE 0 [facility] ATOPOBIUM VAGINAE Not detected [facility] BVAB 2,3 (BACTERIAL VAGINOSIS ASSOCIATED BACTERIA 2, 3); MOBILUNCUS SPP 0 [facility] BVAB 2,3 (BACTERIAL VAGINOSIS ASSOCIATED BACTERIA 2, 3); MOBILUNCUS SPP Not detected [facility] JESSI ALBICANS, PARAPSILOSIS, TROPICALIS 0 [facility] JESSI ALBICANS, PARAPSILOSIS, TROPICALIS Not detected [facility] JESSI GLABRATA 0 [facility] JESSI GLABRATA Not detected [facility] JESSI KRUSEI 0 [facility] JESSI KRUSEI Not detected [facility] CHLAMYDIA TRACHOMATIS 0 [facility] CHLAMYDIA TRACHOMATIS Not detected [facility] GARDNERELLA VAGINALIS 0 [facility] GARDNERELLA VAGINALIS Not detected [facility] MEGASPHAERA (TYPES 1, 2) 0 [facility] MEGASPHAERA (TYPES 1, 2) Not detected [facility] MYCOPLASMA GENITALIUM 0 [facility] MYCOPLASMA GENITALIUM Not detected [facility] NEISSERIA GONORRHOEAE 0 [facility] NEISSERIA GONORRHOEAE Not detected [facility] TRICHOMONAS VAGINALIS 0 [facility] TRICHOMONAS VAGINALIS Not detected [facility] Urinalysis macro (dipstick) panel (U)on 12-31-2023 Bilirubin, UA Negative Negative - 4(70) +++ mg/dL [facility] Blood, UA Negative Negative - 50 Andres/mcL [facility] Clarity, UA Clear [facility] Color, UA Yellow [facility] Glucose, UA Negative Negative - 1999(110) ++++ mg/dL [facility] Interpretation and review of laboratory results Normal [facility] Ketones, UA Negative Negative - 160(16) ++++ mg/dL [facility] Leukocytes, UA Negative Negative - 500+++ Anne/mcL [facility] Nitrite, UA Negative Negative - Positive [facility] pH, UA 5.5 5 - 9 [facility] Protein, UA Negative Negative - 1999(20) ++++ mg/dL [facility] Spec Grav, UA 1.015 1 - 1.03 [facility] Urobilinogen, UA 0.2 0.2 - 12 mg/dL [facility] ACUTE HEPATITISon 12-26-2023 HBSAG SCREEN Negative Negative [facility] HCV AB Non-Reactive Non Reactive [facility] HEP A AB, IGM Negative Negative [facility] Comment on above: A negative anti-HAV IgM result suggests no recent or current HAV infection. HEP B CORE AB, IGM Negative Negative [facility] INTERPRETATION: Comment . [facility] Comment on above: Not infected with HC V unless early or acute infection is suspected (which may be delayed in an immunocompromised individual), or other evidence exists to indicate HCV infection. ALL MISCELLANEOUS TESTon MISCELLANEOUS TEST COMMENT . [facility] Comment on above: Test Ordered: [id number] Toxoplasma gondii Ab,IgM Toxoplasma gondii Ab,IgM <3.0 AU/mL Reference Range: 0.0-7.9 Negative <8.0 Equivocal 8.0 - 9.9 Positive >9.9 Comment: Comment Reference Range: . It is presumed the patient has not been infected with and is not undergoing an acute infection with Toxoplasma. If symptoms persist, submit a new specimen after three weeks. Performed at: - [facility] [id number] [employer]: Ihsan Phelps PhD, Phone: [phone] Toxoplasma gondii Antibodies, IgM [facility] CYTOMEGALOVIRUS (CMV) AB, IG Dino 12-26-2023 CYTOMEGALOVIRUS (CMV) AB, IGG <0.60 0.00 - 0.59 U/mL [facility] Comment on above: Negative <0.60 Equivocal 0.60 - 0.69 Positive >0.69 Performed at: [address] [id number] [employer]: Ihsan Phelps PhD, Phone: [phone] CYTOMEGALOVIRUS (CMV) AB, IG 12-26-2023 CYTOMEGALOVIRUS (CMV) AB, IGM <30.0 0.0 - 29.9 AU/mL [facility] Comment on above: Negative <30.0 Equivocal 30.0 - 34.9 Positive >34.9 A positive result is generally indicative of acute infection, reactivation or persistent IgM production. Performed at: [address] [id number] [employer]: Ihsan Phelps PhD, Phone: [phone] MEASLES/MUMPS/RUBELLA IMMUNI TYon 12-26-2023 MEASLES ANTIBODIES, IGG 271.0 AU/mL Immune >16.4 [facility] Comment on above: Negative <13.5 Equivocal 13.5 - 16.4 Positive >16.4 Presence of antibodies to Rubeola is presumptive evidence of immunity except when acute infection is suspected. MUMPS ABS, IGG 20.3 AU/mL Immune >10.9 [facility] Comment on above: Negative <9.0 Equivocal 9.0 - 10.9 Positive >10.9 A positive result generally indicates past exposure to Mumps virus or previous vaccination. RUBELLA ANTIBODIES, IGG 5.65 Immune >0.99 index [facility] Comment on above: Non-immune <0.90 Equivocal 0.90 - 0.99 Immune >0.99 No Panel Informationon 12-25 [facility] VARICELLA-ZOSTER V AB, IGGon 12-26-2023 VARICELLA-ZOSTER V AB, IGG Reactive Non Reactive [facility] Comment on above: Please note refere nce interval change A Reactive result is considered evidence of immunity to VZV. Reactive indicates that VZV IgG was detected consistent with previous infection and/or vaccination. A Non Reactive result indicates that VZV IgG was not detected suggesting that immunity has not been acquired. CHEMISTRYOrdered By: SYSTEM SYSTEM on 02-28-2022 Albumin [Mass/Vol] 4.0 g/dL Normal 3.3 - 5.0 gm/dL [facility] Remisol Albumin/Globulin [Mass ratio] 1.1 {ratio} Normal [...] rate/Area] mL/min/1.73 m2 Normal >=59mL/min/1. 73 m2 [facility] Chem S GFR/1.73 sq M.predicted among non-blacks MDRD (S/P/Bld) [Vol rate/Area] mL/min/1.73 m2 Normal >=59mL/min/1. 73 m2 [facility] S Globulin (S) [Mass/Vol] 3.6 g/dL [...] 12 mg/dL Normal 5 - 21 mg/dL [facility] Remisol Urea nitrogen/Creatinine [Mass ratio] 15 mg/mg Normal 10 - 20 [facility] Remisol HEMATOLOGYOrdered By: SYSTEM SYSTEM on 02-28-2022 Basophils/100 [...] 43.5 % Normal 34.0 - 46.0 % [facility] HemeAutoSS Hemoglobin (Bld) [Mass/Vol] 14.4 g/dL Normal [...] Normal 4.0 - 11.0 E9/L [facility] HemeAutoSS PAP ACOG PANEL 2: 21 to 29on 02-08-2022 . . Normal [facility] Comment on above: Performed By: #### [id number] #### [facility] [address] [place] [address] Dr. Dennise Cronin Age Gdln ACOG Testing - [facility] Comment on above: Performed By: #### [id number] #### [facility] [address] [address] [address] Dennise Cronin DIAGNOSIS: Comment Normal [facility] Comment on above: Result Comment: NEGA TIVE FOR INTRAEPITHELIAL LESION OR MALIGNANCY. Performed By: #### [id number] #### [facility] [address] [address] [address] Dennise Cronin Methodology: Comment [facility] Comment on above: Result Comment: This liquid based ThinPrep(R) pap test was screened with the use of an image guided system. Performed By: #### [id number] #### [facility] [address] [place] [address] Dr. Dennise Cronin Note: Comment Normal [facility] Comment on above: Result Comment: The Pap smear is a screening test designed to aid in the detection of premalignant and malignant conditions of the uterine cervix. It is not a diagnostic procedure and should not be used as the sole means of detecting cervical cancer. Both false-positive and false-negative reports do occur. . Performed By: #### [id number] #### [facility] [address] [place] [address] Dr. Dennise Cronin Performed by: Comment Normal [facility] Comment on above: Result Comment: Haja Pisano Medical Officer Psychiatry (ASCP) Performed By: #### [id number] #### [facility] [address] [place] [address] Dr. Dennise Cronin Reflex Criteria: Comment [facility] Comment on above: Result Comment: The HPV DNA reflex criteria were not met with this specimen result therefore, no HPV testing was performed. . Performed By: #### [id number] #### [facility] [address] [place] [address] Dr. Dennise Cronin Specimen adequacy: Comment Normal [facility] Comment on above: Result Comment: Sati sfactory for evaluation. Endocervical and/or squamous metaplastic cells (endocervical component) are present. Performed By: #### [id number] #### [facility] [address] [place] [address] Dr. Dennise Cronin Vital Signs Date Time Vital Sign Value Performing Clinician Faci lity 01-21-2024 15:52-0500 Body height 165.1 cm Luma Perez [employer] FINISH[employer] Work Phone: [facility] 01-21-2024 15:52-0500 Body mass index (BMI) [Ratio] 32.45 kg/m2 Luma Perez [employer] FIN[employer]ER Work Phone: [facility] 01-21-2024 15:52-0500 Body temperature 98.2 [degF] Luma Perez [employer] FINISH[employer]ERIAL[employer] PREPARER Work Phone: [facility] 01-21-2024 15:52-0500 Body weight 88.45 kg Luma Perez [employer] FINISH[employer]ER Work Phone: [facility] 01-21-2024 15:52-0500 Diastolic blood pressure 70 mm[Hg] Luma Donnamiller [employer] FINISH[employer]PARER Work Phone: [facility] 01-21-2024 15:52-0500 Heart rate 85 /min Luma Russonamiller [employer]ER Work Phone: [facility] 01-21-2024 15:52-0500 SaO2% (BldA) [Mass fraction] 98 % Luma Russonamiller [employer] FINISH[employer]PARER Work Phone: [facility] 01-21-2024 15:52-0500 Systolic blood pressure 116 mm[Hg] Luma Donnamiller [employer] FINISH[employer]ER Work Phone: [facility] 12-31-2023 15:23-0400 Body mass index (BMI) [Ratio] 31.45 kg/m2 Katherine Natalya DO Work Phone: [facility] 12-31-2023 15:23-0400 Body weight 85.73 kg Katherine Natalya DO Work Phone: [facility] 12-31-2023 15:23-0400 Diastolic blood pressure 70 mm[Hg] Katherine Natalya DO Work Phone: [facility] 12-31-2023 15:23-0400 Systolic blood pressure 118 mm[Hg] Katherine Natalya DO Work Phone: [facility] Healthcare Encounters Encounter Date Encounter Type Care Provider Facility Start: 02-04-2024 ambulatory Earlene Coates lity:CC [facility] Start: 01-28-2024 End: 01-28-2024 flow sheet Karen HERNANDEZ Work Phone: [facility] Comment on above: Second trimester pre gnancy; 20 weeks gestation of Start: 01-28-2024 End: 01-28-2024 ambulatory KAREN LOCKHART Not Available Start: 01-28-2024 End: 01-28-2024 Bamboo flowsheet Karen HERNANDEZ Work Phone: [facility] Start: 01-28-2024 End: 01-28-2024 Bamboo flowsheet Karen HERNANDEZ Work Phone: [facility] Start: 01-21-2024 End: 01-21-2024 Office outpatient visit 15 minutes Luma Perez [employer] Work Phone: [facility] Comment on above: Acute left ankle kianna n (Primary Dx); Acute foot pain, left; 19 weeks gestation of ; Class 1 obesity due to excess calories without serious comorbidity with body mass index (BMI) of 32.0 to 32.9 in adult Start: 01-21-2024 End: 01-21-2024 ambulatory LUMAGAVIN RUSSONAMILLER Not Available Start: 01-21-2024 End: 01-21-2024 Bamboo flowsheet Luma Perez [employer] FINISH[employer]ER Work Phone: [facility] Start: 01-21-2024 End: 01-21-2024 Bamboo flowsheet Luma Serrar [employer] FIN[employer]PARER Work Phone: [facility] Start: 01-05-2024 End: 01-08-2024 [facility] Result Encounter Katherine Natalya DO Work Phone: [facility] External Department Unsolicited Start: 01-05-2024 End: 01-08-2024 [facility] Result Encounter Katherine Natalya DO Work Phone: [facility] External Department Unsolicited Start: 12-31-2023 End: 12-31-2023 Patient encounter procedure Katherine Natalya DO Work Phone: [facility] Healthcare Start: 12-31-2023 End: 12-31-2023 Periodic preventive med est patient 18-39 yrs Katherine Natalya DO Work Phone: [facility] Comment on above: Screening, , for anatomic survey; Well woman exam with routine gynecological exam; Second trimester ; Exposure to STD; Vaginal discharge; Need for maternal serum alpha-protein (MSAFP) screening Start: 12-31-2023 End: 12-31-2023 ambulatory KATHERINE NATALYA Not Available Start: 12-31-2023 End: 12-31-2023 Bamboo flowsheet Katherine Natalya DO Work Phone: [facility] Start: 12-31-2023 End: 01-06-2024 Bamboo flowsheet Katherine Natalya DO Work Phone: [facility] Start: 12-31-2023 End: 01-06-2024 [facility] Result Encounter Katherine Natalya DO Work Phone: [facility] External Department Unsolicited Start: 12-31-2023 End: 01-02-2024 External Result Encounter Katherine Natalya DO Work Phone: [facility] Unsolicited Start: 12-25-2023 End: 12-26-2023 [facility] Result Encounter Katherine Natalya DO Work Phone: [facility] Unsolicited Start: 12-25-2023 End: 12-26-2023 [facility] Result Encounter Katherine Natalya DO Work Phone: [facility] Unsolicited Start: 12-03-2023 End: 12-03-2023 ambulatory KATHERINE BECERRAO Not Available Start: 11-06-2023 End: 11-06-2023 ambulatory NAILA COHEN Not Available Start: 10-15-2023 End: 10-15-2023 ambulatory NAILA COHEN Not Available Start: 02-27-2023 End: 02-27-2023 ambulatory KATHERINE NATALYA Not Available Start: 02-28-2022 End: 02-28-2022 Patient encounter procedure NAILA COHEN [facility] Start: 01-30-2022 End: 01-30-[address] KATHERINE HOANG Facility: Procedures Date Procedure Procedure Detail Performing Clinician Start: 01-05-2024 AFP, SERUM, OPEN SPI NA BIFIDA Katherine Natalya DO Work Phone: Start: 12-31-2023 URETHRITIS/DISCHARGE PLUS VAGINITIS (HTRX) Katherine Natalya DO Work Phone: Start: 12-31-2023 Urnls dip stick/tabl et rgnt non-auto w/o micrscp Katherine Natalya DO Work Phone: Start: 12-31-2023 IGP,APTIMA HPV,AGE GDLN Katherine Natalya DO Work Phone: Start: 12-25-2023 ACUTE HEPATITIS [...] DO Work Phone: None (qualifier value) JAVAD PHOENIX COHEN Plan of Treatment Date Care Activity Detail Author Start: 02-26-2024 End: 02-26-2024 Patient encounter procedure 02/26/2024 9:00 AM EST Routine [facility] [address] [place] [address] Katherine Hoang, DO [address] [place] [address] [facility] Start: 02-26-2024 End: 02-26-2024 Professional / ancillary services management 02/26/2024 8:00 AM EST Ancillary Procedure [facility] [address] [place] [address] [facility] Start: 01-31-2024 End: 01-31-2024 Alpha fetoprotein, maternal Alpha fetoprotein, maternal Lab Routine Need for maternal serum alpha-protein (MSAFP) screening Expected: 01/31/2024 (Approximate), Expires: 01/31/2024 [facility] Comment on above: Expected: 01/31/2024 (Approximate), Expires: 01/31/2024 Start: 01-28-2024 End: 01-28-2024 Patient encounter procedure [facility] Comment on above: Arrived Start: 01-28-2024 End: 01-28-2024 Professional / ancillary services management 01/28/2024 2:00 PM EST Ancillary Procedure [facility] [address] [address] [facility] Start: 12-31-2023 End: 12-31-2023 Patient encounter procedure [facility] Comment on above: Arrived Start: 12-31-2023 End: 12-30-2024 US for US OB ANATOMY SINGLE W US OB CERVICAL LENGTH Imaging Routine Screening, , for anatomic survey Expected: 12/31/2023 (Approximate), Expires: 12/30/2024 [facility] Comment on above: Expected: 12/31/2023 (Approximate), Expires: 12/30/2024 Start: 11-09-2023 Influenza vaccination Influenza Vacc ine (#1) [facility] CHLAMYDIA TRACHOMATI S (GENITO/STI) CHLAMYDIA TRACHOMATIS (GENITO/STI) Lab Routine Exposure to STD Ordered: 12/31/2023 [facility] Comment on above: Ordered: 12/31/2023 Cytology Cervical or vaginal smear or scraping study Pap Smear Pathology and Cytology Routine Well woman exam with routine gynecological exam Ordered: 12/31/2023 [facility] Comment on above: Ordered: 12/31/2023 Neisseria gonorrhoea e DNA [Presence] in Unspecified specimen by SARITA with probe detection Neisseria gonorrhea DNA probe, direct Lab Routine Exposure to STD Ordered: 12/31/2023 [facility] Comment on above: Ordered: 12/31/2023 SURESWAB(R) ADVANCED VAGINITIS PLUS, TMA SURESWAB(R) ADVANCED VAGINITIS PLUS, TMA Pathology and Cytology Routine Vaginal discharge Ordered: 12/31/2023 [facility] Work Phone: Comment on above: Ordered: 12/31/2023 Immunizations Immunization Date Immunization Notes Care Provider Fa cility 06-26-2020 tetanus toxoid, redu esequiel diphtheria toxoid, and acellular pertussis vaccine, adsorbed [facility] DO Work Phone: [facility] 10-30-2016 hepatitis A vaccine, pediatric/adolescent dosage, 2 dose schedule [facility] DO Work Phone: [facility] 10-30-2016 Human Papillomavirus 9-valent vaccine [facility] DO Work Phone: [facility] 10-30-2016 meningococcal B vacc ine, recombinant, OMV, adjuvanted [facility] 10-30-2016 meningococcal polysaccharide (groups A, C, Y and W-135) diphtheria toxoid conjugate vaccine (MCV4P) [facility] DO Work Phone: [facility] 10-04-2011 hepatitis A vaccine, pediatric/adolescent dosage, 2 dose schedule [facility] DO Work Phone: [facility] 10-04-2011 human papilloma viru s vaccine, quadrivalent [facility] DO Work Phone: [facility] 10-04-2011 meningococcal oligosaccharide (groups A, C, Y and W-135) diphtheria toxoid conjugate vaccine (MCV4O) [facility] DO Work Phone: [facility] 10-04-2011 tetanus toxoid, redu esequiel diphtheria toxoid, and acellular pertussis vaccine, adsorbed [facility] DO Work Phone: [facility] 05-02-2004 diphtheria, tetanus toxoids and acellular pertussis vaccine, unspecified formulation [facility] Work Phone: [facility] 11-03-2003 diphtheria, tetanus toxoids and acellular pertussis vaccine [facility] DO Work Phone: [facility] 11-03-2003 hepatitis B vaccine, pediatric or pediatric/adolescent dosage Katherine Natalya DO Work Phone: [facility] 11-03-2003 measles, mumps and r ubella virus vaccine Katherine Natalya DO Work Phone: [facility] 11-03-2003 poliovirus vaccine, inactivated Katherine Natalya DO Work Phone: [facility] 12-28-2001 diphtheria, tetanus toxoids and acellular pertussis vaccine, unspecified formulation Katherine Natalya DO Work Phone: [facility] 12-28-2001 haemophilus influenz ae type b conjugate and Hepatitis B vaccine Katherine Natalya DO Work Phone: [facility] 12-28-2001 measles, mumps and r ubella virus vaccine Katherine Natalya DO Work Phone: [facility] 12-28-2001 poliovirus vaccine, inactivated Katherine Natalya DO Work Phone: [facility] 1999 diphtheria, tetanus toxoids and acellular pertussis vaccine, unspecified formulation Katherine Natalya DO Work Phone: [facility] 1999 haemophilus influenz ae type b vaccine, PRP-OMP conjugate Katherine Natalya DO Work Phone: [facility] 1999 hepatitis B vaccine, pediatric or pediatric/adolescent dosage Katherine Natalya DO Work Phone: [facility] 1999 poliovirus vaccine, inactivated Katherine Natalya DO Work Phone: [facility] Payers Date Payer Category Payer [facility] [employer] [id number] 1999 Unknown [id number] 1999 Unknown [id number] 1259 1999 Unknown [id number] 1259 1999 Unknown [id number] 1259 1999 Unknown [id number] 1259 1999 Unknown [id number] 1259 1999 Unknown [id number] 1259 1999 Unknown [id number] 1259 1999 Unknown [id number] 1959 Unknown [id number] Social History Date Type Detail Facility Start: 05-16-2021 End: 10-08-2022 Tobacco smoking status Never smoked tobacco (finding) [facility] Tobacco smoking status Never [facility] Start: 10-15-2023 End: 01-21-2024 Sex Assigned At Female [facility] Start: 10-08-2022 Tobacco use and exposure Smokeless tobacco non-user [facility] Start: 12-10-2023 End: 01-21-2024 Alcoholic beverage intake Ex-drinker (finding) [facility] Start: 10-15-2023 End: 01-21-2024 History of Social function [facility] Start: 09-21-2023 [facility] Start: 1999 Sex assigned at Not on file [facility] Start: 05-22-2022 Gender identity Identifies as female gender (finding) [facility] History of Present illness Narrative 01-28-2024 MARY Dallas - 01/28/2024 3:10 PM EST Note Date & Type Note Facility 01-28-2024 History of Presen t illness Narrative Reason for Appointment: Patient ID: Samantha Luther is a 24 y.o. female who presents for Routine Visit Patient presents today for Return OB appointment. MEDICATIONS Current Outpatient Medications Medication Instructions 27-1 MG tablet ALLERGIES No Known Allergies PROBLEMS Active Ambulatory [...] Exam Constitutional: Appearance: Normal appearance. She is normal weight. HENT: Head: Normocephalic. Cardiovascular: Rate and Rhythm: Normal rate. Pulses: Normal pulses. Pulmonary: Effort: Pulmonary effort is normal. Breath sounds: Normal breath sounds. Abdominal: Palpations: Abdomen is soft. Musculoskeletal: General: Normal range of motion. Neurological: General: No focal deficit present. Mental Status: She is alert and oriented to person, place, and time. Psychiatric: Mood and Affect: Mood normal. Behavior: Behavior normal. Thought Content: Thought content normal. Judgment: Judgment normal. Vitals and nursing note reviewed. Vitals: Estimated body mass index is 32.45 kg/m as calculated from the following: Height as of 01/21/24: 5' 5 . Weight as of 01/21/24: 195 lb. BP: Patient's last menstrual period was 09/07/2023 (exact date). ASSESSMENT & PLAN ICD-10-CM 1. Second trimester Z34.92 2. 20 weeks gestation of Z3A.20 Return OB: Patient presents today for a routine obstetrics appointment. Patient is currently 20w4d . Patient states she is doing well but has complaints of being tired due to current . Patient has verbalizes frequent movement. No orders of the defined types were placed in this encounter. Follow Up: Patient is to return to office in 4 week for routine OB appointment. Documented by MARY Dallas on behalf of: MARY Dallas documented in this encounter [facility] History of Present illness Narrative 01-21-2024 Luma Perez NP - 01/21/2024 3:40 PM EST Note Date & Type Note Facility 01-21-2024 History of Presen t illness Narrative Images from the original note were not included. Samantha Luther is a 24 y.o. female presents with chief complaint of Foot Injury HPI: History of Present Illness The patient is a 24-year-old female here today for acute complaints. She reports an incident where a large piece of wood fell on her left foot in the basement while she was wearing only socks. The impact was significant, causing immediate pain. The incident occurred on 3 days ago before work, and she was unable to apply ice until that evening. By lunchtime, her foot was swollen and bruised. Although the condition has improved, she still experiences pain when walking, particularly in her ankle and the top of her foot. She has been managing the swelling by elevating her foot and applying ice. She has not taken any pain medication. She rates her pain as a 4 on a scale of 10. She reports no previous injuries to this foot or ankle and no open wounds on her foot. 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 She is currently 19 weeks and has an appointment with Dr. Hoang next Friday. SUBJECTIVE: ALLERGIES: No Known Allergies MEDICATIONS: Current Outpatient Medications Medication Instructions 27-1 MG tablet REVIEW OF SYMPTOMS: Constitutional: See HPI. Musculoskeletal: See HPI. Skin: Denies open wounds. Neurologic: Denies weakness, numbness or tingling. OBJECTIVE: Visit Vitals BP 116/70 (BP Location: Left arm, Patient Position: Sitting, BP Cuff Size: Adult) Pulse 85 Temp 98.2 F (Temporal) Ht 5' 5 Wt 195 lb LMP 09/07/2023 (Exact Date) SpO2 98% BMI 32.45 kg/m OB Status Smoking Status Never BSA 2.01 m BP Readings from Last 3 Encounters: 01/21/24 116/70 12/31/23 118/70 12/03/23 116/64 Wt Readings from Last 3 Encounters: 01/21/24 195 lb 12/31/23 189 lb 12/03/23 187 lb General: Well developed, well nourished, in no acute distress sitting upright in chair. Head: Normocephalic/atraumatic. Eyes: No conjunctival irritation. Ears: Grossly normal hearing. Nose: No discharge. Mouth: MMM, talkative. Neck: Supple. Chest: No distress. Pulses: Left pedal pulses intact. Musculoskeletal: Steady gait. Increasing discomfort with palpation to left lateral and anterior ankle. Full ROM noted. Minimal bruising to dorsal aspect of base of left 2nd digit. Distal sensation and brisk capillary refill intact. Extremities: No edema. Neurologic: Grossly normal. Skin: Skin is warm and dry. Mental Status: Alert and cooperative. Results Lab Results Component Value Date HGBA1C 4.8 11/17/2023 Lab Results Component Value Date LDLCALC 80 10/15/2023 CREATININE 0.81 10/15/2023 ASSESSMENT AND PLAN: Assessment & Plan 1. Foot injury. She dropped a large piece of wood on her foot, resulting in swelling and bruising. The injury occurred on Friday before work, and she did not ice it until Friday night. By lunchtime on Friday, the foot was significantly swollen. Although the swelling has improved, she still experiences pain when walking, particularly in the ankle and the top of the foot. There is no history of previous injury to this foot or ankle. Physical examination reveals bruising at the base of the second digit and some pain upon movement, but distal pulses are palpable, sensation is intact, and movement is not restricted. Given her , ibuprofen is not a viable option for pain management. She was advised to continue with icing (20 minutes on, 40 minutes off) and elevation of the foot. The use of an Aki bandage was suggested for compression and stability. She was also advised to wear looser shoes. If there is no improvement in a week or two, x-rays will be ordered to rule out an underlying fracture. She was instructed to contact the office if there is no improvement. Assessment/Plan Diagnoses and all orders for this visit: Acute left ankle pain Acute foot pain, left 19 weeks gestation of Keep follow up appointments with Class 1 obesity due to excess calories without serious comorbidity with body mass index (BMI) of 32.0 to 32.9 in adult Routine physical exercise and a healthy diet to promote weight reduction and improve overall health encouraged. Please Note: Portions of this chart may have been created using voice recognition software. Occasional wrong-word or sound-like substitutions may have occurred due to inherent limitations of the voice recognition software. Please read the chart carefully and recognize, using context, where the substitutions have occurred. documented in this encounter [facility] History of Present illness Narrative [...] nursing note reviewed. Exam conducted with a typewriter ribbon winder present. Vitals: Estimated body mass index is [...] Katherine Hoang DO documented in this encounter [facility] Evaluation + Plan note Note Date & Type Note Facility Evaluation + Plan note No data available for this section [facility] Evaluation note Note Date & Type Note Facility Evaluation note Diagnosis Screening, , for anatomic survey Encounter for anatomic survey Well woman exam with routine gynecological exam Routine gynecological examination Second trimester state, incidental Exposure to STD Vaginal discharge Leukorrhea, not specified as infective Need for maternal serum alpha-protein (MSAFP) screening documented in this encounter [facility] Evaluation note Note Date & Type Note Facility Evaluation note Diagnosis Second trimester state, incidental 20 weeks gestation of documented in this encounter [facility] Evaluation note Note Date & Type Note Facility Evaluation note Diagnosis Acute left ankle pain- Primary Acute foot pain, left 19 weeks gestation of Class 1 obesity due to excess calories without serious comorbidity with body mass index (BMI) of 32.0 to 32.9 in adult documented in this encounter [facility] Hospital Discharge instructions Note Date & Type Note Facility Hospital Discharge instructions No data available for this section [facility] Progress note Note Date & Type Note Facility Progress note No data available for this section [facility] Summary Purpose Family History No Family History Records FoundNo Family History Records FoundNo Family History Records Found Advance Directives No Advanced Directives Records FoundNo Advanced Directives Records FoundNo Advanced Directives Records Found Additional Source Comments INFORMATION SOURCE (unrecogn ized section and content) DATE CREATED AUTHOR 02/09/2022 [facility] DATE CREATED AUTHOR AUTHOR'S ORGANIZ ATION 01/31/2024 [facility] EPIC DATE CREATED AUTHOR AUTHOR'S ORGANIZ ATION 02/07/2024 [facility] Patient Care team informatio n (unrecognized section and content) Baby Sitter Relationship Specialty Start Date End Date Luma Perez NP [address] [place] [phone] PCP - Medical [employer] 10/26/21 99 Talisha Mixon MD [address] [place] [address] PCP - General Family Medicine 10/07/22 Naila Cohen NP [address] [place] [address] Nurse Practitioner Family Medicine 10/07/22 Baby Sitter Relationship Specialty Start Date End Date Luma Perez NP [address] [place] [phone] PCP - Medical [employer] 10/26/21 99 Talisha Mixon MD [address] [place] [address] PCP - General Family Medicine 10/07/22 Naila Cohen NP [address] [place] [address] Nurse Practitioner Family Medicine 10/07/22 Baby Sitter Relationship Specialty Start Date End Date Luma Perez NP [address] [place] [phone] PCP - Medical [employer] 10/26/21 99 Talisha Mixon MD [address] [place] [address] PCP - General Family Medicine 10/07/22 Naila Cohen NP [address] [place], [place] [id number] Nurse Practitioner Family Medicine 10/07/22 Baby Sitter Relationship Specialty Start Date End Date Luma Perez NP [address] [place] [phone] PCP - Medical [employer] 10/26/21 99 Talisha Mixon MD [address] [place], [place] [phone] PCP - General Family Medicine 10/07/22 Naila Cohen NP [address] [place] [phone] Nurse Practitioner Family Medicine 10/07/22 Baby Sitter Relationship Specialty Start Date End Date Luma Perez NP [address] [place] [phone] PCP - Medical [employer] 10/26/21 99 Talisha Mixon MD [address] [place] [address] PCP - General [facility] 10/07/22 Naila Cohen NP [address] [place] [address] Nurse Practitioner [facility] Medicine 10/07/22 Baby Sitter Relationship Specialty Start Date End Date Luma Perez NP [address] [place] [phone] PCP - [facility] [employer] 10/26/21 99 Talisha Mixon MD [address] [place] [id number] PCP - [facility] 10/07/22 Naila Cohen NP [address] [place] [address] Nurse Practitioner [facility] 10/07/22 Reason for Visit (unrecogniz ed section and content) Reason Comments Routine Visit Reason Comments Foot Injury FOR RECORDS PERTAINING TO PATIENTS WHO ARE [...] BE BASED ON THE PRIMARY CLINICAL RECORDS. [employer] [facility]. provides no warranty or guarantee of the accuracy or completeness of information in this document.
== END 2024-02-26 08:00 | disposition home or self-care (01) ==
LOC: NOMS 07:59
PROVIDERS: PCP Student in an Organized Health Care Education/Training Program; Visit Provider Physician Assistant
DX: Z36.89 Encounter for other specified antenatal screening (principal)
CPT/HCPCS: 76816

== ENCOUNTER 2024-03-09 08:32 | Outpatient (OUT) | payer OTHER, SELFPAY ==
[2024-03-09 10:09] LABS: Basophils Absolute Auto 0.1 10^3/uL (0.0-0.1); Basophils Percent Auto 0.4 % (0.2-2.0); Eosinophils Absolute Auto 0.1 10^3/uL (0.0-0.7); Eosinophils Percent Auto 0.9 % (0.9-7.0); Hematocrit 37.6 % (36.0-48.0); Hemoglobin 12.8 g/dL (12.0-16.0); Immature Granulocytes Abs Auto 0.12 10^3/uL (0.00-0.03); Lymphocytes Percent Auto 17.2 % (20.5-60.0); Mean Corpuscular Hemoglobin 32.5 pg (26.7-34.0); Mean Corpuscular Volume 95.4 fL (81.0-99.0); Monocytes Absolute Auto 0.6 10^3/uL (0.3-0.8); Neutrophils Absolute Auto 8.7 10^3/uL (1.4-6.5); Neutrophils Percent Auto 75.5 % (43.0-75.0); Platelet Count 275 10^3/uL (150-450); Red Blood Count 3.94 10^6/uL (4.20-5.40); Red Cell Distribution Width 13.4 % (11.0-15.0); White Blood Count 11.5 10^3/uL (4.0-11.0)
[2024-03-09 10:28] LABS: Glucose 1 Hour 75 mg/dL (<130)
== END 2024-03-09 08:33 | disposition home or self-care (01) ==
LOC: LAB 08:32
PROVIDERS: PCP Student in an Organized Health Care Education/Training Program; Visit Provider Obstetrics & Gynecology
DX: Z13.1 Encounter for screening for diabetes mellitus (principal); Z77.21 Contact with and (suspected) exposure to potentially hazardous body fluids
CPT/HCPCS: 36415; 82950; 85025

== ENCOUNTER 2024-05-03 16:14 | Observation (INO) | payer OTHER, SELFPAY ==
[2024-05-03 16:33] VITALS: BP 116/79; PULSE 93
== END 2024-05-03 17:39 | disposition home or self-care (01) ==
PROVIDERS: Admitting Provider Obstetrics & Gynecology; PCP Student in an Organized Health Care Education/Training Program; Visit Provider Obstetrics & Gynecology
DX: O36.8130 Decreased fetal movements, third trimester, not applicable or unspecified (principal); Z3A.32 32 weeks gestation of pregnancy
CPT/HCPCS: 59025; G0378; G0379

== ENCOUNTER 2024-05-20 20:01 | Outpatient (REF) | payer OTHER, SELFPAY ==
--- OUTSIDE RECORDS SUMMARY | 2024-05-20 20:05 | XMS_ITS | CCD ---
Author Organization [facility] Care Team Providers Care Solution Design Engineer Name Role Phone DR KATHERINE HOANG Consulting Unavailable NATALYA, DR MURPHY Attending Unavailable NATALYA, DR MURPHY Admitting Unavailable NAILA COHEN Primary Care Physician NAILA COHEN Unavailable Jean ANDRADE, Luma Rodríguez Unavailable Talisha Mixon MD Primary Care Provider Naila Cohen NP Unavailable Earlene Loya Attending Unavailable KAREN LOCKHART Referring Unavailable KATHERINE HOANG Attending Unavailable KATHERINE HOANG Attending Unavailable KATHERINE HOANG Attending Unavailable NAILA COHEN Attending Unavailable KATHERINE HOANG Attending Unavailable KATHERINE HOANG Attending Unavailable LUMA PEREZ Attending Unavailab KAREN Healy Attending Unavailable KATHERINE HOANG Attending Unavailable KATHERINE [...] Ingredients 1 MG Oral Tablet) } Pack [Lar[place]-Linyah 28 Day] (1 source) Progestin, Estrogen Start: 04-13-2019 [place]-Linyah 0.25 mg-35 mcg oral tablet Refill(s) 0 Start Date: 04/13/19 Status: Ordered Flonase 0.05 mg/inh nasal spray (1 source) Start: 02-24-2018 take 1 spray(s) nasal route once daily Flonase 0.05 mg/inh nasal spray 1 spray(s), Nasal, Daily, 16 gram, Refill(s) 0, each nostril Start Date: 02/24/18 Status: Ordered 27-1 MG tablet (20 sources) Start: 01-10-2024 27-1 MG tablet 01/10/2024 Active Vit-Fe Fumarate-FA ( Vitamins) 28-0.8 MG tablet (6 sources) Start: 11-11-2023 End: 12-11-2023 take 1 tablet by mouth once daily Vit-Fe Fumarate-FA ( Vitamins) 28-0.8 MG tablet Indications: care, antepartum Take 1 tablet by mouth Daily 30 tablet 11 11/11/2023 12/11/2023 Active Start: 10-10-2023 End: 10-09-2024 take 1 tablet by mouth once daily Vit-Fe Fumarate-FA ( Vitamins) 28-0.8 MG tablet Indications: care, antepartum Take 1 tablet by mouth Daily 30 tablet 10/10/2023 10/09/2024 Active Completed/Discontinued Medications Medication Drug Class(es) Dates Sig (Normalized) Sig (Original) azithromycin 250 mg oral tablet (3 sources) Macrolide Antimicrobial Start: 02-04-2024 End: 02-26-2024 azithromycin (Zithromax Z-Vance) 250 MG tablet Indications: URI, acute As directed 6 tablet 02/04/2024 02/26/2024 Discontinued pyridoxine hydrochloride 25 mg oral tablet (12 sources) Start: 12-03-2023 End: 03-02-2024 take 1 tablet by mouth every eight hours pyridoxine (Vitamin B-6) 25 MG tablet Indications: Nausea and vomiting in , First trimester Take 1 tablet (25 mg) by mouth every 8 (eight) hours 90 tablet 1 12/03/2023 01/21/2024 Discontinued Problems Active Problems Problem Classification Problem Date Documented Date Episodic/Chronic Anxiety disorders (20 sources) Anxiety; Translations: [Anxiety disorder, unspecified] Onset: 10-08-2022 10-08-2022 Chronic Esophageal disorders (16 sources) Gastroesophageal reflux disease without esophagitis; Translations: [Gastro-esophageal reflux disease without esophagitis] Onset: 02-26-2024 02-26-2024 Chronic Headache; including migraine (20 sources) Migraine; Translations: [Migraine, unspecified, not intractable, without status migrainosus] Onset: 10-08-2022 10-08-2022 Chronic Immunizations and screening for infectious disease (3 sources) Encounter for screening for human papillomavirus (HPV); Translations: [Exposure to sexually transmissible disorder] Onset: 02-04-2022 12-31-2023 Episodic Malaise and fatigue (20 sources) Fatigue; Translations: [Chronic fatigue, unspecified] Onset: 10-08-2022 10-08-2022 Chronic Menstrual disorders (1 source) Missed period; Translations: [Irregular menstruation, unspecified] 11-06-2023 Chronic Other complications of (2 sources) Vomiting of , unspecified; Translations: [Unspecified vomiting of , unspecified as to episode of care or not applicable] 12-03-2023 Episodic Other complications of (4 sources) size does not accord with dates; Translations: [Uterine size-date discrepancy, unspecified trimester] 03-24-2024 Episodic Other connective tissue disease (2 sources) Foot pain; Translations: [Pain in left foot] 01-21-2024 Episodic Other endocrine disorders (20 sources) Hypoglycemia; Translations: [Hypoglycemia, unspecified] Onset: 10-08-2022 [...] 01-21-2024 Chronic Other and delivery including normal (20 sources) Second trimester ; Translations: [Encounter for supervision of normal , unspecified, second trimester] Onset: 02-26-2024 12-31-2023 Episodic Other screening for suspected conditions (not mental disorders or infectious disease) (11 sources) Encounter for screening for malignant neoplasm of cervix; Translations: [No current problems or disability] Onset: 01-30-2022 Episodic Other upper respiratory disease (20 sources) Seasonal allergy; Translations: [Other seasonal allergic rhinitis] Onset: 10-08-2022 10-08-2022 Chronic Residual codes; unclassified (2 sources) Gestation period, 20 weeks; Translations: [20 weeks gestation of ] 01-28-2024 Episodic Residual codes; unclassified (2 sources) Gestation period, 19 weeks; Translations: [19 weeks gestation of ] 01-21-2024 Episodic Residual codes; unclassified (16 sources) Gestation period, 24 weeks; Translations: [24 weeks gestation of ] Onset: 02-26-2024 02-26-2024 Episodic Residual codes; unclassified (2 sources) Gestation period, 28 weeks; Translations: [28 weeks gestation of ] 03-24-2024 Episodic Residual codes; unclassified (2 sources) Gestation period, 30 weeks; Translations: [30 weeks gestation of ] 04-06-2024 Episodic Residual codes; unclassified (2 sources) Gestation period, 32 weeks; Translations: [32 weeks gestation of ] 04-21-2024 Episodic Residual codes; unclassified (2 sources) Gestation period, 34 weeks; Translations: [34 weeks gestation of ] 05-05-2024 Episodic Past or Other Problems Problem Classification Problem Date Documented Da te Episodic/Chronic Asthma (1 source) Asthma 12-21-2011 Other injuries and conditions due to external causes (20 sources) Contusion; Translations: [Other injury of unspecified body region, initial encounter] Onset: 10-08-2022 10-08-2022 Episodic Results Test Name Value Interpretation Reference Range Facility Urinalysis macro (dipstick) panel (U)on 05-05-2024 Bilirubin, UA Negative Negative - 4(70) +++ mg/dL [facility] Blood, UA Negative Negative - 50 Andres/mcL [facility] Clarity, UA Clear [facility] Color, UA Yellow [facility] Glucose, UA Negative Negative - 2000(110) ++++ mg/dL [facility] Interpretation and review of laboratory results Abnormal [facility] Ketones, UA Positive Negative - 160(16) ++++ mg/dL [facility] Comment on above: trace Leukocytes, UA Trace Negative - 500+++ Anne/mcL [facility] Nitrite, UA Negative Negative - Positive [facility] pH, UA 6 5 - 9 [facility] Protein, UA Trace Negative - 1999(20) ++++ mg/dL [facility] Spec Grav, UA 1.02 1 - 1.03 [facility] Urobilinogen, UA 1.0 0.2 - 12 mg/dL [facility] Urinalysis macro (dipstick) panel (U)on 04-21-2024 Bilirubin, UA Negative Negative - 4(70) +++ mg/dL [facility] Blood, UA Negative Negative - 50 Andres/mcL [facility] Clarity, UA Clear [facility] Color, UA Yellow [facility] Glucose, UA Negative Negative - 1999(110) ++++ mg/dL [facility] Interpretation and review of laboratory results Abnormal [facility] Ketones, UA Negative Negative - 160(16) ++++ mg/dL [facility] Leukocytes, UA Trace Negative - 500+++ Anne/mcL [facility] Nitrite, UA Negative Negative - Positive [facility] pH, UA 6 5 - 9 [facility] Protein, UA Negative Negative - 1999(20) ++++ mg/dL [facility] Spec Grav, UA 1.02 1 - 1.03 [facility] Urobilinogen, UA 0.2 0.2 - 12 mg/dL [facility] US OB FOLLOW UP TRANSABDOMIN AL APPROACHon 04-06-2024 US OB FOLLOW UP TRANSABDOMINAL APPROACH TITLE OF EXAM: OB Ultrasound: REASON FOR EXAM: Inconsistent size. COMPARISON: SAULO from prior ultrasound per report 30 weeks 2 days gestational age. TECHNIQUE: Grayscale and M-mode Doppler imaging is performed. FINDINGS: heart rate: 138 bpm MICHAEL: 19.2 cm (8.9-23.5) BPD: 7.4 cm HC: 27.3 cm AC: 27.0 cm FL: 6.0 cm GA for sonogram: 30.1 wk (27.7-32.6) [place] SAULO: 06/13/2024 Weight Estimate: Weight: 1655 gm / 3 lbs, 10 oz (0861-5800 gm) [place] Normal: 1614 gm (2082-5857 gm) [place] Wt%: 58% for 30.3 wks Limited for: Growth Presentation: Cephalic Lie: Longitudinal Amniotic Fluid: 19.3 cm Between 5th and 95 percentile. Largest Fluid Pocket: 6.6 cm Heart Rate: 138 bpm Somatic motion: Yes IMPRESSION: Limited for growth. Normal growth. Size equals dates. Dictated and transcribed 04/06/24/dpd This report has been electronically signed and approved by the interpreting radiologist. Normal Not Available Comment on above: Order Comment: US OB SCAN FOR GROWTH Estimated Date of Delivery: 06/13/24 Gestational Age as of 03/24/2024: 28w3d Urinalysis macro (dipstick) panel (U)on 04-06-2024 Bilirubin, UA Negative Negative - 4(70) +++ mg/dL [facility] Blood, UA Negative Negative - 50 Andres/mcL [facility] Clarity, UA Clear [facility] Color, UA Yellow [facility] Glucose, UA Negative Negative - 1999(110) ++++ mg/dL [facility] Interpretation and review of laboratory results Abnormal [facility] Ketones, UA Negative Negative - 160(16) ++++ mg/dL [facility] Leukocytes, UA Trace Negative - 500+++ Anne/mcL [facility] Nitrite, UA Negative Negative - Positive [facility] pH, UA 6 5 - 9 [facility] Protein, UA Negative Negative - 1999(20) ++++ mg/dL [facility] Spec Grav, UA 1.01 1 - 1.03 [facility] Urobilinogen, UA 0.2 0.2 - 12 mg/dL [facility] Urinalysis macro (dipstick) panel (U)on 03-24-2024 Bilirubin, UA Negative Negative - 4(70) +++ mg/dL [facility] Blood, UA Negative Negative - 50 Andres/mcL [facility] Clarity, UA Clear [facility] Color, UA Yellow [facility] Glucose, UA Negative Negative - 1999(110) ++++ mg/dL [facility] Interpretation and review of laboratory results Abnormal [facility] Ketones, UA Negative Negative - 160(16) ++++ mg/dL [facility] Leukocytes, UA Trace Negative - 500+++ Anne/mcL [facility] Nitrite, UA Negative Negative - Positive [facility] pH, UA 6 5 - 9 [facility] Protein, UA Negative Negative - 1999(20) ++++ mg/dL [facility] Spec Grav, UA 1.015 1 - 1.03 [facility] Urobilinogen, UA 0.2 0.2 - 12 mg/dL [facility] ALL CBC WITH AUTO DIFFon BASOPHILS ABSOLUTE AUTO 0.1 [facility] Basophils/100 WBC (Bld) 0.4 % 0.2 - 2.0 % [facility] Eosinophils/100 WBC (Bld) 0.9 % 0.9 - 7.0 % [facility] Erythrocyte distribution width (RBC) [Ratio] 13.4 % 11.0 - 15.0 % [facility] Hematocrit (Bld) [Volume fraction] 37.6 % 36.0 - 48.0 % [facility] Hemoglobin (Bld) [Mass/Vol] 12.8 g/dL 12.0 - 16.0 g/dL [facility] IMMATURE GRANULOCYTES ABS AUTO 0.12 High [facility] Immature granulocytes/100 WBC (Bld) 1 % High 0.0 - 0.5 % [facility] Interpretation and review of laboratory results Abnormal [facility] LYMPHOCYTES ABSOLUTE AUTO 2 [facility] Lymphocytes/100 WBC (Bld) 17.2 % Low 20.5 - 60.0 % [facility] MCH (RBC) [Entitic mass] 32.5 pg 26.7 - 34.0 pg [facility] MCHC (RBC) [Mass/Vol] 34 g/dL 29.9 - 35.2 g/dL [facility] MCV (RBC) [Entitic vol] 95.4 fL 81.0 - 99.0 fL [facility] MONOCYTES ABSOLUTE AUTO 0.6 [facility] Monocytes/100 WBC (Bld) 5 % 1.7 - 12.0 % [facility] NEUTROPHILS ABSOLUTE AUTO 8.7 High [facility] Neutrophils/100 WBC (Bld) 75.5 % High 43.0 - 75.0 % [facility] Platelet mean volume (Bld) [Entitic vol] 10 fL 9.5 - 13.5 fL [facility] TBH EO # 0.1 [facility]H PLT 275 [facility] RBC 3.94 Low [facility] WBC 11.5 High [facility] Urinalysis macro (dipstick) panel (U)on 02-26-2024 Bilirubin, UA Negative Negative - 4(70) +++ mg/dL [facility] Blood, UA Negative Negative - 50 Andres/mcL [facility] Clarity, UA Clear [facility] Color, UA Yellow [facility] Glucose, UA Negative Negative - 2000(110) ++++ mg/dL [facility] Interpretation and review of laboratory results Abnormal [facility] Ketones, UA Negative Negative - 160(16) ++++ mg/dL [facility] Leukocytes, UA Trace Negative - 500+++ Anne/mcL [facility] Nitrite, UA Negative Negative - Positive [facility] pH, UA 6.5 5 - 9 [facility] Protein, UA Trace Negative - 1999(20) ++++ mg/dL [facility] Spec Grav, UA 1.025 1 - 1.03 [facility] Urobilinogen, UA 1.0 0.2 - 12 mg/dL [facility] AFP, SERUM, OPEN SPINA BIFID Aon 01-08-2024 AFP MOM 0.90 . [facility] AFP VALUE 26.9 ng/mL . [facility] COMMENT: Comment . [facility] Comment on above: Kami Pina , Ph.D., [facility] Director References: Available Upon Request. Multiples Of Median Cutoffs For AFP Elevations Saenz 2.5 Black 2.8 IDD 2.0 Twins 4.5 Abbreviation Definitions IDD - Insulin Dep Diabetes OSBR - Open Spina Bifida Risk For further inquiries contact [employer] [facility] at [phone]. This test was developed and its performance characteristics determined by [employer]. It has not been cleared or approved by the Food and Drug Administration. Performed at: [facility] [address] [place], [place] [id number] Wort Extractor: Radha Michael [facility], Phone: [phone] GEST. AGE ON COLLECTION DATE 16.4 . weeks [facility] GESTAT. AGE BASED ON LMP . [facility] Comment on above: Recalculations are n ot recommended when gestational dating by LMP and ultrasound are within 10 days. INSULIN DEP DIABETES No . [facility] INTERPRETATION Comment . [facility] Comment on above: Interpretation: Scre en Negative [...] Customer Services to discuss available options. The [employer] recommends amniocentesis be offered to women age 35 and older. [age] SAULO [age] [facility] MULTIPLE GESTATION No . [facility] OSBR RISK 1 [place] [id number] . [facility] RACE . [facility] RESULTS Report . [facility] TEST RESULTS: Negative . [facility] WEIGHT 189 . lbs [facility] N N LMP [id number] 3 16 N 1 Y 189 N N N N N White/ [facility] IGP,APTIMA HPV,AGE GDLNon AGE GDLN ACOG TESTING Note . [facility] Comment on above: TESTS RESULT FLAG UN ITS REF RANGE LAB Clinician Provided Cytology Information Source.............Cervix Other.............. No. of containers..01 ThinPrep Vial Age Algo ACOG Maya... FLAG LEGEND: L-Low Normal,H-High Normal,LL-Alert Low,HH-Alert High <-Panic Low,>-Panic High,A-Abnormal,AA-Critical Abnormal Performed at: 01 =G Tasha Watts[address] [address] Blossom Vazquez MD, IGP, RFX APTIMA HPV ASCU Note . [facility] Comment on above: TESTS RESULT FLAG UN ITS REF RANGE LAB DIAGNOSIS: 02 NEGATIVE FOR INTRAEPITHELIAL LESION OR MALIGNANCY. THIS SPECIMEN WAS RESCREENED PART OF OUR DESIGN TECH PROGRAM. Specimen adequacy: 02 Satisfactory for evaluation. Endocervical and/or squamous metaplastic cells (endocervical component) are present. Performed by: 03 Claudia Simon, Freight Adjuster ([facility]) QC reviewed by: 02 Eloisa Clarke, Supervisory Freight Adjuster ([facility]) . 02 Note: Note 02 The Pap [...] <-Panic Low,>-Panic High,A-Abnormal,AA-Critical Abnormal Performed at: [address] [facility] [address] Blossom Vazquez MD, 03 [facility] [address] [facility] [place] [address] Flores Vega PhD, Performed at: =[address] [id number] Wort Extractor: Blossom Vazquez MD, Phone: [phone] Performed at: [address] [id number] Wort Extractor: Blossom Vazquez MD, Phone: [phone] SPATULA-ALONE CERVIX [facility] URETHRITIS/DISCHARGE PLUS VA GINITIS (HTRX)on 01-02-2024 ATOPOBIUM VAGINAE 0 [facility] ATOPOBIUM VAGINAE Not detected [facility] BVAB 2,3 (BACTERIAL VAGINOSIS ASSOCIATED BACTERIA 2, 3); MOBILUNCUS SPP 0 [facility] BVAB 2,3 (BACTERIAL VAGINOSIS ASSOCIATED BACTERIA 2, 3); MOBILUNCUS SPP Not detected [facility] JESSI ALBICANS, PARAPSILOSIS, TROPICALIS 0 [facility] JESSI ALBICANS, PARAPSILOSIS, TROPICALIS Not detected [facility] JESSI GLABRATA 0 [facility] JESSI GLABRATA Not [facility] KRUSEI 0 [facility] JESSI KRUSEI Not [facility] CHLAMYDIA TRACHOMATIS 0 [facility] CHLAMYDIA TRACHOMATIS Not detected N [facility] GARDNERELLA VAGINALIS 0 [facility] GARDNERELLA VAGINALIS Not detected N [facility] MEGASPHAERA (TYPES 1, 2) 0 [facility] MEGASPHAERA (TYPES 1, 2) Not detected [facility] MYCOPLASMA GENITALIUM 0 [facility] MYCOPLASMA GENITALIUM Not detected N [facility] NEISSERIA GONORRHOEAE 0 [facility] NEISSERIA GONORRHOEAE Not detected N [facility] TRICHOMONAS VAGINALIS 0 [facility] TRICHOMONAS VAGINALIS Not detected N [facility] Urinalysis macro (dipstick) panel (U)on 12-31-2023 Bilirubin, UA Negative Negative - 4(70) +++ mg/dL [facility] Blood, UA Negative Negative - 50 Andres/mcL [facility] Clarity, UA Clear [facility] Color, UA Yellow [facility] Glucose, UA Negative Negative - 2000(110) ++++ mg/dL [facility] Interpretation and review of laboratory results Normal [facility] Ketones, UA Negative Negative - 160(16) ++++ mg/dL [facility] Leukocytes, UA Negative Negative - 500+++ Anne/mcL [facility] Nitrite, UA Negative Negative - Positive [facility] pH, UA 5.5 5 - 9 [facility] Protein, UA Negative Negative - 2000(20) ++++ mg/dL [facility] Spec Grav, UA 1.015 1 - 1.03 [facility] Urobilinogen, UA 0.2 0.2 - 12 mg/dL [facility] ACUTE HEPATITISon 12-26-2023 HBSAG SCREEN Negative Negative [facility] HCV AB Non-Reactive Non Reactive [facility] HEP A AB, IGM Negative Negative [facility] Comment on above: A negative anti-HAV IgM result suggests no recent or current HAV infection. HEP B CORE AB, IGM Negative Negative [facility] INTERPRETATION: Comment . [facility] Comment on above: Not infected with HC V unless early or acute infection is suspected (which may be delayed in an immunocompromised individual), or other evidence exists to indicate HCV infection. ALL MISCELLANEOUS TESTon MISCELLANEOUS TEST COMMENT . [facility] Comment on above: Test Ordered: [id number] Toxoplasma gondii Ab,IgM Toxoplasma gondii Ab,IgM <3.0 AU/mL Reference Range: 0.0-7.9 Negative <8.0 Equivocal 8.0 - 9.9 Positive >9.9 Comment: Comment CB Reference Range: . It is presumed the patient has not been infected with and is not undergoing an acute infection with Toxoplasma. If symptoms persist, submit a new specimen after three weeks. Performed at: [facility] [id number] Wort Extractor: Ihsan Phelps PhD, Phone: [phone] Toxoplasma gondii Antibodies, IgM [facility] CYTOMEGALOVIRUS (CMV) AB, IG Dino 12-26-2023 CYTOMEGALOVIRUS (CMV) AB, IGG <0.60 0.00 - 0.59 U/mL [facility] Comment on above: Negative <0.60 Equivocal 0.60 - 0.69 Positive >0.69 Performed at: [facility] [id number] Wort Extractor: Ihsan Phelps PhD, Phone: [phone] CYTOMEGALOVIRUS (CMV) AB, IG 12-26-2023 CYTOMEGALOVIRUS (CMV) AB, IGM <30.0 0.0 - 29.9 AU/mL [facility] Comment on above: Negative <30.0 Equivocal 30.0 - 34.9 Positive >34.9 A positive result is generally indicative of acute infection, reactivation or persistent IgM production. Performed at: [facility] [address] [id number] Wort Extractor: Ihsan Phelps PhD, Phone: [phone] MEASLES/MUMPS/RUBELLA IMMUNI TYon 12-26-2023 MEASLES ANTIBODIES, IGG 271.0 AU/mL Immune >16.4 [facility] Comment on above: Negative <13.5 Equivocal 13.5 - 16.4 Positive >16.4 Presence of antibodies to Rubeola is presumptive evidence of immunity except when acute infection is suspected. MUMPS ABS, IGG 20.3 AU/mL Immune >10.9 [facility] Comment on above: Negative <9.0 Equivocal 9.0 - 10.9 Positive >10.9 A positive result generally indicates past exposure to Mumps virus or previous vaccination. RUBELLA ANTIBODIES, IGG 5.65 Immune >0.99 index [facility] Comment on above: Non-immune <0.90 Equivocal 0.90 - 0.99 Immune >0.99 No Panel Informationon 12-25 [facility] VARICELLA-ZOSTER V AB, IGGon 12-26-2023 VARICELLA-ZOSTER V AB, IGG Reactive Non Reactive [facility] Comment on above: Please note refere nce interval change A Reactive result is considered evidence of immunity to VZV. Reactive indicates that VZV IgG was detected consistent with previous infection and/or vaccination. A Non Reactive result indicates that VZV IgG was not detected suggesting that immunity has not been acquired. Urinalysis macro (dipstick) panel (U)on 12-03-2023 Bilirubin, UA Negative Negative - 4(70) +++ mg/dL [facility] Blood, UA Negative Negative - 50 Andres/mcL [facility] Clarity, UA Clear [facility] Color, UA Yellow [facility] Glucose, UA Negative Negative - 2000(110) ++++ mg/dL [facility] Interpretation and review of laboratory results Abnormal [facility] Ketones, UA Negative Negative - 160(16) ++++ mg/dL [facility] Leukocytes, UA Trace Negative - 500+++ Anne/mcL [facility] Nitrite, UA Negative Negative - Positive [facility] pH, UA 5.5 5 - 9 [facility] Protein, UA Negative Negative - 2000(20) ++++ mg/dL [facility] Spec Grav, UA 1.025 1 - 1.03 [facility] Urobilinogen, UA 0.2 0.2 - 12 mg/dL [facility] BOX TESTon 11-25-2023 B[address] OUT [facility] BOX[address] [facility] BOX[address] 11/21/23 [facility] ALL CBC WITH AUTO DIFFon BASOPHILS ABSOLUTE AUTO 0.1 [facility] Basophils/100 WBC (Bld) 0.4 % 0.2 - 2.0 % [facility] Eosinophils/100 WBC (Bld) 0.8 % Low 0.9 - 7.0 % [facility] Erythrocyte distribution width (RBC) [Ratio] 13.1 % 11.0 - 15.0 % [facility] Hematocrit (Bld) [Volume fraction] 39.3 % 36.0 - 48.0 % [facility] Hemoglobin (Bld) [Mass/Vol] 13.3 g/dL 12.0 - 16.0 g/dL [facility] IMMATURE GRANULOCYTES ABS AUTO 0.03 [facility] Immature granulocytes/100 WBC (Bld) 0.2 % 0.0 - 0.5 % [facility] Interpretation and review of laboratory results Abnormal [facility] LYMPHOCYTES ABSOLUTE AUTO 2.5 [facility] Lymphocytes/100 WBC (Bld) 19.1 % Low 20.5 - 60.0 % [facility] MCH (RBC) [Entitic mass] 30.7 pg 26.7 - 34.0 pg [facility] MCHC (RBC) [Mass/Vol] 33.8 g/dL 29.9 - 35.2 g/dL [facility] MCV (RBC) [Entitic vol] 90.8 fL 81.0 - 99.0 fL [facility] MONOCYTES ABSOLUTE AUTO 0.7 [facility] Monocytes/100 WBC (Bld) 5.3 % 1.7 - 12.0 % [facility] NEUTROPHILS ABSOLUTE AUTO 9.8 High [facility] Neutrophils/100 WBC (Bld) 74.2 % 43.0 - 75.0 % [facility] Platelet mean volume (Bld) [Entitic vol] 9.6 fL 9.5 - 13.5 fL [facility] EO # 0.1 [facility] PLT 319 [facility] RBC 4.33 [facility] WBC 13.2 High [facility] CLINISYNC [facility] HCG ( test) Ql (U)o n 11-06-2023 Interpretation and review of laboratory results Abnormal [facility] Preg Test, Ur Positive [facility] Urinalysis macro (dipstick) panel (U)on 11-06-2023 Bilirubin, UA Negative Negative - 4(70) +++ mg/dL [facility] Blood, UA Negative Negative - 50 Andres/mcL [facility] Clarity, UA Clear [facility] Color, UA Yellow [facility] Glucose, UA Negative Negative - 1999(110) ++++ mg/dL [facility] Interpretation and review of laboratory results Abnormal [facility] Ketones, UA Negative Negative - 160(16) ++++ mg/dL [facility] Leukocytes, UA Trace Negative - 500+++ Anne/mcL [facility] Nitrite, UA Negative Negative - Positive [facility] pH, UA 7.0 5 - 9 [facility] Protein, UA Negative Negative - 1999(20) ++++ mg/dL [facility] Spec Grav, UA 0.015 1 - 1.03 [facility] Urobilinogen, UA 1.0 0.2 - 12 mg/dL [facility] CHEMISTRYOrdered By: SYSTEM SYSTEM on 02-28-2022 Albumin [Mass/Vol] 4.0 g/dL Normal 3.3 - 5.0 gm/dL [facility] Remisol Albumin/Globulin [Mass ratio] 1.1 {ratio} Normal 1.1 - 2.2 [facility] ALP [Catalytic activity/Vol] 51 [iU]/d Normal 21 - 98 Int._Unit/L [facility] ALT No additional P-5'-P [Catalytic activity/Vol] 34 [iU]/d Normal 6 - 46 Int._Unit/L [facility] Anion gap [Moles/Vol] 10 mmol/L Normal [...] rate/Area] mL/min/1.73 m2 Normal >=59mL/min/1. 73 m2 [facility] Chem S GFR/1.73 sq M.predicted among non-blacks MDRD (S/P/Bld) [Vol rate/Area] mL/min/1.73 m2 Normal >=59mL/min/1. 73 m2 [facility] Chem S Globulin (S) [Mass/Vol] 3.6 g/dL Normal 1.4 - 4.0 gm/dL [facility] Glucose [Mass/Vol] 95 mg/dL Normal 55 - 199 mg/dL [facility] Potassium [Moles/Vol] 4.4 mmol/L Normal 3.5 - 5.3 mmol/L [facility] Protein [Mass/Vol] 7.6 g/dL Normal 6.0 - 7.8 gm/dL [facility] Sodium [Moles/Vol] 135 mmol/L Normal 135 - 145 mmol/L [facility] Urea nitrogen [Mass/Vol] 12 mg/dL Normal 5 - 21 mg/dL [facility] Urea nitrogen/Creatinine [Mass ratio] 15 mg/mg Normal 10 - 20 [facility] HEMATOLOGYOrdered By: SYSTEM SYSTEM on 02-28-2022 Basophils/100 WBC (Bld) 0.8 % Normal 0.0 - 2.0 % [facility]eAutoSS Basophils/Leukocytes Auto (Bld) [Pure # fraction] [...] 4.9 E12/L Normal 4.3 - 5.9 E12/L [facility] HemeAutoSS WBC corrected for nucl RBC Auto (Bld) [#/Vol] 6.7 E9/L Normal 4.0 - 11.0 E9/L [facility] HemeAutoSS PAP ACOG PANEL 2: 21 to 29on 02-08-2022 . . Normal [facility] Comment on above: Performed By: #### [id number] #### [facility] [address] [place] [address] Dr. Dennise Cronin Age Gdln ACOG Testing - [facility] Comment on above: Performed By: #### [id number] #### [facility] [address] [place] [address] Dr. Dennise Cronin DIAGNOSIS: Comment [facility] Comment on above: Result Comment: NEGA TIVE FOR INTRAEPITHELIAL LESION OR MALIGNANCY. Performed By: #### [id number] #### [facility] [address] [place] [address] Dr. Dennise Cronin Methodology: Comment [facility] Comment on above: Result Comment: This liquid based ThinPrep(R) pap test was screened with the use of an image guided system. Performed By: #### [id number] #### [facility] [address] [place] [address] Dr. Dennise Cronin Note: Comment [facility] Comment on above: Result Comment: The Pap smear is a screening test designed to aid in the detection of premalignant and malignant conditions of the uterine cervix. It is not a diagnostic procedure and should not be used as the sole means of detecting cervical cancer. Both false-positive and false-negative reports do occur. . Performed By: #### [id number] #### [facility] [address] [place] [address] Dr. Dennise Cronin Performed by: Comment Normal [facility] Comment on above: Result Comment: [employer]er (ASCP) Performed By: #### [id number] #### [facility] [address] [place] [address] Dr. Dennise Cronin Reflex Criteria: Comment Normal [facility] Comment on above: Result Comment: The HPV DNA reflex criteria were not met with this specimen result therefore, no HPV testing was performed. . Performed By: #### [id number] #### [facility] [address] [address] [address] Dennise Cronin Specimen adequacy: Comment Normal [facility] Comment on above: Result Comment: Sati sfactory for evaluation. Endocervical and/or squamous metaplastic cells (endocervical component) are present. Performed By: #### [id number] #### [facility] [address] [address] [address] Dennise Cronin Vital Signs Date Time Vital Sign Value Performing Clinician Faci lity 05-05-2024 15:39-0500 Body mass index (BMI) [Ratio] 35.51 kg/m2 Katherine Natalya DO Work Phone: [facility] 05-05-2024 15:39-0500 Body weight 96.8 kg Katherine Natalya DO Work Phone: [facility] 05-05-2024 15:39-0500 Diastolic blood pressure 70 mm[Hg] Katherine Natalya DO Work Phone: [facility] 05-05-2024 15:39-0500 Systolic blood pressure 110 mm[Hg] Katherine Natalya DO Work Phone: [facility] 04-21-2024 14:53-0500 Body mass index (BMI) [Ratio] 35.45 kg/m2 Katherine Natalya DO Work Phone: [facility] 04-21-2024 14:53-0500 Body weight 96.62 kg Katherine Natalya DO Work Phone: [facility] 04-21-2024 14:53-0500 Diastolic blood pressure 76 mm[Hg] Katherine Natalya DO Work Phone: [facility] 04-21-2024 14:53-0500 Systolic blood pressure 110 mm[Hg] Katherine Natalya DO Work Phone: [facility] 04-06-2024 14:55-0500 Body mass index (BMI) [Ratio] 35.11 kg/m2 Katherine Natalya DO Work Phone: [facility] 04-06-2024 14:55-0500 Body weight 95.71 kg Katherine Natalya DO Work Phone: [facility] 04-06-2024 14:55-0500 Diastolic blood pressure 76 mm[Hg] Katherine Natalya DO Work Phone: [facility] 04-06-2024 14:55-0500 Systolic blood pressure 118 mm[Hg] Katherine Natalya DO Work Phone: [facility] 03-24-2024 14:58-0500 Body mass index (BMI) [Ratio] 35.13 kg/m2 Katherine Natalya DO Work Phone: [facility] 03-24-2024 14:58-0500 Body weight 95.76 kg Katherine Natalya DO Work Phone: [facility] 03-24-2024 14:58-0500 Diastolic blood pressure 74 mm[Hg] Katherine Natalya DO Work Phone: [facility] 03-24-2024 14:58-0500 Systolic blood pressure 120 mm[Hg] Katherine Natalya DO Work Phone: [facility] 02-26-2024 09:03-0500 Body mass index (BMI) [Ratio] 33.35 kg/m2 Katherine Natalya DO Work Phone: [facility] 02-26-2024 09:03-0500 Body weight 90.9 kg Katherine Natalya DO Work Phone: [facility] 02-26-2024 09:03-0500 Diastolic blood pressure 72 mm[Hg] Katherine Natalya DO Work Phone: [facility] 02-26-2024 09:03-0500 Systolic blood pressure 118 mm[Hg] Katherine Natalya DO Work Phone: [facility] 01-21-2024 15:52-0500 Body height 165.1 cm Luma Serrar [employer] Work Phone: [facility] 01-21-2024 15:52-0500 Body mass index (BMI) [Ratio] 32.45 kg/m2 Luma Klineiller [employer] Work Phone: [facility] 01-21-2024 15:52-0500 Body temperature 98.2 [degF] Luma Klineiller [employer] Work Phone: [facility] 01-21-2024 15:52-0500 Body weight 88.45 kg Luma Klineiller [employer] Work Phone: [facility] 01-21-2024 15:52-0500 Diastolic blood pressure 70 mm[Hg] Luma Klineiller [employer] Work Phone: [facility] 01-21-2024 15:52-0500 Heart rate 85 /min Luma Klineiller [employer] Work Phone: [facility] 01-21-2024 15:52-0500 SaO2% (BldA) [Mass fraction] 98 % Luma Klineiller [employer] Work Phone: [facility] 01-21-2024 15:52-0500 Systolic blood pressure 116 mm[Hg] Luma Klineiller [employer] Work Phone: [facility] 12-31-2023 15:23-0400 Body mass index (BMI) [Ratio] 31.45 kg/m2 Katherine Natalya DO Work Phone: [facility] 12-31-2023 15:23-0400 Body weight 85.73 kg Katherine Natalya DO Work Phone: [facility] 12-31-2023 15:23-0400 Diastolic blood pressure 70 mm[Hg] Katherine Natalya DO Work Phone: [facility] 12-31-2023 15:23-0400 Systolic blood pressure 118 mm[Hg] Katherine Natalya DO Work Phone: [facility] 12-03-2023 16:07-0400 Body mass index (BMI) [Ratio] 31.12 kg/m2 Katherine Natalya DO Work Phone: [facility] 12-03-2023 16:07-0400 Body weight 84.82 kg Katherine Natalya DO Work Phone: [facility] 12-03-2023 16:07-0400 Diastolic blood pressure 64 mm[Hg] Katherine Natalya DO Work Phone: [facility] 12-03-2023 16:07-0400 Systolic blood pressure 116 mm[Hg] Katherine Natalya DO Work Phone: [facility] Healthcare Encounters Encounter Date Encounter Type Care Provider Facility Start: 05-05-2024 End: 05-05-2024 flow sheet Katherine Natalya DO Work Phone: [facility] Comment on above: Third trimester preg codi; 34 weeks gestation of ; size inconsistent with dates Start: 05-05-2024 End: 05-05-2024 ambulatory KATHERINE NATALYA Not Available Start: 05-05-2024 End: 05-05-2024 Bamboo flowsheet Katherine Natalya DO Work Phone: [facility] Start: 05-05-2024 End: 05-05-2024 Bamboo flowsheet Katherine Natalya DO Work Phone: [facility] Start: 04-21-2024 End: 04-21-2024 flow sheet Katherine Natalya DO Work Phone: [facility] Comment on above: Third trimester preg codi; 32 weeks gestation of Start: 04-21-2024 End: 04-21-2024 ambulatory KATHERINE NATALYA Not Available Start: 04-21-2024 End: 04-21-2024 Bamboo flowsheet Katherine Natalya DO Work Phone: [facility] Start: 04-21-2024 End: 04-21-2024 Bamboo flowsheet Katherine Natalya DO Work Phone: [facility] Start: 04-06-2024 End: 04-06-2024 flow sheet Katherine Natalya DO Work Phone: [facility] Comment on above: Third trimester preg codi; 30 weeks gestation of Start: 04-06-2024 End: 04-06-2024 ambulatory KATHERINE NATALYA Not Available Start: 03-24-2024 End: 03-24-2024 flow sheet Katherine Natalya DO Work Phone: [facility] Comment on above: 28 weeks gestation o f ; Third trimester ; size inconsistent with dates Start: 03-24-2024 End: 03-24-2024 ambulatory KATHERINE NATALYA Not Available Start: 03-24-2024 End: 03-24-2024 Bamboo flowsheet Katherine Natalya DO Work Phone: [facility] Start: 03-24-2024 End: 03-24-2024 Bamboo flowsheet Katherine Natalya DO Work Phone: [facility] Start: 03-09-2024 End: 03-09-2024 Clinisync Result Encounter Katherine Natalya DO Work Phone: [facility] Unsolicited Start: 03-09-2024 End: 03-09-2024 Clinisync Result Encounter Katherine Natalya DO Work Phone: [facility] Unsolicited Start: 02-26-2024 End: 02-26-2024 Bamboo flowsheet Katherine Natalya DO Work Phone: [facility] Start: 02-26-2024 End: 02-26-2024 Bamboo flowsheet Katherine Natalya DO Work Phone: [facility] Start: 02-26-2024 End: 02-26-2024 flow sheet Katherine Natalya DO Work Phone: [facility] Comment on above: 24 weeks gestation o f ; Second trimester ; Diabetes mellitus screening; Gastroesophageal reflux disease without esophagitis Start: 02-26-2024 End: 02-26-2024 ambulatory KATHERIEN NATALYA Not Available Start: 02-04-2024 ambulatory Earlene Shijackiecande Aminata lity:MYRA Vela Start: 01-28-2024 End: 01-28-2024 flow sheet Karen HERNANDEZ Work Phone: [facility] Comment on above: Second trimester pre gnancy; 20 weeks gestation of Start: 01-28-2024 End: 01-28-2024 ambulatory KAREN LOCKHART Not Available Start: 01-28-2024 End: 01-28-2024 Bamboo flowsheet Karen HERNANDEZ Work Phone: [facility] Start: 01-28-2024 End: 01-28-2024 Bamboo flowsheet Karen HERNANDEZ Work Phone: [facility] Start: 01-21-2024 End: 01-21-2024 Office outpatient visit 15 minutes Luma Perez [employer] Work Phone: [facility] Comment on above: Acute left ankle kianna n (Primary Dx); Acute foot pain, left; 19 weeks gestation of ; Class 1 obesity due to excess calories without serious comorbidity with body mass index (BMI) of 32.0 to 32.9 in adult Start: 01-21-2024 End: 01-21-2024 ambulatory LUMA Rodríguez DONNAMILLER Not Available Start: 01-21-2024 End: 01-21-2024 Bamboo flowsheet Luma Klineiller [employer] Work Phone: [facility] Start: 01-21-2024 End: 01-21-2024 Bamboo flowsheet Luma A Donnamiller [employer] Work Phone: [facility] Start: 01-05-2024 End: 01-08-2024 Clinisync Result Encounter Katherine Natalya DO Work Phone: [facility] Unsolicited Start: 01-05-2024 End: 01-08-2024 Clinisync Result Encounter Katherine Natalya DO Work Phone: [facility] Unsolicited Start: 12-31-2023 End: 12-31-2023 Patient encounter procedure Katherine Natalya DO Work Phone: [facility] Start: 12-31-2023 End: 12-31-2023 Periodic preventive [...] External Department Unsolicited Start: 12-03-2023 End: 12-03-2023 flow sheet Katherine Natalya DO Work Phone: [facility] Comment on above: Nausea and vomiting in ; First trimester Start: 12-03-2023 End: 12-03-2023 ambulatory KATHERINE NATALYA Not Available Start: 12-03-2023 End: 12-03-2023 Bamboo flowsheet Katherine Natalya DO Work Phone: [facility] Start: 12-03-2023 End: 12-03-2023 Bamboo flowsheet Katherine Natalya DO Work Phone: [facility] Start: 11-21-2023 End: 12-08-2023 Clinisync Result Encounter Katherine Natalya DO Work Phone: [facility] Unsolicited Start: 11-21-2023 End: 12-08-2023 Clinisync Result Encounter Katherine Natalya DO Work Phone: [facility] Unsolicited Start: 11-17-2023 End: 11-17-2023 Clinisync Result Encounter Katherine Natalya DO Work Phone: [facility] Unsolicited Start: 11-17-2023 End: 11-17-2023 Clinisync Result Encounter Katherine Natalya DO Work Phone: [facility] Unsolicited Start: 11-06-2023 End: 11-06-2023 Office outpatient visit 5 minutes [facility] Natalya Nurse [facility] Comment on above: GA: 8w4d Start: 11-06-2023 End: 11-06-2023 ambulatory KAREN LOCKHART Not Available Start: 10-15-2023 End: 10-15-2023 ambulatory NAILA COHEN Not Available Start: 02-28-2022 End: 02-28-2022 Patient encounter procedure NAILA COHEN [facility] Start: 01-30-2022 End: 01-30-[address] KATHERINE HOANG Facility:[facility] Procedures Date Procedure Procedure Detail Performing Clinician Start: 05-05-2024 Urnls dip stick/tabl et rgnt non-auto w/o micrscp Katherine Natalya DO Work Phone: Start: 04-21-2024 Urnls dip stick/tabl et rgnt non-auto w/o micrscp Katherine Natalya DO Work Phone: Start: 04-06-2024 Urnls dip stick/tabl et rgnt non-auto w/o micrscp Katherine Natalya DO Work Phone: Start: 03-24-2024 Urnls dip stick/tabl et rgnt non-auto w/o micrscp Katherine Natalya DO Work Phone: Start: 03-09-2024 ALL CBC WITH AUTO DIFF Katherine Natalya DO Work Phone: Start: 02-26-2024 Urnls dip stick/tabl et rgnt non-auto w/o micrscp Katherine Natalya DO Work Phone: Start: 01-05-2024 AFP, SERUM, OPEN SPI NA [...] IGG Katherine Natalya DO Work Phone: Start: 12-03-2023 Urnls dip stick/tabl et rgnt non-auto w/o micrscp Katherine Natalya DO Work Phone: Start: 11-21-2023 BOX TEST Katherine Fazi o DO Work Phone: Start: 11-17-2023 ALL CBC WITH AUTO DIFF Katherine Natalya DO Work Phone: Start: 11-06-2023 End: 11-06-2023 Urnls dip stick/tablet rgnt non-auto w/o micrscp Katherine Natalya DO Work Phone: None (qualifier value) JAVAD COHEN Plan of Treatment Date Care Activity Detail Author Start: 05-20-2024 End: 05-20-2024 Patient encounter procedure 05/20/2024 11:40 AM EDT Routine [facility] [address] [place] [address] Karen Lockhart PA [address] [place] [address] [facility] Start: 05-20-2024 End: 05-20-2024 Professional / ancillary services management 05/20/2024 11:00 AM EDT Ancillary Procedure [facility] [address] [place] [address] [facility] Start: 05-05-2024 End: 05-05-2024 Patient encounter procedure [facility] Comment on above: Arrived Start: 05-05-2024 End: 05-05-2025 US for US OB follow up transabdominal approach Imaging Routine size inconsistent with dates Expected: 05/05/2024, Expires: 05/05/2025 [facility] Work Phone: Comment on above: Expected: 05/05/2024 , Expires: 05/05/2025 Start: 04-21-2024 End: 04-21-2024 Patient encounter procedure [facility] Comment on above: Arrived Start: 04-06-2024 End: 04-06-2024 Patient encounter procedure 04/06/2024 2:30 PM EST Routine [facility] [address] [place] [id number] Katherine Hoang, DO [address] [place] [address] [facility] Start: 04-06-2024 End: 04-06-2024 Professional / ancillary services management 04/06/2024 2:00 PM EST Ancillary Procedure [facility] [address] [place] [id number] [facility] Start: 03-24-2024 End: 03-24-2024 Patient encounter procedure [facility] Comment on above: Arrived Start: 03-24-2024 End: 03-24-2025 US for US OB follow up transabdominal approach Imaging Routine size inconsistent with dates Expected: 03/24/2024, Expires: 03/24/2025 [facility] Work Phone: Comment on above: Expected: 03/24/2024 , Expires: 03/24/2025 Start: 03-01-2024 End: 03-01-2024 Patient encounter procedure 03/01/2024 9:00 AM EST Office Visit [facility] [address] [place] [id number] Katherine Hoang, DO [address] [place] [address] [facility] Start: 02-26-2024 End: 02-25-2025 CBC panel - Blood by Automated count CBC Lab Routine Diabetes mellitus screening Expected: 02/26/2024 (Approximate), Expires: 02/25/2025 [facility] Work Phone: Comment on above: Expected: 02/26/2024 (Approximate), Expires: 02/25/2025 Start: 02-26-2024 End: 02-25-2025 Measurement of glucose 1 hour after glucose challenge for glucose tolerance test Glucose tolerance, 1 hour Lab Routine Diabetes mellitus screening Expected: 02/26/2024 (Approximate), Expires: 02/25/2025 [facility] Comment on above: Expected: 02/26/2024 (Approximate), Expires: 02/25/2025 Start: 02-26-2024 End: 02-26-2024 Patient encounter procedure [facility] Comment on above: Arrived Start: 02-26-2024 End: 02-26-2024 Professional / ancillary services management 02/26/2024 8:00 AM EST Ancillary Procedure [facility] [place] [address] [place] [address] [facility] Start: 01-31-2024 End: 01-31-2024 Alpha fetoprotein, maternal Alpha fetoprotein, maternal Lab Routine Need for maternal serum alpha-protein (MSAFP) screening Expected: 01/31/2024 (Approximate), Expires: 01/31/2024 [facility] Comment on above: Expected: 01/31/2024 (Approximate), Expires: 01/31/2024 Start: 01-28-2024 End: 01-28-2024 Patient encounter procedure [facility] Comment on above: Arrived Start: 01-28-2024 End: 01-28-2024 Professional / ancillary services management 01/28/2024 2:00 PM EST Ancillary Procedure [facility] [address] [facility] [place] [address] [facility] Start: 12-31-2023 End: 12-31-2023 Patient encounter procedure [facility] Comment on above: Arrived Start: 12-31-2023 End: 12-30-2024 US for US OB ANATOMY SINGLE W US OB CERVICAL LENGTH Imaging Routine Screening, , for anatomic survey Expected: 12/31/2023 (Approximate), Expires: 12/30/2024 [facility] Comment on above: Expected: 12/31/2023 (Approximate), Expires: 12/30/2024 Start: 12-03-2023 End: 12-03-2023 Patient encounter procedure [facility] Comment on above: Arrived Start: 11-09-2023 Influenza vaccination Influenza Vacc ine (#1) [facility] Start: 11-06-2023 End: 11-05-2024 ABO/Rh ABO/Rh Lab Routine Missed menses Expected: 11/06/2023 (Approximate), Expires: 11/05/2024 [facility] Comment on above: Expected: 11/06/2023 (Approximate), Expires: 11/05/2024 Start: 11-06-2023 End: 11-05-2024 Blood type and Indirect antibody screen panel - Blood Type and screen Lab Routine Missed menses Expected: 11/06/2023 (Approximate), Expires: 11/05/2024 [facility] Work Phone: Comment on above: Expected: 11/06/2023 (Approximate), Expires: 11/05/2024 Start: 11-06-2023 End: 11-05-2024 US Pelvis transvaginal US OB transvaginal Imaging Routine Missed menses Expected: 11/06/2023 (Approximate), Expires: 11/05/2024 [facility] Comment on above: Expected: 11/06/2023 (Approximate), Expires: 11/05/2024 Bacteria identified in Urine by Culture Urine culture Microbiology Routine Missed menses Ordered: 11/06/2023 [facility] Comment on above: Ordered: 11/06/2023 CBC W Auto Different ial panel - Blood CBC and differential Lab Routine Missed menses Ordered: 11/06/2023 [facility] Comment on above: Ordered: 11/06/2023 CHLAMYDIA TRACHOMATI S (GENITO/STI) CHLAMYDIA TRACHOMATIS (GENITO/STI) Lab Routine Exposure to STD Ordered: 12/31/2023 [facility] Comment on above: Ordered: 12/31/2023 Cytology Cervical or vaginal smear or scraping study Pap Smear Pathology and Cytology Routine Well woman exam with routine gynecological exam Ordered: 12/31/2023 [facility] Comment on above: Ordered: 12/31/2023 Hemoglobin A1c/Hemoglobin.total in Blood Hemoglobin A1c Lab Routine Missed menses Ordered: 11/06/2023 [facility] Comment on above: Ordered: 11/06/2023 Hepatitis B virus surface Ag [Presence] in Serum or Plasma by Immunoassay Hepatitis B surface antigen Lab Routine Missed menses Ordered: 11/06/2023 [facility] Comment on above: Ordered: 11/06/2023 Hepatitis C virus Ab [Presence] in Serum or Plasma by Immunoassay Hepatitis C antibody Lab Routine Missed menses Ordered: 11/06/2023 [facility] Comment on above: Ordered: 11/06/2023 HIV-1/HIV-2 antigen/antibody combination immunoassay HIV-1 and HIV-2 antibodies Lab Routine Missed menses Ordered: 11/06/2023 [facility] Comment on above: Ordered: 11/06/2023 Neisseria gonorrhoea e DNA [Presence] in Unspecified specimen by SARITA with probe detection Neisseria gonorrhea DNA probe, direct Lab Routine Exposure to STD Ordered: 12/31/2023 [facility] Comment on above: Ordered: 12/31/2023 Reagin Ab [Presence] in Serum by RPR RPR Lab Routine Missed menses Ordered: 11/06/2023 [facility] Comment on above: Ordered: 11/06/2023 Rubella antibody, IgG Rubella an tibody, IgG Lab Routine Missed menses Ordered: 11/06/2023 [facility] Comment on above: Ordered: 11/06/2023 SURESWAB(R) ADVANCED VAGINITIS PLUS, TMA SURESWAB(R) ADVANCED VAGINITIS PLUS, TMA Pathology and Cytology Routine Vaginal discharge Ordered: 12/31/2023 [facility] Work Phone: Comment on above: Ordered: 12/31/2023 Immunizations Immunization Date Immunization Notes Care Provider Pilar padilla 06-26-2020 tetanus toxoid, redu esequiel diphtheria toxoid, and acellular pertussis vaccine, adsorbed [facility] 10-30-2016 hepatitis A vaccine, pediatric/adolescent dosage, 2 dose schedule [facility] 10-30-2016 Human Papillomavirus 9-valent vaccine [facility] Nurse [facility] 10-30-2016 meningococcal B vacc ine, recombinant, OMV, adjuvanted [facility] 10-30-2016 meningococcal polysa ccharide (groups A, C, Y and W-135) diphtheria toxoid conjugate vaccine (MCV4P) [facility] 10-04-2011 hepatitis A vaccine, pediatric/adolescent dosage, 2 dose schedule [facility] 10-04-2011 human papilloma viru s vaccine, quadrivalent [facility] 10-04-2011 meningococcal oligos accharide (groups A, C, Y and W-135) diphtheria toxoid conjugate vaccine (MCV4O) [facility] 10-04-2011 tetanus toxoid, redu esequiel diphtheria toxoid, and acellular pertussis vaccine, adsorbed [facility] 05-02-2004 diphtheria, tetanus toxoids and acellular pertussis vaccine, unspecified formulation [facility] Nurse [facility] 11-03-2003 diphtheria, tetanus toxoids and acellular pertussis vaccine [facility] 11-03-2003 hepatitis B vaccine, pediatric or pediatric/adolescent dosage [facility] 11-03-2003 measles, mumps and r ubella virus vaccine [facility] 11-03-2003 poliovirus vaccine, inactivated [facility] Nurse [facility] 12-28-2001 diphtheria, tetanus toxoids and acellular pertussis vaccine, unspecified formulation [facility] Nurse [facility] 12-28-2001 haemophilus influenz ae type b conjugate and Hepatitis B vaccine [facility] Nurse [facility] 12-28-2001 measles, mumps and r ubella virus vaccine [facility] 12-28-2001 poliovirus vaccine, inactivated [facility] Nurse [facility] 1999 diphtheria, tetanus toxoids and acellular pertussis vaccine, unspecified formulation [facility] Nurse [facility] 1999 haemophilus influenz ae type b vaccine, PRP-OMP conjugate [facility] 1999 hepatitis B vaccine, pediatric or pediatric/adolescent dosage [facility] 1999 poliovirus vaccine, inactivated [facility] Nurse [facility] Payers Date Payer Category Payer Private Health Insurance [employer] [id number] 2021 Unknown [employer] [id number] 2021-Present [address] [place] [address] [id number] 1999 Unknown [id number] [id number]. 593 1999 Unknown [id number] [id number]. 727 1999 Unknown [id number] 2.16.840.1.115217.3.579.2. 1259 1999 Unknown [id number] 2.16.840.1.019332.3.579.2. 1259 1999 Unknown [id number] 2.16.840.1.691964.3.579.2. 1259 1999 Unknown [id number] 2.16.840.1.475885.3.579.2. 1259 1999 Unknown [id number] 2.16.840.1.223100.3.579.2. 1259 1999 Unknown [id number] 2.16.840.1.482295.3.579.2. 1259 1999 Unknown [id number] 2.16.840.1.516346.3.579.2. 1259 1999 Unknown [id number] 2.16.840.1.085603.3.579.2. 1259 1999 Unknown [id number] 2.16.840.1.818421.3.579.2. 1259 1999 Unknown [id number] 2.16.840.1.590566.3.579.2. 1259 1999 Unknown [id number] 2.16.840.1.056621.3.579.2. 1259 1999 Unknown [id number] [id number]. 1259 1959 Unknown [id number] Social History Date Type Detail Facility Start: 05-16-2021 End: 10-08-2022 Tobacco smoking status Never smoked tobacco (finding) [facility] Tobacco smoking status Never [facility] Start: 10-15-2023 End: 01-21-2024 Sex Assigned At Female [facility] Start: 10-08-2022 Tobacco use and exposure Smokeless tobacco non-user [facility] Start: 12-10-2023 End: 03-24-2024 Alcoholic beverage intake Ex-drinker (finding) [facility] Start: 10-15-2023 End: 01-21-2024 History of Social function [facility] Start: 09-21-2023 [facility] Start: 1999 Sex assigned at Not on file N [facility] Start: 05-22-2022 Gender identity Identifies as female gender (finding) [facility] Clinical Notes 11-06-2023 to 05-05-2024 Jennifer Chaparro MA - 05/05/2024 3:30 PM Magda Ruiz, HOSPITALITY ASSOCIATE - 04/21/2024 2:20 PM Magda Ruiz, HOSPITALITY ASSOCIATE - 04/06/2024 2:30 PM Magda Ruiz, HOSPITALITY ASSOCIATE - 03/24/2024 2:50 PM EST Note Date & Type Note Facility 05-05-2024 History of Present illness Narrative Reason for Appointment: Patient ID: Natalie Luther is a 24 y.o. female who presents for Routine Visit Patient presents today for Return OB appointment. MEDICATIONS Current Outpatient Medications Medication Instructions 27-1 MG tablet ALLERGIES No Known Allergies PROBLEMS Active Ambulatory Problems Diagnosis Date Noted Anxiety 10/08/2022 Bruising 10/08/2022 Chronic fatigue 10/08/2022 Low blood sugar 10/08/2022 Migraine (CMS/HCC) 10/08/2022 Seasonal allergies 10/08/2022 Gastroesophageal reflux disease without esophagitis 02/26/2024 24 weeks gestation of 02/26/2024 Second trimester 02/26/2024 Resolved Ambulatory Problems Diagnosis Date Noted No [...] Constitutional: Appearance: Normal appearance. She is well-developed. Cardiovascular: Rate and Rhythm: Normal rate and [...] nursing note reviewed. Exam conducted with a lens grinder and polisher present. Vitals: Estimated body mass index is 35.51 kg/m as calculated from the following: Height as of 01/21/24: 5' 5 . Weight as of this encounter: 213 lb 6.4 oz. BP: 110/70 Patient's last menstrual period was 09/07/2023 (exact date). ASSESSMENT & PLAN ICD-10-CM 1. Third trimester Z34.93 POCT urinalysis dipstick manually resulted 2. 34 weeks gestation of Z3A.34 Return OB: Patient presents today for a routine obstetrics appointment. Patient is currently 34w3d . Patient states she is doing well but has complaints of being tired due to current . Patient has verbalizes frequent movement. labor precautions was discussed/given and patient was instructed to perform kick counts three times a day. Orders Placed This Encounter Procedures POCT urinalysis dipstick manually resulted Follow Up: Patient is to return to office in 2 week for routine OB appointment. Documented by Rosario Ruiz LPN- scribe on behalf of: Katherine Hoang DO documented in this encounter [facility] 04-21-2024 History of Present illness Narrative Reason for Appointment: Patient ID: Natalie Luther is a 24 y.o. female who presents for Routine Visit Patient presents today for Return OB appointment. MEDICATIONS Current Outpatient Medications Medication Instructions 27-1 MG tablet ALLERGIES No Known Allergies PROBLEMS Active Ambulatory Problems Diagnosis Date Noted Anxiety 10/08/2022 Bruising 10/08/2022 Chronic fatigue 10/08/2022 Low blood sugar 10/08/2022 Migraine (CMS/HCC) 10/08/2022 Seasonal allergies 10/08/2022 Gastroesophageal reflux disease without esophagitis 02/26/2024 24 weeks gestation of 02/26/2024 Second trimester 02/26/2024 Resolved Ambulatory Problems Diagnosis Date Noted No [...] Constitutional: Appearance: Normal appearance. She is well-developed. Cardiovascular: Rate and Rhythm: Normal rate and [...] nursing note reviewed. Exam conducted with a lens grinder and polisher present. Vitals: Estimated body mass index is 35.45 kg/m as calculated from the following: Height as of 01/21/24: 5' 5 . Weight as of this encounter: 213 lb. BP: 110/76 Patient's last menstrual period was 09/07/2023 (exact date). ASSESSMENT & PLAN ICD-10-CM 1. Third trimester Z34.93 POCT urinalysis dipstick manually resulted 2. 32 weeks gestation of Z3A.32 Return OB: Patient presents today for a routine obstetrics appointment. Patient is currently 32w3d . Patient states she is doing well but has complaints of being tired due to current . Patient has verbalizes frequent movement. labor precautions was discussed/given and patient was instructed to perform kick counts three times a day. Orders Placed This Encounter Procedures POCT urinalysis dipstick manually resulted Follow Up: Patient is to return to office in 2 week for routine OB appointment. Documented by Rosario Ruiz LPN on behalf of: DO Froy Xavierally signed by Rosario Ruiz LPN at 04/21/2024 5:18 PM EST documented in this encounter [facility] 04-06-2024 History of Present illness Narrative Reason for Appointment: Patient ID: Natalie Luther is a 24 y.o. female who presents for Routine Visit Patient presents today for Return OB appointment. MEDICATIONS Current Outpatient Medications Medication Instructions 27-1 MG tablet ALLERGIES No Known Allergies PROBLEMS Active Ambulatory Problems Diagnosis Date Noted Anxiety 10/08/2022 Bruising 10/08/2022 Chronic fatigue 10/08/2022 Low blood sugar 10/08/2022 Migraine (CMS/HCC) 10/08/2022 Seasonal allergies 10/08/2022 Gastroesophageal reflux disease without esophagitis 02/26/2024 24 weeks gestation of 02/26/2024 Second trimester 02/26/2024 Resolved Ambulatory Problems Diagnosis Date Noted No [...] Constitutional: Appearance: Normal appearance. She is well-developed. Cardiovascular: Rate and Rhythm: Normal rate and [...] nursing note reviewed. Exam conducted with a lens grinder and polisher present. Vitals: Estimated body mass index is 35.11 kg/m as calculated from the following: Height as of 24: 5' 5 . Weight as of this encounter: 211 lb. BP: 118/76 Patient's last menstrual period was 09/07/2023 (exact date). ASSESSMENT & PLAN ICD-10-CM 1. Third trimester Z34.93 POCT urinalysis dipstick manually resulted 2. 30 weeks gestation of Z3A.30 Return OB: Patient presents today for a routine obstetrics appointment. Patient is currently 30w2d . Patient states she is doing well but has complaints of being tired due to current . Patient has verbalizes frequent movement. labor precautions was discussed/given and patient was instructed to perform kick counts three times a day. Tdap on 03/30/24 Orders Placed This Encounter Procedures POCT urinalysis dipstick manually resulted Follow Up: Patient is to return to office in 2 week for routine OB appointment. Documented by Rosario Ruiz LPN on behalf of: Katherine Hoang DO documented in this encounter [facility] 03-24-2024 History of Present illness Narrative Reason for Appointment: Patient ID: Natalie Luther is a 24 y.o. female who presents for Routine Visit Patient presents today for Return OB appointment. MEDICATIONS Current Outpatient Medications Medication Instructions 27-1 MG tablet ALLERGIES No Known Allergies PROBLEMS Active Ambulatory Problems Diagnosis Date Noted Anxiety 10/08/2022 Bruising 10/08/2022 Chronic fatigue 10/08/2022 Low blood sugar 10/08/2022 Migraine (CMS/HCC) 10/08/2022 Seasonal allergies 10/08/2022 Gastroesophageal reflux disease without esophagitis 02/26/2024 24 weeks gestation of 02/26/2024 Second trimester 02/26/2024 Resolved Ambulatory Problems Diagnosis Date Noted No [...] No family history on file. SURGICAL HISTORY History reviewed. No pertinent surgical history. REVIEW OF SYSTEMS Review of Systems: Review of Systems Constitutional: Negative. HENT: Negative. Eyes: Negative. Respiratory: Negative. Cardiovascular: Negative. Gastrointestinal: Negative. Genitourinary: Negative. Musculoskeletal: Negative. Skin: Negative. Neurological: Negative. All other systems reviewed and are negative. Hematological: Negative. Endocrine: Negative. Allergic/Immunologic: Negative. OBJECTIVE Objective: Physical Exam Constitutional: Appearance: Normal appearance. She is well-developed. Cardiovascular: Rate and Rhythm: Normal rate and [...] nursing note reviewed. Exam conducted with a lens grinder and polisher present. Vitals: Estimated body mass index is 35.13 kg/m as calculated from the following: Height as of 01/21/24: 5' 5 . Weight as of this encounter: 211 lb 1.9 oz. BP: 120/74 Patient's last menstrual period was 09/07/2023 (exact date). ASSESSMENT & PLAN ICD-10-CM 1. 28 weeks gestation of Z3A.28 POCT urinalysis dipstick manually resulted 2. Third trimester Z34.93 POCT urinalysis dipstick manually resulted Return OB: Patient presents today for a routine obstetrics appointment. Patient is currently 28w3d . Patient states she is doing well but has complaints of being tired due to current . Patient has verbalizes frequent movement. labor precautions was discussed/given and patient was instructed to perform kick counts three times a day. Given growth ultrasound order to have obtained Orders Placed This Encounter Procedures US OB follow up transabdominal approach POCT urinalysis dipstick manually resulted Follow Up: Patient is to return to office in 2 week for routine OB appointment. Documented by Rosario Ruiz LPN on behalf of: Karen Lockhart PA-C documented in this encounter [facility] 02-26-2024 History of Present illness Narrative Reason for Appointment: Patient ID: Natalie Luther is a 24 y.o. female who [...] No family history on file. SURGICAL HISTORY History reviewed. No pertinent surgical history. REVIEW OF SYSTEMS Review of Systems: Review of Systems All other systems reviewed and are negative. OBJECTIVE Objective: Physical Exam Constitutional: Appearance: Normal appearance. She is well-developed. Cardiovascular: Rate and Rhythm: Normal rate and [...] nursing note reviewed. Exam conducted with a lens grinder and polisher present. Vitals: Estimated body mass index is 33.35 kg/m as calculated from the following: Height as of 01/21/24: 5' 5 . Weight as of this encounter: 200 lb 6.4 oz. BP: 118/72 Patient's last menstrual period was 09/07/2023 (exact date). ASSESSMENT & PLAN ICD-10-CM 1. 24 weeks gestation of Z3A.24 POCT urinalysis dipstick manually resulted 2. Second trimester Z34.92 POCT urinalysis dipstick manually resulted 3. Diabetes mellitus screening Z13.1 CBC Glucose tolerance, 1 hour CBC Glucose tolerance, 1 hour Patient presents today for a routine obstetrics appointment. Patient is currently 24w4d with a Estimated Date of Delivery: 06/13/24. Informed patient that US will be ordered around 30 weeks to have done for growth. Patient to RTC in 4 weeks for routine OB appointment. Patient has complaints of trouble sleeping and recovering from URI. Discussed concerns with patient in regards to symptoms. Advised patient to try Unisom OTC to help with sleeping. Discussed Cheratussin for cough with codeine. Patient voiced she does not need medication at this time. Discussed Omeprazole as well for acid reflex and patient will hold of on that prescription as well. Documented by Gregoria Manzanares LPN on behalf of: Katherine Hoang DO documented in this encounter [facility] 01-28-2024 History of Present illness Narrative Reason for Appointment: Patient ID: Natalie Luther is a 24 y.o. female who [...] of: MARY Dallas documented in this encounter [facility] 01-21-2024 History of Present illness Narrative Images from the original note were not included. Natalie Luther is a 24 y.o. female presents [...] open wounds on her foot. 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 documented in this encounter [facility] 12-31-2023 History of Present illness Narrative Reason for Appointment: Patient ID: Natalie Luther is a 23 y.o. female who [...] nursing note reviewed. Exam conducted with a lens grinder and polisher present. Vitals: Estimated body mass index is [...] Katherine Hoang DO documented in this encounter [facility] 12-03-2023 History of Present illness Narrative Reason for Appointment: Patient ID: Natalie Luther is a 23 y.o. female who presents for Routine Visit Patient presents today for Return OB appointment. MEDICATIONS Current Outpatient Medications Medication Instructions Vit-Fe Fumarate-FA ( Vitamins) 28-0.8 MG tablet 1 tablet, Oral, Daily ALLERGIES No Known Allergies PROBLEMS Active Ambulatory [...] Constitutional: Appearance: Normal appearance. She is well-developed. Cardiovascular: Rate and Rhythm: Normal rate and [...] nursing note reviewed. Exam conducted with a lens grinder and polisher present. Vitals: Estimated body mass index is 31.88 kg/m as calculated from the following: Height as of 10/15/23: 5' 5 . Weight as of 10/15/23: 191 lb 9.6 oz. BP: Patient's last menstrual period was 09/07/2023 (exact date). ASSESSMENT & PLAN ICD-10-CM 1. Nausea and vomiting in O21.9 2. First trimester Z34.91 POCT urinalysis dipstick manually resulted New OB: Patient presents today for 1st time obstetrics appointment with provider. Patient is currently 12w3d . Patients history has been reviewed in great detail including any potential risks. Patient stated she currently has complaints of nausea, rx for vitamin B6 faxed to pharmacy. Expectations throughout regarding labs, ultrasounds, and appointments have been discussed with the patient in detail. It was reiterated that the patient is to drink 6-8 glasses of water a day, eat 6 small meals a day, do not consume raw or undercooked meat, and stay away from [facility]. Patient has been consulted regarding any further do's and don'ts of . Patient voiced understanding and all questions and concerns were answered. Orders Placed This Encounter Procedures POCT urinalysis dipstick manually resulted Follow Up: Patient is to return in 4 weeks for routine OB appointment. Documented by Rosario Ruiz LPN on behalf of: Katherine Hoang DO documented in this encounter [facility] 11-06-2023 History of Present illness Narrative b Reason for Appointment: Patient ID: Natalie Luther is a 23 y.o. female who presents for No chief complaint on file. Patient presents today for a Nurse OB Intake appointment. Patient is 8w4d with a Estimated Date of Delivery: 06/13/24 OB History Para Term AB Living 1 SAB IAB Ectopic Multiple Live Births # Outcome Date GA Lbr Ángel/2nd Weight Sex Type Anes PTL Lv 1 Current Obstetric Comments 1 Miscarriage Current Medications: has a current medication list which includes the following prescription(s): vitamins. Medical History: Active Ambulatory Problems Diagnosis Date Noted Anxiety 10/08/2022 Bruising 10/08/2022 Chronic fatigue 10/08/2022 Low blood sugar 10/08/2022 Migraine (CMS/HCC) 10/08/2022 Seasonal allergies 10/08/2022 Resolved Ambulatory Problems Diagnosis Date Noted No Resolved Ambulatory Problems Past Medical History: Diagnosis Date Acne vulgaris Anxiety disorder BMI 29.0-29.9,adult Depression screening Encounter for gynecological examination (general) (routine) without abnormal findings Exercise-induced asthma (CMS/HCC) OCD (obsessive compulsive disorder) (CMS/HCC) No family history on file. Social History Tobacco Use Smoking status: Never Smokeless tobacco: Never Substance Use Topics Alcohol use: Not Currently Drug use: Never History reviewed. No pertinent surgical history. No Known Allergies Vitals: Estimated body mass index is 31.88 kg/m as calculated from the following: Height as of 10/15/23: 5' 5 . Weight as of 10/15/23: 191 lb 9.6 oz. BP: Patient's last menstrual period was 09/07/2023 (exact date). Assessment/Plan Diagnoses and all orders for this visit: Missed menses - Type and screen; Future - ABO/Rh; Future - CBC and differential - Hemoglobin A1c - RPR - Rubella antibody, IgG - Hepatitis B surface antigen - Hepatitis C antibody - HIV-1 and HIV-2 antibodies - Urine culture - US OB transvaginal; Future - POCT , urine manually resulted - POCT urinalysis dipstick manually resulted Nurse Note: OB Intake: Patient presents today for first OB visit. Patients history has been reviewed in great detail including any potential risks. Patient signed consent forms and patient desires testing in both trimesters. Patient currently has no complaints and has been advised to drink 6-8 glasses of water a day, eat no raw or undercooked meat, and stay away from [facility]. Patient has also been advised to not change litter boxes and eat 6 small meals a day. Patient has been consulted regarding the do's and don'ts of . Patient was given labs and all questions and concerns were answered. Follow Up: Patient is to return in 4 weeks for routine OB appointment. Follow Up: Patient is to have labs drawn at directed and return to office for initial OB appointment with provider. Patient may call office as needed with any concerns or questions. Nurse Visit Completed by: Jenny Carcamo LPN documented in this encounter [facility] Evaluation + Plan note No data available for this section [facility] Evaluation note Diagnosis Screening, , for anatomic survey Encounter for anatomic survey Well woman exam with routine gynecological exam Routine gynecological examination Second trimester state, incidental Exposure to STD Vaginal discharge Leukorrhea, not specified as infective Need for maternal serum alpha-protein (MSAFP) screening documented in this encounter [facility]* Diagnosis Second trimester state, incidental 20 weeks gestation of documented in this encounter [facility]* Diagnosis Acute left ankle pain- Primary Acute foot pain, left 19 weeks gestation of Class 1 obesity due to excess calories without serious comorbidity with body mass index (BMI) of 32.0 to 32.9 in adult documented [facility]* Diagnosis Missed menses documented in this [facility]* Diagnosis Nausea and vomiting in Unspecified vomiting of , unspecified as to episode of care First trimester state, incidental [facility]* Diagnosis 24 weeks gestation of Second trimester state, incidental Diabetes mellitus screening Screening for diabetes mellitus Gastroesophageal reflux disease without esophagitis Esophageal reflux documented in this [facility]* Diagnosis 28 weeks gestation of Third trimester state, incidental size inconsistent with dates documented in this encounter [facility]* Diagnosis Third trimester state, incidental 30 weeks gestation of documented in [facility]* Diagnosis Third trimester state, incidental 32 weeks gestation of documented in this [facility]* Diagnosis Third trimester state, incidental 34 weeks gestation of size inconsistent with dates documented in this encounter [facility] Dis[facility] instructions No data available for this section [facility] data available for this section [facility] Summary Purpose Family History No Family History Records FoundNo Family History Records FoundNo Family History Records Found Advance Directives No Advanced Directives Records FoundNo Advanced Directives Records FoundNo Advanced Directives Records Found Additional Source Comments INFORMATION SOURCE (unrecogn ized section and content) DATE CREATED AUTHOR 02/09/2022 [facility] DATE CREATED AUTHOR AUTHOR'S ORGANIZ ATION 02/07/[address] [facility] DATE CREATED AUTHOR AUTHOR'S ORGANIZ ATION 05/07/2024 [facility] EPIC Patient Care team informatio n (unrecognized section and content) Solution Design Engineer Relationship Specialty Start Date End Date [place] [address] PCP - [facility] Commercial 10/26/21 99 Talisha Mixon MD [address] [place], [place] [id number] PCP - General Family Medicine 10/07/22 Naila Cohen NP [address] [place] [address] Nurse Practitioner Family Medicine 10/07/22 Solution Design Engineer Relationship Specialty Start Date End Date Luma Perez NP [address] [place] [phone] PCP - [facility] Commercial 10/26/21 99 Talisha Mixon MD [address] [place] [address] PCP - General Family Medicine 10/07/22 Naila Cohen NP [address] [place] [address] Nurse Practitioner Family Medicine 10/07/22 Solution Design Engineer Relationship Specialty Start Date End Date Luma Perez NP [address] [place] [phone] PCP - [facility] Commercial 10/26/21 99 Talisha Mixon MD [address] [place] [address] PCP - General Family Medicine 10/07/22 Naila Cohen NP [address] [place] [address] Nurse Practitioner Family Medicine 10/07/22 Solution Design Engineer Relationship Specialty Start Date End Date Luma Perez NP [address] [place] [phone] PCP - [facility] [place] [facility] Commercial 10/26/21 99 Talisha Mixon MD [address] [place] [address] PCP - General Family Medicine 10/07/22 Naila Cohen [employer] [address] [place] [address] Nurse Practitioner Family Medicine 10/07/22 Solution Design Engineer Relationship Specialty Start Date End Date Luma Perez NP [address] [place] [phone] PCP - [facility] [place] [facility] Commercial 10/26/21 99 Talisha Mixon MD [address] [place] [address] PCP - General Family Medicine 10/07/22 Naila Cohen [employer] [address] [place] [address] Nurse Practitioner Family Medicine 10/07/22 Solution Design Engineer Relationship Specialty Start Date End Date Luma Perez NP [address] [place] [phone] PCP - [facility] [place] [facility] Commercial 10/26/21 99 Talisha Mixon MD [address] [place], [place] [phone] PCP - General Family Medicine 10/07/22 Naila Cohen NP [address] [place], [place] [phone] Nurse Practitioner Family Medicine 10/07/22 Solution Design Engineer Relationship Specialty Start Date End Date Luma Perez NP [address] [place] [address] PCP - [facility] [place] [facility] Commercial 10/26/21 99 Talisha Mixon MD [address] [place], [place] [phone] PCP - General Family Medicine 10/07/22 Naila Cohen NP [address] [place], [place] [phone] Nurse Practitioner Family Medicine 10/07/22 Solution Design Engineer Relationship Specialty Start Date End Date Luma Perez NP [address] [place] [phone] PCP - [facility] [place] [facility] [employer] 10/26/21 99 Talisha Mixon MD [address] [place], [place] [phone] PCP - General Family Medicine 10/07/22 Naila Cohen [employer] [address] [place] [address] Nurse Practitioner Family Medicine 10/07/22 Solution Design Engineer Relationship Specialty Start Date End Date Luma Perez NP [address] [place] [phone] PCP - [facility] [place] [facility] Commercial 10/26/21 99 Talisha Mixon MD [address] [place] [address] PCP - General [facility] Medicine 10/07/22 Naila Cohen NP [address] [place] [address] Nurse Practitioner Family Medicine 10/07/22 Solution Design Engineer Relationship Specialty Start Date End Date Luma Perez NP [address] [place] [phone] PCP - [employer] 10/26/21 99 Talisha Mixon MD [address] [place] [address] PCP - General [facility] 10/07/22 Naila Cohen NP [address] [place] [address] Nurse Practitioner [facility] Medicine 10/07/22 Reason for Visit (unrecogniz ed section [...] BE BASED ON THE PRIMARY CLINICAL RECORDS. [facility]. provides no warranty or guarantee of the accuracy or completeness of information in this document.
== END 2024-05-20 20:02 | disposition home or self-care (01) ==
LOC: LAB 20:01
PROVIDERS: PCP Student in an Organized Health Care Education/Training Program; Visit Provider Physician Assistant
DX: Z34.93 Encounter for supervision of normal pregnancy, unspecified, third trimester (principal)
CPT/HCPCS: 36415; 87081

== ENCOUNTER 2024-05-25 16:27 | Outpatient (OUT) | payer OTHER, SELFPAY ==
--- NOTE | 2024-05-25 16:32 | US_ITS ---
[place] [address] Patient Name: SAMANTHA MORENO MRN: [id number] date: 2000 Sex: F Assigned Patient Location: [facility] Current Patient Location: [facility] Accession/Order Number: [id number] Exam Date: 05/25/2024 17:24 Report Date: 05/25/2024 17:25 At the request of: KATHERINE CARRASCO DO Procedure: US OB BPP w non-stress Biophysical profile. Reason for exam: Excessive growth. COMPARISON: None. TECHNIQUE: Transabdominal imaging of the gravid uterus was obtained. FINDINGS: Quality Process Auditor reports a BPP of 8 out of 8. MICHAEL is normal at 22.3 cm. heart rate 134 bpm. US/US OB BPP w non-stress IMPRESSION: BPP 8 out of 8. Impression dictated by: Hans Norton Jr., D.O.05/25/2024 5:25 PM Dictation Location: [place] [address] Electronically authenticated by: [id number] Y Date: 05/25/2024 17:25
[2024-05-25 17:05] VITALS: BP 133/75; PULSE 95
== END 2024-05-25 17:45 | disposition home or self-care (01) ==
LOC: US 16:27 → FBC 16:31
PROVIDERS: PCP Student in an Organized Health Care Education/Training Program; Visit Provider Obstetrics & Gynecology
DX: O36.63X0 Maternal care for excessive fetal growth, third trimester, not applicable or unspecified (principal)
CPT/HCPCS: 76818

== ENCOUNTER 2024-05-28 16:57 | Outpatient (OUT) | payer OTHER, SELFPAY ==
[2024-05-28 17:14] VITALS: BP 125/82; PULSE 92
--- OUTSIDE RECORDS SUMMARY | 2024-05-28 17:16 | XMS_ITS | CCD ---
Author Organization [facility] Care Team Providers Care Chief Unit Forester Name Role Phone DR KATHERINE HOANG Consulting Unavailable NATALYA, DR MURPHY Attending Unavailable NATALYA, DR MURPHY Admitting Unavailable NAILA COHEN Primary Care Physician NAILA COHEN Unavailable Jean ANDRADE, Luma Rodríguez Unavailable Talisha Mixon MD Primary Care Provider Naila Cohen NP Unavailable [phone] Earlene Loya Attending Unavailable AKREN LOCKHART Referring Unavailable KATHERINE HOANG Attending Unavailable NATALYA, KATHERINE Attending Unavailable NATALYA, KATHERINE Attending Unavailable KATHERINE HOANG Referring Unavailable KAREN LOCKHART Attending Unavailable NAILA COHEN Attending Unavailable NATALYA, KATHERINE Attending Unavailable NATALYA, KATHERINE Attending Unavailable LUMA PEREZ Attending Unavailab KAREN [...] Ingredients 1 MG Oral Tablet) } Pack [Brooke-Linyah 28 Day] (1 source) Progestin, Estrogen Start: 04-13-2019 Brooke-Linyah 0.25 mg-35 mcg oral tablet Refill(s) 0 Start Date: 04/13/19 Status: Ordered Flonase 0.05 mg/inh nasal spray (1 source) Start: 02-24-2018 take 1 spray(s) nasal route once daily Flonase 0.05 mg/inh nasal spray 1 spray(s), Nasal, Daily, 16 gram, Refill(s) 0, each nostril Start Date: 02/24/18 Status: Ordered multivitamin () 27-0.8 MG tablet (3 sources) Start: 12-07-2023 multivitamin () 27-0.8 MG tablet 12/07/2023 Active 27-1 MG tablet (20 sources) Start: 01-10-2024 [...] unspecified] Onset: 10-08-2022 10-08-2022 Chronic Esophageal disorders (19 sources) Gastroesophageal reflux disease without esophagitis; Translations: [...] size-date discrepancy, unspecified trimester] 03-24-2024 Episodic Other complications of (2 sources) Excessive growth affecting management of mother; Translations: [Maternal care for excessive growth, third trimester, not applicable or unspecified] 05-20-2024 Episodic Other connective tissue disease (2 sources) [...] of ] 01-21-2024 Episodic Residual codes; unclassified (2 sources) Gestation [...] [34 weeks gestation of ] 05-05-2024 Episodic Residual codes; unclassified (2 sources) Gestation period, 36 weeks; Translations: [36 weeks gestation of ] 05-20-2024 Episodic Residual codes; unclassified (1 source) Gestation period, 37 weeks; Translations: [37 weeks gestation of ] 05-26-2024 Episodic Past or Other Problems Problem Classification Problem Date Documented Da te Episodic/Chronic Asthma (1 source) Asthma 12-21-2011 Other injuries and conditions due to external causes (20 sources) Contusion; Translations: [Other injury of unspecified body region, initial encounter] Onset: 10-08-2022 10-08-2022 Episodic Residual codes; unclassified (19 sources) Gestation period, 24 weeks; Translations: [24 weeks gestation of ] Onset: 02-26-2024 02-26-2024 Episodic Results Test Name Value Interpretation Reference Range Facility US OB FOLLOW UP TRANSABDOMIN AL APPROACHon 05-20-2024 US OB FOLLOW UP TRANSABDOMINAL APPROACH EXAM: US OB FOLLOW UP TRANSABDOMINAL APPROACH HISTORY: Inconsistent size. COMPARISON: Ob ultrasound 04/06/2024. TECHNIQUE: Two-dimensional transabdominal grayscale ultrasound imaging of the pelvis was performed. FINDINGS: Gestation: Single Presentation: Cephalic Cardiac Activity: 157 beats per minute Placental Location: Anterior with no sonographic abnormalities identified. Cervical canal: Not visualized Amniotic Fluid Index: 18.9 cm MEASUREMENTS: BPD: 8.7 cm EGA: 35 weeks 1 days HC: 31.9 cm EGA: 36 weeks 0 days AC: 35.1 cm EGA: 39 weeks 0 days FL: 7.2 cm EGA: 36 weeks 5 days HC/AC Ratio: 0.91 The gestational age by today's ultrasound is 36 weeks 5 days (+/- 18 days gestation). Estimated Weight: 3275 grams, +/- 491 grams ( 7 lb 4 oz). Weight Percentile for gestational age: 82 % IMPRESSION: 1. Single, live intrauterine gestation 36 weeks, 4 days by LMP. Today's ultrasound measurements correlate with a gestational age of 36 weeks 5 days. Estimated weight is 3275 grams, +/- 491 grams ( 7 lb 4 oz) which correlates to 82 %. SAULO is 06/12/2024. Electronically Signed:Electronically signed by GEOVANI COOK II, MD, PHD at 23-May-2024 07:44:35 AM [facility] Normal Not Available Comment on above: Order Comment: US OB SCAN FOR GROWTH Estimated Date of Delivery: 06/13/24 Gestational Age as of 05/05/2024: 34w3d Urinalysis macro (dipstick) panel (U)on 05-20-2024 Bilirubin, UA Negative Negative - 4(70) +++ mg/dL [facility] Blood, UA Negative Negative - 50 Andres/mcL [facility] Clarity, UA Clear [facility] Color, UA Yellow [facility] Glucose, UA Negative Negative - 2000(110) ++++ mg/dL [facility] Interpretation and review of laboratory results Normal [facility] Ketones, UA Negative Negative - 160(16) ++++ mg/dL [facility] Leukocytes, UA Positive Negative - 500+++ Anne/mcL [facility] Nitrite, UA Negative Negative - Positive [facility] pH, UA 7 5 - 9 [facility] Protein, UA Negative Negative - 1999(20) ++++ mg/dL [facility] Spec Grav, UA 1.01 1 - 1.03 [facility] Urobilinogen, UA 0.2 0.2 - 12 mg/dL [facility] Urinalysis macro (dipstick) panel (U)on 05-05-2024 Bilirubin, UA Negative Negative - 4(70) +++ mg/dL [facility] Blood, UA Negative Negative - 50 Andres/mcL [facility] Clarity, UA Clear [facility] Color, UA Yellow [facility] Glucose, UA Negative Negative - 1999(110) ++++ mg/dL [facility] Interpretation and review of laboratory results Abnormal [facility] Ketones, UA Positive Negative - 160(16) ++++ mg/dL [facility] Comment on above: trace Leukocytes, UA Trace Negative - 500+++ Anne/mcL [facility] Nitrite, UA Negative Negative - Positive [facility] pH, UA 6 5 - 9 [facility] Protein, UA Trace Negative - 1999(20) ++++ mg/dL [facility] Spec Grav, UA 1.02 1 - 1.03 [facility] Urobilinogen, UA 1.0 0.2 - 12 mg/dL [facility] Urinalysis macro (dipstick) panel (U)on 04-21-2024 Bilirubin, UA Negative Negative - 4(70) +++ mg/dL [facility] Blood, UA Negative Negative - 50 Andres/mcL [facility] Clarity, UA Clear [facility] Color, UA Yellow [facility] Glucose, UA Negative Negative - 1999(110) ++++ mg/dL [facility] Interpretation and review of laboratory results Abnormal [facility] Ketones, UA Negative Negative - 160(16) ++++ mg/dL [facility] Leukocytes, UA Trace Negative - 500+++ Anne/mcL [facility] Nitrite, UA Negative Negative - Positive [facility] pH, UA 6 5 - 9 [facility] Protein, UA Negative Negative - 1999(20) ++++ mg/dL [facility] Spec Grav, UA 1.02 1 - 1.03 [facility] Urobilinogen, UA 0.2 0.2 - 12 mg/dL [facility] US OB FOLLOW UP TRANSABDOMIN AL APPROACHon [...] 1655 gm / 3 lbs, 10 oz (6223-4857 gm) [place] Normal: 1614 gm (0367-8031 gm) [place] Wt%: 58% for 30.3 wks [...] Negative Negative - 4(70) +++ mg/dL [facility] Blood, UA Negative Negative - 50 Andres/mcL [facility] Clarity, UA Clear [facility] Color, UA Yellow [facility] Glucose, UA Negative Negative - 2000(110) ++++ mg/dL [facility] Interpretation and review of laboratory results Abnormal [facility] Ketones, UA Negative Negative - 160(16) ++++ mg/dL [facility] Leukocytes, UA Trace Negative - 500+++ Anne/mcL [facility] Nitrite, UA Negative Negative - Positive [facility] pH, UA 6 5 - 9 [facility] Protein, UA Negative Negative - 1999(20) ++++ mg/dL [facility] Spec Grav, UA 1.01 1 - 1.03 [facility] Urobilinogen, UA 0.2 0.2 - 12 mg/dL [facility] Urinalysis macro (dipstick) panel (U)on 03-24-2024 Bilirubin, UA Negative Negative - 4(70) +++ mg/dL [facility] Blood, UA Negative Negative - 50 Andres/mcL [facility] Clarity, UA Clear [facility] Color, UA Yellow [facility] Glucose, UA Negative Negative - 1999(110) ++++ mg/dL [facility] Interpretation and review of laboratory results Abnormal [facility] Ketones, UA Negative Negative - 160(16) ++++ mg/dL [facility] Leukocytes, UA Trace Negative - 500+++ Anne/mcL [facility] Nitrite, UA Negative Negative - Positive [facility] pH, UA 6 5 - 9 [facility] Protein, UA Negative Negative - 1999(20) ++++ mg/dL [facility] Spec Grav, UA 1.015 1 - 1.03 [facility] Urobilinogen, UA 0.2 0.2 - 12 mg/dL [facility] ALL CBC WITH AUTO DIFFon BASOPHILS ABSOLUTE AUTO 0.1 [facility] Basophils/100 WBC (Bld) 0.4 % 0.2 - 2.0 % [facility] Eosinophils/100 WBC (Bld) 0.9 % 0.9 - 7.0 % [facility] Erythrocyte distribution width (RBC) [Ratio] 13.4 % 11.0 - 15.0 % [facility] Hematocrit (Bld) [Volume fraction] 37.6 % 36.0 - 48.0 % [facility] Hemoglobin (Bld) [Mass/Vol] 12.8 g/dL 12.0 - 16.0 g/dL [facility] IMMATURE GRANULOCYTES ABS AUTO 0.12 High [facility] Immature granulocytes/100 WBC (Bld) 1 % High 0.0 - 0.5 % [facility] Interpretation and review of laboratory results Abnormal [facility] LYMPHOCYTES ABSOLUTE AUTO 2 [facility] Lymphocytes/100 WBC (Bld) 17.2 % Low 20.5 - 60.0 % [facility] MCH (RBC) [Entitic mass] 32.5 pg 26.7 - 34.0 pg [facility] MCHC (RBC) [Mass/Vol] 34 g/dL 29.9 - 35.2 g/dL [facility] MCV (RBC) [Entitic vol] 95.4 fL 81.0 - 99.0 fL [facility] MONOCYTES ABSOLUTE AUTO 0.6 [facility] Monocytes/100 WBC (Bld) 5 % 1.7 - 12.0 % [facility] NEUTROPHILS ABSOLUTE AUTO 8.7 High [facility] Neutrophils/100 WBC (Bld) 75.5 % High 43.0 - 75.0 % [facility] Platelet mean volume (Bld) [Entitic vol] 10 fL 9.5 - 13.5 fL [facility] TBH EO # 0.1 [facility]H PLT [address] [facility] RBC 3.94 Low [facility] TB WBC 11.5 High [facility] Urinalysis macro (dipstick) panel (U)on 02-26-2024 Bilirubin, UA Negative Negative - 4(70) +++ mg/dL [facility] Blood, UA Negative Negative - 50 Andres/mcL [facility] Clarity, UA Clear [facility] Color, UA Yellow [facility] Glucose, UA Negative Negative - 1999(110) ++++ mg/dL [facility] Interpretation and review of laboratory results Abnormal [facility] Ketones, UA Negative Negative - 160(16) ++++ mg/dL [facility] Leukocytes, UA Trace Negative - 500+++ Anne/mcL [facility] Nitrite, UA Negative Negative - Positive [facility] pH, UA 6.5 5 - 9 [facility] Protein, UA Trace Negative - 1999(20) ++++ mg/dL [facility] Spec Grav, UA 1.025 1 - 1.03 [facility] Urobilinogen, UA 1.0 0.2 - 12 mg/dL [facility] AFP, SERUM, OPEN SPINA BIFID Aon 01-08-2024 AFP MOM 0.90 . [facility] AFP VALUE 26.9 ng/mL . [facility] COMMENT: Comment . [facility] Comment on above: Kami Pina , Ph.D., [facility] Director References: Available Upon Request. Multiples Of Median Cutoffs For AFP Elevations Saenz 2.5 Black 2.8 IDD 2.0 Twins 4.5 Abbreviation Definitions IDD - Insulin Dep Diabetes OSBR - Open Spina Bifida Risk For further inquiries contact [facility] at [phone]. This test was developed and its performance characteristics determined by [facility]. It has not been cleared or approved by the Food and Drug Administration. Performed at: [facility] [address], [place] [id number] Laser/Electro Optics Technician: Radha Michael [facility], Phone: [phone] GEST. AGE ON COLLECTION DATE 16.4 . weeks [facility] GESTAT. AGE BASED ON LMP . [facility] Comment on above: Recalculations are n ot recommended when gestational dating by LMP and ultrasound are within 10 days. INSULIN DEP DIABETES No . [facility] INTERPRETATION Comment . [facility] Comment on above: Interpretation: Scre en [...] Customer Services to discuss available options. The [place] [employer] recommends amniocentesis be offered to women age 35 and older. [age]ULO [age] [facility] MULTIPLE GESTATION No . [facility] [place] [id number] . [facility] RACE . [facility] RESULTS Report . [facility] TEST RESULTS: Negative . [facility] WEIGHT 189 . lbs [facility] N N LMP [id number] 3 16 N 1 Y 189 N N N N N White/ [facility] IGP,APTIMA HPV,AGE GDLNon AGE GDLN ACOG TESTING Note . [facility] Comment on above: TESTS RESULT FLAG UN ITS REF RANGE LAB Clinician Provided Cytology Information Source.............Cervix Other.............. No. of containers..01 ThinPrep Vial Age Genny CORDON Maya... FLAG LEGEND: L-Low Normal,H-High Normal,LL-Alert Low,HH-Alert High <-Panic Low,>-Panic High,A-Abnormal,AA-Critical Abnormal Performed at: 01 =[address] [address] Blossomjessica Vazquez MD, IGP, RFX APTIMA HPV ASCU Note . [facility] Comment on above: TESTS RESULT FLAG UN ITS REF RANGE LAB DIAGNOSIS: 02 NEGATIVE FOR INTRAEPITHELIAL LESION OR MALIGNANCY. THIS SPECIMEN WAS RESCREENED PART OF OUR CAFETERIA AIDE PROGRAM. Specimen adequacy: 02 Satisfactory for evaluation. Endocervical and/or squamous metaplastic cells (endocervical component) are present. Performed by: 03 Claudia Simon, Test Boring Crew Chief ([facility]) QC reviewed by: 02 Eloisa Clarke, Supervisory Test Boring Crew Chief ([facility]) . 02 Note: Note 02 The Pap [...] <-Panic Low,>-Panic High,A-Abnormal,AA-Critical Abnormal Performed at: [address] [address] Blossom Vazquez MD, 03 [facility] [address] V Gary PhD, Performed at: = - [facility] [id number] Laser/Electro Optics Technician: Blossom Vazquez MD, Phone: [phone] Performed at: [address] [id number] Laser/Electro Optics Technician: Blossom Vazquez MD, Phone: [phone] SPATULA-ALONE CERVIX [facility] URETHRITIS/DISCHARGE PLUS VA GINITIS (HTRX)on 01-02-2024 ATOPOBIUM VAGINAE 0 [facility] ATOPOBIUM VAGINAE Not detected [facility] BVAB 2,3 (BACTERIAL VAGINOSIS ASSOCIATED BACTERIA 2, 3); MOBILUNCUS SPP 0 [facility] BVAB 2,3 (BACTERIAL VAGINOSIS ASSOCIATED BACTERIA 2, 3); MOBILUNCUS SPP Not detected [facility] JESSI ALBICANS, PARAPSILOSIS, TROPICALIS 0 [facility] JESSI ALBICANS, PARAPSILOSIS, TROPICALIS Not detected [facility] JESSI GLABRATA 0 [facility] JESSI GLABRATA Not detected [facility] JESSI KRUSEI 0 [facility] JESSI KRUSEI Not detected [facility] CHLAMYDIA TRACHOMATIS 0 [facility] CHLAMYDIA TRACHOMATIS Not detected N [facility] GARDNERELLA VAGINALIS 0 [facility] GARDNERELLA VAGINALIS Not detected N [facility] MEGASPHAERA (TYPES 1, 2) 0 [facility] MEGASPHAERA (TYPES 1, 2) Not detected [facility] MYCOPLASMA GENITALIUM 0 [facility] MYCOPLASMA GENITALIUM Not detected N [facility] NEISSERIA GONORRHOEAE 0 [facility] NEISSERIA GONORRHOEAE Not detected N [facility] TRICHOMONAS VAGINALIS 0 [facility] TRICHOMONAS VAGINALIS Not detected N [facility] Urinalysis macro (dipstick) panel (U)on 12-31-2023 Bilirubin, UA Negative Negative - 4(70) +++ mg/dL [facility] Blood, UA Negative Negative - 50 Andres/mcL [facility] Clarity, UA Clear [facility] Color, UA Yellow [facility] Glucose, UA Negative Negative - 1999(110) ++++ mg/dL [facility] Interpretation and review of laboratory results Normal [facility] Ketones, UA Negative Negative - 160(16) ++++ mg/dL [facility] Leukocytes, UA Negative Negative - 500+++ Anne/mcL [facility] Nitrite, UA Negative Negative - Positive [facility] pH, UA 5.5 5 - 9 [facility] Protein, UA Negative Negative - 1999(20) ++++ mg/dL [facility] Spec Grav, UA 1.015 1 - 1.03 [facility] Urobilinogen, UA 0.2 0.2 - 12 mg/dL [facility] ACUTE HEPATITISon 12-26-2023 HBSAG SCREEN Negative Negative [facility] HCV AB Non-Reactive Non Reactive [facility] HEP A AB, IGM Negative Negative [facility] Comment on above: A negative anti-HAV IgM result suggests no recent or current HAV infection. HEP B CORE AB, IGM Negative Negative [facility] INTERPRETATION: Comment . [facility] Comment on above: Not infected with HC V unless early or acute infection is suspected (which may be delayed in an immunocompromised individual), or other evidence exists to indicate HCV infection. ALL MISCELLANEOUS TESTon MISCELLANEOUS TEST COMMENT . [facility] Comment on above: Test Ordered: [id number] Toxoplasma gondii Ab,IgM Toxoplasma gondii Ab,IgM <3.0 AU/mL Reference Range: 0.0-7.9 Negative <8.0 Equivocal 8.0 - 9.9 Positive >9.9 Comment: Comment Reference Range: . It is presumed the patient has not been infected with and is not undergoing an acute infection with Toxoplasma. If symptoms persist, submit a new specimen after three weeks. Performed at: [place] [id number] Laser/Electro Optics Technician: Ihsan Phelps PhD, Phone: [phone] Toxoplasma gondii Antibodies, IgM [facility] CYTOMEGALOVIRUS (CMV) AB, IG [place] 12-26-2023 CYTOMEGALOVIRUS (CMV) AB, IGG <0.60 0.00 - 0.59 U/mL [facility] Comment on above: Negative <0.60 Equivocal 0.60 - 0.69 Positive >0.69 Performed at: [address] [id number] Laser/Electro Optics Technician: Ihsan Phelps PhD, Phone: [phone] CYTOMEGALOVIRUS (CMV) AB, IG [facility] 12-26-2023 CYTOMEGALOVIRUS (CMV) AB, IGM <30.0 0.0 - 29.9 AU/mL [facility] Comment on above: Negative <30.0 Equivocal 30.0 - 34.9 Positive >34.9 A positive result is generally indicative of acute infection, reactivation or persistent IgM production. Performed at: [address] [id number] Laser/Electro Optics Technician: Ihsan Phelps PhD, Phone: [phone] MEASLES/MUMPS/RUBELLA IMMUNI TYon 12-26-2023 MEASLES ANTIBODIES, IGG 271.0 AU/mL Immune >16.4 [facility] Comment on above: Negative <13.5 Equivocal 13.5 - 16.4 Positive >16.4 Presence of antibodies to Rubeola is presumptive evidence of immunity except when acute infection is suspected. MUMPS ABS, IGG 20.3 AU/mL Immune >10.9 [facility] Comment on above: Negative <9.0 Equivocal 9.0 - 10.9 Positive >10.9 A positive result generally indicates past exposure to Mumps virus or previous vaccination. RUBELLA ANTIBODIES, IGG 5.65 Immune >0.99 index [facility] Comment on above: Non-immune <0.90 Equivocal 0.90 - 0.99 Immune >0.99 No Panel Informationon 12-25 [facility] VARICELLA-ZOSTER V AB, IGGon 12-26-2023 VARICELLA-ZOSTER V AB, IGG Reactive Non Reactive [facility] Comment on above: Please note refere [...] Negative Negative - 4(70) +++ mg/dL [facility] Blood, UA Negative Negative - 50 Andres/mcL [facility] Clarity, UA Clear [facility] Color, UA Yellow [facility] Glucose, UA Negative Negative - 2000(110) ++++ mg/dL [facility] Interpretation and review of laboratory results Abnormal [facility] Ketones, UA Negative Negative - 160(16) ++++ mg/dL [facility] Leukocytes, UA Trace Negative - 500+++ Anne/mcL [facility] Nitrite, UA Negative Negative - Positive [facility] pH, UA 5.5 5 - 9 [facility] Protein, UA Negative Negative - 2000(20) ++++ mg/dL [facility] Spec Grav, UA 1.025 1 - 1.03 [facility] Urobilinogen, UA 0.2 0.2 - 12 mg/dL [facility] BOX TESTon 11-25-2023 BOX TEST SENT OUT [facility] BOX1 [facility] BOX2 11/21/23 [facility] WITH AUTO DIFFon BASOPHILS ABSOLUTE AUTO 0.1 [facility] Basophils/100 WBC (Bld) 0.4 % 0.2 - 2.0 % [facility] Eosinophils/100 WBC (Bld) 0.8 % Low 0.9 - 7.0 % [facility] Erythrocyte distribution width (RBC) [Ratio] 13.1 % 11.0 - 15.0 % [facility] Hematocrit (Bld) [Volume fraction] 39.3 % 36.0 - 48.0 % [facility] Hemoglobin (Bld) [Mass/Vol] 13.3 g/dL 12.0 - 16.0 g/dL [facility] IMMATURE GRANULOCYTES ABS AUTO 0.03 [facility] Immature granulocytes/100 WBC (Bld) 0.2 % 0.0 - 0.5 % [facility] Interpretation and review of laboratory results Abnormal [facility] LYMPHOCYTES ABSOLUTE AUTO 2.5 [facility] Lymphocytes/100 WBC (Bld) 19.1 % Low 20.5 - 60.0 % [facility] MCH (RBC) [Entitic mass] 30.7 pg 26.7 - 34.0 pg [facility] MCHC (RBC) [Mass/Vol] 33.8 g/dL 29.9 - 35.2 g/dL [facility] MCV (RBC) [Entitic vol] 90.8 fL 81.0 - 99.0 fL [facility] MONOCYTES ABSOLUTE AUTO 0.7 [facility] Monocytes/100 WBC (Bld) 5.3 % 1.7 - 12.0 % [facility] NEUTROPHILS ABSOLUTE AUTO 9.8 High [facility] Neutrophils/100 WBC (Bld) 74.2 % 43.0 - 75.0 % [facility] Platelet mean volume (Bld) [Entitic vol] 9.6 fL 9.5 - 13.5 fL [facility] TBH EO # 0.1 [facility] PLT [address] [facility] RBC 4.33 [facility] WBC 13.2 High [facility] HCG ( test) Ql (U)o n 11-06-2023 Interpretation and review of laboratory results Abnormal [facility] Preg Test, Ur Positive [facility] Urinalysis macro (dipstick) panel (U)on 11-06-2023 Bilirubin, UA Negative Negative - 4(70) +++ mg/dL [facility] Blood, UA Negative Negative - 50 Andres/mcL [facility] Clarity, UA Clear [facility] Color, UA Yellow [facility] Glucose, UA Negative Negative - 2000(110) ++++ mg/dL [facility] Interpretation and review of laboratory results Abnormal [facility] Ketones, UA Negative Negative - 160(16) ++++ mg/dL [facility] Leukocytes, UA Trace Negative - 500+++ Anne/mcL [facility] Nitrite, UA Negative Negative - Positive [facility] pH, UA 7.0 5 - 9 [facility] Protein, UA Negative Negative - 2000(20) ++++ mg/dL [facility] Spec Grav, UA 0.015 1 - 1.03 [facility] Urobilinogen, UA 1.0 0.2 - 12 mg/dL [facility] CHEMISTRYOrdered By: SYSTEM SYSTEM on 02-28-2022 Albumin [...] Normal >=59mL/min/1. 73 m2 [facility] S GFR/1.73 sq M.predicted among non-blacks MDRD (S/P/Bld) [Vol rate/Area] mL/min/1.73 m2 Normal >=59mL/min/1. 73 m2 [facility] Chem S Globulin (S) [Mass/Vol] 3.6 g/dL Normal 1.4 - 4.0 gm/dL [facility] Remisol Glucose [Mass/Vol] 95 mg/dL Normal 55 - 199 mg/dL [facility] Remisol Potassium [Moles/Vol] 4.4 mmol/L Normal 3.5 - 5.3 mmol/L [facility] Remisol Protein [Mass/Vol] 7.6 g/dL Normal 6.0 - 7.8 gm/dL [facility] Remisol Sodium [Moles/Vol] 135 mmol/L Normal 135 [...] 13.3 % Normal 10.9 - 14.2 % [facility] HemeAutoSS Hematocrit (Bld) [Volume fraction] 43.5 % [...] 4.9 E12/L Normal 4.3 - 5.9 E12/L [facility] HemeAutoSS WBC corrected for nucl RBC Auto (Bld) [#/Vol] 6.7 E9/L Normal 4.0 - 11.0 E9/L [facility] HemeAutoSS PAP ACOG PANEL 2: 21 to 28on 02-08-[address] [facility] Comment on above: Performed By: #### [id number] #### [facility] [address] [place] [address] Dr. Dennise Cronin Age Gdln ACOG Testing 21-[address] [facility] Comment on above: Performed By: #### [id number] #### [facility] [address] [place] [address] Dr. Dennise rConin DIAGNOSIS: Comment [facility] Comment on above: Result Comment: NEGA TIVE FOR INTRAEPITHELIAL LESION OR MALIGNANCY. Performed By: #### [id number] #### [facility] [address] [place] [address] Dr. Dennise Cronin Methodology: Comment Normal [facility] Comment on above: Result Comment: This liquid based ThinPrep(R) pap test was screened with the use of an image guided system. Performed By: #### [id number] #### [facility] [address] [place] [address] Dr. Dennise Cronin Note: Comment Normal [facility] Comment on above: Result Comment: The Pap smear is a screening test designed to aid in the detection of premalignant and malignant conditions of the uterine cervix. It is not a diagnostic procedure and should not be used as the sole means of detecting cervical cancer. Both false-positive and false-negative reports do occur. . Performed By: #### [id number] #### [facility] [address] [place] [address] Dr. Dennise Cronin Performed by: Comment Normal [facility] Comment on above: Result Comment: Haja Pisano Test Boring Crew Chief (ASCP) Performed By: #### [id number] #### [facility] [address] [place] [address] Dr. Dennise Cronin Reflex Criteria: Comment Normal [facility] Comment on above: Result Comment: The HPV DNA reflex criteria were not met with this specimen result therefore, no HPV testing was performed. . Performed By: #### [id number] #### [facility] [address] [place] [address] Dr. Dennise Cronin Specimen adequacy: Comment Normal [facility] Comment on above: Result Comment: Sati sfactory for evaluation. Endocervical and/or squamous metaplastic cells (endocervical component) are present. Performed By: #### [id number] #### [facility] [address] [place] [address] Dr. Dennise Cronin Vital Signs Date Time Vital Sign Value Performing Clinician Aminata peacock 05-26-2024 15:22-0400 Body mass index (BMI) [Ratio] 35.96 kg/m2 Vringo Work Phone: [facility] 05-26-2024 15:22-0400 Body weight 98.03 kg Vringo Work Phone: [facility] 05-26-2024 15:22-0400 Diastolic blood pressure 70 mm[Hg] Katherine Natalya DO Work Phone: [facility] 05-26-2024 15:22-0400 Systolic blood pressure 114 mm[Hg] Katherine Natalya DO Work Phone: [facility] 05-20-2024 11:58-0400 Body mass index (BMI) [Ratio] 35.78 kg/m2 Karen HERNANDEZ Work Phone: [facility] 05-20-2024 11:58-0400 Body weight 97.52 kg Karen HERNANDEZ Work Phone: [facility] 05-20-2024 11:58-0400 Diastolic blood pressure 72 mm[Hg] Karen HERNANDEZ Work Phone: [facility] 05-20-2024 11:58-0400 Systolic blood pressure 118 mm[Hg] Karen HERNANDEZ Work Phone: [facility] 05-05-2024 15:39-0500 Body mass index (BMI) [Ratio] 35.51 kg/m2 Katherine Natalya DO Work Phone: [facility] 05-05-2024 15:39-0500 Body weight 96.8 kg Katherine Natalya DO Work Phone: [facility] 05-05-2024 15:39-0500 Diastolic blood pressure 70 mm[Hg] Katherine Natalya DO Work Phone: [facility] 05-05-2024 15:39-0500 Systolic blood pressure 110 mm[Hg] Katherine Natalya DO Work Phone: [facility] 04-21-2024 14:53-0500 Body mass index (BMI) [Ratio] 35.45 kg/m2 Katherine Natalya DO Work Phone: [facility] 04-21-2024 14:53-0500 Body weight 96.62 kg Katherine Natalya DO Work Phone: [facility] 04-21-2024 14:53-0500 Diastolic blood pressure 76 mm[Hg] Katherine Natalya DO Work Phone: [facility] 04-21-2024 14:53-0500 Systolic blood pressure 110 mm[Hg] Katherine Natalya DO Work Phone: [facility] 04-06-2024 14:55-0500 Body mass index (BMI) [Ratio] 35.11 kg/m2 Katherine Natalya DO Work Phone: [facility] 04-06-2024 14:55-0500 Body weight 95.71 kg Katherine Natalya DO Work Phone: [facility] 04-06-2024 14:55-0500 Diastolic blood pressure 76 mm[Hg] Katherine Natalya DO Work Phone: [facility] 04-06-2024 14:55-0500 Systolic blood pressure 118 mm[Hg] Katherine Natalya DO Work Phone: [facility] 03-24-2024 14:58-0500 Body mass index (BMI) [Ratio] 35.13 kg/m2 Katherine Natalya DO Work Phone: [facility] 03-24-2024 14:58-0500 Body weight 95.76 kg Katherine Natalya DO Work Phone: [facility] 03-24-2024 14:58-0500 Diastolic blood pressure 74 mm[Hg] Katherine Natalya DO Work Phone: [facility] 03-24-2024 14:58-0500 Systolic blood pressure 120 mm[Hg] Katherine Natalya DO Work Phone: [facility] 02-26-2024 09:03-0500 Body mass index (BMI) [Ratio] 33.35 kg/m2 Katherine Natalya DO Work Phone: [facility] 02-26-2024 09:03-0500 Body weight 90.9 kg Katherine Natalya DO Work Phone: [facility] 02-26-2024 09:03-0500 Diastolic blood pressure 72 mm[Hg] Katherine Natalya DO Work Phone: [facility] 02-26-2024 09:03-0500 Systolic blood pressure 118 mm[Hg] Katherine Natalya DO Work Phone: [facility] 01-21-2024 15:52-0500 Body height 165.1 cm Luma Klineiller [employer] Work Phone: [facility] 01-21-2024 15:52-0500 Body mass index (BMI) [Ratio] 32.45 kg/m2 Luma Donnamiller [employer] Work Phone: [facility] 01-21-2024 15:52-0500 Body temperature 98.2 [degF] Luma Ballardnamiller [employer] Work Phone: [facility] 01-21-2024 15:52-0500 Body weight 88.45 kg Luma Klineiller [employer] Work Phone: [facility] 01-21-2024 15:52-0500 Diastolic blood pressure 70 mm[Hg] Luma Ballardnamiller [employer] Work Phone: [facility] 01-21-2024 15:52-0500 Heart rate 85 /min Luma Klineiller [employer] Work Phone: [facility] 01-21-2024 15:52-0500 SaO2% (BldA) [Mass fraction] 98 % Luma Ballardnamiller [employer] Work Phone: [facility] 01-21-2024 15:52-0500 Systolic blood pressure 116 mm[Hg] Luma Donnamiller [employer] Work Phone: [facility] 12-31-2023 15:23-0400 Body mass index (BMI) [Ratio] 31.45 kg/m2 Katherine Natalya DO Work Phone: [facility] 12-31-2023 15:23-0400 Body weight 85.73 kg Katehrine Natalya DO Work Phone: [facility] 12-31-2023 15:23-0400 Diastolic blood pressure 70 mm[Hg] Katherine Natalya DO Work Phone: [facility] 12-31-2023 15:23-0400 Systolic blood pressure 118 mm[Hg] Katherine Natalya DO Work Phone: [facility] 12-03-2023 16:07-0400 Body mass index (BMI) [Ratio] 31.12 kg/m2 Katherine Natalya DO Work Phone: [facility] 12-03-2023 16:07-0400 Body weight 84.82 kg Katherine Natalya DO Work Phone: [facility] 12-03-2023 16:07-0400 Diastolic blood pressure 64 mm[Hg] Katherine Natalya DO Work Phone: [facility] 12-03-2023 16:07-0400 Systolic blood pressure 116 mm[Hg] Katherine Natalya DO Work Phone: [facility] Healthcare Encounters Encounter Date Encounter Type Care Provider Facility Start: 05-26-2024 End: 05-26-2024 flow sheet Katherine Natalya DO Work Phone: [facility] Comment on above: Third trimester preg codi; 37 weeks gestation of Start: 05-20-2024 End: 05-20-2024 flow sheet Karen HERNANDEZ Work Phone: [facility] Comment on above: Third trimester preg codi; 36 weeks gestation of ; Excessive growth affecting management of in third trimester, single or unspecified fetus Start: 05-20-2024 End: 05-20-2024 ambulatory KAREN LOCKHART Not Available Start: 05-05-2024 End: 05-05-2024 flow sheet Katherine Natalya DO Work Phone: [facility] Comment on above: Third trimester preg codi; 34 weeks gestation of ; size inconsistent with dates Start: 05-05-2024 End: 05-05-2024 ambulatory KATHERINE NATALYA Not Available Start: 05-05-2024 End: 05-05-2024 Bamboo flowsheet Katherine Natalya DO Work Phone: [facility] Start: 05-05-2024 End: 05-05-2024 Bamboo flowsheet Katherine Natalya DO Work Phone: [facility] Start: 04-21-2024 End: 04-21-2024 flow sheet Katherine Natalya DO Work Phone: [facility] Comment on above: Third trimester preg codi; 32 weeks gestation of Start: 04-21-2024 End: 04-21-2024 ambulatory KATHERINE NATALYA Not Available Start: 04-21-2024 End: 04-21-2024 Bamboo flowsheet Katherine Natalya DO Work Phone: [facility] Start: 04-21-2024 End: 04-21-2024 Bamboo [...] Result Encounter Katherine Natalya DO Work Phone: [facility] External Department Unsolicited Start: 03-09-2024 End: 03-09-2024 Clinisync Result Encounter Katherine Natalya DO Work Phone: [facility] Unsolicited Start: 02-26-2024 End: 02-26-2024 Bamboo flowsheet Katherine Natalya DO Work Phone: [facility] Start: 02-26-2024 End: 02-26-2024 Bamboo flowsheet Katherine Natalya DO Work Phone: [facility] Start: 02-26-2024 End: 02-26-2024 flow sheet Katherine Natalya DO Work Phone: [facility] Comment on above: 24 weeks gestation o f ; Second trimester ; Diabetes mellitus screening; Gastroesophageal reflux disease without esophagitis Start: 02-26-2024 End: 02-26-2024 ambulatory KATHERINE NATALYA Not Available Start: 02-04-2024 ambulatory Earlene C Keishaer Faci lity:[facility] Start: 01-28-2024 End: 01-28-2024 flow sheet Karen HERNANDEZ Work Phone: [facility] Comment on above: Second trimester pre gnancy; 20 weeks gestation of Start: 01-28-2024 End: 01-28-2024 ambulatory KAREN LOCKHART Not Available Start: 01-28-2024 End: 01-28-2024 Bamboo flowsheet Karen HERNANDEZ Work Phone: [facility] Start: 01-28-2024 End: 01-28-2024 Bamboo flowsheet Karen HERNANDEZ Work Phone: [facility] Start: 01-21-2024 End: 01-21-2024 Office outpatient visit 15 minutes Luma Perez NP Work Phone: [facility] Comment on above: Acute left ankle kianna n (Primary Dx); Acute foot pain, left; 19 weeks gestation of ; Class 1 obesity due to excess calories without serious comorbidity with body mass index (BMI) of 32.0 to 32.9 in adult Start: 01-21-2024 End: 01-21-2024 ambulatory LUMA A DONNAMILLER Not Available Start: 01-21-2024 End: 01-21-2024 Bamboo flowsheet Luma A Donnamiller [employer] Work Phone: [facility] Start: 01-21-2024 End: 01-21-2024 Bamboo flowsheet Luma A Donnamiller [employer] Work Phone: [facility] Start: 01-05-2024 End: 01-08-2024 Clinisync Result Encounter Katherine Natalya DO Work Phone: [facility] Unsolicited Start: 01-05-2024 End: 01-08-2024 Clinisync Result Encounter Katherine Natalya DO Work Phone: [facility] External Department Unsolicited Start: 12-31-2023 End: 12-31-2023 Patient encounter procedure Katherine Natalya DO Work Phone: [facility] Start: 12-31-2023 End: 12-31-2023 Periodic [...] End: 02-28-2022 Patient encounter procedure NAILA COHEN [facility] Start: 01-30-2022 End: 01-30-[address] KATHERINE HOANG Facility:[facility] Procedures Date Procedure Procedure Detail Performing Clinician Start: 05-20-2024 Urnls dip stick/tabl et rgnt non-auto w/o micrscp Karen HERNANDEZ Work Phone: Start: 05-05-2024 Urnls dip stick/tabl et rgnt [...] Treatment Date Care Activity Detail Author Start: 05-31-2024 End: 05-31-2024 Patient encounter procedure 05/31/2024 2:30 PM EDT Routine [facility] [address] [place] [phone] Katherine Hoang, DO [address] [place] [address] [facility] Start: 05-26-2024 End: 05-26-2024 Patient encounter procedure 05/26/2024 3:00 PM EDT Routine [facility] [address] [facility] [place] [id number] Katherine Hoang, DO [address] [place] [address] [facility] Start: 05-20-2024 End: 05-20-2025 CULTURE, GROUP B STREP WITH SUSCEPTIBLITY CULTURE, GROUP B STREP WITH SUSCEPTIBLITY Lab Routine Third trimester Expected: 05/20/2024, Expires: 05/20/2025 [facility] Work Phone: Comment on above: Expected: 05/20/2024 , Expires: 05/20/2025 Start: 05-20-2024 End: 05-20-2025 US biophysical profile w non stress test US biophysical profile w non stress test Imaging Routine Excessive growth affecting management of in third trimester, single or unspecified fetus Expected: 05/20/2024 (Approximate), Expires: 05/20/2025 [facility] Comment on above: Expected: 05/20/2024 (Approximate), Expires: 05/20/2025 Start: 05-20-2024 End: 05-20-2024 Patient encounter procedure 05/20/2024 11:40 AM EDT Routine [facility] [address] [facility] [place] [place] [phone] Karen Lockhart PA [address] [place] [address] [facility] Start: 05-20-2024 End: 05-20-2024 Professional / ancillary services management 05/20/2024 11:00 AM EDT Ancillary Procedure [facility] [address] [place] [phone] [facility] Start: 05-05-2024 End: 05-05-2024 [...] Routine [facility] [address] [place] [phone] Katherine Hoang, DO [address] [place] [address] [facility] Start: 04-06-2024 End: 04-06-2024 Professional / ancillary services management 04/06/2024 2:00 PM EST Ancillary Procedure [facility] [address] [place] [phone] [facility] Start: 03-24-2024 End: 03-24-2024 [...] EST Office Visit [facility] [address] [facility] [facility] [place] [phone] Katherine Hoang DO [address] [facility] [address] [place] [address] [facility] Start: 02-26-2024 End: 02-25-2025 [...] EST Ancillary Procedure [facility] [address] [facility] [facility] [place] [phone] [facility] Start: 01-31-2024 End: 01-31-2024 [...] EST Ancillary Procedure [facility] [address] [facility] [place] [phone] [facility] Start: 12-31-2023 End: 12-31-2023 Patient encounter procedure [facility] Comment on above: Arrived Start: 12-31-2023 End: 12-30-2024 US for US OB ANATOMY SINGLE W US OB CERVICAL LENGTH Imaging Routine Screening, , for anatomic survey Expected: 12/31/2023 (Approximate), Expires: 12/30/2024 [facility] Comment on above: Expected: 12/31/2023 (Approximate), Expires: 12/30/2024 Start: 12-03-2023 End: 12-03-2023 Patient encounter procedure [facility] Comment on above: Arrived Start: 11-09-2023 Influenza vaccination Influenza Vacc ine (#1) [facility] Start: 11-06-2023 End: 11-05-2024 ABO/Rh ABO/Rh Lab Routine Missed menses Expected: 11/06/2023 (Approximate), Expires: 11/05/2024 [facility] Comment on above: Expected: 11/06/2023 (Approximate), Expires: 11/05/2024 Start: 11-06-2023 End: 11-05-2024 Blood type and Indirect antibody screen panel - Blood Type and screen Lab Routine Missed menses Expected: 11/06/2023 (Approximate), Expires: 11/05/2024 [facility] Work Phone: Comment on above: Expected: 11/06/2023 (Approximate), Expires: 11/05/2024 Start: 11-06-2023 End: 11-05-2024 US Pelvis transvaginal US OB transvaginal Imaging Routine Missed menses Expected: 11/06/2023 (Approximate), Expires: 11/05/2024 [facility] Comment on above: Expected: 11/06/2023 (Approximate), Expires: 11/05/2024 Bacteria identified in Urine by Culture Urine culture Microbiology Routine Missed menses Ordered: 11/06/2023 [facility] Comment on above: Ordered: 11/06/2023 CBC W Auto Different ial panel - Blood CBC and differential Lab Routine Missed menses Ordered: 11/06/2023 [facility] Comment on above: Ordered: 11/06/2023 CHLAMYDIA TRACHOMATI S (GENITO/STI) CHLAMYDIA TRACHOMATIS (GENITO/STI) Lab Routine Exposure to STD Ordered: 12/31/2023 [facility] Comment on above: Ordered: 12/31/2023 Cytology Cervical or vaginal smear or scraping study Pap Smear Pathology and Cytology Routine Well woman exam with routine gynecological exam Ordered: 12/31/2023 [facility] Comment on above: Ordered: 12/31/2023 Hemoglobin A1c/Hemoglobin.total in Blood Hemoglobin A1c Lab Routine Missed menses Ordered: 11/06/2023 [facility] Comment on above: Ordered: 11/06/2023 Hepatitis B virus surface Ag [Presence] in Serum or Plasma by Immunoassay Hepatitis B surface antigen Lab Routine Missed menses Ordered: 11/06/2023 [facility] Comment on above: Ordered: 11/06/2023 Hepatitis C virus Ab [Presence] in Serum or Plasma by Immunoassay Hepatitis C antibody Lab Routine Missed menses Ordered: 11/06/2023 [facility] Comment on above: Ordered: 11/06/2023 HIV-1/HIV-2 antigen/antibody combination immunoassay HIV-1 and HIV-2 antibodies Lab Routine Missed menses Ordered: 11/06/2023 [facility] Comment on above: Ordered: 11/06/2023 Neisseria gonorrhoea e DNA [Presence] in Unspecified specimen by SARITA with probe detection Neisseria gonorrhea DNA probe, direct Lab Routine Exposure to STD Ordered: 12/31/2023 [facility] Comment on above: Ordered: 12/31/2023 Reagin Ab [Presence] in Serum by RPR RPR Lab Routine Missed menses Ordered: 11/06/2023 [facility] Comment on above: Ordered: 11/06/2023 Rubella antibody, IgG Rubella an tibody, IgG Lab Routine Missed menses Ordered: 11/06/2023 [facility] Comment on above: Ordered: 11/06/2023 SURESWAB(R) ADVANCED VAGINITIS PLUS, TMA SURESWAB(R) ADVANCED VAGINITIS PLUS, TMA Pathology and Cytology Routine Vaginal discharge Ordered: 12/31/2023 [facility] Work Phone: Comment on above: Ordered: 12/31/2023 Immunizations Immunization Date Immunization Notes Care Provider Pilar victor 06-26-2020 tetanus toxoid, redu esequiel diphtheria toxoid, and acellular pertussis vaccine, adsorbed [facility] 10-30-2016 hepatitis A vaccine, pediatric/adolescent dosage, 2 dose schedule [facility] Nurse [facility] 10-30-2016 Human Papillomavirus 9-valent vaccine [facility] 10-30-2016 meningococcal B vacc ine, recombinant, OMV, adjuvanted [facility] 10-30-2016 meningococcal polysa ccharide (groups A, C, Y and W-135) diphtheria toxoid conjugate vaccine (MCV4P) [facility] 10-04-2011 hepatitis A vaccine, pediatric/adolescent dosage, 2 dose schedule [facility] Nurse [facility] 10-04-2011 human papilloma viru s vaccine, quadrivalent [facility] Nurse [facility] 10-04-2011 meningococcal oligos accharide (groups A, C, Y and W-135) diphtheria toxoid conjugate vaccine (MCV4O) [facility] Nurse [facility] 10-04-2011 tetanus toxoid, redu esequiel diphtheria toxoid, and acellular pertussis vaccine, adsorbed [facility] 05-02-2004 diphtheria, tetanus toxoids and acellular pertussis vaccine, unspecified formulation [facility] Nurse [facility] 11-03-2003 diphtheria, tetanus toxoids and acellular pertussis vaccine [facility] 11-03-2003 hepatitis B vaccine, pediatric or pediatric/adolescent dosage [facility] 11-03-2003 measles, mumps and r ubella virus vaccine [facility] 11-03-2003 poliovirus vaccine, inactivated [facility] 12-28-2001 diphtheria, tetanus toxoids and acellular pertussis vaccine, unspecified formulation [facility] Nurse [facility] 12-28-2001 haemophilus influenz ae type b conjugate and Hepatitis B vaccine [facility] 12-28-2001 measles, mumps and r ubella virus vaccine [facility] Nurse [facility] 12-28-2001 poliovirus vaccine, inactivated [facility] Nurse [facility] 1999 diphtheria, tetanus toxoids and acellular pertussis vaccine, unspecified formulation [facility] Nurse [facility] 1999 haemophilus influenz ae type b vaccine, PRP-OMP conjugate [facility] 1999 hepatitis B vaccine, pediatric or pediatric/adolescent dosage [facility] 1999 poliovirus vaccine, inactivated [facility] Payers Date Payer Category Payer Private Health Insurance [employer] [id number] 2021 Unknown [employer] [id number] 2021-Present [address] [place] [address] [id number] 1999 Unknown [id number] 2.16.840.1.941624.3.579.2. 593 1999 Unknown [id number] 2.16.840.1.657653.3.579.2. 727 1999 Unknown [id number] 2.16.840.1.545518.3.579.2. 1259 1999 Unknown [id number] 2.16.840.1.646859.3.579.2. 1259 1999 Unknown [id number] 2.16.840.1.778029.3.579.2. 1259 1999 Unknown [id number] 2.16.840.1.616763.3.579.2. 1259 1999 Unknown [id number] 2.16.840.1.560932.3.579.2. 1259 1999 Unknown [id number] 2.16.840.1.421716.3.579.2. 1259 1999 Unknown [id number] 2.16.840.1.143740.3.579.2. 1259 1999 Unknown [id number] 2.16.840.1.182520.3.579.2. 1259 1999 Unknown [id number] 2.16.840.1.218236.3.579.2. 1259 1999 Unknown [id number] 2.16.840.1.641841.3.579.2. 1259 1999 Unknown [id number] 2.16.840.1.947336.3.579.2. 1259 1999 Unknown [id number] 2.16.840.1.501856.3.579.2. 1259 1999 Unknown [id number] 2.16.840.1.477363.3.579.2. 1259 1999 Unknown [id number] 2.16.840.1.910680.3.579.2. 1259 1959 Unknown [id number] Social History Date Type Detail Facility Start: 05-16-2021 End: 10-08-2022 Tobacco smoking status Never smoked tobacco (finding) [facility] Tobacco smoking status Never [facility] Start: 10-15-2023 End: 01-21-2024 Sex Assigned At Female [facility] Start: 10-08-2022 Tobacco use and exposure Smokeless tobacco non-user [facility] Start: 12-10-2023 End: 05-26-2024 Alcoholic beverage intake Ex-drinker (finding) [facility] Start: 10-15-2023 End: 01-21-2024 History of Social function [facility] Start: 09-21-2023 [facility] Start: 1999 Sex assigned at Not on file [facility] Start: 05-22-2022 Gender identity Identifies as female gender (finding) [facility] Clinical Notes 11-06-2023 to 05-26-2024 ALESSIA Black 05/26/2024 3:00 PM MARY Melvin - 05/20/2024 11:40 AM Beata Chaparro MA - 05/05/2024 3:30 PM Magda Ruiz LPN - 04/21/2024 2:20 PM EST Note Date & Type Note Facility 05-26-2024 History of Present illness Narrative Reason for Appointment: Patient ID: Natalie Luther is a 24 y.o. female who presents for Routine Visit Patient presents today for Return OB appointment. MEDICATIONS Current Outpatient Medications Medication Instructions multivitamin () 27-0.8 MG tablet 27-1 MG tablet ALLERGIES No Known Allergies [...] nursing note reviewed. Exam conducted with a production control specialist present. Vitals: Estimated body mass index is 35.96 kg/m as calculated from the following: Height as of 24: 5' 5 . Weight as of this encounter: 216 lb 1.9 oz. BP: 114/70 Patient's last menstrual period was 09/07/2023 (exact date). ASSESSMENT & PLAN ICD-10-CM 1. Third trimester Z34.93 2. 37 weeks gestation of Z3A.37 Return OB: Patient presents today for a routine obstetrics appointment. Patient is currently 37w3d . Patient states she is doing well but has complaints of being tired due to current . Patient has verbalizes frequent movement. labor precautions was discussed/given and patient was instructed to perform kick counts three times a day. No orders of the defined types were placed in this encounter. Follow Up: Patient is to return to office in 1 week for routine OB appointment. Documented by Rosario Ruiz LPN on behalf of: Katherine Hoang DO documented in this encounter [facility] 05-20-2024 History of Present illness Narrative Reason for Appointment: Patient ID: Natalie Luther is a 24 y.o. female who presents for Routine Visit Patient presents today for Return OB appointment. MEDICATIONS Current Outpatient Medications Medication Instructions multivitamin () 27-0.8 MG tablet 27-1 MG tablet ALLERGIES No Known Allergies [...] reviewed. Vitals: Estimated body mass index is 35.78 kg/m as calculated from the following: Height as of 11/13/24: 5' 5 . Weight as of this encounter: 215 lb. BP: 118/72 Patient's last menstrual period was 09/07/2023 (exact date). ASSESSMENT & PLAN ICD-10-CM 1. Third trimester Z34.93 POCT urinalysis dipstick manually resulted CULTURE, GROUP B STREP WITH SUSCEPTIBLITY CULTURE, GROUP B STREP WITH SUSCEPTIBLITY 2. 36 weeks gestation of Z3A.36 Return OB: Patient presents today for a routine obstetrics appointment. Patient is currently 36w4d . Patient states she is doing well but has complaints of being tired due to current . Patient has verbalizes frequent movement. labor precautions was discussed/given and patient was instructed to perform kick counts three times a day. Orders Placed This Encounter Procedures CULTURE, GROUP B STREP WITH SUSCEPTIBLITY POCT urinalysis dipstick manually resulted Follow Up: Patient is to return to office in 1 week for routine OB appointment. Documented by Franci Hurt MA on behalf of: MARY Dallas documented in this encounter [facility] 05-05-2024 History of Present illness Narrative Reason [...] nursing note reviewed. Exam conducted with a production control specialist present. Vitals: Estimated body mass index is [...] OB appointment. Documented by Rosario Ruiz LPN- bina on behalf of: Katherine Hoang DO documented in this encounter [facility] 04-21-2024 History of Present illness Narrative Reason [...] nursing note reviewed. Exam conducted with a production control specialist present. Vitals: Estimated body mass index is [...] Hoang DO documented in this encounter [facility] 04-06-2024 History of Present illness Narrative Reason [...] nursing note reviewed. Exam conducted with a production control specialist present. Vitals: Estimated body mass index is [...] Hoang DO documented in this encounter [facility] 03-24-2024 History of Present illness Narrative Reason [...] nursing note reviewed. Exam conducted with a production control specialist present. Vitals: Estimated body mass index is [...] Lockhart PA-C documented in this encounter [facility] 02-26-2024 History of Present illness Narrative Reason [...] nursing note reviewed. Exam conducted with a production control specialist present. Vitals: Estimated body mass index is [...] Hoang DO documented in this encounter [facility] 01-28-2024 History of Present illness Narrative Reason [...] MARY Dallas documented in this encounter [facility] 01-21-2024 History of Present illness Narrative Images [...] open wounds on her foot. 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 documented in this encounter [facility] 12-31-2023 History of Present illness Narrative Reason [...] nursing note reviewed. Exam conducted with a production control specialist present. Vitals: Estimated body mass index is [...] Hoang DO documented in this encounter [facility] 12-03-2023 History of Present illness Narrative Reason [...] nursing note reviewed. Exam conducted with a production control specialist present. Vitals: Estimated body mass index is [...] or undercooked meat, and stay away from [facility]. Patient has been consulted regarding any further do's and don'ts of . Patient voiced understanding and all questions and concerns were answered. Orders Placed This Encounter Procedures POCT urinalysis dipstick manually resulted Follow Up: Patient is to return in 4 weeks for routine OB appointment. Documented by Rosario Ruiz LPN on behalf of: Katherine Hoang DO documented in this encounter [facility] 11-06-2023 History of Present illness Narrative b [...] Exercise-induced asthma (CMS/HCC) OCD (obsessive compulsive disorder) (CMS/[facility]) No family history on file. Social History [...] or undercooked meat, and stay away from [facility]. Patient has also been advised to not [...] Jenny Carcamo LPN documented in this encounter [facility] Healthcare Evaluation + Plan note No data available for this section [facility] Evaluation note Diagnosis Screening, , for anatomic [...] HealthcareEvaluation note* Diagnosis Third trimester state, incidental 36 weeks gestation of Excessive growth affecting management of in third trimester, single or unspecified fetus [facility] Diagnosis Third trimester state, incidental 37 weeks gestation of [facility] No data available for this section [facility] data available for this section [facility] Summary Purpose Family History No Family History Records FoundNo Family History Records FoundNo Family History Records Found Advance Directives No Advanced Directives Records FoundNo Advanced Directives Records FoundNo Advanced Directives Records Found Additional Source Comments INFORMATION SOURCE (unrecogn ized section and content) DATE CREATED AUTHOR 02/09/2022 [facility] DATE CREATED AUTHOR AUTHOR'S ORGANIZ ATION 02/07/2024 [facility] DATE CREATED AUTHOR AUTHOR'S ORGANIZ ATION 05/25/2024 [facility] EPIC Patient Care team informatio n (unrecognized section and content) Chief Unit Forester Relationship Specialty Start Date End Date Luma Perez NP [address] [place] [phone] PCP - Medical [employer] 10/26/21 99 Talisha Mixon MD [address] [place] [address] PCP - General Family Medicine 10/07/22 Naila Cohen NP [address] [place] [address] Nurse Practitioner Family Medicine 10/07/22 Chief Unit Forester Relationship Specialty Start Date End Date Luma Perez NP [address] [place] [phone] PCP - Medical [employer] 10/26/21 99 Talisha Mixon MD [address] [place] [address] PCP - General Family Medicine 10/07/22 Naila Cohen NP [address] [place] [address] Nurse Practitioner [facility] 10/07/22 Chief Unit Forester Relationship Specialty Start Date End Date Luma Perez NP [address] [place] [phone] PCP - Medical [employer] 10/26/21 99 Talisha Mixon MD [address] [place] [address] PCP - General Family Medicine 10/07/22 Naila Cohen NP [address] [place] [address] Nurse Practitioner [facility] 10/07/22 Chief Unit Forester Relationship Specialty Start Date End Date Luma Perez NP [address] [place] [phone] PCP - Medical [employer] 10/26/21 99 Talisha Mixon MD [address] [place] [address] PCP - General Family Medicine 10/07/22 Naila Cohen NP [address] [place] [address] Nurse Practitioner Family Medicine 10/07/22 Chief Unit Forester Relationship Specialty Start Date End Date Luma Perez NP [address] [place] [phone] PCP - Medical [employer] 10/26/21 99 Talisha Mixon MD [address] [place] [address] PCP - General Family Medicine 10/07/22 Naila Cohen NP [address] [place] [address] Nurse Practitioner Family [facility] 10/07/22 Chief Unit Forester Relationship Specialty Start Date End Date Luma Perze NP [address] [place] [phone] PCP - Medical [employer] 10/26/21 99 Talisha Mixon MD [address] [place] [address] PCP - General Family Medicine 10/07/22 Naila Cohen NP [address] [place] [address] Nurse Practitioner Family Medicine 10/07/22 Chief Unit Forester Relationship Specialty Start Date End Date Luma Perez NP [address] [place] [phone] PCP - Medical [employer] 10/26/21 99 Talisha Mixon MD [address] [place] [address] PCP - General Family Medicine 10/07/22 Naila Cohen NP [address] [place] [address] Nurse Practitioner Family Medicine 10/07/22 Chief Unit Forester Relationship Specialty Start Date End Date Luma Perez NP [address] [place] [phone] PCP - Medical [employer] 10/26/21 99 Talisha Mixon MD [address] [place] [address] PCP - General Family Medicine 10/07/22 Naila Cohen NP [address] [place] [address] Nurse Practitioner Family Medicine 10/07/22 Chief Unit Forester Relationship Specialty Start Date End Date Luma Perez NP [address] [place] [phone] PCP - Medical [employer] 10/26/21 99 Talisha Mixon MD [address] [place] [address] PCP - General Family Medicine 10/07/22 Naila Cohen NP [address] [place] [address] Nurse Practitioner Family Medicine 10/07/22 Chief Unit Forester Relationship Specialty Start Date End Date Luma Perez NP [address] [place] [phone] PCP - Medical [employer] 10/26/21 99 Talisha Mixon MD [address] [place] [address] PCP - General Family Medicine 10/07/22 Naila Cohen NP [address] [place] [address] Nurse Practitioner Family Medicine 10/07/22 Chief Unit Forester Relationship Specialty Start Date End Date Luma Perez NP [address] [place] [phone] PCP - Medical [employer] 10/26/21 99 Talisha Mixon MD [address] [place] [address] PCP - General Family Medicine 10/07/22 Naila Cohen NP [address] [place] [address] Nurse Practitioner Family Medicine 10/07/22 Reason for Visit (unrecogniz ed [...] BE BASED ON THE PRIMARY CLINICAL RECORDS. [facility] [facility] provides no warranty or guarantee of the accuracy or completeness of information in this document.
== END 2024-05-28 17:45 | disposition home or self-care (01) ==
LOC: FBCO 16:58 → FBC 17:01
PROVIDERS: PCP Student in an Organized Health Care Education/Training Program; Visit Provider Obstetrics & Gynecology
DX: O36.63X0 Maternal care for excessive fetal growth, third trimester, not applicable or unspecified (principal)
CPT/HCPCS: 59025

== ENCOUNTER 2024-05-31 13:03 | Outpatient (OUT) | payer OTHER, SELFPAY ==
--- NOTE | 2024-05-31 13:13 | US_ITS ---
[place] [id number] Patient Name: SAMANTHA MORENO MRN: [id number] date: 2000 Sex: F Assigned Patient Location: [facility] Current Patient Location: Accession/Order Number: [id number] Exam Date: 05/31/2024 14:32 Report Date: 05/31/2024 14:33 At the request of: KATHERINE CARRASCO DO Procedure: US OB BPP w non-stress Biophysical profile. Reason for exam: Excessive growth. COMPARISON: 05/25/2024 TECHNIQUE: Transabdominal imaging of the gravid uterus was obtained. FINDINGS: Quarter Inspector reports a BPP of 8 out of 8. MICHAEL is normal at 23.1cm. heart rate 130bpm. US/US OB BPP w non-stress IMPRESSION: BPP 8 out of 8. Impression dictated by: Hans Norton Jr., D.O.05/31/2024 2:33 PM Dictation Location: [place] [address] Electronically authenticated by: [id number] Y Date: 05/31/2024 14:33
[2024-05-31 13:14] VITALS: BP 131/76; PULSE 91
== END 2024-05-31 14:16 | disposition home or self-care (01) ==
LOC: FBCO 13:03 → FBC 13:05
PROVIDERS: PCP Student in an Organized Health Care Education/Training Program; Visit Provider Obstetrics & Gynecology
DX: O36.63X0 Maternal care for excessive fetal growth, third trimester, not applicable or unspecified (principal)
CPT/HCPCS: 76818

== ENCOUNTER 2024-06-03 11:59 | Outpatient (OUT) | payer OTHER, SELFPAY ==
[2024-06-03 12:26] VITALS: BP 108/70; PULSE 106
== END 2024-06-03 12:29 | disposition home or self-care (01) ==
LOC: FBCO 11:59 → FBC 12:02
PROVIDERS: PCP Student in an Organized Health Care Education/Training Program; Visit Provider Obstetrics & Gynecology
DX: O36.63X0 Maternal care for excessive fetal growth, third trimester, not applicable or unspecified (principal); Z3A.38 38 weeks gestation of pregnancy
CPT/HCPCS: 59025

== ENCOUNTER 2024-06-07 16:48 | Inpatient (IN) | payer OTHER, SELFPAY ==
--- NOTE | 2024-06-07 17:23 | PC.NURSE ---
1700- pt. arrives for scheduled induction, oriented to room and plan of care. Water and menu given. Updated patient on induction schedule, verbalizes understanding, pt. and significant other denies questions at this time.
[2024-06-07 17:35] VITALS: BP 110/71; PULSE 86; TEMP 36.3
[2024-06-07 17:45] LABS: Hematocrit 41.6 % (36.0-48.0); Hemoglobin 14.3 g/dL (12.0-16.0); Mean Corpuscular HGB Conc 34.4 g/dL (29.9-35.2); Mean Corpuscular Hemoglobin 32.1 pg (26.7-34.0); Mean Corpuscular Volume 93.5 fL (81.0-99.0); Mean Platelet Volume 10.9 fL (9.5-13.5); Platelet Count 274 10^3/uL (150-450); Red Blood Count 4.45 10^6/uL (4.20-5.40); Red Cell Distribution Width 13.3 % (11.0-15.0); White Blood Count 14.4 10^3/uL (4.0-11.0)
[2024-06-07] MEDS: DINOPROSTONE 10 MG VAG INSERT.ER VAGINAL (23:58)
[2024-06-08] VITALS (57 sets, daily range): BP systolic 89–131; BP diastolic 46–87; PULSE 68–109; TEMP 36.6–36.8; O2SAT 92–95
[2024-06-08] MEDS: 0.9 % SODIUM CHLORIDE 1,000 ML 125 ML IV ×2 (12:10→12:58)
[2024-06-08] MEDS: FAMOTIDINE/PF 20 MG/2 ML VIAL IV (12:30)
[2024-06-08] MEDS: CEFAZOLIN SODIUM/DEXTROSE,ISO 2 GM/50 ML PIGGYBACK IV ×2 (12:31→19:34)
[2024-06-08] MEDS: CITRIC ACID/SODIUM CITRATE 30 ML SOLUTION ORACIT SHOHL'S SOLN PO (12:31)
[2024-06-08] MEDS: METOCLOPRAMIDE HCL 10 MG/2 ML VIAL IVP (12:32)
[2024-06-08] MEDS: LACTATED RINGER'S SOLUTION 1,000 ML 50 ML IV (13:40)
--- NOTE | 2024-06-08 13:47 | P.OBPRC_ITS ---
Procedure Pre-op/Post-op diagnoses: Pre-Op/Post-Op Diagnoses Operation Date: 06/08/24 13:00 <No data on this case meets the specified criteria> Procedure: Procedures Operation Date: 06/08/24 13:00 Actual Procedure Side Surgeon p Not Applicable Jeremiah Hoang DO [employer]: Edna Toney Estimated blood loss (mL): 575 Disposition: PACU Anesthesia type: Spinal
--- NOTE | 2024-06-08 13:47 | PM.ONB ---
Brief Operative Note Date of procedure: 06/08/24 Pre-op diagnosis general: iup at 39wks, failure to induce, cpd Post-op diagnosis: same as pre-op Procedure: NAME OF PROCEDURE: [ section ] PROCEDURE: Patient was taken back to the Operating Room where she was given a spinal anesthesia with Duramorph without difficulty. She was prepped and draped in the normal sterile fashion. A Pfannenstiel skin incision was then made 2 cm above the symphysis pubis and carried down to underlying rectus fascia using a Bovie. The fascia was incised in the midline and extended laterally using Tolbert scissors. Two Oscar clamps were placed on the superior aspect of the fascia and dissected off the underlying rectus muscles. The same was performed on the inferior aspect as well. The muscles were then in the midline. Peritoneum was identified and entered bluntly. The peritoneum was then extended superiorly and inferiorly with good visualization of the bladder. The bladder blade was inserted. A low transverse incision was made on the patient's uterus and extended laterally digitally. The infant was then delivered atraumatically after the bladder blade was removed in the cephalic position. The cord was clamped and cut. Cord blood was obtained. The infant was handed off to awaiting team. The patient's placenta was spontaneously delivered. The uterus was then exteriorized. The uterus was cleared of all clots and debris. The bladder blade was reinserted. The patient's uterine incision was closed using #0 Vicryl in a running lock fashion. Excellent hemostasis was assured. The uterus was then returned to the patient's abdomen. The patient's abdomen was copiously irrigated using warm saline. Peritoneal gutters were cleared of all clots and debris. Again excellent hemostasis was assured. The patient's peritoneum was closed using 3-0 Vicryl in a running fashion. The patient's fascia was closed using #0 Vicryl in a running fashion. The patient's skin was closed using 4-0 Vicryl subcuticularly. The patient tolerated the procedure well. Sponge, lap, and needle counts were correct x2. The patient was taken to the Recovery Room in stable condition. Anesthesia: spinal Surgeon: Jeremiah Hoang [employer] Worker: Edna Toney Estimated blood loss (mL): 575 Pathology: none sent Condition: stable Disposition: floor Urinary Catheter Management Urinary Catheter Management Urethral: Cath placed during this visit: no
[2024-06-08] MEDS: KETOROLAC TROMETHAMINE 30 MG/ML VIAL IVP ×2 (15:31→22:34)
[2024-06-09] VITALS (9 sets, daily range): BP systolic 109–119; BP diastolic 55–75; PULSE 75; TEMP 36.4–36.8; O2SAT 94–95
[2024-06-09] MEDS: ENOXAPARIN SODIUM 40 MG/0.4 ML SYRINGE SUBQ (00:49)
[2024-06-09] MEDS: KETOROLAC TROMETHAMINE 30 MG/ML VIAL IVP ×3 (06:13→22:14)
[2024-06-09 06:28] LABS: Basophils Absolute Auto 0.1 10^3/uL (0.0-0.1); Basophils Percent Auto 0.3 % (0.2-2.0); Eosinophils Percent Auto 0.1 % (0.9-7.0); Hematocrit 33.3 % (36.0-48.0); Hemoglobin 11.3 g/dL (12.0-16.0); Immature Granulocytes Abs Auto 0.13 10^3/uL (0.00-0.03); Immature Granulocytes Pct Auto 0.6 % (0.0-0.5); Lymphocytes Absolute Auto 3.2 10^3/uL (1.2-3.8); Lymphocytes Percent Auto 15.5 % (20.5-60.0); Mean Corpuscular HGB Conc 33.9 g/dL (29.9-35.2); Mean Corpuscular Hemoglobin 31.9 pg (26.7-34.0); Mean Corpuscular Volume 94.1 fL (81.0-99.0); Mean Platelet Volume 10.7 fL (9.5-13.5); Monocytes Absolute Auto 1.5 10^3/uL (0.3-0.8); Monocytes Percent Auto 7.1 % (1.7-12.0); Neutrophils Absolute Auto 15.5 10^3/uL (1.4-6.5); Neutrophils Percent Auto 76.4 % (43.0-75.0); Platelet Count 241 10^3/uL (150-450); Red Blood Count 3.54 10^6/uL (4.20-5.40); Red Cell Distribution Width 13.4 % (11.0-15.0); White Blood Count 20.3 10^3/uL (4.0-11.0)
--- NOTE | 2024-06-09 07:52 | PM.OBPN ---
OB - PN: Subj Subjective Patient comments: no complaints and pain well controlled [place] status: doing well Exam Constitutional Vital Signs, click to edit/add: Last Vital Signs Temp 97.6 F 06/09/24 00:50 Pulse 78 06/08/24 16:51 Resp 16 06/09/24 07:45 BP 110/62 06/09/24 00:50 Pulse Ox 95 06/08/24 15:20 O2 Del Method Room Air 06/09/24 07:45 Documenting provider has reviewed patient's vital signs: yes Common normals: no apparent distress Respiratory Common normals: normal respiratory effort and clear to auscultation bilaterally Cardio Common normals: regular rate and regular rhythm GI Common normals: Normal to inspection, nondistended, normoactive bowel sounds present Extremity Common normals: no clubbing, cyanosis or edema Results Labs Labs: Short CBC 06/09/24 Range/Units 06:04 WBC 20.3 H (4.0-11.0) 10^3/uL Hgb 11.3 L (12.0-16.0) g/dL Hct 33.3 L (36.0-48.0) % Plt Count 241 (150-450) 10^3/uL Urinary Catheter Management Urinary Catheter Management Urethral: Cath placed during this visit: yes, but has since been removed by the nurse Insertion date: 06/08/24 Insertion time: 13:15 Removal date: 06/09/24 Removal time: 06:00 OB - PN: A/P Plan - day: 1 Plan: routine postop care Time Spent with Patient Time: Total time spent is greater than 50% in coordination of care (as documented) at patient's floor/unit and/or counseling patient: Total time spent with greater than 50% in coordination of care (as documented) at patient's floor/unit and/or counseling patient: less than 15 minutes
[2024-06-09] MEDS: DOCUSATE SODIUM 100 MG CAPSULE PO ×2 (12:56→22:15)
--- NOTE | 2024-06-09 13:31 | PC.NURSE ---
pulse ox 94% on RA. Denies SOB or dyspnea. Encouraged deep breathing, Pulse ox up to 95%
[2024-06-10 00:28] VITALS: BP 113/66; PULSE 67; TEMP 36.7
[2024-06-10] MEDS: ENOXAPARIN SODIUM 40 MG/0.4 ML SYRINGE SUBQ (00:43)
[2024-06-10] MEDS: IBUPROFEN 600 MG TABLET PO ×2 (05:28→11:35)
--- NOTE | 2024-06-10 08:53 | PM.OBPN ---
OB - PN: Subj Subjective Patient comments: no complaints and pain well controlled [place] status: doing well Exam Constitutional Vital Signs, click to edit/add: Last Vital Signs Temp 98.1 F 06/10/24 00:28 Pulse 67 06/10/24 00:28 Resp 16 06/10/24 00:28 BP 113/66 06/10/24 00:28 Pulse Ox 94 L 06/09/24 20:40 O2 Del Method Room Air 06/10/24 00:28 Documenting provider has reviewed patient's vital signs: yes Common normals: no apparent distress Respiratory Common normals: clear to auscultation bilaterally Cardio Common normals: regular rate and regular rhythm GI Common normals: Normal to inspection, nondistended, normoactive bowel sounds present Extremity Common normals: no clubbing, cyanosis or edema Urinary Catheter Management Urinary Catheter Management Urethral: Cath placed during this visit: yes, but has since been removed by the nurse Insertion date: 06/08/24 Insertion time: 13:15 Removal date: 06/09/24 Removal time: 06:00 OB - PN: A/P Plan - day: 2 Plan: routine postop care, discharge home and other (fu 1wk) Plan - Vaginal Delivery Plan: routine care Time Spent with Patient Time: Total time spent is greater than 50% in coordination of care (as documented) at patient's floor/unit and/or counseling patient: Total time spent with greater than 50% in coordination of care (as documented) at patient's floor/unit and/or counseling patient: less than 15 minutes
[2024-06-10] MEDS: DOCUSATE SODIUM 100 MG CAPSULE PO (08:57)
== END 2024-06-10 12:45 | disposition home or self-care (01) | DRG 788 ==
PROVIDERS: Admitting Provider Obstetrics & Gynecology; PCP Student in an Organized Health Care Education/Training Program; Visit Provider Obstetrics & Gynecology
PROC: 10D00Z1 Extraction of Products of Conception, Low, Open Approach (ICD-10-PCS; CPT 59514; principal; 2024-06-08 13:00)
DX: O33.9 Maternal care for disproportion, unspecified (principal); O61.0 Failed medical induction of labor; Z3A.39 39 weeks gestation of pregnancy; Z37.0 Single live birth
CPT/HCPCS: 36415; 59050; 85025; 85027; 86850; 86900; 86901; J0665; J0690; J1650; J1885; J2274; J2371; J2405; J2590; J2765; J3490

== ENCOUNTER 2024-06-16 08:08 | Outpatient (OUT) | payer OTHER, SELFPAY ==
[2024-06-16 10:45] VITALS: BP 103/70; PULSE 99; TEMP 36.7; O2SAT 99
== END 2024-06-16 11:15 | disposition home or self-care (01) ==
LOC: FBCO 08:09
PROVIDERS: PCP Student in an Organized Health Care Education/Training Program; Visit Provider Obstetrics & Gynecology
DX: Z39.1 Encounter for care and examination of lactating mother (principal)

== ENCOUNTER 2025-02-28 20:25 | Outpatient (REF) | payer OTHER, SELFPAY ==
--- OUTSIDE RECORDS SUMMARY | 2025-02-28 10:40 | XMS_ITS | Encounter Summary ---
Author Organization [facility] Address [address] [place] [address] Care Team Providers Care Student Education Specialist Name Role Phone Marianne Pena DUPLICATOR PUNCH OPERATOR Unavailable Talisha Mixon MD Primary Care Provider [phone] Naila Gómez DUPLICATOR PUNCH OPERATOR Unavailable [phone] Reason for Visit * ReasonCommentsWell Women Visit Encounter Details DateTypeDepartmentCare Team (Latest Contact Info)Zlqhrwtwijy84/22/2025 10:40 AM ESTOffice Visit [facility] [address] [place] [address] Jeremiah Hoang DO [address] [place], [place] [id number] Well woman exam with routine gynecological exam Social History Tobacco UseTypesPacks/DayYears UsedDateSmoking Tobacco: NeverSmokeless Tobacco: NeverAlcohol UseStandard Drinks/WeekCommentsNot Currently0 (1 standard drink = 0.6 oz pure alcohol)Humiliation, Afraid, Rape, and Kick questionnaireAnswerDate RecordedWithin the last year, have you been afraid of your partner or ex-partner?No10/08/2024Within the last year, have you been humiliated or emotionally abused in other ways by your partner or ex-partner?No10/08/2024 Within the last year, have you been kicked, hit, slapped, or otherwise physically hurt by your partner or ex-partner?No10/08/2024Within the last year, have you been raped or forced to have any kind of sexual activity by your part ner or ex-partner?No10/08/2024Social Connection and Isolation PanelAnswerDate RecordedIn a typical week, how many times do you talk on the phone with family, friends, or neighbors?More than three times a week10/08/2024How often do you get together with friends or relatives?Twice a week10/08/2024How often do you attend yazidism or quaker services?More than 4 times per year10/08/2024Do you belong to any clubs or organizations such as yazidism groups, unions, fraternal or athletic groups, or school groups?Yes10/08/2024How often do you attend meetings of the clubs or organizations you belong to?More than 4 times per year10/08/2024 Are you , , , , never , or living with a partner?Ttxglkh2810/08/2024UDIT-CAnswerDate RecordedQ1: How often do you have a drink containing alcohol?Never10/08/2024Q2: How many drinks containing alcohol do you have on a typical day when you are drinking?Patient does not drink 10/08/2024Q3: How often do you have six or more drinks on one occasion?Never 10/08/2024Overall Financial Resource Strain (CARDIA)AnswerDate RecordedHow hard is it for you to pay for the very basics like food, housing, medical care, and heating?Not hard at all10/08/2024PHQ-2AnswerDate RecordedPatient Health Questionnaire-2 Avgdt498[facility] [place] of Occupational Health - Occupational Stress QuestionnaireAnswerDate RecordedDo you feel stress - tense, restless, nervous, or anxious, or unable to sleep at night because yourmind is troubled all the time - these days?To some mxmnbz1510/08/2024Exercise Vital Sign AnswerDate RecordedOn average, how many days per week do you engage in moderate to strenuous exercise (like a brisk walk)?2 days10/08/2024On average, how many minutes do you engage in exercise at this level?60 min10/08/2024Hunger Vital SignAnswerDate RecordedWithin the past 12 months, you worried that your food would run out before you got the money to buymore.Never true10/08/2024Within the past 12 months, the food you bought just didn't last and you didn't have money to get more.Never true10/08/2024PRAPARE - TransportationAnswerDate RecordedIn the past 12 months, has lack of transportation kept you from medical appointments or from getting medications?No10/08/2024In the past 12 months, has lack of transportation kept you from meetings, work, or from getting things needed for daily living?No10/08/2024Housing Stability Vital SignAnswerDate RecordedIn the last 12 months, was there a time when you were not able to pay the mortgage or rent on time?No10/08/2024In the past 12 months, how many times have you moved where you were living?t any time in the past 12 months, were you homeless or living in a correction (including now)?No10/08/2024 CommentsNoSex and Gender InformationValueDate RecordedSex Assigned at BirthNot on fileLegal IzeAeegzi76/15/2023 7:27 PM EDTGender IdentityFemale 05/22/2022 7:27 PM EDTSexual OrientationNot on filedocumented as of this encounter Last Filed Vital Signs Vital SignReadingTime TakenCommentsBlood Oubygjpq587/6802/28/2025 10:47 AM EST Pulse--Temperature--Respiratory Rate--Oxygen Saturation--Inhaled Oxygen Concentration--Qzoedn00.5 kg (204 lb)02/28/2025 10:47 AM ESTHeight--Body Mass Index33.9508 3:40 PM EDTdocumented in this encounter Progress Notes * Rosario Ruiz LPN - 02/28/2025 10:40 AM EST Reason for Appointment: Patient ID: Natalie Luther is a 25 y.o. female who presents for Well Women Visit Patient presents today for Annual Exam. MEDICATIONS Current Outpatient Medications Medication Instructions multivitamin () 27-0.8 MG tablet 27-1 MG tablet 1 tablet, Oral, Daily ALLERGIES No Known Allergies PROBLEMS Active Ambulatory Problems Diagnosis Date Noted Anxiety 10/08/2022 Bruising 10/08/2022 Chronic fatigue 10/08/2022 Low blood sugar 10/08/2022 Migraine 10/08/2022 Seasonal allergies 10/08/2022 Gastroesophageal reflux disease without esophagitis 02/26/2024 24 weeks gestation of ([facility]) 02/26/2024 Second trimester ([facility]) 02/26/2024 Resolved Ambulatory Problems Diagnosis Date Noted No Resolved Ambulatory Problems Past Medical History: Diagnosis Date Acne vulgaris Anxiety disorder BMI 29.0-29.9,adult Depression screening Encounter for gynecological examination (general) (routine) without abnormal findings Exercise-induced asthma (HCC) OCD (obsessive compulsive disorder) HISTORY PAST MEDICAL HISTORY SOCIAL HISTORY Past Medical History: Diagnosis Date Acne vulgaris Anxiety disorder BMI 29.0-29.9,adult Depression screening Encounter for gynecological examination (general) (routine) without abnormal findings Exercise-induced asthma (HCC) Migraine OCD (obsessive compulsive disorder) Social History Tobacco Use Smoking status: Never Smokeless tobacco: Never Substance Use Topics Alcohol use: Not Currently Drug use: Never FAMILY HISTORY No family history on file. SURGICAL HISTORY Past Surgical History: Procedure Laterality Date SECTION, LOW TRANSVERSE 06/08/2024 REVIEW OF SYSTEMS Review of Systems: Review of Systems Constitutional: Negative. HENT: Negative. Eyes: Negative. Respiratory: Negative. Cardiovascular: Negative. Gastrointestinal: Negative. Genitourinary: Negative. Musculoskeletal: Negative. Skin: Negative. Neurological: Negative. All other systems reviewed and are negative. Hematological: Negative. Endocrine: Negative. Allergic/Immunologic: Negative. OBJECTIVE Objective: Physical Exam Constitutional: Appearance: Normal appearance. She is well-developed. Genitourinary: Vulva normal. Cardiovascular: Rate and Rhythm: Normal rate and [...] nursing note reviewed. Exam conducted with a wood patternmaker present. Vitals: Estimated body mass index is 33.95 kg/m?? as calculated from the following: Height as of 10/15/24: 5' 5 . Weight as of this encounter: 204 lb. BP: 110/68 No LMP recorded. (Menstrual status: No Periods). ASSESSMENT & PLAN ICD-10-CM 1. Well woman exam with routine gynecological exam Z01.419 Pap Smear No orders of the defined types were placed in this encounter. Annual Wellness Exam: Patient presents today for routine annual exam. Patient states she has no current complaints. Patients vitals were reviewed and within normal limits. Growth and development is noted to be appropriate for age. Menstrual history is noted to be irregular with concerns reported. Pt has not had cycle since delivery, pt still . No mental health concerns was expressed. Pap Smear: Speculum was inserted into the vagina and pap was obtained without difficulty. No HPV testing was performed per age guideline. Patient was advised that pap results could take anywhere from 7 to 10 days to receive and our office will reach out to the patient with those once we have them. Patient canalso view results via [employer]. I reinforced importance of condom use for STI prevention. Patient declined cultures to be performed with today's visit. Breast Exam: Upon examination, clinical breast exam was noted to be normal. Patient was counseled on breast self-awareness, including the importance of knowing what is normal for her own breasts and promptly reporting any changes such as new lumps, skin dimpling, nipple discharge, or pain. Screening mammogram recommended annually beginning at age 40 or earlier if risk factors are present. Discussed signs and symptoms of breast cancer and when to seek medical attention. Answered all patient questions. Contraceptive Counseling (if applicable): Patient is currently using no control at this time as a form of contraceptive. Patient does not desire control at this time. Follow Up: Patient is to return to our office in one year for annual exam unless needed otherwise. Documented by Rosario Ruiz LPN on behalf of: Jeremiah Hoang DO documented in this encounter Plan of Treatment DateTypeDepartmentCare Team (Latest Contact Info)Iboyiileybt65/04/2027 9:00 AM ESTProcedure Visit [facility] [address] [place] [address] Jeremiah Hoang DO [address] [place] [address] NameTypePriorityAssociated DiagnosesOrder SchedulePap SmearPathology and CytologyRoutine Well woman exam with routine gynecological exam Ordered: 02/28/2025documented as of this encounter Visit Diagnoses Diagnosis Well woman exam with routine gynecological exam Routine gynecological examination documented in this encounter Care Teams Team MemberRelationshipSpecialtyStart DateEnd Date Marianne Pena NP [address] [place] [id number] PCP - Medical [place] [employer]10/27/2211 Talisha Mixon MD [address] [place] [address] PCP - GeneralFamily Medicine10/07/22 Naila Gómez NP [address] [place] [address] Nurse PractitionerFamily Medicine10/07/22documented as of this encounter
--- OUTSIDE RECORDS SUMMARY | 2025-02-28 20:27 | XMS_ITS | Encounter Summary ---
Author Organization [facility] Address [address] [place] [address] Care Team Providers Care Senior Stereo Compiler Team Lead Name Role Phone Marianne Pena DRESSMAKER GARMENT FITTER Unavailable [phone] Talisha Mixon MD Primary Care Provider [phone] Naila Gómez DRESSMAKER GARMENT FITTER Unavailable [phone] Encounter Details DateTypeDepartmentCare Team (Latest Contact Info)Kqiuheiywzb66/21/2025Travel Social History Tobacco UseTypesPacks/DayYears UsedDateSmoking Tobacco: NeverSmokeless [...] relatives?Twice a week10/08/2024How often do you attend mandaeism or synagogue services?More than 4 times per year10/08/2024Do you belong to any clubs or organizations such as mandaeism groups, unions, fraternal or athletic groups, or school groups?Yes10/08/2024How often do you attend meetings of the clubs or organizations you belong to?More than 4 times per year10/08/2024 Are you , , , , never , or living with a partner?Xbzngow5810/08/2024UDIT-CAnswerDate RecordedQ1: How often do you have a [...] heating?Not hard at all10/08/2024PHQ-2AnswerDate RecordedPatient Health Questionnaire-2 Zrpcj433[facility] [place] of Occupational Health - Occupational Stress QuestionnaireAnswerDate RecordedDo you feel stress - tense, restless, nervous, or anxious, or unable to sleep at night because yourmind is troubled all the time - these days?To some ltqlnn5810/08/2024Exercise Vital Sign AnswerDate RecordedOn average, how many [...] were you homeless or living in a half-way (including now)?No10/08/2024 CommentsNoSex and Gender InformationValueDate RecordedSex Assigned at BirthNot on fileLegal KabMqaocl58/15/2023 7:27 PM EDTGender IdentityFemale 05/22/2022 7:27 PM EDTSexual OrientationNot on filedocumented as of this encounter Plan of Treatment DateTypeDepartmentCare Team (Latest Contact Info)Ebznftpuqnq87/04/2027 9:00 AM ESTProcedure Visit [facility] [address] [place] [address] Jeremiah Hoang DO [address] [place] [address] documented as of this encounter Visit Diagnoses Not on filedocumented in this encounter Care Teams Team MemberRelationshipSpecialtyStart DateEnd Date Marianne Pena NP [address] [place] [phone] PCP - Medical [place] [employer]10/27/2211 Talisha Mixon MD [address] [place] [address] PCP - GeneralFamily Medicine7/31/23 Naila Gómez DRESSMAKER GARMENT FITTER [address] [place] [address] Nurse PractitionerFamily Medicine10/07/22documented as of this encounter
--- OUTSIDE RECORDS SUMMARY | 2025-02-28 20:27 | XMS_ITS | Encounter Summary ---
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 Name Role Phone Marianne Pena APN Unavailable Talisha Mixon MD Primary Care Provider Naila Gómez APN Unavailable [phone] Encounter Details DateTypeDepartmentCare Team (Latest Contact Info)Ufhkxczucej67/22/2025amboo flowsheet [facility] [address] [place] [address] Jeremiah Hoang DO [address] [place], [place] [id number] Social History Tobacco UseTypesPacks/DayYears UsedDateSmoking Tobacco: NeverSmokeless [...] relatives?Twice a week10/08/2024How often do you attend mormonism or pentecostalism services?More than 4 times per year10/08/2024Do you belong to any clubs or organizations such as mormonism groups, unions, fraternal or athletic groups, or school groups?Yes10/08/2024How often do you attend meetings of the clubs or organizations you belong to?More than 4 times per year10/08/2024 Are you , , , , never , or living with a partner?Oegsklt8810/08/2024UDIT-CAnswerDate RecordedQ1: How often do you have a [...] heating?Not hard at all10/08/2024PHQ-2AnswerDate RecordedPatient Health Questionnaire-2 Iwozm926F[facility] [place] of Occupational Health - Occupational Stress QuestionnaireAnswerDate RecordedDo you feel stress - tense, restless, nervous, or anxious, or unable to sleep at night because yourmind is troubled all the time - these days?To some sqnrns5010/08/2024Exercise Vital Sign AnswerDate RecordedOn average, how many [...] were you homeless or living in a group home (including now)?No10/08/2024 CommentsNoSex and Gender InformationValueDate RecordedSex Assigned at BirthNot on fileLegal YfqRbmqxg26/15/2023 7:27 PM EDTGender IdentityFemale 05/22/2022 7:27 PM EDTSexual OrientationNot on filedocumented as of this encounter Plan of Treatment DateTypeDepartmentCare Team (Latest Contact Info)Tzjgajohlxm11/04/2027 9:00 AM ESTProcedure Visit [facility] [address] [place] [address] Jeremiah Hoang DO [address] [place] [address] documented as of this encounter Visit Diagnoses Not on filedocumented in this encounter Care Teams Team MemberRelationshipSpecialtyStart DateEnd Date Marianne Pena NP [address] [place] [address] PCP - Medical [place] [employer]10/27/2211 Talisha Mixon MD [address] [place] [id number] [facility] - [facility]10/07/22 Naila Gómez NP [address] [place] [address] Nurse PractitionerFalowell general hospital Medicine10/07/22documented as of this encounter
--- OUTSIDE RECORDS SUMMARY | 2025-02-28 20:27 | XMS_ITS | Clinical Summary ---
Author Organization [facility] Address [address] [place] [address] Care Team Providers Care Requirements Engineer Name Role Phone Marianne Pena RAW CHEESE WORKER Unavailable Talisha Mixon MD Primary Care Provider Naila Gómez RAW CHEESE WORKER Unavailable Allergies No known active allergies Medications MedicationSigDispense QuantityRefillsLast FilledStart DateEnd DateStatus multivitamin () 27-0.8 MG tablet 4Active 27-1 MG tablet Indications: care following delivery ([facility])Take 1 tablet by mouth Daily 30 tablet 1105Active Active Problems ProblemNoted DateDiagnosed DateGastroesophageal reflux disease without aeooaisuoyv33/19/426081 weeks gestation of ([facility])02/26/2024Second trimester ([facility])02/26/20241662Xduoqvl80/01/6320Lvlnsgmd52/01/2023 Chronic tnntpmr3310/08/2022Low blood sugar10/08/20226546Rkkisaxf11/01/2023Seasonal kfvnhqluz02/01/2023 Encounters DateTypeDepartmentCare KjznSvzicvjdsju50/22/2025 10:40 AM ESTOffice Visit [facility] [address] [place] [address] [place] [address] Jeremiah Hoang, DO Well woman exam with routine gynecological exam02/28/2025amboo flowsheet [facility] [address] [place] [address] Jeremiah Hoang, DO 02/27/2025Travelfrom Last 3 Months Immunizations ImmunizationAdministration DatesNext AztQRgA1311/03/2003DTaP, Unspecified 05/02/2004,12/28/2001,1999HPV 9-Kxjtdm8310/30/2016HPV, Quadrivalent 10/04/2011Hep A, ped/adol, 2 dose10/30/2016,10/04/2011Hep B, Adolescent or Tlmvdroah23/26/2004,1999Hib (PRP-OMP)1999Hib / Hep B1IPV 11/03/2003,12/28/2001,1999MMR11/03/2003,12/28/2001Meningococcal B, Omv 10/30/2016Meningococcal ZKI1H5710/04/2011Meningococcal JJM5A4710/30/2016Tdap 06/26/2020,10/04/2011 Family History RelationNameStatusCommentsFatherAliveMotherAlive Social History Tobacco UseTypesPacks/DayYears UsedDateSmoking Tobacco: NeverSmokeless Tobacco: Never Tobacco Cessation:Counseling Given: Not Answered Alcohol UseStandard Drinks/WeekCommentsNot Currently0 (1 standard drink = 0.6 oz pure alcohol)Humiliation, Afraid, Rape, and Kick questionnaireAnswerDate RecordedWithin the last year, have you been afraid of your partner or ex-partner?10/08/2024Within the last year, have you been humiliated or emotionally abused in other ways by your partner or ex-partner?10/08/2024 Within the last year, have you been kicked, hit, slapped, or otherwise physically hurt by your partner or ex-partner?10/08/2024Within the last year, have you been raped or forced to have any kind of sexual activity by your part ner or ex-partner?10/08/2024Social Connection and Isolation PanelAnswerDate RecordedIn a typical week, how many times do you talk on the phone with family, friends, or neighbors?More than three times a week10/08/2024How often do you get together with friends or relatives?Twice a week10/08/2024How often do you attend jehovah's witness or sabianist services?More than 4 times per year10/08/2024Do you belong to any clubs or organizations such as jehovah's witness groups, unions, fraternal or athletic groups, or school groups?Yes10/08/2024How often do you attend meetings of the clubs or organizations you belong to?More than 4 times per year10/08/2024 Are you , , , , never , or living with a partner?Akcnnfk5210/08/2024UDIT-CAnswerDate RecordedQ1: How often do you have a [...] heating?Not hard at all10/08/2024PHQ-2AnswerDate RecordedPatient Health Questionnaire-2 Wcmlp044[facility] [place] of Occupational Health - Occupational Stress QuestionnaireAnswerDate RecordedDo you feel stress - tense, restless, nervous, or anxious, or unable to sleep at night because yourmind is troubled all the time - these days?To some lmqopr9610/08/2024Exercise Vital Sign AnswerDate RecordedOn average, how many days per week do you engage in moderate to strenuous exercise (like a brisk walk)?2 days10/08/2024On average, how many minutes do you engage in exercise at this level?60 min10/08/2024Hunger Vital SignAnswerDate RecordedWithin the past 12 months, you worried that your food would run out before you got the money to buymore.Never true08/01/2025Within the past 12 months, the food you [...] were you homeless or living in a [place] (including now)?No10/08/2024 CommentsNoSex and Gender InformationValueDate RecordedSex Assigned at BirthNot on fileLegal EjiLzbdkg30/15/2023 7:27 PM EDTGender IdentityFemale 05/22/2022 7:27 PM EDTSexual OrientationNot on file Last Filed Vital Signs Vital SignReadingTime TakenCommentsBlood Iprojjxc576/6802/28/2025 10:47 AM EST Qzdpx349610/15/2024 3:40 PM RBLRapbpnknwus37.9 ??C (98.4 ??F)10/15/2024 3:40 PM EDTRespiratory Rate--Oxygen Tfemvoeauu11%10/15/2024 3:40 PM EDTInhaled Oxygen Concentration--Aruucu24.5 kg (204 lb)02/28/2025 10:47 AM YFVKczigt871.1 cm (5' 5 )10/15/2024 3:40 PM EDTBody Mass Index33.9508 3:40 PM EDT Plan of Treatment DateTypeDepartmentCare Team (Latest Contact Info)Vkqsaczwtjz41/04/2027 9:00 AM ESTProcedure Visit [facility] [address] [place] [address] Jeremiah Hoang DO [address] [place] [address] Health MaintenanceDue DateLast DoneCommentsCOVID-19 Vaccine (2024- season) 2024Influenza Vaccine (#1)2024Pneumococcal Vaccine: Pediatrics (0 to 5 Years) and At-Risk Patients (6 to 64 Years)Aged OutNo longer eligible based on patient's age to complete this topic Insurance Care Teams Team MemberRelationshipSpecialtyStart DateEnd Date Marianne Pena NP [address] [place] [address] PCP - Medical [facility]10/27/2211 Talisha Mixon MD [address] [place] [address] [facility] - [facility]10/07/22 Naila Gómez NP [address] [place], [place] [id number] Nurse PractitionerFaWellstar [facility]10/07/22
== END 2025-02-28 20:26 | disposition home or self-care (01) ==
LOC: LAB 20:25
PROVIDERS: PCP Student in an Organized Health Care Education/Training Program; Visit Provider Obstetrics & Gynecology
DX: Z01.419 Encounter for gynecological examination (general) (routine) without abnormal findings (principal)
CPT/HCPCS: 88175